=== PATIENT | male | born 1950 | race Caucasian/White ===

== ENCOUNTER → 2017-08-15 | Outpatient (CLI) | payer MEDICARE ==
--- NOTE | 2017-08-15 09:00 | US ---
EXAMINATION TYPE: US abdomen limited DATE OF EXAM: 08/15/2017 COMPARISON: NONE CLINICAL HISTORY: 67-year-old male K21.9 gastro-esophageal reflux disease. Intermittent epigastric pa in and couple months, reflux Technique: Multiple sonographic images of the right upper quadrant are obtained. FINDINGS: Outboard Motor Mechanic notes: Difficult and limited study due to patient body habitus Liver Length: 13.8 cm Gallbladder Wall: 0.2 cm CBD: 0.5 cm Right Kidney: 12.0 x 5.7 x 5.7 cm Pancreas: obscured by overlying midline bowel gas Liver: Very limited intercostal views. Gallbladder: visualized portions wnl, limited by rib shadowing and overlying bowel gas. No abnormal distention, wall thickening, pericholecystic fluid, or shadowing calculi seen. Evidence for sonographic Cain's sign: no CBD: visualized portions wnl, limited by overlying bowel gas Right Kidney: visualized portions wnl, limited by overlying bowel gas. No hydronephrosis. IMPRESSION: Limited study due to body habitus and prominent rib shadowing. Suboptimal assessment of the liver. No cholelithiasis, acute cholecystitis, or biliary ductal dilatation.
== END | disposition home or self-care (01) ==
LOC: RADUSWWP 08:18
PROVIDERS: ATTEND Family Medicine
DX: K21.9 Gastro-esophageal reflux disease without esophagitis (principal); R10.816 Epigastric abdominal tenderness
CPT/HCPCS: 76705

== ENCOUNTER → 2018-05-17 | Outpatient (CLI) | payer MEDICARE ==
--- NOTE | 2018-05-18 07:16 | NM ---
EXAMINATION TYPE: NM DatScan Brain SPECT DATE OF EXAM: 05/17/2018 COMPARISON: NONE HISTORY: Essential tremor TECHNIQUE: 10 drops of Lugol's solution was administered 1 hour prior to injection as a thyroid bloc jamey agent. After the administration of 4.06 mCi I-123 Ioflupane DaTscan. Images obtained 3 hours p ost injection. SPECT images of the brain were acquired with axial and coronal reconstructions. FINDINGS: Quantification demonstrates significant bilateral reduction in the uptake in both the putamen and cau date overall symmetrically. This indicates global reduction of presynaptic dopaminergic nerve terminals (described as balanced lo ss or ?weak commas?), rather than the typical preferential reduction in the putamen. Visually, this is supported by a higher background appearance in this patient. 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
== END | disposition home or self-care (01) ==
LOC: RADNMMAIN 10:44
DX: G25.0 Essential tremor (principal)
CPT/HCPCS: 78607; A9584

== ENCOUNTER 2018-07-23 10:13 | Inpatient (IN) | payer MEDICARE ==
[2018-07-23] MEDS ORDERED: MORPHINE SULFATE 4 MG/ML SYRINGE IV STA (10:58)
[2018-07-23] MEDS ORDERED: ONDANSETRON 4 MG/2 ML VIAL IVP STA (10:58)
[2018-07-23] MEDS ORDERED: PANTOPRAZOLE 40 MG/10 ML VIAL IVP STA (10:58)
[2018-07-23] MEDS ORDERED: SODIUM CHLORIDE 0.9% 1,000 ML IV STA ×2 (10:58)
[2018-07-23] MEDS ORDERED: MAG HYDROX/AL HYDROX/SIMETH 30 ML, HYOSCYAMINE ELIXIR 10 ML, CIMETIDINE HCL 300 MG, LID... PO STA ×4 (10:59)
--- NOTE | 2018-07-23 11:04 | ED ---
Abdominal Pain HPI - General Chief Complaint: Abdominal Pain Stated Complaint: poss hernia Time Seen by Provider: 07/23/18 10:38 Source: patient, RN notes reviewed, old records reviewed Mode of arrival: ambulatory - History of Present Illness Initial Comments: Patient is a 68-year-old male presents today with severe epigastric abdominal pain. Patient reports that his symptoms have been off and on for the past 2 days. He reports it seems to be related to after drinking binge a few days ago. Patient states he took [place] yesterday and was comfortable. Today after drinking coffee if symptoms return. She reports that he is a daily drinker. - Related Data Home Medications Medication Instructions Recorded Confirmed Primidone [Mysoline] 50 mg PO HS 07/23/18 07/23/18 buPROPion HCL [Wellbutrin SR] 50 mg PO QAM 07/23/18 07/23/18 Allergies Allergy/AdvReac Type Severity Reaction Status Date / Time No Known Allergies Allergy Verified 07/23/18 11:27 Review of Systems ROS Statement: Those systems with pertinent positive or pertinent negative responses have been documented in the HPI. ROS Other: All systems not noted in ROS Statement are negative. Past Medical History Past Medical History: GERD/Reflux, Hypertension History of Any Multi-Drug Resistant Organisms: None Reported Past Surgical History: No Surgical Hx Reported Past Psychological History: No Psychological Hx Reported Smoking Status: Former smoker Past Alcohol Use History: Daily Past Drug Use History: None Reported General Exam - General Exam Comments Initial Comments: 68-year-old male. Alert and oriented. Patient appears in moderate discomfort. General appearance: alert, in no apparent distress Head exam: Present: atraumatic, normocephalic, normal inspection Eye exam: Present: normal appearance, PERRL, EOMI. Absent: scleral icterus, conjunctival injection, periorbital swelling ENT exam: Present: normal exam, mucous membranes moist Neck exam: Present: normal inspection. Absent: tenderness, meningismus, lymphadenopathy Respiratory exam: Present: normal lung sounds bilaterally. Absent: respiratory distress, wheezes, rales, rhonchi, stridor Cardiovascular Exam: Present: regular rate, normal rhythm, normal heart sounds. Absent: systolic murmur, diastolic murmur, rubs, gallop, clicks GI/Abdominal exam: Present: soft, tenderness (Epigastric tenderness.), normal bowel sounds. Absent: distended, guarding, rebound, rigid Extremities exam: Present: normal inspection, full ROM, normal capillary refill. Absent: tenderness, pedal edema, joint swelling, calf tenderness Back exam: Present: normal inspection Neurological exam: Present: alert, oriented X3, CN II-XII intact Psychiatric exam: Present: normal affect, normal mood Course Vital Signs 07/23/18 07/23/18 07/23/18 10:14 11:30 12:30 Temperature 97.9 F Pulse Rate 98 100 102 H Respiratory 22 22 22 Rate Blood Pressure 183/112 200/120 182/110 O2 Sat by Pulse 96 95 95 Oximetry 07/23/18 12:53 Temperature Pulse Rate 95 Respiratory 18 Rate Blood Pressure 167/103 O2 Sat by Pulse 98 Oximetry - Reevaluation(s) Reevaluation #1: 07/23/18 13:06 Multiple re-evaluations and pain medication Patient continues to complain of severe epigastric pain. CT abdomen and pelvis will be completed. Medical Decision Making - Medical Decision Making Patient is a 68-year-old male presents today with acute epigastric abdominal pain. Nurses concern for pain related to his hiatal hernia. Patient is given multiple IV medications with little relief of pain and did not have any improvement after GI cocktail. Patient labwork was reviewed. White blood cell count is 12,000. Liver enzymes are normal. Bilirubin was 2.0. Patient eventually went underwent CT abdomen and pelvis. There is evidence of cholecystitis with air surrounding the gallbladder wall. Patient was initiated on Zosyn and blood cultures and lactic acid was obtained at that time. While in emergency department he has been and significant pain but is still laughing and joking. Patient was given another dose of Dilaudid. Patient's case discussed with Dr. Green who discussed the case with Dr. Wilburn. [place] the Patient remaining nothing by mouth. Likely surgery in the morning. - Lab Data Result diagrams: 07/23/18 11:07 07/23/18 11:07 Lab Results 07/23/18 07/23/18 07/23/18 Range/Units 11:07 11:07 11:07 WBC 12.7 H (3.8-10.6) k/uL RBC 5.61 (4.30-5.90) m/uL Hgb 17.8 H (13.0-17.5) gm/dL Hct 51.2 (39.0-53.0) % MCV 91.2 (80.0-100.0) fL MCH 31.7 (25.0-35.0) pg MCHC 34.8 (31.0-37.0) g/dL RDW 12.9 (11.5-15.5) % Plt Count 134 L (150-450) k/uL Neutrophils % 85 % Lymphocytes % 7 % Monocytes % 6 % Eosinophils % 0 % Basophils % 0 % Neutrophils # 10.8 H (1.3-7.7) k/uL Lymphocytes # 0.9 L (1.0-4.8) k/uL Monocytes # 0.8 (0-1.0) k/uL Eosinophils # 0.1 (0-0.7) k/uL Basophils # 0.1 (0-0.2) k/uL PT 10.1 (9.0-12.0) sec INR 0.9 (<1.2) APTT 24.2 (22.0-30.0) sec Sodium 136 L (137-145) mmol/L Potassium 4.2 (3.5-5.1) mmol/L Chloride 102 (98-107) mmol/L Carbon Dioxide 22 (22-30) mmol/L Anion Gap 12 mmol/L BUN 11 (9-20) mg/dL Creatinine 0.80 (0.66-1.25) mg/dL Est GFR (CKD-EPI)AfAm >90 (>60 ml/min/1.73 sqM) Est GFR (CKD-EPI)NonAf >90 (>60 ml/min/1.73 sqM) Glucose 148 H (74-99) mg/dL Calcium 9.3 (8.4-10.2) mg/dL Total Bilirubin 2.0 H (0.2-1.3) mg/dL AST 35 (17-59) U/L ALT 67 (21-72) U/L Alkaline Phosphatase 74 (38-126) U/L Troponin I (0.000-0.034) ng/mL Total Protein 7.5 (6.3-8.2) g/dL Albumin 4.4 (3.5-5.0) g/dL Amylase 61 (30-110) U/L Lipase 100 (23-300) U/L 07/23/18 Range/Units 11:07 WBC (3.8-10.6) k/uL RBC (4.30-5.90) m/uL Hgb (13.0-17.5) gm/dL Hct (39.0-53.0) % MCV (80.0-100.0) fL MCH (25.0-35.0) pg MCHC (31.0-37.0) g/dL RDW (11.5-15.5) % Plt Count (150-450) k/uL Neutrophils % % Lymphocytes % % Monocytes % % Eosinophils % % Basophils % % Neutrophils # (1.3-7.7) k/uL Lymphocytes # (1.0-4.8) k/uL Monocytes # (0-1.0) k/uL Eosinophils # (0-0.7) k/uL Basophils # (0-0.2) k/uL PT (9.0-12.0) sec INR (<1.2) APTT (22.0-30.0) sec Sodium (137-145) mmol/L Potassium (3.5-5.1) mmol/L Chloride (98-107) mmol/L Carbon Dioxide (22-30) mmol/L Anion Gap mmol/L BUN (9-20) mg/dL Creatinine (0.66-1.25) mg/dL Est GFR (CKD-EPI)AfAm (>60 ml/min/1.73 sqM) Est GFR (CKD-EPI)NonAf (>60 ml/min/1.73 sqM) Glucose (74-99) mg/dL Calcium (8.4-10.2) mg/dL Total Bilirubin (0.2-1.3) mg/dL AST (17-59) U/L ALT (21-72) U/L Alkaline Phosphatase (38-126) U/L Troponin I <0.012 (0.000-0.034) ng/mL Total Protein (6.3-8.2) g/dL Albumin (3.5-5.0) g/dL Amylase (30-110) U/L Lipase (23-300) U/L 07/23/18 14:46 EKG performed at 1247 shows normal sinus rhythm RSR with QR pattern in V1 just right ventricular conduction delay. Voltage criteria for LVH. Nonspecific ST abnormality. Abnormal EKG noted. Ventricular rate of 90 bpm. ME interval is 180 ms. She buddhism 90 ms. QT QTc is 366/447 ms. - Radiology Data Radiology results: report reviewed KUB shows some air fluid levels in the right side of the colon and transverse colon suggesting liquid stool which could reflect enteritis or ileus. No evidence of perforation or free air. Findings compatible with emphysema cholecystitis with air seen in the gallbladder wall intraluminal within the gallbladder. No intrahepatic pneumobilia. Findings were communicated to me at 1355. Age indeterminate compression deformity of the T11 vertebral body. Correlate with point tenderness. Evidence of pulmonary fibrosis. Disposition Clinical Impression: Cholecystitis Disposition: ADMITTED IP TO THIS HOSP Condition: Stable Is patient prescribed a controlled substance at d/c from ED?: No Referrals: [facility],Clinic [Primary Care Provider] - 1-2 days Time of Disposition: 14:50
[2018-07-23] MEDS ORDERED: HYDROmorphone 1 MG/ML 1 ML SYRINGE IVP STA ×2 (11:52→14:37)
[2018-07-23 11:53] LABS: ALT 67 U/L (21-72); AST 35 U/L (17-59); Albumin 4.4 g/dL (3.5-5.0); Alkaline Phosphatase 74 U/L (38-126); Amylase 61 U/L (30-110); Anion Gap 12 mmol/L; Blood Urea Nitrogen 11 mg/dL (9-20); Calcium 9.3 mg/dL (8.4-10.2); Carbon Dioxide 22 mmol/L (22-30); Chloride 102 mmol/L (98-107); Glucose 148 mg/dL (74-99); Lipase 100 U/L (23-300); Potassium 4.2 mmol/L (3.5-5.1); Sodium 136 mmol/L (137-145); Total Protein 7.5 g/dL (6.3-8.2)
--- NOTE | 2018-07-23 11:54 | XR ---
EXAMINATION TYPE: XR KUB DATE OF EXAM: 07/23/2018 CLINICAL DATA: 68-year-old male with upper abdominal pain, PHH COMPARISON: None FINDINGS: Lung bases are clear. No evidence for free intraperitoneal air. No dilated small bowel. Some air fluid levels are noted in the right side of the colon and transverse colon. No significant stool burden seen. No suspicious calcifications identified. IMPRESSION: 1. Some air-fluid levels in the right side of the colon and transverse colon suggest liquid stool marko t could reflect enteritis or ileus. 2.No evidence of bowel obstruction or free intraperitoneal air.
[2018-07-23 12:01] LABS: INR 0.9 (<1.2); Partial Thromboplastin Time 24.2 sec (22.0-30.0); Prothrombin Time 10.1 sec (9.0-12.0)
[2018-07-23 12:06] LABS: Basophils # (A) 0.1 k/uL (0-0.2); Basophils % (A) 0 %; Eosinophils # (A) 0.1 k/uL (0-0.7); Eosinophils % (A) 0 %; HCT 51.2 % (39.0-53.0); HGB 17.8 gm/dL (13.0-17.5); Lymphocytes # (A) 0.9 k/uL (1.0-4.8); Lymphocytes % (A) 7 %; MCH 31.7 pg (25.0-35.0); MCHC 34.8 g/dL (31.0-37.0); MCV 91.2 fL (80.0-100.0); Mean Platelet Volume 8.3; Monocytes # (A) 0.8 k/uL (0-1.0); Monocytes % (A) 6 %; Neutrophils # (A) 10.8 k/uL (1.3-7.7); Neutrophils % (A) 85 %; Platelet Count 134 k/uL (150-450); RBC 5.61 m/uL (4.30-5.90); RDW 12.9 % (11.5-15.5); WBC 12.7 k/uL (3.8-10.6)
[2018-07-23] MEDS ORDERED: NITROGLYCERIN SL TABS 0.4 MG TAB SUBLINGUAL STA (12:33)
[2018-07-23] MEDS ORDERED: PIPERACILLIN-TAZOBACTAM 3.375 GM in SODIUM CHLORIDE 0.9% 100 ML IVPB STA (13:58)
--- NOTE | 2018-07-23 14:02 | CT ---
EXAMINATION TYPE: CT abdomen pelvis w con DATE OF EXAM: 07/23/2018 COMPARISON: None HISTORY: Epigastric pain CT DLP: 1418.5 mGycm Automated exposure control for dose reduction was used. TECHNIQUE: Helical acquisition of images was performed from the lung bases through the pelvis. CONTRAST: Performed without Oral Contrast and with IV Contrast, patient injected with 100 mL of Isovue 300. FINDINGS: LUNG BASES: Peripheral predominant reticular opacity seen throughout the lung bases with early develo pment of honeycombing medially at the right lung base is seen representing pulmonary fibrosis. Very m ild cylindrical bronchiectasis is seen of the medial right lung base. Small hiatal hernia is present. LIVER/GB: Air is seen within the gallbladder. Additionally there are numerous foci of nondependent ai r within the gallbladder wall marked on the coronal images. Mild right upper quadrant fat stranding i s seen. Findings are most compatible with emphysematous cholecystitis. PANCREAS: No significant abnormality is seen. SPLEEN: No significant abnormality is seen. ADRENALS: No significant abnormality is seen. KIDNEYS: Kidneys excrete symmetrically without hydronephrosis. FREE AIR: No free air is visualized. REPRODUCTIVE ORGANS: Prostate gland is enlarged and heterogenous measuring 5.5 cm in transverse dimen tata. URINARY BLADDER: No significant abnormality is seen. ADENOPATHY: No greater than 1 cm short axis lymph nodes are seen in the abdomen or pelvis. OSSEOUS STRUCTURES: Mild multilevel degenerative changes of the spine are seen and mild to moderate bilateral femoral acetabular arthropathy. There is a compression deformity of the T11 vertebral body that is age indeterminant with height loss of approximately 50%. Bridging the spinous processes at th is level is seen. BOWEL: There are scattered colonic diverticula without pericolonic fat stranding. No dilated large o r small bowel. OTHER: Moderate atherosclerosis is seen of the abdominal aorta and its branches. IMPRESSION: 1. FINDINGS COMPATIBLE WITH EMPHYSEMATOUS CHOLECYSTITIS WITH AIR SEEN IN THE GALLBLADDER WALL AND INT RALUMINAL WITHIN THE GALLBLADDER. NO INTRAHEPATIC PNEUMOBILIA. FINDINGS WERE COMMUNICATED WITH THE OR DERING PROVIDER AND APPROXIMATELY 1355 ON 07/23/[address] BLISS. 2. AGE INDETERMINANT COMPRESSION DEFORMITY OF THE T11 VERTEBRAL BODY. CORRELATE WITH POINT TENDERNESS . 3. PULMONARY FIBROSIS.
[2018-07-23] MEDS ORDERED: SODIUM CHLORIDE 0.9% 2,000 ML IV ONE (14:26)
[2018-07-23] MEDS ORDERED: IBUPROFEN 400 MG TAB PO PRN (14:51)
[2018-07-23] MEDS ORDERED: ACETAMINOPHEN TAB 325 MG TAB PO PRN (14:51)
[2018-07-23] MEDS ORDERED: ONDANSETRON 4 MG/2 ML VIAL IVP PRN (14:51)
[2018-07-23] MEDS ORDERED: HYDROmorphone 1 MG/ML 1 ML SYRINGE IVP PRN (14:51)
[2018-07-23] MEDS ORDERED: NALOXONE 0.4 MG/ML 1 ML VIAL IV PRN (14:51)
--- NOTE | 2018-07-23 15:14 | P.GSHP ---
<Nyasia Metz A - Last Filed: 07/23/18 15:13> History of Present Illness H&P Date: 07/23/18 Chief Complaint: abdominal pain CHIEF COMPLAINT: Abdominal pain HISTORY OF PRESENT ILLNESS: 68 year old male who presented to the ER with a chief complaint of abdominal pain. Patient reports pain has been present for 2 days. He reports daily alcohol use and initially attributed his symptoms to his alcohol use. He reports after drinking coffee this morning he symptoms came back and he came to the ER for further evaluation. He denies nausea or vomiting. Denies constipation or diarrhea. Denies fever or chills. PAST MEDICAL HISTORY: See list. PAST SURGICAL HISTORY: See list. SOCIAL HISTORY: No illicit drug use. Daily alcohol use. REVIEW OF SYSTEMS: CONSTITUTIONAL: Denies fever or chills. HEENT: Denies blurred vision, vision changes, or eye pain. Denies hemoptysis CARDIOVASCULAR: Denies chest pain or pressure. RESPIRATORY: No shortness of breath. GASTROINTESTINAL: Refer to HPI for pertinent findings HEMATOLOGIC: Denies bleeding disorders. GENITOURINARY: Denies any blood in urine. SKIN: Denies pruitis. Denies rash. PHYSICAL EXAM: VITAL SIGNS: Reviewed. GENERAL: Well-developed in no acute distress. HEENT: No sclera icterus. Extraocular movements grossly intact. Moist buccal mucosa. Head is atraumatic, normocephalic. ABDOMEN: Soft. Nondistended. tenderness upon palpation of right upper quadrant and epigastric region. NEUROLOGIC: Alert and oriented. Cranial nerves II through XII grossly intact. IMAGING: CT abdomen and pelvis: Air seen within the gallbladder. Additionally there are numerous foci of nondependent air within the gallbladder wall marked cornal images. mild right upper quadrant fat stranding is seen. Findings are most compatible with emphysematous cholecystitis ASSESSMENT: 1. Abdominal pain 2. Emphysematous cholecystitis PLAN: 1. NPO 2. IV fluids 3. Patient will undergo laparoscopic cholecystectomy tomorrow with Dr. Sykes Nurse practitioner note has been reviewed by physician. Signing provider agrees with the documented findings, assessment, and plan of care. Past Medical History Past Medical History: GERD/Reflux, Hypertension History of Any Multi-Drug Resistant Organisms: None Reported Past Surgical History: No Surgical Hx Reported Past Psychological History: No Psychological Hx Reported Smoking Status: Former smoker Past Alcohol Use History: Daily Past Drug Use History: None Reported Medications and Allergies Home Medications Medication Instructions Recorded Confirmed Type Primidone [Mysoline] 50 mg PO HS 07/23/18 07/23/18 History buPROPion HCL [Wellbutrin SR] 50 mg PO QAM 07/23/18 07/23/18 History Allergies Allergy/AdvReac Type Severity Reaction Status Date / Time No Known Allergies Allergy Verified 07/24/18 10:01 Surgical - Exam Vital Signs Temp Pulse Resp BP Pulse Ox 97.9 F 98 22 183/112 96 07/23/18 10:14 07/23/18 10:14 07/23/18 10:14 07/23/18 10:14 07/23/18 10:14 Results - Labs 07/23/18 11:07 07/23/18 11:07 Abnormal Lab Results - Last 24 Hours (Table) 07/23/18 07/23/18 Range/Units 11:07 11:07 WBC 12.7 H (3.8-10.6) k/uL Hgb 17.8 H (13.0-17.5) gm/dL Plt Count 134 L (150-450) k/uL Neutrophils # 10.8 H (1.3-7.7) k/uL Lymphocytes # 0.9 L (1.0-4.8) k/uL Sodium 136 L (137-145) mmol/L Glucose 148 H (74-99) mg/dL Total Bilirubin 2.0 H (0.2-1.3) mg/dL Diabetes panel 07/23/18 Range/Units 11:07 Sodium 136 L (137-145) mmol/L Potassium 4.2 (3.5-5.1) mmol/L Chloride 102 (98-107) mmol/L Carbon Dioxide 22 (22-30) mmol/L BUN 11 (9-20) mg/dL Creatinine 0.80 (0.66-1.25) mg/dL Glucose 148 H (74-99) mg/dL Calcium 9.3 (8.4-10.2) mg/dL AST 35 (17-59) U/L ALT 67 (21-72) U/L Alkaline Phosphatase 74 (38-126) U/L Total Protein 7.5 (6.3-8.2) g/dL Albumin 4.4 (3.5-5.0) g/dL Calcium panel 07/23/18 Range/Units 11:07 Calcium 9.3 (8.4-10.2) mg/dL Albumin 4.4 (3.5-5.0) g/dL Pituitary panel 07/23/18 Range/Units 11:07 Sodium 136 L (137-145) mmol/L Potassium 4.2 (3.5-5.1) mmol/L Chloride 102 (98-107) mmol/L Carbon Dioxide 22 (22-30) mmol/L BUN 11 (9-20) mg/dL Creatinine 0.80 (0.66-1.25) mg/dL Glucose 148 H (74-99) mg/dL Calcium 9.3 (8.4-10.2) mg/dL Adrenal panel 07/23/18 Range/Units 11:07 Sodium 136 L (137-145) mmol/L Potassium 4.2 (3.5-5.1) mmol/L Chloride 102 (98-107) mmol/L Carbon Dioxide 22 (22-30) mmol/L BUN 11 (9-20) mg/dL Creatinine 0.80 (0.66-1.25) mg/dL Glucose 148 H (74-99) mg/dL Calcium 9.3 (8.4-10.2) mg/dL Total Bilirubin 2.0 H (0.2-1.3) mg/dL AST 35 (17-59) U/L ALT 67 (21-72) U/L Alkaline Phosphatase 74 (38-126) U/L Total Protein 7.5 (6.3-8.2) g/dL Albumin 4.4 (3.5-5.0) g/dL <Dominic Sykes - Last Filed: 07/24/18 10:14> Surgical - Exam Vital Signs Temp Pulse Resp BP Pulse Ox 97.9 F 98 22 183/112 96 07/23/18 10:14 07/23/18 10:14 07/23/18 10:14 07/23/18 10:14 07/23/18 10:14 Results - Labs 07/24/18 08:00 07/24/18 08:00 Abnormal Lab Results - Last 24 Hours (Table) 07/23/18 07/23/18 07/24/18 Range/Units 11:07 11:07 08:00 WBC 12.7 H 15.6 H (3.8-10.6) k/uL Hgb 17.8 H (13.0-17.5) gm/dL Plt Count 134 L 113 L (150-450) k/uL Neutrophils # 10.8 H 14.4 H (1.3-7.7) k/uL Lymphocytes # 0.9 L 0.6 L (1.0-4.8) k/uL Sodium 136 L (137-145) mmol/L Glucose 148 H (74-99) mg/dL Calcium (8.4-10.2) mg/dL Total Bilirubin 2.0 H (0.2-1.3) mg/dL AST (17-59) U/L Total Protein (6.3-8.2) g/dL Albumin (3.5-5.0) g/dL 07/24/18 Range/Units 08:00 WBC (3.8-10.6) k/uL Hgb (13.0-17.5) gm/dL Plt Count (150-450) k/uL Neutrophils # (1.3-7.7) k/uL Lymphocytes # (1.0-4.8) k/uL Sodium (137-145) mmol/L Glucose 129 H (74-99) mg/dL Calcium 8.0 L (8.4-10.2) mg/dL Total Bilirubin 3.3 H (0.2-1.3) mg/dL AST 61 H (17-59) U/L Total Protein 5.9 L (6.3-8.2) g/dL Albumin 3.3 L (3.5-5.0) g/dL Diabetes panel 07/23/18 07/24/18 Range/Units 11:07 08:00 Sodium 136 L 139 (137-145) mmol/L Potassium 4.2 3.9 (3.5-5.1) mmol/L Chloride 102 107 (98-107) mmol/L Carbon Dioxide 22 24 (22-30) mmol/L BUN 11 13 (9-20) mg/dL Creatinine 0.80 1.10 (0.66-1.25) mg/dL Glucose 148 H 129 H (74-99) mg/dL Calcium 9.3 8.0 L (8.4-10.2) mg/dL AST 35 61 H (17-59) U/L ALT 67 63 (21-72) U/L Alkaline Phosphatase 74 59 (38-126) U/L Total Protein 7.5 5.9 L (6.3-8.2) g/dL Albumin 4.4 3.3 L (3.5-5.0) g/dL Calcium panel 07/23/18 07/24/18 Range/Units 11:07 08:00 Calcium 9.3 8.0 L (8.4-10.2) mg/dL Albumin 4.4 3.3 L (3.5-5.0) g/dL Pituitary panel 07/23/18 07/24/18 Range/Units 11:07 08:00 Sodium 136 L 139 (137-145) mmol/L Potassium 4.2 3.9 (3.5-5.1) mmol/L Chloride 102 107 (98-107) mmol/L Carbon Dioxide 22 24 (22-30) mmol/L BUN 11 13 (9-20) mg/dL Creatinine 0.80 1.10 (0.66-1.25) mg/dL Glucose 148 H 129 H (74-99) mg/dL Calcium 9.3 8.0 L (8.4-10.2) mg/dL Adrenal panel 07/23/18 07/24/18 Range/Units 11:07 08:00 Sodium 136 L 139 (137-145) mmol/L Potassium 4.2 3.9 (3.5-5.1) mmol/L Chloride 102 107 (98-107) mmol/L Carbon Dioxide 22 24 (22-30) mmol/L BUN 11 13 (9-20) mg/dL Creatinine 0.80 1.10 (0.66-1.25) mg/dL Glucose 148 H 129 H (74-99) mg/dL Calcium 9.3 8.0 L (8.4-10.2) mg/dL Total Bilirubin 2.0 H 3.3 H (0.2-1.3) mg/dL AST 35 61 H (17-59) U/L ALT 67 63 (21-72) U/L Alkaline Phosphatase 74 59 (38-126) U/L Total Protein 7.5 5.9 L (6.3-8.2) g/dL Albumin 4.4 3.3 L (3.5-5.0) g/dL Assessment and Plan Assessment: Acute cholecystitis. Patient will undergo laparoscopic cholecystectomy in the a.m.
[2018-07-23] MEDS ORDERED: LABETALOL 200 MG TAB PO STA (16:10)
[2018-07-23] MEDS: SODIUM CHLORIDE 0.9% 1,000 ML IV SCH (16:38)
[2018-07-23] MEDS: HEPARIN SODIUM,PORCINE 5,000 UNIT/ML 1 ML VIAL SQ SCH (16:38)
[2018-07-23] MEDS: HYDROmorphone 1 MG/ML 1 ML SYRINGE IVP PRN ×3 (17:36→22:27)
[2018-07-23] MEDS: PIPERACILLIN-TAZOBACTAM 3.375 GM in SODIUM CHLORIDE 0.9% 100 ML IVPB SCH ×2 (20:28→22:05)
[2018-07-23] MEDS ORDERED: HYDROmorphone 0.5 MG/0.5 ML SYRINGE IVP PRN (20:37)
[2018-07-23] MEDS ORDERED: MORPHINE SULFATE 4 MG/ML SYRINGE IV PRN (20:37)
[2018-07-23] MEDS ORDERED: LACTATED RINGERS 1,000 ML IV SCH (20:45)
[2018-07-24] MEDS: HYDROmorphone 1 MG/ML 1 ML SYRINGE IVP PRN ×9 (00:31→22:15)
[2018-07-24] MEDS: HEPARIN SODIUM,PORCINE 5,000 UNIT/ML 1 ML VIAL SQ SCH ×4 (00:31→23:29)
[2018-07-24] MEDS: SODIUM CHLORIDE 0.9% 1,000 ML IV SCH ×2 (02:04→13:15)
[2018-07-24] MEDS: PIPERACILLIN-TAZOBACTAM 3.375 GM in SODIUM CHLORIDE 0.9% 100 ML IVPB SCH ×3 (04:19→19:39)
[2018-07-24] MEDS: PANTOPRAZOLE 40 MG/10 ML VIAL IVP SCH (08:16)
[2018-07-24 08:49] LABS: Basophils % (A) 0 %; Eosinophils % (A) 0 %; HCT 45.1 % (39.0-53.0); Lymphocytes # (A) 0.6 k/uL (1.0-4.8); Lymphocytes % (A) 4 %; MCH 31.6 pg (25.0-35.0); MCHC 33.4 g/dL (31.0-37.0); MCV 94.7 fL (80.0-100.0); Mean Platelet Volume 7.3; Monocytes # (A) 0.5 k/uL (0-1.0); Monocytes % (A) 3 %; Neutrophils # (A) 14.4 k/uL (1.3-7.7); Neutrophils % (A) 93 %; Platelet Count 113 k/uL (150-450); RBC 4.76 m/uL (4.30-5.90); RDW 13.2 % (11.5-15.5); WBC 15.6 k/uL (3.8-10.6)
[2018-07-24 09:14] LABS: Albumin 3.3 g/dL (3.5-5.0); Potassium 3.9 mmol/L (3.5-5.1); Total Bilirubin 3.3 mg/dL (0.2-1.3); Total Protein 5.9 g/dL (6.3-8.2)
[2018-07-24] MEDS ORDERED: IV FLUID CONTINUATION 200 ML IV ONE (09:49)
--- NOTE | 2018-07-24 10:13 | P.PN ---
Progress Note - Text Progress Note Date: 07/24/18 The patient states she's had a six-month history of right upper quadrant pain. He states his pain is a 10 out of 10 today. I had a lengthy discussion with the patient and his that I'm concerned that he may need an open cholecystectomy due to severe chronic on acute cholecystitis.
[2018-07-24] MEDS ORDERED: LIDOCAINE 1% 20 ML VIAL (10MG/ML) FOR IV START INTRADERMA ONE (10:15)
[2018-07-24] MEDS ORDERED: HEPARIN SODIUM,PORCINE 5,000 UNIT/ML 1 ML VIAL SQ ONE (10:15)
[2018-07-24] MEDS ORDERED: DEXAMETHASONE SOD PHOSPHATE 10 MG/ML 1 ML VIAL IV ONE (10:15)
[2018-07-24] MEDS ORDERED: LACTATED RINGERS 1,000 ML IV ONE (10:15)
[2018-07-24] MEDS ORDERED: ONDANSETRON 4 MG/2 ML VIAL IVP ONE (10:15)
[2018-07-24] MEDS ORDERED: GLYCOPYRROLATE 0.2 MG/ML 2 ML VIAL ONE (10:27)
[2018-07-24] MEDS ORDERED: ROCURONIUM BROMIDE 10 MG/ML 10 ML VIAL IV ONE (10:27)
[2018-07-24] MEDS ORDERED: MIDAZOLAM 2 MG/2 ML VIAL ONE (10:27)
[2018-07-24] MEDS ORDERED: fentaNYL (PF) 50 MCG/ML 2 ML AMP ONE (10:27)
[2018-07-24] MEDS ORDERED: ACETAMINOPHEN IV (For NPO) 1,000 MG/100 ML VIAL ONE (10:27)
[2018-07-24] MEDS ORDERED: LIDOCAINE 1% INJ 10MG/ML (20 ML MDV) ONE (10:27)
[2018-07-24] MEDS ORDERED: SUCCINYLCHOLINE CHLORIDE 100 MG/5 ML SYR IV ONE (10:27)
[2018-07-24] MEDS ORDERED: PROPOFOL 10 MG/ML 20 ML VIAL IV ONE (10:27)
[2018-07-24] MEDS ORDERED: NEOSTIGMINE 1 MG/ML 10 ML VIAL ONE (10:27)
[2018-07-24] MEDS ORDERED: ePHEDrine SULFATE/0.9% NACL/PF 50 MG/5 ML SYRINGE IV ONE (10:27)
[2018-07-24] MEDS ORDERED: BUPIVACAINE-EPI 0.5%-1:200,000 10 ML VIAL SQ ONE (11:09)
--- NOTE | 2018-07-24 11:36 | P.OP ---
Date of Procedure: 07/24/18 Preoperative Diagnosis: Cholecystitis Postoperative Diagnosis: Acute gangrenous cholecystitis Procedure(s) Performed: Laparoscopic cholecystectomy Anesthesia: MARY Surgeon: Dominic Sykes Estimated Blood Loss (ml): 50 Pathology: other (Gallbladder) Condition: stable Disposition: PACU Description of Procedure: The patient was placed on the operating table. The patient received a general endotracheal tube anesthesia. The patients abdomen was prepped and draped in the usual sterile fashion. Through an infraumbilical stab incision, the fascia of the anterior abdominal wall was grasped with a pair of Kochers and then the Veress needle was placed in the peritoneal cavity. Position of the Veress needle was confirmed with positive drop test. The abdomen was then insufflated. After adequate insufflation, the 10 mm trocar was placed in the peritoneal cavity. Following this the laparoscope was placed in the peritoneal cavity. The patient was placed in the head-up, right side up position and then a 5 mm trocar was placed in the right lateral and right subcostal position under direct visualization. A 8 mm trocar was placed in the epigastric position. The gallbladder appeared to be necrotic. The gallbladder is quite distended. Using the Harmonic scissors and opening was made in the gallbladder and the gallbladder was aspirated. The gallbladder was grasped in the fundus and infundibulum. Traction on the gallbladder was placed in the lateral and the cephalad positions. The triangle of Calot was visualized.. The cystic duct was bluntly dissected until the union of the cystic duct and common bile duct was seen. The cystic duct was t hen ligated with 2-0 Ethibond suture and a timeout device. The cystic duct was then divided and sealed with the Harmonic scissors. A PDS Endoloop was then placed throughout the cystic duct stump. The cystic artery divided and sealed with the Harmonic scissors. The gallbladder was then removed from the liver bed using Harmonic scissors. The liver bed was very friable The gallbladder was then extracted through the epigastric port site. Operative field was checked for any bleeding spots and Harmonic scissors was used to coagulate the liver bed. A ROMERO drain was placed in the gallbladder fossa and brought out through the lateral 5 mm trocar site. The abdomen was irrigated. The trocars were removed. The skin was closed using interrupted 3-0 Vicryl suture. Dermabond dressing were applied. The patient tolerated the procedure well.
[2018-07-24] MEDS ORDERED: SODIUM CHLORIDE 0.9% 500 ML 500 ML IV ONE (15:13)
--- NOTE | 2018-07-24 15:25 | P.CONS ---
History of Present Illness - Reason for Consult Consult date: 07/23/18 Hypertension - Chief Complaint RUQ pain - History of Present Illness Patient is 68-year-old male with known history of Parkinson's disease, essential tremor, osteoarthritis and history of colonoscopy with polypectomy came to ER with complaints of abdominal pain for the past 2 days. Abdominal pain is mainly in the epigastric region and to the right side of the abdomen sometimes radiate to the back.Patient states he took Susana-[place] yesterday and was comfortable. Today after drinking coffee if symptoms return. She reports that he does drink on a daily basis. Patient's blood pressure was elevated on admission with SBP greater than 180 mmHg. Patient does not have any history of hypertension. Patient does have some chills. No fever. No chest pain. No shortness of breath. Does have nausea. No vomiting. No headache or dizziness or lightheadedness. No recent illnesses. No history of renal stones. KUB x-ray showed no dilated small bowel. Some air-fluid levels are noted in the right side of the colon and transverse colon.No significant stool board and is seen. CT abdomen pelvis with contrast showed findings compatible with emphysema mattress good cystitis with is seen in the gallbladder wall and intraluminal within the gallbladder. Age indeterminant compression deformity of the T11 vertebral body Pulmonary fibrosis Review of Systems Constitutional: Patient denies any fever or chills . No generalized weakness or weight loss. Abdomen: Abdominal pain. Nausea. No diarrhea.. Cardiovascular: Patient denies any chest pain or short of breath no palpitations. Respiratory: patient denied any cough is from production. No shortness of breath Neurologic: Patient denied any numbness or tingling headache. Musculoskeletal: Patient denies any complaints of joint swelling or deformity. Skin: Negative Psychiatric: Negative Endocrine: No heat or cold intolerance. No recent weight gain. Genitourinary: No dysuria or hematuria. All other 14 point ROS negative except the above Past Medical History Past Medical History: Musculoskeletal Disorder, Neurologic Disorder Additional Past Medical History / Comment(s): Parkinson's disease, essential tremors, headaches, arthritis bilateral hands, vertigo with heights, bronchitis. History of Any Multi-Drug Resistant Organisms: None Reported Past Surgical History: No Surgical Hx Reported Additional Past Surgical History / Comment(s): Colonoscopy with polypectomy Past Anesthesia/Blood Transfusion Reactions: No Reported Reaction Smoking Status: Never smoker - Past Family History Father Family Medical History: Cancer Additional Family Medical History / Comment(s): Father had a form of leukemia. Mother Family Medical History: Cancer Additional Family Medical History / Comment(s): Mother from sarcoma. Medications and Allergies Home Medications Medication Instructions Recorded Confirmed Type Primidone [Mysoline] 50 mg PO HS 07/23/18 07/23/18 History buPROPion HCL [Wellbutrin SR] 50 mg PO QAM 07/23/18 07/23/18 History Allergies Allergy/AdvReac Type Severity Reaction Status Date / Time No Known Allergies Allergy Verified 07/24/18 10:01 Physical Exam Vitals: Vital Signs Temp Pulse Pulse Resp BP BP Pulse Ox 07/23/18 21:25 99.6 F 93 17 109/61 96 07/23/18 20:05 77 24 97/59 94 L 07/23/18 17:29 114/74 07/23/18 15:41 98.4 F 129 H 22 186/123 94 L 07/23/18 15:03 98.8 F 113 H 18 182/109 93 L 07/23/18 12:53 95 18 167/103 98 07/23/18 12:30 102 H 22 182/110 95 07/23/18 11:30 100 22 200/120 95 07/23/18 10:14 97.9 F 98 22 183/112 96 Intake and Output 07/23/18 07/23/18 07/23/18 06:59 14:59 22:59 Output Total 300 Balance -300 Output: Urine 300 Other: Weight 112.037 kg PHYSICAL EXAMINATION: Patient is lying in the bed comfortably, no acute distress, awake alert and oriented.. HEENT: Normocephalic. Neck is supple. Pupils reactive. Nostrils clear. Oral cavity is moist. Ears reveal no drainage. Neck reveals no JVD, carotid bruits, or thyromegaly. CHEST EXAMINATION: Trachea is central. Symmetrical expansion. Lung john clear to auscultation and percussion. CARDIAC: Normal S1, S2 with no gallops. No murmurs ABDOMEN: Soft. Right upper quadrant tenderness. Mild epigastric tenderness. Bowel sounds normal. No organomegaly. No abdominal bruits. Extremities: reveal no edema. No clubbing or cyanosis Neurologically awake, alert, oriented x3 with well-coordinated movements. No focal deficits noted Skin: No rash or skin lesions. Psychiatric: Coperative. Nonsuicidal Musculoskeletal: No joint swelling or deformity. Normal range of motion. Results CBC & Chem 7: 07/24/18 08:00 07/24/18 08:00 Labs: Abnormal Lab Results - Last 24 Hours (Table) 07/23/18 07/23/18 Range/Units 11:07 11:07 WBC 12.7 H (3.8-10.6) k/uL Hgb 17.8 H (13.0-17.5) gm/dL Plt Count 134 L (150-450) k/uL Neutrophils # 10.8 H (1.3-7.7) k/uL Lymphocytes # 0.9 L (1.0-4.8) k/uL Sodium 136 L (137-145) mmol/L Glucose 148 H (74-99) mg/dL Total Bilirubin 2.0 H (0.2-1.3) mg/dL Assessment and Plan Assessment: Right upper quadrant abdominal pain with acute cholecystitis. Uncontrolled blood pressure likely due to pain. Alcohol use on a daily basis Parkinson's disease next line essential tremors Arthritis bilateral hands History of vertigo DVT prophylaxis plan: Patient will be given labetalol 200 mg 1. Continue to monitor blood pressure and if continues to high, we will add Norvasc 5 mg daily and titrate as needed. Continue with IV fluids and pain management. Gen. surgery is following and is scheduled for cholecystectomy. Further recommendations based on the clinical course.. Time with Patient: Greater than 30
[2018-07-24] MEDS: DOCUSATE 100 MG CAP PO SCH ×2 (20:56→20:59)
--- NOTE | 2018-07-24 23:18 | P.PN ---
Subjective Progress Note Date: 07/24/18 Principal diagnosis: Acute cholecystitis status post laparoscopic cholecystectomy Patient is 68-year-old male with known history of Parkinson's disease, essential tremor, osteoarthritis and history of colonoscopy with polypectomy came to ER with complaints of abdominal pain for the past 2 days. Abdominal pain is mainly in the epigastric region and to the right side of the abdomen sometimes radiate to the back.Patient states he took Susana-[place] yesterday and was comfortable. Today after drinking coffee if symptoms return. She reports that he does drink on a daily basis. Patient's blood pressure was elevated on admission with SBP greater than 180 mmHg. Patient does not have any history of hypertension. Patient does have some chills. No fever. No chest pain. No shortness of breath. Does have nausea. No vomiting. No headache or dizziness or lightheadedness. No recent illnesses. No history of renal stones. KUB x-ray showed no dilated small bowel. Some air-fluid levels are noted in the right side of the colon and transverse colon.No significant stool board and is seen. CT abdomen pelvis with contrast showed findings compatible with emphysema mattress good cystitis with is seen in the gallbladder wall and intraluminal within the gallbladder. Age indeterminant compression deformity of the T11 vertebral body Pulmonary fibrosis 07/24/2018 Patient status post laparoscopic cholecystectomy on 07/24/2018. Patient does have s some soreness at the surgical site. No complaints of chest pain or shortness of breath. Urine is darker red and was given fluid bolus and continued on IV fluids. Otherwise blood pressure is not elevated. Patient is not on any blood pressure medications currently. No fever no chills. Patient was also provided with stool softeners. No nausea no vomiting. Current medications reviewed. Objective - Vital Signs Vital signs: Vital Signs Temp 97.6 F 07/24/18 11:51 Pulse 92 07/24/18 12:32 Resp 16 07/24/18 12:32 BP 126/67 07/24/18 12:32 Pulse Ox 98 07/24/18 12:32 Intake & Output 07/23/18 07/24/18 07/24/18 18:59 06:59 18:59 Intake Total 350 1150 Output Total 300 1075 620 Balance -300 -725 530 Weight 112.037 kg Intake: IV 750 Intake, IV Titration 350 Amount Sodium Chloride 0.9% 1, 350 000 ml @ 100 mls/hr IV . Q10H [facility] Rx#:[id number] Oral 0 400 Output: Drainage 150 Right Abdomen 150 Urine 300 1075 420 Uretheral ([place]) 1025 Estimated Blood Loss 50 Other: Voiding Method Indwelling Catheter Indwelling Catheter - Exam PHYSICAL EXAMINATION: Patient is lying in the bed comfortably, no acute distress, awake alert and oriented.. HEENT: Normocephalic. Neck is supple. Pupils reactive. Nostrils clear. Oral cavity is moist. Ears reveal no drainage. Neck reveals no JVD, carotid bruits, or thyromegaly. CHEST EXAMINATION: Trachea is central. Symmetrical expansion. Lung john clear to auscultation and percussion. CARDIAC: Normal S1, S2 with no gallops. No murmurs ABDOMEN: Soft. Mild tenderness at the surgical site and drain tube in place. Bowel sounds diminished. No organomegaly. No abdominal bruits. Extremities: reveal no edema. No clubbing or cyanosis Neurologically awake, alert, oriented x3 with well-coordinated movements. No focal deficits noted Skin: No rash or skin lesions. Psychiatric: Coperative. Nonsuicidal Musculoskeletal: No joint swelling or deformity. Normal range of motion. - Labs CBC & Chem 7: 07/24/18 08:00 07/24/18 08:00 Labs: Abnormal Lab Results - Last 24 Hours (Table) 07/24/18 07/24/18 Range/Units 08:00 08:00 WBC 15.6 H (3.8-10.6) k/uL Plt Count 113 L (150-450) k/uL Neutrophils # 14.4 H (1.3-7.7) k/uL Lymphocytes # 0.6 L (1.0-4.8) k/uL Glucose 129 H (74-99) mg/dL Calcium 8.0 L (8.4-10.2) mg/dL Total Bilirubin 3.3 H (0.2-1.3) mg/dL AST 61 H (17-59) U/L Total Protein 5.9 L (6.3-8.2) g/dL Albumin 3.3 L (3.5-5.0) g/dL Assessment and Plan Assessment: Right upper quadrant abdominal pain with acute cholecystitis. Laparoscopic cholecystectomy on 07/24/2018. Controlled now. Uncontrolled blood pressure likely due to pain. Alcohol use on a daily basis Parkinson's disease next line essential tremors Arthritis bilateral hands History of vertigo DVT prophylaxis plan: Patient was given labetalol 200 mg 1. Blood pressure is not elevated this time . Continue to monitor blood pressure and if continues to high, we will add Norvasc 5 mg daily and titrate as needed. Continue with IV fluids and pain management and bowel regimen. Patient status post laparoscopic cholecystectomy. Encourage incentive spirometry. Further recommendations based on the clinical course.. Time with Patient: Greater than 30
[2018-07-25] MEDS: HYDROmorphone 1 MG/ML 1 ML SYRINGE IVP PRN ×3 (02:26→07:48)
[2018-07-25] MEDS: SODIUM CHLORIDE 0.9% 1,000 ML IV SCH ×2 (02:26→07:49)
[2018-07-25] MEDS: PIPERACILLIN-TAZOBACTAM 3.375 GM in SODIUM CHLORIDE 0.9% 100 ML IVPB SCH ×3 (04:09→20:20)
[2018-07-25] MEDS: HEPARIN SODIUM,PORCINE 5,000 UNIT/ML 1 ML VIAL SQ SCH ×3 (07:47→23:34)
[2018-07-25] MEDS: PANTOPRAZOLE 40 MG/10 ML VIAL IVP SCH (07:48)
[2018-07-25] MEDS: DOCUSATE 100 MG CAP PO SCH ×2 (07:48→20:20)
[2018-07-25 09:29] LABS: Basophils % (A) 0 %; Eosinophils # (A) 0.1 k/uL (0-0.7); Eosinophils % (A) 1 %; HCT 39.2 % (39.0-53.0); HGB 12.8 gm/dL (13.0-17.5); Lymphocytes # (A) 0.7 k/uL (1.0-4.8); Lymphocytes % (A) 5 %; MCH 31.6 pg (25.0-35.0); MCHC 32.6 g/dL (31.0-37.0); MCV 96.9 fL (80.0-100.0); Mean Platelet Volume 8.3; Monocytes # (A) 0.7 k/uL (0-1.0); Monocytes % (A) 5 %; Neutrophils # (A) 11.9 k/uL (1.3-7.7); Neutrophils % (A) 88 %; Platelet Count 143 k/uL (150-450); RBC 4.05 m/uL (4.30-5.90); RDW 13.4 % (11.5-15.5); WBC 13.4 k/uL (3.8-10.6)
--- NOTE | 2018-07-25 09:35 | XR ---
EXAMINATION TYPE: XR chest 2V DATE OF EXAM: 07/25/2018 COMPARISON: NONE HISTORY: Shortness of breath TECHNIQUE: Frontal and lateral views of the chest are obtained. FINDINGS: Scattered senescent parenchymal changes noted. Hyperinflation compatible with COPD. Increased density right medial lung base may reflect underlying infiltrate. Correlate clinically and progress studies until resolution are recommended. Mild elevation right hemidiaphragm. Heart size is stable. Mediastinal structures are stable and grossly unremarkable. No evidence for hilar prominence. Degenerative changes dorsal spine. IMPRESSION: 1. Increased density right medial lung base may reflect underlying infiltrate. Correlate clinically a nd progress studies until resolution are recommended. Mild elevation right hemidiaphragm.
[2018-07-25 10:05] LABS: Calcium 8.3 mg/dL (8.4-10.2); Potassium 4.3 mmol/L (3.5-5.1); Total Bilirubin 1.8 mg/dL (0.2-1.3); Total Protein 5.7 g/dL (6.3-8.2)
[2018-07-25] MEDS: KETOROLAC 30 MG/ML 1 ML VIAL IVP PRN ×2 (10:29→20:18)
[2018-07-25] MEDS ORDERED: HYDROcodone/APAP 7.5-325MG 1 EACH TAB PO PRN (11:23)
--- NOTE | 2018-07-25 12:22 | P.PN ---
Subjective Progress Note Date: 07/25/18 CHIEF COMPLAINT: Abdominal pain HISTORY OF PRESENT ILLNESS: Patient is status post laparoscopic cholecystectomy. Patient examined at the bedside. Patient states his pain is tolerable. He denies nausea or vomiting. Tolerating clear liquid diet. Ambulating in the hallway. PHYSICAL EXAM: VITAL SIGNS: Reviewed. GENERAL: Well-developed in no acute distress. HEENT: No sclera icterus. Extraocular movements grossly intact. Moist buccal mucosa. Head is atraumatic, normocephalic. ABDOMEN: Soft. Nondistended. ROMERO drain with serosanguineous drainage NEUROLOGIC: Alert and oriented. Cranial nerves II through XII grossly intact. ASSESSMENT: 1. Abdominal pain 2. Emphysematous cholecystitis, status post laparoscopic cholecystectomy PLAN: 1. Advance diet to regular 2. Pain control 3. Activity as tolerated 4. Anticipate discharge home tomorrow Nurse practitioner note has been reviewed by physician. Signing provider agrees with the documented findings, assessment, and plan of care. Objective - Vital Signs Vital signs: Vital Signs Temp 97.5 F L 07/25/18 11:43 Pulse 82 07/25/18 11:43 Resp 20 07/25/18 11:43 BP 129/77 07/25/18 11:43 Pulse Ox 93 L 07/25/18 11:43 Intake & Output 07/24/18 07/25/18 07/25/18 18:59 06:59 18:59 Intake Total 2750 790 Output Total 975 640 860 Balance 1775 150 -860 Intake: IV 750 Intake, IV Titration 1000 250 Amount Sodium Chloride 0.9% 1, 250 000 ml @ 100 mls/hr IV . Q10H [facility] Rx#:[id number] Sodium Chloride 0.9% 1, 500 000 ml @ 100 mls/hr IV . Q10H [facility] Rx#:[id number] Sodium Chloride 0.9% 500 500 ml 500 ml @ 999 mls/hr IV .Q31M [facility] Rx#:[id number] Oral 1000 540 Output: Drainage 280 140 60 Right Abdomen 280 140 60 Urine 645 500 800 Uretheral ([place]) 500 400 Estimated Blood Loss 50 Other: Voiding Method Indwelling Catheter Indwelling Catheter Indwelling Catheter - Labs CBC & Chem 7: 07/25/18 08:21 07/25/18 08:21 Labs: Abnormal Lab Results - Last 24 Hours (Table) 07/25/18 07/25/18 Range/Units 08:21 08:21 WBC 13.4 H (3.8-10.6) k/uL RBC 4.05 L (4.30-5.90) m/uL Hgb 12.8 L (13.0-17.5) gm/dL Plt Count 143 L (150-450) k/uL Neutrophils # 11.9 H (1.3-7.7) k/uL Lymphocytes # 0.7 L (1.0-4.8) k/uL Sodium 131 L (137-145) mmol/L Glucose 172 H (74-99) mg/dL Calcium 8.3 L (8.4-10.2) mg/dL Total Bilirubin 1.8 H (0.2-1.3) mg/dL AST 76 H (17-59) U/L ALT 75 H (21-72) U/L Total Protein 5.7 L (6.3-8.2) g/dL Albumin 3.0 L (3.5-5.0) g/dL Microbiology - Last 24 Hours (Table) 07/23/18 14:57 Blood Culture - Preliminary Blood No Growth after 24 hours
--- NOTE | 2018-07-25 14:08 | CDI ---
Documentation Clarification Form Date: 07/25/2018 1:43:35 PM From: Angela Dow RN, CCDS Admit Date: 07/23/2018 2:40:00 PM Patient Name: Flaco Vinson Visit Number: [id number] Discharge Date: ATTENTION: The Clinical Documentation Specialists (CDI) and [facility] Coding Staff appreciate your assistance in clarifying documentation. Please respond to the clarification below the line at the bottom and electronically sign. The CDI & [facility] Coding staff will review the response and follow-up if needed. Please note: Queries are made part of the Legal Health Record. If you have any questions, please contact the author of this message via ITS. Dr. Sandra Hodgson The patient presented with the complaints of severe epigastric abdominal pain. In the medical consult you have noted uncontrolled blood pressure likely due to pain and further clarification is needed. History/Risk Factors: Parkinson's disease, Essential tremors, Hypertension Clinical Indicators: Present with severe epigastric abdominal pain, he appears in moderate discomfort. Vital signs: 183/112 98 22 , 200/120 100 22, 182/110 102 22, 167/103 95 18, Lab findings: 12.7 Radiology findings: CT emphysema cholecystitis with air seen in the gallbladder wall intraluminal within the gallbladder. Other Clinical Indicators: Patient is given multiple IV medications with little relief of pain and did not have any improvement after GI cocktail. Treatment: Labetalol Hcl PO x1 Gi cocktail Dilaudid IV (multiple doses) Toradol IV IV Fluid In your professional opinion, can you please further clarify Uncontrolled blood pressure likely due to pain as? Hypertension due to pain Hypertensive urgency due to pain Other, please specify Unable to determine (Last Revision: August 2017) MTDD
[2018-07-25 21:11] VITALS: RESP 18
[2018-07-26] MEDS: SODIUM CHLORIDE 0.9% 1,000 ML IV SCH ×2 (00:30→09:26)
[2018-07-26] MEDS: PIPERACILLIN-TAZOBACTAM 3.375 GM in SODIUM CHLORIDE 0.9% 100 ML IVPB SCH (04:12)
[2018-07-26 05:01] VITALS: BP 123/67; PULSE 59; TEMP 98
[2018-07-26 07:36] LABS: Appearance,Urine Clear (Clear); Bacteria,Urine Rare /hpf; Bilirubin,Urine Negative (Negative); Blood,Urine Small (Negative); Color,Urine Light Yellow; Glucose,Urine (UA) Negative (Negative); Ketones,Urine Negative (Negative); Leukocyte Esterase,Urine Small (Negative); Nitrite,Urine Negative (Negative); PH, Urine 5.5 (5.0-8.0); Protein,Urine Negative (Negative); RBC,Urine 1 /hpf (0-5); Specific Gravity,Urine 1.005 (1.001-1.035); Urobilinogen,Urine <2.0 mg/dL (<2.0); WBC,Urine 11 /hpf (0-5)
[2018-07-26] MEDS: DOCUSATE 100 MG CAP PO SCH (08:51)
[2018-07-26] MEDS: HEPARIN SODIUM,PORCINE 5,000 UNIT/ML 1 ML VIAL SQ SCH (08:52)
[2018-07-26] MEDS ORDERED: PANTOPRAZOLE 40 MG TABLET PO SCH (09:00)
[2018-07-26 09:12] LABS: Basophils % (A) 0 %; Eosinophils # (A) 0.2 k/uL (0-0.7); Eosinophils % (A) 2 %; HCT 35.9 % (39.0-53.0); HGB 12.1 gm/dL (13.0-17.5); Lymphocytes # (A) 1.3 k/uL (1.0-4.8); Lymphocytes % (A) 13 %; MCH 32.5 pg (25.0-35.0); MCHC 33.8 g/dL (31.0-37.0); MCV 96.2 fL (80.0-100.0); Mean Platelet Volume 7.5; Monocytes # (A) 0.6 k/uL (0-1.0); Monocytes % (A) 6 %; Neutrophils # (A) 7.6 k/uL (1.3-7.7); Neutrophils % (A) 77 %; Platelet Count 156 k/uL (150-450); RBC 3.73 m/uL (4.30-5.90); RDW 13.1 % (11.5-15.5); WBC 9.8 k/uL (3.8-10.6)
[2018-07-26 09:32] LABS: ALT 57 U/L (21-72); AST 57 U/L (17-59); Alkaline Phosphatase 57 U/L (38-126); Anion Gap 6 mmol/L; Blood Urea Nitrogen 18 mg/dL (9-20); Calcium 8.1 mg/dL (8.4-10.2); Carbon Dioxide 28 mmol/L (22-30); Chloride 102 mmol/L (98-107); Glucose 139 mg/dL (74-99); Potassium 4.2 mmol/L (3.5-5.1); Sodium 136 mmol/L (137-145); Total Bilirubin 1.1 mg/dL (0.2-1.3); Total Protein 5.5 g/dL (6.3-8.2)
--- NOTE | 2018-07-26 11:17 | P.PN ---
Subjective Progress Note Date: 07/25/18 Principal diagnosis: Acute cholecystitis status post laparoscopic cholecystectomy Patient is 68-year-old male with known history of Parkinson's disease, essential tremor, osteoarthritis and history of colonoscopy with polypectomy came to ER with complaints of abdominal pain for the past 2 days. Abdominal pain is mainly in the epigastric region and to the right side of the abdomen sometimes radiate to the back.Patient states he took Susana-[place] yesterday and was comfortable. Today after drinking coffee if symptoms return. She reports that he does drink on a daily basis. Patient's blood pressure was elevated on admission with SBP greater than 180 mmHg. Patient does not have any history of hypertension. Patient does have some chills. No fever. No chest pain. No shortness of breath. Does have nausea. No vomiting. No headache or dizziness or lightheadedness. No recent illnesses. No history of renal stones. KUB x-ray showed no dilated small bowel. Some air-fluid levels are noted in the right side of the colon and transverse colon.No significant stool board and is seen. CT abdomen pelvis with contrast showed findings compatible with emphysema mattress good cystitis with is seen in the gallbladder wall and intraluminal within the gallbladder. Age indeterminant compression deformity of the T11 vertebral body Pulmonary fibrosis 07/24/2018 Patient status post laparoscopic cholecystectomy on 07/24/2018. Patient does have s some soreness at the surgical site. No complaints of chest pain or shortness of breath. Urine is darker red and was given fluid bolus and continued on IV fluids. Otherwise blood pressure is not elevated. Patient is not on any blood pressure medications currently. No fever no chills. Patient was also provided with stool softeners. No nausea no vomiting. 07/25/2018 Patient is status post laparoscopic cystectomy. Leukocytosis is trending down. Otherwise patient is being started on liquid diet. Bowel sounds are sluggish. No fever no chills. Patient does have draining tube in place. Serosanguineous drainage. No chest pain or shortness of breath. Blood pressure is well controlled. Anticipate discharge in next 24 hours. Current medications reviewed. Objective - Vital Signs Vital signs: Vital Signs Temp 98.4 F 07/25/18 20:39 Pulse 84 07/25/18 20:39 Resp 18 07/25/18 20:39 BP 133/77 07/25/18 20:39 Pulse Ox 92 L 07/25/18 20:39 Intake & Output 07/25/18 07/25/18 07/26/18 06:59 18:59 06:59 Intake Total 790 Output Total 640 1464 720 Balance 150 -1464 -720 Intake: Intake, IV Titration 250 Amount Sodium Chloride 0.9% 1, 250 000 ml @ 100 mls/hr IV . Q10H [facility] Rx#:[id number] Oral 540 Output: Drainage 140 95 Right Abdomen 140 95 Urine 500 875 720 Straight 480 Uretheral ([place]) 500 400 Post Void Residual 494 Other: Voiding Method Indwelling Catheter Indwelling Catheter - Exam PHYSICAL EXAMINATION: Patient is lying in the bed comfortably, no acute distress, awake alert and oriented.. HEENT: Normocephalic. Neck is supple. Pupils reactive. Nostrils clear. Oral cavity is moist. Ears reveal no drainage. Neck reveals no JVD, carotid bruits, or thyromegaly. CHEST EXAMINATION: Trachea is central. Symmetrical expansion. Lung john clear to auscultation and percussion. CARDIAC: Normal S1, S2 with no gallops. No murmurs ABDOMEN: Soft. Mild tenderness at the surgical site and drain tube in place. Bowel sounds diminished. No organomegaly. No abdominal bruits. Extremities: reveal no edema. No clubbing or cyanosis Neurologically awake, alert, oriented x3 with well-coordinated movements. No focal deficits noted Skin: No rash or skin lesions. Psychiatric: Coperative. Nonsuicidal Musculoskeletal: No joint swelling or deformity. Normal range of motion. - Labs CBC & Chem 7: 07/26/18 08:29 07/26/18 08:29 Labs: Abnormal Lab Results - Last 24 Hours (Table) 07/25/18 07/25/18 Range/Units 08:21 08:21 WBC 13.4 H (3.8-10.6) k/uL RBC 4.05 L (4.30-5.90) m/uL Hgb 12.8 L (13.0-17.5) gm/dL Plt Count 143 L (150-450) k/uL Neutrophils # 11.9 H (1.3-7.7) k/uL Lymphocytes # 0.7 L (1.0-4.8) k/uL Sodium 131 L (137-145) mmol/L Glucose 172 H (74-99) mg/dL Calcium 8.3 L (8.4-10.2) mg/dL Total Bilirubin 1.8 H (0.2-1.3) mg/dL AST 76 H (17-59) U/L ALT 75 H (21-72) U/L Total Protein 5.7 L (6.3-8.2) g/dL Albumin 3.0 L (3.5-5.0) g/dL Microbiology - Last 24 Hours (Table) 07/23/18 14:57 Blood Culture - Preliminary Blood No Growth after 48 hours Assessment and Plan Assessment: Right upper quadrant abdominal pain with acute cholecystitis. Laparoscopic cholecystectomy on 07/24/2018. Controlled now. Leukocytosis is likely due to postoperative inflammatory reaction. Trending down. Uncontrolled blood pressure likely due to pain/hypertension due to pain. Resolving now. Alcohol use on a daily basis Parkinson's disease next line essential tremors Arthritis bilateral hands History of vertigo DVT prophylaxis plan: Patient was given labetalol 200 mg 1. Blood pressure is not elevated this time. Continue to monitor blood pressure and if continues to high, we will add Norvasc 5 mg daily and titrate as needed. Continue with IV fluids and pain management and bowel regimen. Patient status post laparoscopic cholecystectomy. Encourage incentive spirometry. Further recommendations based on the clinical course..
--- NOTE | 2018-07-26 14:31 | P.DS ---
Providers Date of admission: 07/23/18 14:40 Expected date of discharge: 07/26/18 Attending physician: Dominic Sykes Consults: 07/23/18 14:51 Consult Physician Stat Consulting Provider: Kwasi Jc Consult Reason/Comments: Cholecystitis, Medmgmt Do you want consulting provider notified?: Yes Primary care physician: [facility] Hospital Course: 68-year-old male who presented to the emergency room with a chief complaint of abdominal pain. Patient underwent CT abdomen and pelvis: Air seen within the gallbladder. Additionally there are numerous foci of nondependent air within the gallbladder wall marked cornal images. mild right upper quadrant fat stranding is seen. Findings are most compatible with emphysematous cholecystitis. He was evaluated by Dr. Sykes. He underwent laparoscopic cholecystectomy. The patient is doing well postoperatively without any immediate complications. He remains hemodynamically stable. Afebrile. His WBC is within normal limits. Tolerating diet without nausea or vomiting. Pain controlled with oral medications. He was deemed stable for discharge home today. Please see EMR for further hospital course details. Discharge Diagnosis: 1. Abdominal pain 2. Emphysematous cholecystitis, status post laparoscopic cholecystectomy Nurse practitioner note has been reviewed by physician. Signing provider agrees with the documented findings, assessment, and plan of care. Patient Condition at Discharge: Stable Plan - Discharge Summary Discharge Rx Participant: No New Discharge Prescriptions: Continue buPROPion HCL [Wellbutrin SR] 50 mg PO QAM Primidone [Mysoline] 50 mg PO HS Discharge Medication List Primidone [Mysoline] 50 mg PO HS 07/23/18 [History] buPROPion HCL [Wellbutrin SR] 50 mg PO QAM 07/23/18 [History] Follow up Appointment(s)/Referral(s): [facility] [Primary Care Provider] - 08/01/18 1:30 pm Dominic Sykes MD [STAFF PHYSICIAN] - 08/02/18 3:00 pm (patient needs to bring drivers license,insurance card,and medication list for first visit) Patient Instructions/Handouts: *Surgery [facility] - Laparoscopic Cholecystectomy Discharge Instructions Activity/Diet/Wound Care/Special Instructions: Keep a record of your ROMERO drainage. bring with you to follow up appointment No lifting over 10 pounds You may shower. No soaking or tub baths Very light activity until you are reevaluated at your follow up appointment with your surgeon Regular diet as tolerated Discharge Disposition: HOME SELF-CARE
--- NOTE | 2018-07-26 23:54 | P.PN ---
Subjective Progress Note Date: 07/26/18 Principal diagnosis: Acute cholecystitis status post laparoscopic cholecystectomy Patient is 68-year-old male with known history of Parkinson's disease, essential tremor, osteoarthritis and history of colonoscopy with polypectomy came to ER with complaints of abdominal pain for the past 2 days. Abdominal pain is mainly in the epigastric region and to the right side of the abdomen sometimes radiate to the back.Patient states he took [place] yesterday and was comfortable. Today after drinking coffee if symptoms return. She reports that he does drink on a daily basis. Patient's blood pressure was elevated on admission with SBP greater than 180 mmHg. Patient does not have any history of hypertension. Patient does have some chills. No fever. No chest pain. No shortness of breath. Does have nausea. No vomiting. No headache or dizziness or lightheadedness. No recent illnesses. No history of renal stones. KUB x-ray showed no dilated small bowel. Some air-fluid levels are noted in the right side of the colon and transverse colon.No significant stool board and is seen. CT abdomen pelvis with contrast showed findings compatible with emphysema mattress good cystitis with is seen in the gallbladder wall and intraluminal within the gallbladder. Age indeterminant compression deformity of the T11 vertebral body Pulmonary fibrosis 07/24/2018 Patient status post laparoscopic cholecystectomy on 07/24/2018. Patient does have s some soreness at the surgical site. No complaints of chest pain or shortness of breath. Urine is darker red and was given fluid bolus and continued on IV fluids. Otherwise blood pressure is not elevated. Patient is not on any blood pressure medications currently. No fever no chills. Patient was also provided with stool softeners. No nausea no vomiting. 07/25/2018 Patient is status post laparoscopic cystectomy. Leukocytosis is trending down. Otherwise patient is being started on liquid diet. Bowel sounds are sluggish. No fever no chills. Patient does have draining tube in place. Serosanguineous drainage. No chest pain or shortness of breath. Blood pressure is well controlled. Anticipate discharge in next 24 hours. 07/26/2018 Patient denied any complaints of abdominal pain today. Draining tube is in place. Otherwise blood pressure is controlled. Patient is tolerating oral diet and able to pass flatus. Patient is ambulating well. Currently being discharged home and follow-up as an outpatient. No fever no chills. No nausea vomiting or abdominal pain. No other acute overnight issues. Blood pressure is stable. Current medications reviewed. Objective - Vital Signs Vital signs: Vital Signs Temp 98.0 F 07/26/18 04:28 Pulse 59 L 07/26/18 04:28 Resp 18 07/26/18 04:28 BP 123/67 07/26/18 04:28 Pulse Ox 95 07/26/18 04:28 Intake & Output 07/26/18 07/26/18 07/27/18 06:59 18:59 06:59 Intake Total 200 Output Total 1745 220 Balance -1545 -220 Intake: Intake, IV Titration 200 Amount Sodium Chloride 0.9% 1, 200 000 ml @ 100 mls/hr IV . Q10H [facility] Rx#:[id number] Output: Drainage 30 70 Right Abdomen 30 70 Urine 1715 150 Straight 480 Other: Voiding Method Indwelling Catheter - Exam PHYSICAL EXAMINATION: Patient is lying in the bed comfortably, no acute distress, awake alert and oriented.. HEENT: Normocephalic. Neck is supple. Pupils reactive. Nostrils clear. Oral cavity is moist. Ears reveal no drainage. Neck reveals no JVD, carotid bruits, or thyromegaly. CHEST EXAMINATION: Trachea is central. Symmetrical expansion. Lung john clear to auscultation and percussion. CARDIAC: Normal S1, S2 with no gallops. No murmurs ABDOMEN: Soft. Mild tenderness at the surgical site and drain tube in place. Bowel sounds diminished. No organomegaly. No abdominal bruits. Extremities: reveal no edema. No clubbing or cyanosis Neurologically awake, alert, oriented x3 with well-coordinated movements. No focal deficits noted Skin: No rash or skin lesions. Psychiatric: Coperative. Nonsuicidal Musculoskeletal: No joint swelling or deformity. Normal range of motion. - Labs CBC & Chem 7: 07/26/18 08:29 07/26/18 08:29 Labs: Abnormal Lab Results - Last 24 Hours (Table) 07/26/18 07/26/18 07/26/18 Range/Units 07:15 08:29 08:29 RBC 3.73 L (4.30-5.90) m/uL Hgb 12.1 L (13.0-17.5) gm/dL Hct 35.9 L (39.0-53.0) % Sodium 136 L (137-145) mmol/L Glucose 139 H (74-99) mg/dL Calcium 8.1 L (8.4-10.2) mg/dL Total Protein 5.5 L (6.3-8.2) g/dL Albumin 3.0 L (3.5-5.0) g/dL Urine Blood Small H (Negative) Ur Leukocyte Esterase Small H (Negative) Urine WBC 11 H (0-5) /hpf Urine Bacteria Rare H (None) /hpf Microbiology - Last 24 Hours (Table) 07/23/18 14:57 Blood Culture - Preliminary Blood No Growth after 72 hours Assessment and Plan Assessment: Right upper quadrant abdominal pain with acute cholecystitis. Laparoscopic cholecystectomy on 07/24/2018. Pain Controlled now. Leukocytosis is likely due to postoperative inflammatory reaction. Trending down. Uncontrolled blood pressure likely due to pain/hypertension due to pain. Resolving now. Alcohol use on a daily basis Parkinson's disease next line essential tremors Arthritis bilateral hands History of vertigo DVT prophylaxis plan: Patient was given labetalol 200 mg 1. Blood pressure is not elevated this time. Continue to monitor blood pressure and if continues to high, we will add Norvasc 5 mg daily and titrate as needed. Continue with IV fluids and pain management and bowel regimen. Patient status post laparoscopic cholecystectomy. Encourage incentive spirometry. Further recommendations based on the clinical course.. Time with Patient: Greater than 30
== END 2018-07-26 12:25 | disposition home or self-care (01) | DRG 419 ==
LOC: EC 10:13 → 3NMEDONC 14:40
PROVIDERS: ADMIT Surgery; ATTEND Surgery
PROC: 0FT44ZZ Resection of Gallbladder, Percutaneous Endoscopic Approach (ICD-10-PCS; principal; 2018-07-23)
DX: K80.00 Calculus of gallbladder with acute cholecystitis without obstruction (principal); G20 Parkinson's disease; G25.0 Essential tremor; I10 Essential (primary) hypertension; J84.10 Pulmonary fibrosis, unspecified; K21.9 Gastro-esophageal reflux disease without esophagitis; K44.9 Diaphragmatic hernia without obstruction or gangrene; M19.041 Primary osteoarthritis, right hand; M19.042 Primary osteoarthritis, left hand; Z80.6 Family history of leukemia; Z87.891 Personal history of nicotine dependence; D72.829 Elevated white blood cell count, unspecified
CPT/HCPCS: 36415; 71046; 74018; 74177; 80053; 81001; 82150; 83605; 83690; 84484; 85025; 85610; 85730; 87040; 88304; 93005; 96361; 96365; 96375; 96376; 99285

== ENCOUNTER 2019-03-19 05:41 | Inpatient (IN) | payer MEDICARE ==
[2019-03-19] MEDS ORDERED: SODIUM CHLORIDE 0.9% 1,000 ML IV STA (06:07)
[2019-03-19] MEDS ORDERED: HYDROmorphone 0.5 MG/0.5 ML SYRINGE IVP STA (06:09)
[2019-03-19] MEDS ORDERED: ONDANSETRON 4 MG/2 ML VIAL IVP STA (06:09)
--- NOTE | 2019-03-19 06:19 | ED ---
General Adult HPI - General Chief complaint: Abdominal Pain Stated complaint: Post op gull bladder issues Time Seen by Provider: 03/19/19 05:56 Source: patient, RN notes reviewed Mode of arrival: ambulatory Limitations: no limitations - History of Present Illness Initial comments: This is a 69-year-old male presents emergency Department with multiple co mplaints. Patient states that she has been increasing midabdominal pain. He states does radiate to his back occasionally. He states that has been going on for quite a bit time states he is at the point where he cannot tolerate the pain. Patient believes that this is related to his gallbladder removed in July by Dr. Sykes. He states that it was across at that time. Patient states she's also had increasing exertional dyspnea and now dyspnea at rest. He states he has some associated pain. No prior lung disease no prior cardiac disease. Patient denies any diarrhea, constipation, change in stool color. He does admit to some mild urinary frequency minimal dysuria. Patient states he takes medication for Parkinson's otherwise no other medications. Patient had no other abdominal surgeries other than his cholecystectomy. Patient reports no fevers or chills. Patient states that he has not noticed the change in color. Skin or eyes at this time. Patient doesn't that he feels very fatigued, he's had weight loss. - Related Data Home Medications Medication Instructions Recorded Confirmed Primidone [Mysoline] 50 mg PO HS 07/23/18 03/19/19 buPROPion HCL [Wellbutrin SR] 50 mg PO QAM 07/23/18 03/19/19 Allergies Allergy/AdvReac Type Severity Reaction Status Date / Time No Known Allergies Allergy Verified 03/19/19 07:33 Review of Systems ROS Statement: Those systems with pertinent positive or pertinent negative responses have been documented in the HPI. ROS Other: All systems not noted in ROS Statement are negative. Past Medical History Past Medical History: Musculoskeletal Disorder, Neurologic Disorder Additional Past Medical History / Comment(s): Parkinson's disease, essential tremors, headaches, arthritis bilateral hands, vertigo with heights, bronchitis. History of Any Multi-Drug Resistant Organisms: None Reported Past Surgical History: No Surgical Hx Reported, Cholecystectomy Additional Past Surgical History / Comment(s): Colonoscopy with polypectomy Past Anesthesia/Blood Transfusion Reactions: No Reported Reaction Past Psychological History: PTSD Smoking Status: Never smoker Past Alcohol Use History: None Reported Past Drug Use History: None Reported - Past Family History Father Family Medical History: Cancer Additional Family Medical History / Comment(s): Father had a form of leukemia. Mother Family Medical History: Cancer Additional Family Medical History / Comment(s): Mother from sarcoma. General Exam Limitations: no limitations General appearance: alert, in distress (Mild) Head exam: Present: atraumatic, normocephalic, normal inspection Eye exam: Present: normal appearance, PERRL, EOMI, scleral icterus. Absent: conjunctival injection, periorbital swelling ENT exam: Present: normal exam, normal oropharynx, mucous membranes moist, TM's normal bilaterally Neck exam: Present: normal inspection, full ROM. Absent: tenderness, me ningismus, lymphadenopathy Respiratory exam: Present: normal lung sounds bilaterally, respiratory distress (Appears to be in mild to moderate). Absent: wheezes, rales, rhonchi, stridor Cardiovascular Exam: Present: normal rhythm, tachycardia, normal heart sounds. Absent: systolic murmur, diastolic murmur, rubs, gallop, clicks GI/Abdominal exam: Present: soft, tenderness (mild to moderate epigastric tenderness abdominal), normal bowel sounds. Absent: distended, guarding, rebound, rigid Back exam: Absent: CVA tenderness (R), CVA tenderness (L) Neurological exam: Present: alert, oriented X3, CN II-XII intact Skin exam: Present: warm, dry, intact. Absent: normal color, rash Course Vital Signs 03/19/19 03/19/19 03/19/19 05:53 05:59 06:37 Temperature 98.5 F Pulse Rate 125 H 118 H 110 H Respiratory 28 H 22 26 H Rate Blood Pressure 136/86 136/86 O2 Sat by Pulse 92 L 97 96 Oximetry 03/19/19 03/19/19 03/19/19 06:47 07:14 07:30 Temperature Pulse Rate 110 H 110 H 104 H Respiratory 28 H 28 H 18 Rate Blood Pressure 133/84 107/64 104/63 O2 Sat by Pulse 95 97 96 Oximetry EKG Findings - EKG Comments: EKG Findings:: EKG performed: 49 sinus tachycardia with left ventricular hyp ertrophy and nonspecific T-wave changes, rate of 125 VT 154 QRS 86 QT/QTC 316/456 Medical Decision Making - Medical Decision Making Patient be admitted for acute pancreatitis, transaminitis with jaundice for obstructive biliary causes. - Lab Data Result diagrams: 03/19/19 05:56 03/19/19 05:56 Lab Results 03/19/19 03/19/19 03/19/19 Range/Units 05:56 05:56 05:56 WBC 8.7 (3.8-10.6) k/uL RBC 4.90 (4.30-5.90) m/uL Hgb 16.2 (13.0-17.5) gm/dL Hct 46.4 (39.0-53.0) % MCV 94.7 (80.0-100.0) fL MCH 33.0 (25.0-35.0) pg MCHC 34.8 (31.0-37.0) g/dL RDW 13.1 (11.5-15.5) % Plt Count 150 (150-450) k/uL Neutrophils % 95 % Lymphocytes % 3 % Monocytes % 1 % Eosinophils % 1 % Basophils % 0 % Neutrophils # 8.3 H (1.3-7.7) k/uL Lymphocytes # 0.3 L (1.0-4.8) k/uL Monocytes # 0.1 (0-1.0) k/uL Eosinophils # 0.0 (0-0.7) k/uL Basophils # 0.0 (0-0.2) k/uL PT (9.0-12.0) sec INR (<1.2) APTT (22.0-30.0) sec Sodium 139 (137-145) mmol/L Potassium 3.6 (3.5-5.1) mmol/L Chloride 104 (98-107) mmol/L Carbon Dioxide 22 (22-30) mmol/L Anion Gap 13 mmol/L BUN 15 (9-20) mg/dL Creatinine 0.85 (0.66-1.25) mg/dL Est GFR (CKD-EPI)AfAm >90 (>60 ml/min/1.73 sqM) Est GFR (CKD-EPI)NonAf 88 (>60 ml/min/1.73 sqM) Glucose 117 H (74-99) mg/dL Plasma Lactic Acid Danyel 2.2 H* (0.7-2.0) mmol/L Calcium 9.5 (8.4-10.2) mg/dL Total Bilirubin 10.1 H (0.2-1.3) mg/dL AST 104 H (17-59) U/L ALT 258 H (21-72) U/L Alkaline Phosphatase 326 H (38-126) U/L Ammonia 21 (<30) umol/L Creatine Kinase 27 L (55-170) U/L Troponin I (0.000-0.034) ng/mL Total Protein 7.1 (6.3-8.2) g/dL Albumin 3.9 (3.5-5.0) g/dL Amylase 1145 H* (30-110) U/L Lipase 24000 H (23-300) U/L Urine Color Urine Appearance (Clear) Urine pH (5.0-8.0) Ur Specific [place] (1.001-1.035) Urine Protein (Negative) Urine Glucose (UA) (Negative) Urine Ketones (Negative) Urine Blood (Negative) Urine Nitrite (Negative) Urine Bilirubin (Negative) Urine Urobilinogen (<2.0) mg/dL Ur Leukocyte Esterase (Negative) Urine RBC (0-5) /hpf Urine WBC (0-5) /hpf Urine Mucus (None) /hpf Hepatitis A IgM Ab 03/19/19 03/19/19 03/19/19 Range/Units 05:56 05:56 06:17 WBC (3.8-10.6) k/uL RBC (4.30-5.90) m/uL Hgb (13.0-17.5) gm/dL Hct (39.0-53.0) % MCV (80.0-100.0) fL MCH (25.0-35.0) pg MCHC (31.0-37.0) g/dL RDW (11.5-15.5) % Plt Count (150-450) k/uL Neutrophils % % Lymphocytes % % Monocytes % % Eosinophils % % Basophils % % Neutrophils # (1.3-7.7) k/uL Lymphocytes # (1.0-4.8) k/uL Monocytes # (0-1.0) k/uL Eosinophils # (0-0.7) k/uL Basophils # (0-0.2) k/uL PT 9.9 (9.0-12.0) sec INR 0.9 (<1.2) APTT 23.2 (22.0-30.0) sec Sodium (137-145) mmol/L Potassium (3.5-5.1) mmol/L Chloride (98-107) mmol/L Carbon Dioxide (22-30) mmol/L Anion Gap mmol/L BUN (9-20) mg/dL Creatinine (0.66-1.25) mg/dL Est GFR (CKD-EPI)AfAm (>60 ml/min/1.73 sqM) Est GFR (CKD-EPI)NonAf (>60 ml/min/1.73 sqM) Glucose (74-99) mg/dL Plasma Lactic Acid Danyel (0.7-2.0) mmol/L Calcium (8.4-10.2) mg/dL Total Bilirubin (0.2-1.3) mg/dL AST (17-59) U/L ALT (21-72) U/L Alkaline Phosphatase (38-126) U/L Ammonia (<30) umol/L Creatine Kinase (55-170) U/L Troponin I <0.012 (0.000-0.034) ng/mL Total Protein (6.3-8.2) g/dL Albumin (3.5-5.0) g/dL Amylase (30-110) U/L Lipase (23-300) U/L Urine Color Urine Appearance (Clear) Urine pH (5.0-8.0) Ur Specific [place] (1.001-1.035) Urine Protein (Negative) Urine Glucose (UA) (Negative) Urine Ketones (Negative) Urine Blood (Negative) Urine Nitrite (Negative) Urine Bilirubin (Negative) Urine Urobilinogen (<2.0) mg/dL Ur Leukocyte Esterase (Negative) Urine RBC (0-5) /hpf Urine WBC (0-5) /hpf Urine Mucus (None) /hpf Hepatitis A IgM Ab NEGATIVE 03/19/19 Range/Units 06:20 WBC (3.8-10.6) k/uL RBC (4.30-5.90) m/uL Hgb (13.0-17.5) gm/dL Hct (39.0-53.0) % MCV (80.0-100.0) fL MCH (25.0-35.0) pg MCHC (31.0-37.0) g/dL RDW (11.5-15.5) % Plt Count (150-450) k/uL Neutrophils % % Lymphocytes % % Monocytes % % Eosinophils % % Basophils % % Neutrophils # (1.3-7.7) k/uL Lymphocytes # (1.0-4.8) k/uL Monocytes # (0-1.0) k/uL Eosinophils # (0-0.7) k/uL Basophils # (0-0.2) k/uL PT (9.0-12.0) sec INR (<1.2) APTT (22.0-30.0) sec Sodium (137-145) mmol/L Potassium (3.5-5.1) mmol/L Chloride (98-107) mmol/L Carbon Dioxide (22-30) mmol/L Anion Gap mmol/L BUN (9-20) mg/dL Creatinine (0.66-1.25) mg/dL Est GFR (CKD-EPI)AfAm (>60 ml/min/1.73 sqM) Est GFR (CKD-EPI)NonAf (>60 ml/min/1.73 sqM) Glucose (74-99) mg/dL Plasma Lactic Acid Danyel (0.7-2.0) mmol/L Calcium (8.4-10.2) mg/dL Total Bilirubin (0.2-1.3) mg/dL AST (17-59) U/L ALT (21-72) U/L Alkaline Phosphatase (38-126) U/L Ammonia (<30) umol/L Creatine Kinase (55-170) U/L Troponin I (0.000-0.034) ng/mL Total Protein (6.3-8.2) g/dL Albumin (3.5-5.0) g/dL Amylase (30-110) U/L Lipase (23-300) U/L Urine Color Dark Brown Urine Appearance Clear (Clear) Urine pH 6.0 (5.0-8.0) Ur Specific [place] 1.017 (1.001-1.035) Urine Protein 1+ H (Negative) Urine Glucose (UA) Negative (Negative) Urine Ketones Negative (Negative) Urine Blood Negative (Negative) Urine Nitrite Negative (Negative) Urine Bilirubin 3+ H (Negative) Urine Urobilinogen 12.0 (<2.0) mg/dL Ur Leukocyte Esterase Small H (Negative) Urine RBC 1 (0-5) /hpf Urine WBC 7 H (0-5) /hpf Urine Mucus Occasional H (None) /hpf Hepatitis A IgM Ab Critical Care Time Critical Care Time: Yes Total Critical Care Time: 35 Critical Care Time: Total of 35 minutes of critical care time were used to initially evaluated patient, reviewed past medical history, review medications vitals evaluate the patient. This did included ordering labs CBC, CMP, troponin, EKG, urinalysis ammonia lactic acid. CT of the chest and abdomen were ordered and did review CT with radiologists at the hospital which they feel there is an obstructing mass, bile duct and pancreatic duct. Patient has acute pancreatitis, transaminitis and jaundice. Patient will be admitted with sec consult to GI for probable ERCP. Patient will be kept nothing by mouth with IV pain meds and IV hydration Disposition Clinical Impression: Acute pancreatitis, Transaminitis, Jaundice, Biliary obstruction, Dyspnea Disposition: ADMITTED IP TO THIS HOSP Condition: Serious Referrals: [facility],Clinic [Primary Care Provider] - 1-2 days
[2019-03-19 06:24] LABS: Basophils % (A) 0 %; Eosinophils % (A) 1 %; HCT 46.4 % (39.0-53.0); HGB 16.2 gm/dL (13.0-17.5); Lymphocytes # (A) 0.3 k/uL (1.0-4.8); Lymphocytes % (A) 3 %; MCHC 34.8 g/dL (31.0-37.0); MCV 94.7 fL (80.0-100.0); Mean Platelet Volume 6.5; Monocytes # (A) 0.1 k/uL (0-1.0); Monocytes % (A) 1 %; Neutrophils # (A) 8.3 k/uL (1.3-7.7); Neutrophils % (A) 95 %; Platelet Count 150 k/uL (150-450); RDW 13.1 % (11.5-15.5); WBC 8.7 k/uL (3.8-10.6)
[2019-03-19 06:32] LABS: Appearance,Urine Clear (Clear); Bilirubin,Urine 3+ (Negative); Blood,Urine Negative (Negative); Color,Urine Dark Brown; Glucose,Urine (UA) Negative (Negative); Ketones,Urine Negative (Negative); Leukocyte Esterase,Urine Small (Negative); Mucus,Urine Occasional /hpf; Nitrite,Urine Negative (Negative); Protein,Urine 1+ (Negative); RBC,Urine 1 /hpf (0-5); Specific Gravity,Urine 1.017 (1.001-1.035)
[2019-03-19 06:35] LABS: ALT 258 U/L (21-72); AST 104 U/L (17-59); African American GFR (CKD) >90 (>60 ml/min/1.73 sqM); Albumin 3.9 g/dL (3.5-5.0); Alkaline Phosphatase 326 U/L (38-126); Anion Gap 13 mmol/L; Blood Urea Nitrogen 15 mg/dL (9-20); Calcium 9.5 mg/dL (8.4-10.2); Carbon Dioxide 22 mmol/L (22-30); Chloride 104 mmol/L (98-107); Creatine Kinase 27 U/L (55-170); Glucose 117 mg/dL (74-99); INR 0.9 (<1.2); Non-African American GFR(CKD) 88 (>60 ml/min/1.73 sqM); Partial Thromboplastin Time 23.2 sec (22.0-30.0); Potassium 3.6 mmol/L (3.5-5.1); Prothrombin Time 9.9 sec (9.0-12.0); Sodium 139 mmol/L (137-145); Total Bilirubin 10.1 mg/dL (0.2-1.3); Total Protein 7.1 g/dL (6.3-8.2)
[2019-03-19 06:36] LABS: Lactic Acid, Venous 2.2 mmol/L (0.7-2.0)
[2019-03-19 06:44] LABS: Amylase 1145 U/L (30-110)
[2019-03-19 07:10] LABS: Hepatitis A Antibody IgM NEGATIVE
--- NOTE | 2019-03-19 08:04 | CT ---
EXAM: CT Angiography Chest With Intravenous Contrast CLINICAL HISTORY: pain, exertional dyspnea TECHNIQUE: Axial computed tomographic angiography images of the chest with intravenous contrast. CTDI is 16 mGy and DLP is 488 mGy-cm. This CT exam was performed using one or more of the following dose reduction techniques: automated exposure control, adjustment of the mA and/or kV according to patient size, and/or use of iterative reconstruction technique. MIP reconstructed images were created and reviewed. COMPARISON: No relevant prior studies available. FINDINGS: Pulmonary arteries: Unremarkable. No pulmonary embolism. Aorta: No acute findings. No thoracic aortic aneurysm. Lungs: Chronic appearing peripheral and basilar predominant interstitial lung disease, with subpleural fibrosis. No definite airspace consolidation. Pleural space: Unremarkable. No significant effusion. No pneumothorax. Heart: Mild coronary artery calcifications. No cardiomegaly. No significant pericardial effusion. No evidence of RV dysfunction. Bones/joints: No acute fracture. No dislocation. Soft tissues: Unremarkable. Lymph nodes: Unremarkable. No enlarged lymph nodes. IMPRESSION: No pulmonary embolism. Chronic appearing interstitial lung disease with subpleural fibrosis. No evidence of airspace consolidation or pleural effusion.
--- NOTE | 2019-03-19 08:16 | CT ---
EXAM: CT Abdomen and Pelvis With Intravenous Contrast CLINICAL HISTORY: Abdominal pain and jaundice. TECHNIQUE: Axial computed tomography images of the abdomen and pelvis with intravenous contrast. CTDI is 15.9 mGy and DLP is 938 mGy-cm. This CT exam was performed using one or more of the following dose reduction techniques: automated exposure control, adjustment of the mA and/or kV according to patient size, and/or use of iterative reconstruction technique. COMPARISON: 07/23/18 FINDINGS: ABDOMEN: Liver: Hepatic steatosis. No focal hepatic lesion. Gallbladder and bile ducts: The gallbladder is surgically absent. Trace infiltrative changes are seen within the gallbladder fossa. There is mild concentric wall thickening of the common bile duct. No intrahepatic or extrahepatic biliary ductal dilatation. Pancreas: Unremarkable. No mass. No ductal dilation. Spleen: Unremarkable. No splenomegaly. Adrenals: Unremarkable. No mass. Kidneys and ureters: Unremarkable. No solid mass. No hydronephrosis. Stomach and bowel: No bowel obstruction. No definite bowel wall thickening. Colonic diverticulosis without evidence of an acute diverticulitis. PELVIS: Appendix: No findings to suggest acute appendicitis. Bladder: Unremarkable. No mass. Reproductive: Moderate prostatomegaly, with the prostate gland measuring up to 5.7 cm in transverse diameter. ABDOMEN and PELVIS: Intraperitoneal space: Unremarkable. No free air. No significant fluid collection. Bones/joints: No acute fracture. No dislocation. Soft tissues: Unremarkable. Vasculature: Severe atherosclerotic calcification of the abdominal aorta. No abdominal aortic aneurysm. Lymph nodes: Unremarkable. No enlarged lymph nodes. IMPRESSION: Trace infiltrative changes are seen within the gallbladder fossa. This may be residual postsurgical changes associated with prior cholecystectomy, versus mild or early ascending cholangitis. Moderate prostatomegaly. Colonic diverticulosis. Hepatic steatosis.
[2019-03-19] MEDS ORDERED: ONDANSETRON 4 MG/2 ML VIAL IVP PRN (08:47)
[2019-03-19] MEDS ORDERED: HYDROmorphone 0.5 MG/0.5 ML SYRINGE IVP PRN (08:47)
[2019-03-19] MEDS ORDERED: NALOXONE 0.4 MG/ML 1 ML VIAL IV PRN (08:47)
[2019-03-19] MEDS ORDERED: HYDROmorphone 1 MG/ML 1 ML SYRINGE IVP PRN (08:47)
[2019-03-19] MEDS: SODIUM CHLORIDE 0.9% 1,000 ML IV SCH ×2 (10:00→15:48)
[2019-03-19] MEDS ORDERED: INDOMETHACIN 50MG SUPPOSITORY RECTAL ONE (12:30)
[2019-03-19] MEDS ORDERED: LEVOFLOXACIN 500MG-D5W PMX 500 MG in DEXTROSE/WATER 1 100ML.BAG IVPB ONE (12:30)
[2019-03-19 13:00] LABS: Hepatitis B Core IgM Non-Reactive (Non-Reactive); Hepatitis B Surface Antigen Non-Reactive (Non-Reactive); Hepatitis C IgG Antibody Non-Reactive (Non-Reactive)
[2019-03-19] MEDS ORDERED: IV FLUID CONTINUATION 1,000 ML IV ONE (13:06)
[2019-03-19] MEDS ORDERED: IOPAMIDOL-300 50ML BTL INJ ONE ×2 (14:06→14:40)
[2019-03-19] MEDS ORDERED: fentaNYL (PF) 50 MCG/ML 2 ML AMP ONE (14:16)
[2019-03-19] MEDS ORDERED: SUCCINYLCHOLINE CHLORIDE 100 MG/5 ML SYR IV ONE (14:16)
[2019-03-19] MEDS ORDERED: MIDAZOLAM 2 MG/2 ML VIAL ONE (14:16)
[2019-03-19] MEDS ORDERED: PROPOFOL 10 MG/ML 20 ML VIAL IV ONE (14:16)
--- NOTE | 2019-03-19 15:26 | FL ---
EXAMINATION TYPE: FL ERCP HISTORY: Fluoroscopy time Impression: 1. Fluoroscopy support provided to the referring physician. 51 seconds of fluoroscopy time provided.
--- NOTE | 2019-03-19 15:40 | P.CONS ---
History of Present Illness - Reason for Consult Consult date: 03/19/19 Elevated liver enzymes Requesting physician: Kym De Guzman - Chief Complaint Abdominal pain - History of Present Illness 69-year-old male with a medical history significant for Parkinson's disease and osteoarthritis who presented to the hospital due to abdominal pain. The patient previously had his gallbladder removed in 07/2018 when he presented with abdominal pain. He reports that the abdominal pain is similar in nature described as occurring in the epigastric agent of his abdomen. The pain has continued to intensify prompting him to present to the hospital for further evaluation. He does report some radiation of the pain into his back. He does report approximately 5 pounds of weight loss in the past few days secondary to the pain. He also reports yellowing of the skin and darkening of his eyes. He denies any exposures and is only on his Parkinson's medications at this time. He also reports fatigue. Laboratory evaluation on presentation significant for total bilirubin 10.1, alkaline phosphatase 326, AST 104 and ALT 258 with amylase 1145 and lipase 10,585. Review of Systems REVIEW OF SYSTEMS: CONSTITUTIONAL: Denies any fevers, chills, but does report 5 pounds of weight loss and fatigue. CARDIOVASCULAR: Denies any chest pain, palpitations high or low blood pressures RESPIRATORY: Denies any shortness of breath, hemoptysis or cough. GENITOURINARY: No dysuria or hematuria. MUSCULOSKELETAL: No weakness reported. SKIN: Denies any new rashes or lesions, or pallor but does report jaundice. PSYCHIATRIC: Denies any depression or anxiety. NEUROLOGY: Denies headache, denies any new focal deficits. EARS/NOSE/THROAT: No recent hearing change, congestion, nasal discharge or sore throat. EYES: No pain in eyes, discharge or change in vision. GASTROINTESTINAL: As per HPI. Past Medical History Past Medical History: Musculoskeletal Disorder, Neurologic Disorder Additional Past Medical History / Comment(s): Parkinson's disease, essential tremors, headaches, arthritis bilateral hands, vertigo with heights, bronchitis. History of Any Multi-Drug Resistant Organisms: None Reported Past Surgical History: Cholecystectomy Additional Past Surgical History / Comment(s): Colonoscopy with polypectomy Past Anesthesia/Blood Transfusion Reactions: No Reported Reaction Past Psychological History: PTSD Additional Psychological History / Comment(s): Pt resides with his spouse. He is independent. He is a [place] . Smoking Status: Former smoker Past Alcohol Use History: None Reported Additional Past Alcohol Use History / Comment(s): Pt states he drinks 6 beers a day and last drank 2 days ago Past Drug Use History: None Reported - Past Family History Father Family Medical History: Cancer Additional Family Medical History / Comment(s): Father had a form of leukemia. Mother Family Medical History: Cancer Additional Family Medical History / Comment(s): Mother from sarcoma. Medications and Allergies Home Medications Medication Instructions Recorded Confirmed Type Primidone [Mysoline] 50 mg PO HS 07/23/18 03/19/19 History buPROPion HCL [Wellbutrin SR] 50 mg PO QAM 07/23/18 03/19/19 History Allergies Allergy/AdvReac Type Severity Reaction Status Date / Time No Known Allergies Allergy Verified 03/19/19 07:33 Physical Exam Vitals: Vital Signs Temp Pulse Pulse Resp BP BP Pulse Ox 03/19/19 10:44 98.3 F 92 12 102/65 96 03/19/19 09:27 99.0 F 101 H 18 109/68 96 03/19/19 08:35 104 H 18 104/63 96 03/19/19 07:30 104 H 18 104/63 96 03/19/19 07:14 110 H 28 H 107/64 97 03/19/19 06:47 110 H 28 H 133/84 95 03/19/19 06:37 110 H 26 H 96 03/19/19 05:59 118 H 22 136/86 97 03/19/19 05:53 98.5 F 125 H 28 H 136/86 92 L Intake and Output 03/18/19 03/19/19 03/19/19 22:59 06:59 14:59 Other: Voiding Method Toilet Weight 99.79 kg On physical examination, patient appears comfortable in no apparent distress. HEAD: Normocephalic, atraumatic. EYES: Scleral icterus. No conjunctival injection. MOUTH: No lesions, tongue midline. NECK: Trachea midline, no gross abnormalities. CHEST: Clear to auscultation with no wheezing or rhonchi appreciated. HEART: Regular rate and rhythm. ABDOMEN: Soft, obese, mildly tender to palpation. Bowel sounds are positive. No organomegaly. No guarding or rigidity. EXTREMITIES: No pedal edema. SKIN: No rashes, jaundice. NEUROLOGIC: Alert and oriented x3. No focal deficits. Results CBC & Chem 7: 03/19/19 05:56 03/19/19 05:56 Labs: Abnormal Lab Results - Last 24 Hours (Table) 03/19/19 03/19/19 03/19/19 Range/Units 05:56 05:56 05:56 Neutrophils # 8.3 H (1.3-7.7) k/uL Lymphocytes # 0.3 L (1.0-4.8) k/uL Glucose 117 H (74-99) mg/dL Plasma Lactic Acid Danyel 2.2 H* (0.7-2.0) mmol/L Total Bilirubin 10.1 H (0.2-1.3) mg/dL AST 104 H (17-59) U/L ALT 258 H (21-72) U/L Alkaline Phosphatase 326 H (38-126) U/L Creatine Kinase 27 L (55-170) U/L Amylase 1145 H* (30-110) U/L Lipase 91981 H (23-300) U/L Urine Protein (Negative) Urine Bilirubin (Negative) Ur Leukocyte Esterase (Negative) Urine WBC (0-5) /hpf Urine Mucus (None) /hpf 03/19/19 Range/Units 06:20 Neutrophils # (1.3-7.7) k/uL Lymphocytes # (1.0-4.8) k/uL Glucose (74-99) mg/dL Plasma Lactic Acid Danyel (0.7-2.0) mmol/L Total Bilirubin (0.2-1.3) mg/dL AST (17-59) U/L ALT (21-72) U/L Alkaline Phosphatase (38-126) U/L Creatine Kinase (55-170) U/L Amylase (30-110) U/L Lipase (23-300) U/L Urine Protein 1+ H (Negative) Urine Bilirubin 3+ H (Negative) Ur Leukocyte Esterase Small H (Negative) Urine WBC 7 H (0-5) /hpf Urine Mucus Occasional H (None) /hpf CT scan - abdomen: report reviewed (Trace infiltrative findings in the gallbladder fossa which could relate to postsurgical changes or cholangitis on computed tomography scan abdomen.) Assessment and Plan (1) Biliary obstruction Narrative/Plan: 69-year-old male with multiple medical comorbidities status post recent cholecystectomy in 07/2018 who presented with abdominal pain and was found to have elevation in his liver enzymes and predominantly cholestatic pattern with total bilirubin 10.1, alkaline phosphatase 326, AST 104 and ALT 258 with associated pancreatitis with amylase 1145 and lipase 10,585. Computed tomography scan of the abdomen showed infiltrative changes of the gallbladder fossa concerning for postsurgical changes versus cholangitis. Patient had stated that the abdominal pain was similar to prior episodes of symptomatic gallstones/cholecystitis. Current Visit: Yes Status: Acute Code(s): K83.1 - OBSTRUCTION OF BILE DUCT SNOMED Code(s): 907114828 (2) Acute pancreatitis Current Visit: Yes Status: Acute Code(s): K85.90 - ACUTE PANCREATITIS WITHOUT NECROSIS OR INFECTION, UNSP SNOMED Code(s): 908565951 (3) Jaundice Current Visit: Yes Status: Acute Code(s): R17 - UNSPECIFIED JAUNDICE SNOMED Code(s): 62731093 (4) Transaminitis Current Visit: Yes Status: Acute Code(s): R74.0 - NONSPEC ELEV OF LEVELS OF TRANSAMNS & LACTIC ACID DEHYDRGNSE SNOMED Code(s): 976990902 Plan: Supportive care Nothing by mouth Levaquin 1 dose Indocin post procedure Plan for urgent ERCP for further evaluation Continue fluid hydration and pain control for treatment of suspected pancreatitis Further recommendations pending findings of ERCP Thank you for allowing us to participate in the care of the patient
--- NOTE | 2019-03-19 15:45 | P.PCN ---
Date of Procedure: 03/19/19 Description of Procedure: Brief history: 69-year-old male with a medical history significant for Parkinson's disease and osteoarthritis who presented to the hospital due to abdominal pain. The patient previously had his gallbladder removed in 07/2018 when he presented with abdominal pain. He reports that the abdominal pain is similar in nature described as occurring in the epigastric agent of his abdomen. He denies any exposures and is only on his Parkinson's medications at this time. He also reports fatigue. Laboratory evaluation on presentation significant for total bilirubin 10.1, alkaline phosphatase 326, AST 104 and ALT 258 with amylase 1145 and lipase 10,585. Computed tomography scan of the abdomen was significant for infiltrative process of the gallbladder fossa which could relate to postsurgical changes versus cholangitis. Procedure performed: ERCP with sphincterotomy, cholangiogram and balloon sweep Preoperative diagnoses: Elevated bilirubin, gallstone pancreatitis, abnormal computed tomography scan abdomen IV sedation per anesthesia Estimated blood loss: Minimal. Procedure: After informed consent was obtained from the patient and after the risks benefits and complications including bleeding perforation and pancreatitis explained in detail the patient was brought into the endoscopy unit. The patient was placed in prone position and IV conscious sedation was administered by anesthesia under continuous monitoring. The Olympus side-viewing duodenoscop e was then inserted into the mouth and esophagus intubated without any difficulty. The scope was gradually advanced into the stomach and duodenum. The major papilla was identified and was noted to have a diverticular relationship found in the center of the diverticulum it appeared inflamed and erythematous. The papilla was successfully cannulated with a sphincterotome and a wire passed into the common bile duct. Cholangiogram was performed with findings of a dilated common bile duct without any distinct filling defects. The sphincterotome was then used to make an 8 mm sphincterotomy. The sphincterotome was then exchanged over the wire for a balloon stone extractor which was passed sequentially into the common bile duct and common hepatic duct and inflated to 11.5 mm with the ducts swept. This was significant for bile and pus without any distinct stone noted. The patient tolerated the procedure well. The pancreatic duct was not injected or cannulated. Impression: Inflamed, erythematous papilla successfully cannulated with sphincterotomy performed in pus noted from the CBD consistent with cholangitis. ERCP with cholangiogram, sphincterotomy and balloon sweep of the common bile duct. Recommendations: The findings of this examination were discussed with the patient as well as a family. Unasyn antibiotic therapy initiated. Okay for full liquids tonight. Continue to monitor CBC, CMP and clinically.
[2019-03-19] MEDS: AMPICILLIN-SULBACTAM 3 GM in SODIUM CHLORIDE 0.9% 100 ML IVPB SCH ×2 (16:14→23:03)
[2019-03-19] MEDS ORDERED: MELATONIN 3 MG TABLET PO PRN (20:19)
--- NOTE | 2019-03-19 22:35 | P.HPIM ---
History of Present Illness H&P Date: 03/19/19 Chief Complaint: Abdominal pain Patient is a 69-year-old male with a known history of Parkinson's disease with essential tremors, osteoarthritis and PTSD with recent history of cholecystectomy in July 2018 came to ER with the complaints of abdominal pain. Patient has been having intermittent pain for the past 1 week. Since last night patient's pain has worsened and sometimes radiates to the back. Patient also has been having yellow discoloration of skin and eyes. Patient was having subjective fevers and chills since yesterday. Due to worsening abdominal pain patient presented to ER for further evaluation. Denied any complaints of vomiting. Does have nausea. No diarrhea or constipation. No cough or sputum production. No exertional short of breath or chest pain. No headache or dizziness or lightheadedness. AST 104, ALT 258 and amylase level 1145, lipase 10,585 Bilirubin 10.1 Lactic acid 2 Acute hepatitis panel negative. urinalysis negative for infection CT of abdomen pelvis showed trace infiltrate with changes are seen in within the gallbladder fossa. This may be residual postsurgical change with prior cholecystectomy. Versus ascending cholangitis. Hepatic steatosis. Review of Systems Constitutional: Patient denies any fever or chills . No generalized weakness or weight loss. Abdomen: Patient denied nausea vomiting and diarrhea and patient does have epigastric abdominal pain. Cardiovascular: Patient denies any chest pain or short of breath no palpitations. Respiratory: patient denied any cough is from production. No shortness of breath Neurologic: Patient denied any numbness or tingling headache. Musculoskeletal: Patient denies any complaints of joint swelling or deformity. Skin: Negative Psychiatric: Negative Endocrine: No heat or cold intolerance. No recent weight gain. Genitourinary: No dysuria or hematuria. All other 14 point ROS negative except the above Past Medical History Past Medical History: Musculoskeletal Disorder, Neurologic Disorder Additional Past Medical History / Comment(s): Parkinson's disease, essential tremors, headaches, arthritis bilateral hands, vertigo with heights, bronchitis. History of Any Multi-Drug Resistant Organisms: None Reported Past Surgical History: Cholecystectomy Additional Past Surgical History / Comment(s): Colonoscopy with polypectomy Past Anesthesia/Blood Transfusion Reactions: No Reported Reaction Past Psychological History: PTSD Additional Psychological History / Comment(s): Pt resides with his spouse. He is independent. He is a [place] . Smoking Status: Former smoker Past Alcohol Use History: None Reported Additional Past Alcohol Use History / Comment(s): Pt states he drinks 6 beers a day and last drank 2 days ago Past Drug Use History: None Reported - Past Family History Father Family Medical History: Cancer Additional Family Medical History / Comment(s): Father had a form of leukemia. Mother Family Medical History: Cancer Additional Family Medical History / Comment(s): Mother from sarcoma. Medications and Allergies Home Medications Medication Instructions Recorded Confirmed Type Primidone [Mysoline] 50 mg PO HS 07/23/18 03/19/19 History buPROPion HCL [Wellbutrin SR] 50 mg PO QAM 07/23/18 03/19/19 History Allergies Allergy/AdvReac Type Severity Reaction Status Date / Time No Known Allergies Allergy Verified 03/19/19 07:33 Physical Exam Vitals: Vital Signs Temp Pulse Pulse Resp BP BP Pulse Ox 03/19/19 13:09 98.7 F 82 16 112/68 94 L 03/19/19 10:44 98.3 F 92 12 102/65 96 03/19/19 10:31 98.3 F 92 16 102/65 96 03/19/19 09:27 99.0 F 101 H 18 109/68 96 03/19/19 08:35 104 H 18 104/63 96 03/19/19 07:30 104 H 18 104/63 96 03/19/19 07:14 110 H 28 H 107/64 97 03/19/19 06:47 110 H 28 H 133/84 95 03/19/19 06:37 110 H 26 H 96 03/19/19 05:59 118 H 22 136/86 97 03/19/19 05:53 98.5 F 125 H 28 H 136/86 92 L Intake and Output 03/18/19 03/19/19 03/19/19 22:59 06:59 14:59 Other: Voiding Method Toilet Weight 99.79 kg PHYSICAL EXAMINATION: Patient is lying in the bed comfortably, no acute distress, awake alert and oriented.. HEENT: Normocephalic. Neck is supple. Pupils reactive. Nostrils clear. Oral cavity is moist. Ears reveal no drainage. Icterus and a yellow discoloration of skin Neck reveals no JVD, carotid bruits, or thyromegaly. CHEST EXAMINATION: Trachea is central. Symmetrical expansion. Lung john clear to auscultation and percussion. CARDIAC: Normal S1, S2 with no gallops. No murmurs ABDOMEN: Soft. Epigastric tenderness. Bowel sounds normal. No organomegaly. No abdominal bruits. Extremities: reveal no edema. No clubbing or cyanosis Neurologically awake, alert, oriented x3 with well-coordinated movements. No focal deficits noted Skin: No rash or skin lesions. Psychiatric: Coperative. Nonsuicidal Musculoskeletal: No joint swelling or deformity. Normal range of motion. Results CBC & Chem 7: 03/19/19 05:56 03/19/19 05:56 Labs: Abnormal Lab Results - Last 24 Hours (Table) 03/19/19 03/19/19 03/19/19 Range/Units 05:56 05:56 05:56 Neutrophils # 8.3 H (1.3-7.7) k/uL Lymphocytes # 0.3 L (1.0-4.8) k/uL Glucose 117 H (74-99) mg/dL Plasma Lactic Acid Danyel 2.2 H* (0.7-2.0) mmol/L Total Bilirubin 10.1 H (0.2-1.3) mg/dL AST 104 H (17-59) U/L ALT 258 H (21-72) U/L Alkaline Phosphatase 326 H (38-126) U/L Creatine Kinase 27 L (55-170) U/L Amylase 1145 H* (30-110) U/L Lipase 71486 H (23-300) U/L Urine Protein (Negative) Urine Bilirubin (Negative) Ur Leukocyte Esterase (Negative) Urine WBC (0-5) /hpf Urine Mucus (None) /hpf 03/19/19 Range/Units 06:20 Neutrophils # (1.3-7.7) k/uL Lymphocytes # (1.0-4.8) k/uL Glucose (74-99) mg/dL Plasma Lactic Acid Danyel (0.7-2.0) mmol/L Total Bilirubin (0.2-1.3) mg/dL AST (17-59) U/L ALT (21-72) U/L Alkaline Phosphatase (38-126) U/L Creatine Kinase (55-170) U/L Amylase (30-110) U/L Lipase (23-300) U/L Urine Protein 1+ H (Negative) Urine Bilirubin 3+ H (Negative) Ur Leukocyte Esterase Small H (Negative) Urine WBC 7 H (0-5) /hpf Urine Mucus Occasional H (None) /hpf Thrombosis Risk Factor Assmnt - DVT/VTE Prophylaxis DVT/VTE Prophylaxis: Pharmacologic Prophylaxis ordered - Choose All That Apply Any of the Below Risk Factors Present?: No Other Risk Factors: Yes Each Risk Factor Represents 2 Points: Age 61-74 years Other congenital or acquired thrombophilia - If yes, enter type in comment: No Thrombosis Risk Factor Assessment Total Risk Factor Score: 2 Thrombosis Risk Factor Assessment Level: Low Risk Assessment and Plan Assessment: Abdominal pain secondary to acute biliary obstruction. Ascending cholangitis with possible sepsis Acute pancreatitis Elevated liver enzymes/transaminitis Lactic acidosis 2.2 on admission Recent history of cholecystectomy in July 2018 Parkinson's disease with essential tremors Osteoarthritis History of vertigo PTSD Previous history of smoking DVT prophylaxis with heparin subcu Plan: Patient will be continued on IV hydration. Patient was seen by gastroenterology and was taken to ERCP on emergent basis. Continue the pain management with morphine. Patient was given a dose of Levaquin. Continue with antibiotics and follow closely. Further recommendations based on the clinical course. Follow-up culture reports. Time with Patient: Greater than 30
[2019-03-20] MEDS: SODIUM CHLORIDE 0.9% 1,000 ML IV SCH ×3 (06:14→23:13)
[2019-03-20 07:38] LABS: ALT 150 U/L (21-72); AST 51 U/L (17-59); African American GFR (CKD) >90 (>60 ml/min/1.73 sqM); Albumin 2.9 g/dL (3.5-5.0); Alkaline Phosphatase 195 U/L (38-126); Anion Gap 8 mmol/L; Basophils % (A) 0 %; Blood Urea Nitrogen 14 mg/dL (9-20); Calcium 8.3 mg/dL (8.4-10.2); Carbon Dioxide 26 mmol/L (22-30); Chloride 106 mmol/L (98-107); Eosinophils # (A) 0.2 k/uL (0-0.7); Eosinophils % (A) 3 %; Glucose 114 mg/dL (74-99); HCT 38.7 % (39.0-53.0); Lymphocytes % (A) 11 %; MCHC 34.2 g/dL (31.0-37.0); MCV 96.3 fL (80.0-100.0); Mean Platelet Volume 6.7; Monocytes # (A) 0.5 k/uL (0-1.0); Monocytes % (A) 6 %; Neutrophils % (A) 78 %; Non-African American GFR(CKD) >90 (>60 ml/min/1.73 sqM); Platelet Count 126 k/uL (150-450); Potassium 3.7 mmol/L (3.5-5.1); RBC 4.02 m/uL (4.30-5.90); RDW 13.2 % (11.5-15.5); Sodium 140 mmol/L (137-145); Total Bilirubin 6.6 mg/dL (0.2-1.3); Total Protein 5.5 g/dL (6.3-8.2)
[2019-03-20 07:42] LABS: HGB 13.2 gm/dL (13.0-17.5)
[2019-03-20] MEDS: AMPICILLIN-SULBACTAM 3 GM in SODIUM CHLORIDE 0.9% 100 ML IVPB SCH ×3 (10:22→23:12)
[2019-03-20 11:33] VITALS: BMI 29.6
--- NOTE | 2019-03-20 18:33 | PN ---
PROGRESS NOTE DATE OF DICTATION: 03/20/2019 Patient is a 69-year-old pleasant white male admitted to the hospital with acute biliary pancreatitis with elevated amylase and lipase as well as jaundice and elevated LFTs. The patient has a prior history of gallbladder surgery in July of 2018. He was seen by Dr. Perry yesterday and he underwent an ERCP with biliary sphincterotomy and balloon sweep and there was purulent material noted exiting the ampulla suggestive of ascending cholangitis. He is at present on broad-spectrum antibiotics and he is doing much better. This morning he states that the abdominal pain has resolved. He is on a full liquid diet, tolerating well. No fever, chills or night sweats. PHYSICAL EXAMINATION: He appears comfortable. No apparent distress. VITAL SIGNS: Stable. Blood pressure is 132/72, pulse rate of 70, temperature 97.8. She appears comfortable. No apparent distress. HEENT examination unremarkable. Conjunctivae pink. Sclerae anicteric. Oral cavity no lesions. NECK: No JVD or lymph node enlargement. CHEST: Clear to auscultation. HEART: Regular rate and rhythm. ABDOMEN: Soft. Bowel sounds are positive. Mild tenderness in the epigastric area. EXTREMITIES: No pedal edema. SKIN: No rashes. NEUROLOGIC: Alert and oriented x3. No focal deficits. LABS: WBC 9, hemoglobin 13.2. Platelets are normal. Bilirubin is down to 6.6, AST 51, ALT 150, alkaline phosphatase 195. Amylase and lipase were 1145 and 10,585 yesterday. Today they were not done. IMPRESSION: 1. Acute biliary pancreatitis with obstructive jaundice, status post endoscopic retrograde cholangiopancreatography with biliary sphincterotomy and balloon sweep yesterday. No obvious stone was noted, but there was evidence of purulent material from the CBD suggestive of ascending cholangitis. At present he is on broad- spectrum antibiotics and doing well. Symptoms are significantly improved. 2. Elevated liver function tests and jaundice, which are gradually improving. 3. Acute pancreatitis, resolving. 4. Status post gallbladder surgery in July of 2018. RECOMMENDATIONS: 1. Continue with broad-spectrum antibiotics. 2. Continue with full liquid diet. 3. Repeat labs in the morning and if they are improving, he can be discharged home in 1 to 2 days with an outpatient followup with Dr. Perry. Thank you for this consultation. MMODL / IJN: [id number] /
--- NOTE | 2019-03-20 23:34 | P.PN ---
Subjective Progress Note Date: 03/20/19 Principal diagnosis: Acute biliary obstruction Acute pancreatitis Patient is a 69-year-old male with a known history of Parkinson's disease with essential tremors, osteoarthritis and PTSD with recent history of cholecystectomy in July 2018 came to ER with the complaints of abdominal pain. Patient has been having intermittent pain for the past 1 week. Since last night patient's pain has worsened and sometimes radiates to the back. Patient also has been having yellow discoloration of skin and eyes. Patient was having subjective fevers and chills since yesterday. Due to worsening abdominal pain patient presented to ER for further evaluation. Denied any complaints of vomiting. Does have nausea. No diarrhea or constipation. No cough or sputum production. No exertional short of breath or chest pain. No headache or dizziness or lightheadedness. AST 104, ALT 258 and amylase level 1145, lipase 10,585 Bilirubin 10.1 Lactic acid 2 Acute hepatitis panel negative. urinalysis negative for infection CT of abdomen pelvis showed trace infiltrate with changes are seen in within the gallbladder fossa. This may be residual postsurgical change with prior cholecystectomy. Versus ascending cholangitis. Hepatic steatosis. 03/20/2019 Patient denied any complaints of abdominal pain today. Patient has been afebrile. Liver enzymes and bilirubin level trending down. Tolerating full liquid diet. Continue with broad-spectrum antibiotics in the form of Unasyn. Follow-up labs tomorrow and anticipate discharge in next 24 hours. Gastroenterology is following. ERCP report. Inflamed, erythematous papilla successfully cannulated with sphincterotomy performed in pus noted from the CBD consistent with cholangitis. ERCP with cholangiogram, sphincterotomy and balloon sweep of the common bile duct. Active Medications Hydromorphone HCl (Dilaudid) 0.5 mg IVP Q3HR PRN PRN Reason: Moderate Pain Hydromorphone HCl (Dilaudid) 1 mg IVP Q3HR PRN PRN Reason: Severe Pain Sodium Chloride (Saline 0.9%) 1,000 mls @ 50 mls/hr IV .Q20H [facility] Last Admin: 03/20/19 23:13 Dose: 50 mls/hr Documented by: Ampicillin Sodium/Sulbactam (Sodium 3 gm/ Sodium Chloride) 100 mls @ 200 mls/hr IVPB Q8HR [facility] Last Admin: 03/20/19 23:12 Dose: 200 mls/hr Documented by: Melatonin (Melatonin) 3 mg PO HS PRN PRN Reason: Insomnia Naloxone HCl (Narcan) 0.2 mg IV Q2M PRN PRN Reason: Opioid Reversal Ondansetron HCl (Zofran) 4 mg IVP Q8HR PRN PRN Reason: Nausea And Vomiting Objective - Vital Signs Vital signs: Vital Signs Temp 98.3 F 03/20/19 19:20 Pulse 71 03/20/19 19:20 Resp 15 03/20/19 19:20 BP 125/72 03/20/19 19:20 Pulse Ox 93 L 03/20/19 19:20 Intake & Output 03/20/19 03/20/19 03/21/19 06:59 18:59 06:59 Intake Total 30 240 660 Balance 30 240 660 Weight 99 kg Intake: Oral 30 240 660 Other: Voiding Method Toilet # Voids 3 - Exam PHYSICAL EXAMINATION: Patient is lying in the bed comfortably, no acute distress, awake alert and oriented.. HEENT: Normocephalic. Neck is supple. Pupils reactive. Nostrils clear. Oral cavity is moist. Ears reveal no drainage. Neck reveals no JVD, carotid bruits, or thyromegaly. CHEST EXAMINATION: Trachea is central. Symmetrical expansion. Lung john clear to auscultation and percussion. CARDIAC: Normal S1, S2 with no gallops. No murmurs ABDOMEN: Soft. Bowel sounds normal. No organomegaly. No abdominal bruits. Extremities: reveal no edema. No clubbing or cyanosis Neurologically awake, alert, oriented x3 with well-coordinated movements. No focal deficits noted Skin: No rash or skin lesions. Psychiatric: Coperative. Nonsuicidal Musculoskeletal: No joint swelling or deformity. Normal range of motion. - Labs CBC & Chem 7: 03/20/19 06:33 03/20/19 06:33 Labs: Abnormal Lab Results - Last 24 Hours (Table) 03/20/19 03/20/19 Range/Units 06:33 06:33 RBC 4.02 L (4.30-5.90) m/uL Hct 38.7 L (39.0-53.0) % Plt Count 126 L (150-450) k/uL Glucose 114 H (74-99) mg/dL Calcium 8.3 L (8.4-10.2) mg/dL Total Bilirubin 6.6 H (0.2-1.3) mg/dL ALT 150 H (21-72) U/L Alkaline Phosphatase 195 H (38-126) U/L Total Protein 5.5 L (6.3-8.2) g/dL Albumin 2.9 L (3.5-5.0) g/dL Assessment and Plan Assessment: Abdominal pain secondary to acute biliary obstruction. Status post ERCP- sphincterotomy and balloon sweep of the common bile duct. Ascending cholangitis with possible sepsis Acute pancreatitis Elevated liver enzymes/transaminitis Lactic acidosis 2.2 on admission Recent history of cholecystectomy in July 2018 Parkinson's disease with essential tremors Osteoarthritis History of vertigo PTSD Previous history of smoking DVT prophylaxis with heparin subcu Plan: Patient will be continued on IV hydration. Patient was seen by gastroenterology and was taken to ERCP on emergent basis. Status post sphincterotomy and balloon sweep of the common bile duct Continue the pain management with morphine. Patient was given a dose of Levaquin. Continue with antibiotics in the form of Unasyn and follow closely. Follow up CBC, CMP, amylase and lipase levels. Currently patient is on full liquid diet. Advance as tolerated. Further recommendations based on the clinical course. Follow-up culture reports. Time with Patient: Greater than 30
[2019-03-21 07:35] LABS: Basophils % (A) 0 %; Eosinophils # (A) 0.2 k/uL (0-0.7); Eosinophils % (A) 3 %; HCT 42.5 % (39.0-53.0); HGB 14.4 gm/dL (13.0-17.5); Lymphocytes # (A) 0.9 k/uL (1.0-4.8); Lymphocytes % (A) 14 %; MCH 32.9 pg (25.0-35.0); MCHC 33.9 g/dL (31.0-37.0); MCV 97.2 fL (80.0-100.0); Mean Platelet Volume 6.8; Monocytes # (A) 0.4 k/uL (0-1.0); Monocytes % (A) 6 %; Neutrophils # (A) 5.1 k/uL (1.3-7.7); Neutrophils % (A) 75 %; Platelet Count 143 k/uL (150-450); RBC 4.37 m/uL (4.30-5.90); WBC 6.8 k/uL (3.8-10.6)
[2019-03-21 07:42] LABS: ALT 126 U/L (21-72); AST 48 U/L (17-59); African American GFR (CKD) >90 (>60 ml/min/1.73 sqM); Albumin 3.2 g/dL (3.5-5.0); Alkaline Phosphatase 198 U/L (38-126); Amylase 181 U/L (30-110); Anion Gap 8 mmol/L; Blood Urea Nitrogen 10 mg/dL (9-20); Calcium 8.8 mg/dL (8.4-10.2); Carbon Dioxide 23 mmol/L (22-30); Chloride 108 mmol/L (98-107); Glucose 120 mg/dL (74-99); Non-African American GFR(CKD) >90 (>60 ml/min/1.73 sqM); Sodium 139 mmol/L (137-145); Total Bilirubin 3.7 mg/dL (0.2-1.3)
[2019-03-21] MEDS: AMPICILLIN-SULBACTAM 3 GM in SODIUM CHLORIDE 0.9% 100 ML IVPB SCH ×3 (08:04→23:59)
[2019-03-21] MEDS: SODIUM CHLORIDE 0.9% 1,000 ML IV SCH (20:03)
--- NOTE | 2019-03-21 20:22 | PN ---
PROGRESS NOTE DATE OF DICTATION: 03/21/2019 Patient is a 69-year-old pleasant white male admitted to the hospital with acute biliary pancreatitis. He underwent ERCP by Dr. Perry 2 days ago and biliary sphincterotomy was performed. The patient is doing much better since then. He is on broad-spectrum antibiotics. Abdominal pain has resolved on a low-fat diet, tolerating well. No fever, chills, night sweats. PHYSICAL EXAMINATION: Blood pressure is 130/75, pulse rate 71, temperature 98.7. HEENT examination unremarkable. Conjunctivae pink. Sclerae anicteric. Oral cavity no lesions. NECK: No JVD or lymph node enlargement. CHEST: Clear to auscultation. HEART: Regular rate and rhythm. ABDOMEN: Soft. Bowel sounds are positive. No organomegaly. No tenderness in the epigastric area. EXTREMITIES: No pedal edema. SKIN: No rashes. NEUROLOGIC: Alert and oriented x3. No focal deficits. LABS: Labs done today show T-bilirubin is down to 3.7. AST and ALT are 126, 198, respectively. Lipase is down to 2367. WBC 6.8, hemoglobin 14.4, platelets 143. IMPRESSION: 1. Acute biliary pancreatitis, status post endoscopic retrograde cholangiopancreatography with biliary sphincterotomy and purulent material noted to exit the ampulla suspicious for ascending cholangitis. Presently on broad-spectrum antibiotics, doing well. 2. Acute pancreatitis, improving. 3. Elevated liver function tests, gradually improving. RECOMMENDATIONS: 1. Continue with broad-spectrum antibiotics. 2. Advance diet as tolerated to a low-fat diet. 3. Repeat labs in the morning, and if they are improving he can be discharged home tomorrow with outpatient followup with Dr. Perry in 2 weeks. Thank you for this consultation. MMODL / IJN: [id number] /
[2019-03-22 07:23] VITALS: BP 139/79; PULSE 75; RESP 17; TEMP 97.9
[2019-03-22 07:56] LABS: ALT 119 U/L (21-72); AST 50 U/L (17-59); African American GFR (CKD) >90 (>60 ml/min/1.73 sqM); Albumin 3.6 g/dL (3.5-5.0); Alkaline Phosphatase 213 U/L (38-126); Anion Gap 12 mmol/L; Blood Urea Nitrogen 11 mg/dL (9-20); Calcium 9.2 mg/dL (8.4-10.2); Carbon Dioxide 21 mmol/L (22-30); Chloride 106 mmol/L (98-107); Glucose 141 mg/dL (74-99); Non-African American GFR(CKD) >90 (>60 ml/min/1.73 sqM); Potassium 3.9 mmol/L (3.5-5.1); Sodium 139 mmol/L (137-145); Total Protein 6.7 g/dL (6.3-8.2)
[2019-03-22] MEDS: AMPICILLIN-SULBACTAM 3 GM in SODIUM CHLORIDE 0.9% 100 ML IVPB SCH (08:19)
--- NOTE | 2019-03-22 13:15 | P.PN ---
Subjective Progress Note Date: 03/22/19 Principal diagnosis: 1. Acute biliary obstruction 2. Acute Pancreatitis Patient Seen and evaluated. Patient is a 69-year-old pleasant white male was admitted to the hospital with acute biliary pancreatitis. ERCP with cholangiogram, sphincterectomy and balloon sweep of the common bile duct was performed [address] Perry, showing inflamed erythematous papilla with pus noted in the common bile duct consistent with cholangitis. Patient sitting up comfortably in a chair with no distress. Patient reports no abdominal pain. Patient has had bowel movement, tolerating low-fat diet. Patient has remained afebrile, denies fever or chills. Patient is adamant he like to be discharged today Objective - Vital Signs Vital signs: Vital Signs Temp 97.9 F 03/22/19 07:00 Pulse 75 03/22/19 07:00 Resp 17 03/22/19 07:00 BP 139/79 03/22/19 07:00 Pulse Ox 93 L 03/22/19 07:00 Intake & Output 03/21/19 03/22/19 03/22/19 18:59 06:59 18:59 Intake Total 480 118 Balance 480 118 Intake: Oral 480 118 Other: Voiding Method Toilet # Voids 2 1 - Exam General appearance: The patient is alert, oriented, in no acute distress. HET: Head is normocephalic and atraumatic. Pupils are equal and reactive. Oropharynx is clear without lesions. Neck: Supple without lymphadenopathy. Trachea midline. Heart: S1 S2. Regular rate and rhythm. Lungs: No crackles or wheezes are heard. Abdomen: Soft, nontender, nondistended with bowel sounds. No peritoneal signs. No palpable organomegaly or masses. Extremities: Normal skin color and turgor. No cyanosis, rash, ulceration, clubbing, or edema. Radial and pedal pulses are 2/4 bilaterally. Neurological: No focal deficits. Strength and sensation are grossly intact. - Labs CBC & Chem 7: 03/21/19 06:28 03/22/19 06:37 Labs: Abnormal Lab Results - Last 24 Hours (Table) 03/22/19 Range/Units 06:37 Carbon Dioxide 21 L (22-30) mmol/L Glucose 141 H (74-99) mg/dL Total Bilirubin 3.0 H (0.2-1.3) mg/dL ALT 119 H (21-72) U/L Alkaline Phosphatase 213 H (38-126) U/L Lipase 2369 H (23-300) U/L Assessment and Plan Assessment: Acute biliary pancreatitis, status post endoscopic retrograde Plan: Patient to be discharged today to go home on Flagyl and Cipro. Patient to follow a low-fat diet. Patient to follow-up with Dr. Perry in 2 weeks. The above dictated assessment and findings were discussed with Dr. Carlos Verduzco. The impression and plan of care have been directed as dictated.
--- NOTE | 2019-03-26 12:22 | CDI ---
Documentation Clarification Form Date: 03/26/19 From: Cely Lopez Phone: If you have a question about this query, please contact Laurie Garcia, Social Science Manager at [phone] between 8am and 5pm. Admit Date: 03/19/19 Discharge Date: 03/22/19 Patient Name: Flaco Vinson Visit Number: [id number] ATTENTION: The Clinical Documentation Specialists (CDI) and [facility] Coding Staff appreciate your assistance in clarifying documentation. Please respond to the clarification below the line at the bottom and electronically sign. The CDI & [facility] Coding staff will review the response and follow-up if needed. Please note: Queries are made part of the Legal Health Record. If you have any questions, please contact the author of this message via ITS. Dear Dr. Flaco Vinson The patient presented with abdominal pain. Documentation in the H&P and your 03/20 progress note states that the patient has ascending cholangitis with possible sepsis. Sepsis is not documented after 03/20. History/Risk Factors: Cholangitis Clinical Indicators:Elevated lactic acid, elevated pulse, elevated respiratory rate WBC: 8.7 Lactic acid: 2.2 Blood cultures: No growth Vitals signs on admission: T. 98.5, P. 125, R. 28, BP 136/86 Treatment: Antibiotics: IV Unasyn, IV Levaquin IV Bolus: 1 liter In your professional opinion, please clarify if these findings signify one of the following conditions, whether the condition is POA, and cause, if known: Condition Sepsis ruled out SIRS, without underlying infectious process Sepsis Severe Sepsis Septic Shock Other, please specify Unable to determine Present on Admission Yes No Identify the (suspected) organism Sepsis POA MTDD
--- NOTE | 2019-03-28 21:56 | P.PN ---
Subjective Progress Note Date: 03/21/19 Principal diagnosis: Acute biliary obstruction Acute pancreatitis Patient is a 69-year-old male with a known history of Parkinson's disease with essential tremors, osteoarthritis and PTSD with recent history of cholecystectomy in July 2018 came to ER with the complaints of abdominal pain. Patient has been having intermittent pain for the past 1 week. Since last night patient's pain has worsened and sometimes radiates to the back. Patient also has been having yellow discoloration of skin and eyes. Patient was having subjective fevers and chills since yesterday. Due to worsening abdominal pain patient presented to ER for further evaluation. Denied any complaints of vomiting. Does have nausea. No diarrhea or constipation. No cough or sputum production. No exertional short of breath or chest pain. No headache or dizziness or lightheadedness. AST 104, ALT 258 and amylase level 1145, lipase 10,585 Bilirubin 10.1 Lactic acid 2 Acute hepatitis panel negative. urinalysis negative for infection CT of abdomen pelvis showed trace infiltrate with changes are seen in within the gallbladder fossa. This may be residual postsurgical change with prior cholecystectomy. Versus ascending cholangitis. Hepatic steatosis. 03/20/2019 Patient denied any complaints of abdominal pain today. Patient has been afebrile. Liver enzymes and bilirubin level trending down. Tolerating full liquid diet. Continue with broad-spectrum antibiotics in the form of Unasyn. Follow-up labs tomorrow and anticipate discharge in next 24 hours. Gastroenterology is following. ERCP report. Inflamed, erythematous papilla successfully cannulated with sphincterotomy performed in pus noted from the CBD consistent with cholangitis. ERCP with cholangiogram, sphincterotomy and balloon sweep of the common bile duct. 03/21/2019 Patient denied any complaints of abdominal pain. Liver enzymes are trending down. Patient is tolerating oral diet. Follow up liver enzymes and lipase level tomorrow and discharge once cleared by Gastroenterology. Patient has been afebrile. No leukocytosis. No other acute overnight issues. Active Medications Hydromorphone HCl (Dilaudid) 0.5 mg IVP Q3HR PRN PRN Reason: Moderate Pain Hydromorphone HCl (Dilaudid) 1 mg IVP Q3HR PRN PRN Reason: Severe Pain Sodium Chloride (Saline 0.9%) 1,000 mls @ 50 mls/hr IV .Q20H [facility] Last Admin: 03/20/19 23:13 Dose: 50 mls/hr Documented by: Ampicillin Sodium/Sulbactam (Sodium 3 gm/ Sodium Chloride) 100 mls @ 200 mls/hr IVPB Q8HR [facility] Last Admin: 03/20/19 23:12 Dose: 200 mls/hr Documented by: Melatonin (Melatonin) 3 mg PO HS PRN PRN Reason: Insomnia Naloxone HCl (Narcan) 0.2 mg IV Q2M PRN PRN Reason: Opioid Reversal Ondansetron HCl (Zofran) 4 mg IVP Q8HR PRN PRN Reason: Nausea And Vomiting Objective - Vital Signs Vital signs: Vital Signs Temp 97.9 F 03/22/19 07:00 Pulse 75 03/22/19 07:00 Resp 17 03/22/19 07:00 BP 139/79 03/22/19 07:00 Pulse Ox 93 L 03/22/19 07:00 - Exam PHYSICAL EXAMINATION: Patient is lying in the bed comfortably, no acute distress, awake alert and oriented.. HEENT: Normocephalic. Neck is supple. Pupils reactive. Nostrils clear. Oral cavity is moist. Ears reveal no drainage. Neck reveals no JVD, carotid bruits, or thyromegaly. CHEST EXAMINATION: Trachea is central. Symmetrical expansion. Lung john clear to auscultation and percussion. CARDIAC: Normal S1, S2 with no gallops. No murmurs ABDOMEN: Soft. Bowel sounds normal. No organomegaly. No abdominal bruits. Extremities: reveal no edema. No clubbing or cyanosis Neurologically awake, alert, oriented x3 with well-coordinated movements. No focal deficits noted Skin: No rash or skin lesions. Psychiatric: Coperative. Nonsuicidal Musculoskeletal: No joint swelling or deformity. Normal range of motion. - Labs CBC & Chem 7: 03/21/19 06:28 03/22/19 06:37 Assessment and Plan Assessment: Abdominal pain secondary to acute biliary obstruction. Status post ERCP- sphincterotomy and balloon sweep of the common bile duct. Ascending cholangitis with sepsis present on admission. Acute biliary pancreatitis Elevated liver enzymes/transaminitis Lactic acidosis 2.2 on admission Recent history of cholecystectomy in July 2018 Parkinson's disease with essential tremors Osteoarthritis History of vertigo PTSD Previous history of smoking DVT prophylaxis with heparin subcu Plan: Patient will be continued on IV hydration. Patient was seen by gastroenterology and was taken to ERCP on emergent basis. Status post sphincterotomy and balloon sweep of the common bile duct Continue the pain management with morphine. Patient was given a dose of Levaquin. Continue with antibiotics in the form of Unasyn and follow closely. Follow up CBC, CMP, amylase and lipase levels. Currently patient is on full liquid diet. Advance as tolerated. Further recommendations based on the clinical course. Follow-up culture reports. Time with Patient: Greater than 30
--- NOTE | 2019-03-28 21:58 | P.DS ---
Providers Date of admission: 03/19/19 08:47 Expected date of discharge: 03/22/19 Attending physician: Kym De Guzman Consults: 03/19/19 08:47 Consult Physician Stat Consulting Provider: Jean Perry Reason/Comments: Biliary obstruction, jaundice Do you want consulting provider notified?: Yes Primary care physician: [facility] Course: Discharge diagnosis Abdominal pain secondary to acute biliary obstruction. Status post ERCP- sphincterotomy and balloon sweep of the common bile duct. Ascending cholangitis with sepsis present on admission. Acute biliary pancreatitis Elevated liver enzymes/transaminitis Lactic acidosis 2.2 on admission Recent history of cholecystectomy in July 2018 Parkinson's disease with essential tremors Osteoarthritis History of vertigo PTSD Previous history of smoking DVT prophylaxis with heparin subcu Hospital course Patient is a 69-year-old male with a known history of Parkinson's disease with essential tremors, osteoarthritis and PTSD with recent history of cholecystectomy in July 2018 came to ER with the complaints of abdominal pain. Patient has been having intermittent pain for the past 1 week. Since last night patient's pain has worsened and sometimes radiates to the back. Patient also has been having yellow discoloration of skin and eyes. Patient was having subjective fevers and chills since yesterday. Due to worsening abdominal pain patient presented to ER for further evaluation. Denied any complaints of vomiting. Does have nausea. No diarrhea or constipation. No cough or sputum production. No exertional short of breath or chest pain. No headache or dizziness or lightheadedness. AST 104, ALT 258 and amylase level 1145, lipase 10,585 Bilirubin 10.1 Lactic acid 2 Acute hepatitis panel negative. urinalysis negative for infection CT of abdomen pelvis showed trace infiltrate with changes are seen in within the gallbladder fossa. This may be residual postsurgical change with prior cholecystectomy. Versus ascending cholangitis. Hepatic steatosis. 03/20/2019 Patient denied any complaints of abdominal pain today. Patient has been afebrile. Liver enzymes and bilirubin level trending down. Tolerating full liquid diet. Continue with broad-spectrum antibiotics in the form of Unasyn. Follow-up labs tomorrow and anticipate discharge in next 24 hours. Gastroenterology is following. ERCP report. Inflamed, erythematous papilla successfully cannulated with sphincterotomy performed in pus noted from the CBD consistent with cholangitis. ERCP with cholangiogram, sphincterotomy and balloon sweep of the common bile duct. 03/21/2019 Patient denied any complaints of abdominal pain. Liver enzymes are trending down. Patient is tolerating oral diet. Follow up liver enzymes and lipase level tomorrow and discharge once cleared by Gastroenterology. Patient has been afebrile. No leukocytosis. No other acute overnight issues. Level XV 2018 Patient is clinically back to baseline. No complaints of abdominal pain. No nausea vomiting or diarrhea. Lipase level is trending down. Patient will be continued on antibiotic course. Stable for discharge from GI standpoint. Follow-up with Dr. perry in the clinic. PHYSICAL EXAMINATION: Patient is lying in the bed comfortably, no acute distress, awake alert and oriented.. HEENT: Normocephalic. Neck is supple. Pupils reactive. Nostrils clear. Oral cavity is moist. Ears reveal no drainage. Neck reveals no JVD, carotid bruits, or thyromegaly. CHEST EXAMINATION: Trachea is central. Symmetrical expansion. Lung john clear to auscultation and percussion. CARDIAC: Normal S1, S2 with no gallops. No murmurs ABDOMEN: Soft. Bowel sounds normal. No organomegaly. No abdominal bruits. Extremities: reveal no edema. No clubbing or cyanosis Neurologically awake, alert, oriented x3 with well-coordinated movements. No focal deficits noted Skin: No rash or skin lesions. Psychiatric: Coperative. Nonsuicidal Musculoskeletal: No joint swelling or deformity. Normal range of motion. Vital Signs Temp 97.9 F 03/22/19 07:00 Pulse 75 03/22/19 07:00 Resp 17 03/22/19 07:00 BP 139/79 03/22/19 07:00 Pulse Ox 93 L 03/22/19 07:00 Intake & Output 03/21/19 03/22/19 03/22/19 18:59 06:59 18:59 Intake Total 480 118 Balance 480 118 Intake: Oral 480 118 Other: Voiding Method Toilet # Voids 2 1 Patient Condition at Discharge: Serious Plan - Discharge Summary Discharge Rx Participant: Yes New Discharge Prescriptions: New Ciprofloxacin HCl [Cipro] 500 mg PO Q12H 4 Days #8 tab metroNIDAZOLE [Flagyl] 500 mg PO Q8HR 4 Days #12 tab Continue buPROPion HCL [Wellbutrin SR] 50 mg PO QAM Primidone [Mysoline] 50 mg PO HS Discharge Medication List Primidone [Mysoline] 50 mg PO HS 07/23/18 [History] buPROPion HCL [Wellbutrin SR] 50 mg PO QAM 07/23/18 [History] Ciprofloxacin HCl [Cipro] 500 mg PO Q12H 4 Days #8 tab 03/21/19 [Rx] metroNIDAZOLE [Flagyl] 500 mg PO Q8HR 4 Days #12 tab 03/21/19 [Rx] Follow up Appointment(s)/Referral(s): Jean Perry MD [STAFF PHYSICIAN] - 03/29/19 9:40 am (With Lucretia Hernandes Be there no later than 0930) [facility],Clinic [Primary Care Provider] - 03/29/19 3:30 pm (With Melo) Patient Instructions/Handouts: Pancreatitis (DC), Jaundice (DC) Discharge Disposition: HOME SELF-CARE
== END 2019-03-22 09:27 | disposition home or self-care (01) | DRG 871 ==
LOC: EC 05:41 → 4SSUR 08:47
PROVIDERS: ADMIT Internal Medicine; ATTEND Internal Medicine
PROC: 0F798ZZ Dilation of Common Bile Duct, Via Natural or Artificial Opening Endoscopic (ICD-10-PCS; principal; 2019-03-19 07:55)
PROC: 0F778ZZ Dilation of Common Hepatic Duct, Via Natural or Artificial Opening Endoscopic (ICD-10-PCS; 2019-03-19 07:55)
DX: A41.9 Sepsis, unspecified organism (principal); K85.10 Biliary acute pancreatitis without necrosis or infection; K83.1 Obstruction of bile duct; K83.09 Other cholangitis; G20 Parkinson's disease; K76.0 Fatty (change of) liver, not elsewhere classified; F43.10 Post-traumatic stress disorder, unspecified; G25.0 Essential tremor; M19.041 Primary osteoarthritis, right hand; M19.042 Primary osteoarthritis, left hand; R35.0 Frequency of micturition; Z87.891 Personal history of nicotine dependence; Z90.49 Acquired absence of other specified parts of digestive tract; Z79.899 Other long term (current) drug therapy; Z86.010 Personal history of colon polyps; Z80.6 Family history of leukemia; Z80.8 Family history of malignant neoplasm of other organs or systems
CPT/HCPCS: 36415; 43260; 43262; 43277; 71275; 74177; 74330; 80053; 80074; 81001; 82140; 82150; 82550; 83605; 83690; 84484; 85025; 85610; 85730; 93005; 96361; 96374; 96375; 99291

== ENCOUNTER 2019-09-16 00:28 | Emergency (ER) | payer MEDICARE ==
[2019-09-16 00:38] VITALS: BP 158/102; PULSE 122; RESP 20; TEMP 98.3
--- NOTE | 2019-09-16 00:53 | ED ---
Male Urogenital HPI - General Chief complaint: Urogenital Stated complaint: Bladder Pain Time Seen by Provider: 09/16/19 00:39 Source: patient, family Mode of arrival: ambulatory Limitations: no limitations - History of Present Illness Initial comments: This patient is a 69-year-old man who presents with a sensation that he needs to urinate but has not been able to pass much urine. The patient states that symptoms started early in the afternoon with a feeling that his bladder was full but he was not able to actually passing urine. Things worsened tonight and now he is having moderate amount of suprapubic discomfort. He describes as a pressure sensation. MD Complaint: other Onset/Timin -: hour(s) Location: abdomen Radiation: none Severity: moderate Quality: other (Pressure) Consistency: constant Improves with: none Worsens with: none Reports: urinary retention - Related Data Home Medications Medication Instructions Recorded Confirmed Primidone [Mysoline] 50 mg PO HS 07/23/18 03/19/19 buPROPion HCL [Wellbutrin SR] 50 mg PO QAM 07/23/18 03/19/19 Previous Rx's Medication Instructions Recorded Ciprofloxacin HCl [Cipro] 500 mg PO Q12H 4 Days #8 tab 03/21/19 metroNIDAZOLE [Flagyl] 500 mg PO Q8HR 4 Days #12 tab 03/21/19 Allergies Allergy/AdvReac Type Severity Reaction Status Date / Time No Known Allergies Allergy Verified 09/16/19 00:38 Review of Systems ROS Statement: Those systems with pertinent positive or pertinent negative responses have been documented in the HPI. ROS Other: All systems not noted in ROS Statement are negative. Constitutional: Denies: fever, chills Respiratory: Denies: cough, dyspnea Cardiovascular: Denies: chest pain, palpitations, edema Gastrointestinal: Reports: as per HPI, abdominal pain. Denies: nausea, vomiting, diarrhea, constipation Genitourinary: Reports: as per HPI. Denies: dysuria, frequency, hematuria, discharge, testicular pain, testicular mass Musculoskeletal: Denies: back pain Skin: Denies: rash Neurological: Denies: headache Past Medical History Past Medical History: Musculoskeletal Disorder, Neurologic Disorder Additional Past Medical History / Comment(s): Parkinson's disease, essential tremors, headaches, arthritis bilateral hands, vertigo with heights, bronchitis. History of Any Multi-Drug Resistant Organisms: None Reported Past Surgical History: Cholecystectomy Additional Past Surgical History / Comment(s): Colonoscopy with polypectomy Past Anesthesia/Blood Transfusion Reactions: No Reported Reaction Past Psychological History: PTSD Smoking Status: Former smoker Past Alcohol Use History: None Reported Past Drug Use History: None Reported - Past Family History Father Family Medical History: Cancer Additional Family Medical History / Comment(s): Father had a form of leukemia. Mother Family Medical History: Cancer Additional Family Medical History / Comment(s): Mother from sarcoma. General Exam Limitations: no limitations General appearance: alert, in no apparent distress Head exam: Present: atraumatic, normocephalic Eye exam: Present: normal appearance. Absent: scleral icterus, conjunctival injection Respiratory exam: Present: normal lung sounds bilaterally. Absent: respiratory distress, wheezes, rales, rhonchi, stridor Cardiovascular Exam: Present: regular rate, normal rhythm, normal heart sounds. Absent: systolic murmur, diastolic murmur, rubs, gallop GI/Abdominal exam: Present: soft, tenderness (Patient has suprapubic guarding and fullness consistent with bladder.). Absent: distended, rebound, rigid, mass, pulsatile mass, hernia Extremities exam: Present: normal inspection, normal capillary refill. Absent: pedal edema, calf tenderness Back exam: Present: normal inspection. Absent: CVA tenderness (R), CVA tenderness (L) Neurological exam: Present: alert Skin exam: Present: warm, dry, intact, normal color. Absent: rash Course Vital Signs 09/16/19 00:34 Temperature 98.3 F Pulse Rate 122 H Respiratory 20 Rate Blood Pressure 158/102 O2 Sat by Pulse 98 Oximetry Medical Decision Making - Lab Data Lab Results 09/16/19 Range/Units 01:04 Urine Color Yellow Urine Appearance Clear (Clear) Urine pH 5.0 (5.0-8.0) Ur Specific Gardner 1.007 (1.001-1.035) Urine Protein Negative (Negative) Urine Glucose (UA) Negative (Negative) Urine Ketones Negative (Negative) Urine Blood Small H (Negative) Urine Nitrite Negative (Negative) Urine Bilirubin Negative (Negative) Urine Urobilinogen <2.0 (<2.0) mg/dL Ur Leukocyte Esterase Trace H (Negative) Urine RBC <1 (0-5) /hpf Urine WBC 2 (0-5) /hpf Urine Mucus Rare H (None) /hpf Disposition Clinical Impression: Urinary retention Disposition: HOME SELF-CARE Condition: Good Instructions (If sedation given, give patient instructions): Urinary Retention in Men (ED) Is patient prescribed a controlled substance at d/c from ED?: No Referrals: [facility] [Primary Care Provider] - 1-2 days Ceasar Dawn MD [STAFF PHYSICIAN] - 1-2 days
[2019-09-16 01:22] LABS: Appearance,Urine Clear (Clear); Bilirubin,Urine Negative (Negative); Blood,Urine Small (Negative); Color,Urine Yellow; Glucose,Urine (UA) Negative (Negative); Ketones,Urine Negative (Negative); Leukocyte Esterase,Urine Trace (Negative); Mucus,Urine Rare /hpf; Nitrite,Urine Negative (Negative); Protein,Urine Negative (Negative); RBC,Urine <1 /hpf (0-5); Specific Gravity,Urine 1.007 (1.001-1.035); Urobilinogen,Urine <2.0 mg/dL (<2.0); WBC,Urine 2 /hpf (0-5)
== END 2019-09-16 02:08 | disposition home or self-care (01) ==
LOC: EC 00:28
DX: R33.9 Retention of urine, unspecified (principal); Z79.899 Other long term (current) drug therapy; Z87.891 Personal history of nicotine dependence
CPT/HCPCS: 81001; 99284

== ENCOUNTER → 2020-02-07 | Outpatient (CLI) | payer MEDICARE ==
[2020-02-07 11:49] LABS: Basophils # (A) 0.1 k/uL (0-0.2); Basophils % (A) 1 %; Eosinophils # (A) 0.1 k/uL (0-0.7); Eosinophils % (A) 1 %; HCT 54.8 % (39.0-53.0); HGB 18.3 gm/dL (13.0-17.5); Lymphocytes # (A) 1.6 k/uL (1.0-4.8); Lymphocytes % (A) 18 %; MCH 31.6 pg (25.0-35.0); MCHC 33.4 g/dL (31.0-37.0); MCV 94.6 fL (80.0-100.0); Mean Platelet Volume 7.8; Monocytes # (A) 0.6 k/uL (0-1.0); Monocytes % (A) 6 %; Neutrophils # (A) 6.3 k/uL (1.3-7.7); Neutrophils % (A) 72 %; Platelet Count 150 k/uL (150-450); RBC 5.79 m/uL (4.30-5.90); RDW 13.4 % (11.5-15.5); WBC 8.8 k/uL (3.8-10.6)
[2020-02-07 20:32] LABS: Erythrocyte Sedimentation Rate 3 mm/Hr (0-20)
[2020-02-07 20:41] LABS: Cyclic Citrull Pep IgG Unit 1.5 U/mL; Cyclic Citrullinated Pep IgG NEGATIVE (NEGATIVE)
[2020-02-07 22:23] LABS: African American GFR (CKD) 77.9 (60.0-200.0); Albumin 4.7 g/dL (3.80-4.90); Albumin/Globulin Ratio 1.96 (1.60-3.17); Anion Gap 12.4 mmol/L (4.00-12.00); BUN/Creat Ratio 12.73 Ratio (12.00-20.00); Calcium 9.7 mg/dL (8.7-10.3); Carbon Dioxide 23.6 mmol/L (21.6-31.8); Globulin 2.4 g/dL (1.6-3.3); Non-African American GFR(CKD) 67.2 (60.0-200.0); Potassium 4.9 mmol/L (3.5-5.5); Total Bilirubin 0.9 mg/dL (0.3-1.2); Total Protein 7.1 g/dL (6.2-8.2)
[2020-02-07 22:30] LABS: T4, Free (Free Thyroxine) 1.1 ng/dL (0.80-1.80)
== END | disposition home or self-care (01) ==
LOC: LABWHC1 10:23
PROVIDERS: ATTEND Internal Medicine
DX: J84.10 Pulmonary fibrosis, unspecified (principal); F41.9 Anxiety disorder, unspecified
CPT/HCPCS: 36415; 80053; 84439; 84443; 85025; 85652; 86038; 86200; 86431

== ENCOUNTER → 2020-02-27 | Outpatient (CLI) | payer MEDICARE ==
--- NOTE | 2020-02-27 12:17 | CT ---
EXAMINATION TYPE: CT chest w con DATE OF EXAM: 02/27/2020 COMPARISON: 03/19/2019 HISTORY: Pulmonary infiltrate CT DLP: 496 mGycm Automated exposure control for dose reduction was used. CONTRAST: CT scan of the chest is performed with IV Contrast, patient injected with 100 mL of Isovue 300. FINDINGS: LUNGS: Stable 2 mm subpleural nodule left lower lobe. Diffuse interlobular septal thickening. No pleu ral effusion or pneumothorax. No new consolidation. Central and basilar bronchiectasis noted. Additional 2 mm nodule right middle lobe axial image 32. MEDIASTINUM: There are no greater than 1 cm hilar or mediastinal lymph nodes. No pericardial effusi on is seen. Heart is enlarged and there is coronary artery calcification. Aorta of normal caliber. OTHER: Small hiatal hernia noted with multilevel degenerative changes of the spine. Superior endplat e chronic deformity at the thoracolumbar junction.. IMPRESSION: 1. Diffuse changes of chronic interstitial pulmonary fibrosis. 2. Subcentimeter pulmonary nodules as discussed above to small to characterize.
== END | disposition home or self-care (01) ==
LOC: RADCTMAIN 10:13
PROVIDERS: ATTEND Thoracic Surgery (Cardiothoracic Vascular Surgery)
DX: J84.10 Pulmonary fibrosis, unspecified (principal); J84.9 Interstitial pulmonary disease, unspecified; R91.8 Other nonspecific abnormal finding of lung field
CPT/HCPCS: 82565; 84520; 71260; 36415; Q9967

== ENCOUNTER → 2020-03-09 | Outpatient (CLI) | payer MEDICARE ==
[2020-03-09 10:43] LABS: Basophils # (A) 0.1 k/uL (0-0.2); Basophils % (A) 1 %; Eosinophils # (A) 0.2 k/uL (0-0.7); Eosinophils % (A) 2 %; HCT 51.1 % (39.0-53.0); HGB 17.9 gm/dL (13.0-17.5); Lymphocytes # (A) 1.7 k/uL (1.0-4.8); Lymphocytes % (A) 19 %; MCH 33.2 pg (25.0-35.0); MCHC 35.1 g/dL (31.0-37.0); MCV 94.7 fL (80.0-100.0); Mean Platelet Volume 7.7; Monocytes # (A) 0.6 k/uL (0-1.0); Monocytes % (A) 7 %; Neutrophils % (A) 70 %; Platelet Count 160 k/uL (150-450); RBC 5.39 m/uL (4.30-5.90); RDW 12.5 % (11.5-15.5); WBC 8.7 k/uL (3.8-10.6)
[2020-03-09 10:55] LABS: African American GFR (CKD) >90 (>60 ml/min/1.73 sqM); Anion Gap 7 mmol/L; Blood Urea Nitrogen 13 mg/dL (9-20); Calcium 9.5 mg/dL (8.4-10.2); Carbon Dioxide 29 mmol/L (22-30); Chloride 102 mmol/L (98-107); Glucose 119 mg/dL (74-99); Non-African American GFR(CKD) 87 (>60 ml/min/1.73 sqM); Potassium 4.7 mmol/L (3.5-5.1); Sodium 138 mmol/L (137-145)
[2020-03-09 10:57] LABS: INR 0.9 (<1.2); Partial Thromboplastin Time 22.2 sec (22.0-30.0); Prothrombin Time 9.7 sec (9.0-12.0)
== END | disposition home or self-care (01) ==
LOC: LABPAT 09:09
PROVIDERS: ATTEND Thoracic Surgery (Cardiothoracic Vascular Surgery)
DX: U07.1 COVID-19 (principal); J84.9 Interstitial pulmonary disease, unspecified; Z01.812 Encounter for preprocedural laboratory examination
CPT/HCPCS: 80048; 85025; 85610; 85730; U0003

== ENCOUNTER 2020-03-12 07:25 | Inpatient (IN) | payer MEDICARE ==
[2020-03-11 09:04] VITALS: BMI 31.1
[~2020-03-12 07:25] MED LIST: DEXAMETHASONE SOD PHOSPHATE 4 MG/ML 1 ML VIAL IV ONE; LACTATED RINGERS 1,000 ML IV SCH; LIDOCAINE 1% (10MG/ML) FOR IV START INTRADERMA PRN; ONDANSETRON 4 MG/2 ML VIAL IVP ONE
[2020-03-12] MEDS ORDERED: ROCURONIUM 10 MG/ML (10 ML VIAL) IV ONE (10:10)
[2020-03-12] MEDS ORDERED: LIDOCAINE 1% INJ 10MG/ML (20 ML MDV) ONE (10:10)
[2020-03-12] MEDS ORDERED: NEOSTIGMINE 1 MG/ML 10 ML VIAL ONE (10:10)
[2020-03-12] MEDS ORDERED: SUCCINYLCHOLINE CHLORIDE 100 MG/5 ML SYR IV ONE (10:10)
[2020-03-12] MEDS ORDERED: MIDAZOLAM 2 MG/2 ML VIAL ONE (10:10)
[2020-03-12] MEDS ORDERED: GLYCOPYRROLATE 0.2 MG/ML 2 ML VIAL ONE (10:10)
[2020-03-12] MEDS ORDERED: fentaNYL (PF) 50 MCG/ML 2 ML AMP ONE (10:10)
[2020-03-12] MEDS ORDERED: HYDROmorphone (PF) 1 MG/ML ONE (10:10)
[2020-03-12] MEDS ORDERED: PROPOFOL 10 MG/ML 20 ML VIAL IV ONE (10:10)
[2020-03-12] MEDS ORDERED: BUPIVACAINE (PF) 0.5% 30 ML VIAL SQ ONE ×2 (10:52)
--- NOTE | 2020-03-12 11:43 | P.OP ---
Date of Procedure: 03/12/20 Preoperative Diagnosis: Bilateral pulmonary infiltrates Postoperative Diagnosis: Same Procedure(s) Performed: Right thoracoscopic lung biopsy Anesthesia: GETA Surgeon: Dipak Hill Estimated Blood Loss (ml): 25 IV fluids (ml): 500 Urine output (ml): 0 Pathology: other (Biopsies of the right upper middle and lower lobe were sent for pathology as well as culture) Condition: stable Disposition: PACU Indications for Procedure: 70-year-old male with progressive dyspnea. CT demonstrates bilateral interstitial pulmonary infiltrates area lung biopsy was requested by pulmonary medicine for diagnosis. Operative Findings: There were no adhesions present in the chest cavity. Pulmonary parenchyma had abnormal compliance and was somewhat stiff and gritty in places. No endobronchial lesions were noted on bronchoscopy. Description of Procedure: The patient was brought to the operating room, placed supine on the operating table anesthetized and intubated. Double lumen endotracheal tube was placed and positioned with fiberoptic bronchoscopic guidance. Fiberoptic bronchoscopy was performed on both sides and no endobronchial lesions were noted. Tube was secured and the patient turned in the left lateral decubitus position. The right chest was sterilely prepped and draped. 3 one-inch incisions were made in the right chest. Single lung ventilation was initiated. Incisions were carried down into the pleural space. Video thoracoscope was placed and wedge biopsies of each of the 3 lobes of the right lung were obtained. These were brought out onto the field and split and a portion sent for culture and the majority sent for pathology. Staple lines were intact. 28-Khmer chest tube was placed through separate stab incision anteriorly and positioned posterior apically. The lung was reinflated under thoracoscopic visualization. Rib blocks were performed at the level of the procedures with half percent Marcaine. Incisions were closed with layers of Vicryl suture. Skin glue and dry sterile dressings were applied. Patient was extubated and transferred to recovery in stable condition.
[2020-03-12] MEDS: HYDROmorphone 0.5 MG/0.5 ML SYRINGE IVP PRN ×4 (11:54→12:37)
--- NOTE | 2020-03-12 12:25 | XR ---
EXAMINATION TYPE: XR chest 1V portable DATE OF EXAM: 03/12/2020 COMPARISON: Chest CT 02/27/2020, chest x-ray 01/30/2020 HISTORY: Status post lung biopsy TECHNIQUE: Single frontal view of the chest is obtained. FINDINGS: There is interval placement of a right-sided chest tube. Subcutaneous emphysema is present . Small pneumothorax noted at the costophrenic angle on the right. Lung volumes are low. Interstitial changes are present within the lungs. No sizable effusion. Heart is enlarged and stable. IMPRESSION: Postoperative findings. Interstitial lung disease. Heart size is accentuated by epicardi al fat pad prominence.
[2020-03-12] MEDS ORDERED: ONDANSETRON 4 MG/2 ML VIAL IVP PRN (15:12)
[2020-03-12] MEDS ORDERED: IPRATROPIUM-ALBUTEROL 3 ML NEB IH PRN (15:12)
[2020-03-12] MEDS ORDERED: DEXTROSE 5%-0.45% NACL 1,000 ML IV SCH (15:12)
[2020-03-12] MEDS: HEPARIN SODIUM,PORCINE 5,000 UNIT/ML 1 ML VIAL SQ SCH ×3 (15:29→22:35)
[2020-03-12] MEDS: KETOROLAC 15 MG/ML 1 ML VIAL IVP SCH ×2 (15:29→23:57)
[2020-03-12] MEDS: IPRATROPIUM-ALBUTEROL 3 ML NEB IH SCH ×3 (16:19→19:37)
[2020-03-12] MEDS: traMADol 50 MG TAB PO PRN ×2 (16:33→22:34)
[2020-03-12] MEDS: CARBIDOPA-LEVODOPA 10-100 MG 1 EACH TAB PO SCH (22:36)
[2020-03-13] MEDS: traMADol 50 MG TAB PO PRN (06:15)
--- NOTE | 2020-03-13 08:00 | XR ---
EXAMINATION TYPE: XR chest 1V DATE OF EXAM: 03/13/2020 COMPARISON: 03/12/2020 INDICATION: Status post lung biopsy TECHNIQUE: Single frontal view of the chest is obtained. FINDINGS: The heart size is enlarged. The pulmonary vasculature is normal. Mild infiltrate may be at the left base. A right basilar chest tube is present. No pneumothorax is ev ident. The subcutaneous air on the right is diminished. IMPRESSION: 1. Right-sided chest tube. No pneumothorax evident. 2. Mild left lower lobe infiltrate.
[2020-03-13] MEDS: KETOROLAC 15 MG/ML 1 ML VIAL IVP SCH ×3 (08:25→18:37)
[2020-03-13] MEDS: ASPIRIN 81 MG PO SCH (08:27)
[2020-03-13] MEDS: TOPIRAMATE 25 MG TAB PO SCH (08:27)
[2020-03-13] MEDS: TAMSULOSIN 0.4 MG CAP.ER.24H PO SCH (08:27)
[2020-03-13] MEDS: PANTOPRAZOLE 40 MG TABLET PO SCH (08:27)
[2020-03-13] MEDS: IPRATROPIUM-ALBUTEROL 3 ML NEB IH SCH ×4 (08:30→20:24)
[2020-03-13 08:55] LABS: Basophils # (A) 0.1 k/uL (0-0.2); Basophils % (A) 1 %; Eosinophils # (A) 0.1 k/uL (0-0.7); Eosinophils % (A) 1 %; HCT 49.4 % (39.0-53.0); HGB 16.5 gm/dL (13.0-17.5); Lymphocytes # (A) 1.3 k/uL (1.0-4.8); Lymphocytes % (A) 10 %; MCH 32.2 pg (25.0-35.0); MCHC 33.4 g/dL (31.0-37.0); MCV 96.4 fL (80.0-100.0); Mean Platelet Volume 7.4; Monocytes % (A) 8 %; Neutrophils # (A) 10.3 k/uL (1.3-7.7); Neutrophils % (A) 80 %; Platelet Count 165 k/uL (150-450); RBC 5.13 m/uL (4.30-5.90); RDW 12.8 % (11.5-15.5); WBC 12.9 k/uL (3.8-10.6)
[2020-03-13 09:10] LABS: African American GFR (CKD) >90 (>60 ml/min/1.73 sqM); Anion Gap 7 mmol/L; Blood Urea Nitrogen 16 mg/dL (9-20); Calcium 9.2 mg/dL (8.4-10.2); Carbon Dioxide 28 mmol/L (22-30); Chloride 99 mmol/L (98-107); Glucose 136 mg/dL (74-99); Non-African American GFR(CKD) 80 (>60 ml/min/1.73 sqM); Potassium 4.2 mmol/L (3.5-5.1); Sodium 134 mmol/L (137-145)
--- NOTE | 2020-03-13 10:04 | P.PN ---
<Ashley Garcia - Last Filed: 03/13/20 09:52> Subjective Progress Note Date: 03/13/20 Principal diagnosis: Bilateral pulmonary infiltrates. Previous medical history of home oxygen use at 2 L/m with activity, previous tobacco dependence, social EtOH use, Parkinson's, agent orange exposure, PTSD, and family history of cancer. POD #1 right thoracoscopic lung biopsy The patient is currently sitting up in bed in no acute distress. Does complain of post surgical pain at chest tube site but states it is controlled on current medication regimen. Denies shortness of breath. Right pleural chest tube was present this morning to [facility], no air leak present. Patient has been ambulatory in his room without difficulty. No new concerns. Objective - Vital Signs Vital signs: Vital Signs Temp 98.1 F 03/13/20 08:00 Pulse 98 03/13/20 08:41 Resp 22 03/13/20 08:00 BP 138/71 03/13/20 08:00 Pulse Ox 91 L 03/13/20 08:00 Intake & Output 03/12/20 03/13/20 03/13/20 18:59 06:59 18:59 Intake Total 1070 240 Output Total 138 270 Balance 932 -270 240 Weight 109 kg 109.5 kg Intake: IV 950 Oral 120 240 Output: Chest Tube Drainage 110 Chest Tube Right Anterior 110 Chest Drainage 53 160 Right Chest 53 160 Estimated Blood Loss 85 Other: Voiding Method Urinal Toilet Toilet # Voids 1 - Constitutional General appearance: Present: cooperative, no acute distress, obese - Respiratory Details: Lungs sounds diminished bilaterally. Respirations even, nonlabored. Currently on 2 L nasal cannula with oxygen saturation 90-92%, room air oxygen saturation 86%. Barely able to achieve 1000 mL on his incentive spirometry due to surgical pain. Right pleural chest tube was present to [facility], one 10 mL serosanguineous drainage overnight, 300 mL since surgery, no air leak present, positive tidaling with respirations. - Cardiovascular Details: S1, S2 present. Regular rate and rhythm, sinus rhythm on telemetry. Palpable peripheral pulses bilaterally. No edema present. No calf pain or tenderness noted. - Gastrointestinal Gastrointestinal Comment(s): Abdomen soft, nontender, nondistended. Active bowel sounds present 4 quadrants. Tolerating diet. - Genitourinary Genitourinary Comment(s): Voiding clear, yellow urine - Integumentary Integumentary Comment(s): Skin is warm and dry with evidence of good perfusion. Surgical incision sites well approximated with Dermabond - Neurologic Neurologic: Present: CNII-XII intact - Musculoskeletal Musculoskeletal: Present: gait normal, strength equal bilaterally - Psychiatric Psychiatric: Present: A&O x's 3, appropriate affect, intact judgment & insight - Allied health notes Allied health notes reviewed: nursing - Labs CBC & Chem 7: 03/13/20 07:29 03/13/20 07:29 Labs: Abnormal Lab Results - Last 24 Hours (Table) 03/13/20 03/13/20 Range/Units 07:29 07:29 WBC 12.9 H (3.8-10.6) k/uL Neutrophils # 10.3 H (1.3-7.7) k/uL Sodium 134 L (137-145) mmol/L Glucose 136 H (74-99) mg/dL Microbiology - Last 24 Hours (Table) 03/12/20 11:28 Gram Stain - Preliminary Lung - Right Lower Lobe Tissue Culture - Preliminary 03/12/20 11:29 Gram Stain - Preliminary Lung - Right Tissue Culture - Preliminary 03/12/20 11:30 Gram Stain - Preliminary Lung - Right Upper Lobe Tissue Culture - Preliminary 03/12/20 11:30 Acid Fast Bacilli Smear - Final Lung - Right Upper Lobe Acid Fast Bacilli Culture - Preliminary 03/12/20 11:29 Acid Fast Bacilli Smear - Final Lung - Right Acid Fast Bacilli Culture - Preliminary 03/12/20 11:28 Acid Fast Bacilli Smear - Final Lung - Right Lower Lobe Acid Fast Bacilli Culture - Preliminary 03/12/20 11:29 Fungal Culture - Preliminary Lung - Right 03/12/20 11:28 Anaerobic Culture - Preliminary Lung - Right Lower Lobe 03/12/20 11:28 Fungal Culture - Preliminary Lung - Right Lower Lobe 03/12/20 11:29 Anaerobic Culture - Preliminary Lung - Right 03/12/20 11:30 Anaerobic Culture - Preliminary Lung - Right Upper Lobe 03/12/20 11:30 Fungal Culture - Preliminary Lung - Right Upper Lobe - Imaging and Cardiology Chest x-ray: report reviewed, image reviewed Assessment and Plan Assessment: 1. Bilateral pulmonary infiltrates, status post right thoracoscopic lung biopsy 2. Home oxygen use at 2 L/m with activity 3. Previous tobacco dependence 4. Social EtOH use 5. Parkinson's 6. Agent orange exposure 7. PTSD 8. Family history of cancer. Plan: 1. Right pleural chest tube discontinued without incident. Will repeat chest x-ray in 2 hours. If chest x-ray stable will discharge to home this afternoon. 2. Wean O2 as tolerated. Patient to go home on oxygen per his home use 3. Encourage incentive spirometry use 4. Follow-up appointments made for Dr. Hill and Dr. Campbell. Pathology pending, will follow 5. Pain control with alternating Tylenol and Motrin 6. Dressing to remain in place for 48 hours, if it becomes saturated should be reinforced 7. On Monday patient may remove dressing and shower and should shower daily afterwards 8. Discharge the surgeons placed on discharge plan, contact numbers for cardiothoracic lease picker left with patient 9. More recommendations to follow. Anticipate discharge home today Time with Patient: Greater than 30 <Jabari Hayes - Last Filed: 03/13/20 16:38> Objective - Vital Signs Vital signs: Vital Signs Temp 97.7 F 03/13/20 15:52 Pulse 95 03/13/20 15:53 Resp 19 03/13/20 15:53 BP 125/71 03/13/20 15:52 Pulse Ox 92 L 03/13/20 15:52 Intake & Output 03/12/20 03/13/20 03/13/20 18:59 06:59 18:59 Intake Total 1070 780 Output Total 138 270 500 Balance 932 -270 280 Weight 109 kg 109.5 kg Intake: IV 950 Oral 120 780 Output: Chest Tube Drainage 110 Chest Tube Right Anterior 110 Chest Drainage 53 160 Right Chest 53 160 Urine 500 Estimated Blood Loss 85 Other: Voiding Method Urinal Toilet Toilet # Voids 1 1 - Labs CBC & Chem 7: 03/13/20 07:29 03/13/20 07:29 Labs: Abnormal Lab Results - Last 24 Hours (Table) 03/13/20 03/13/20 Range/Units 07:29 07:29 WBC 12.9 H (3.8-10.6) k/uL Neutrophils # 10.3 H (1.3-7.7) k/uL Sodium 134 L (137-145) mmol/L Glucose 136 H (74-99) mg/dL Microbiology - Last 24 Hours (Table) 03/12/20 11:28 Gram Stain - Preliminary Lung - Right Lower Lobe Tissue Culture - Preliminary 03/12/20 11:29 Gram Stain - Preliminary Lung - Right Tissue Culture - Preliminary 03/12/20 11:30 Gram Stain - Preliminary Lung - Right Upper Lobe Tissue Culture - Preliminary 03/12/20 11:30 Acid Fast Bacilli Smear - Final Lung - Right Upper Lobe Acid Fast Bacilli Culture - Preliminary 03/12/20 11:29 Acid Fast Bacilli Smear - Final Lung - Right Acid Fast Bacilli Culture - Preliminary 03/12/20 11:28 Acid Fast Bacilli Smear - Final Lung - Right Lower Lobe Acid Fast Bacilli Culture - Preliminary 03/12/20 11:29 Fungal Culture - Preliminary Lung - Right 03/12/20 11:28 Anaerobic Culture - Preliminary Lung - Right Lower Lobe 03/12/20 11:28 Fungal Culture - Preliminary Lung - Right Lower Lobe 03/12/20 11:29 Anaerobic Culture - Preliminary Lung - Right 03/12/20 11:30 Anaerobic Culture - Preliminary Lung - Right Upper Lobe 03/12/20 11:30 Fungal Culture - Preliminary Lung - Right Upper Lobe Assessment and Plan Plan: The patient was seen and examined and I agree with the nurse practitioner's ass essment and plan.
--- NOTE | 2020-03-13 11:59 | XR ---
EXAMINATION TYPE: XR chest 2V DATE OF EXAM: 03/13/2020 COMPARISON: 03/13/2020 earlier exam INDICATION: Post chest tube, Biopsy TECHNIQUE: Frontal and lateral views of the chest are obtained. FINDINGS: The heart size is normal. The pulmonary vasculature is normal. The lungs are clear. Left-sided chest tube is been removed. Small residual pneumothorax chest tube r emoval is present. Minimal fluid is present. IMPRESSION: 1. Small lateral right basilar pneumothorax post chest tube removal. 2. Bibasilar infiltrates. A Red level critical message alert has been initiated for Ashley Garcia via the [employer] System on 03/13/2020 11:57 AM. This message alert has been sent to Ashley Garcia via the pref erences provided by the clinician for the receipt of Radiology Critical Findings. Message ID [id number].
[2020-03-13] MEDS: HEPARIN SODIUM,PORCINE 5,000 UNIT/ML 1 ML VIAL SQ SCH ×2 (15:21→23:43)
[2020-03-13] MEDS: ACETAMINOPHEN TAB 325 MG TAB PO PRN ×2 (15:21→19:17)
--- NOTE | 2020-03-13 16:47 | P.CNPUL ---
History of Present Illness Consult date: 03/13/20 Requesting physician: Dipak Hill Reason for consult: pulmonary fibrosis Chief complaint: Shortness of breath and cough History of present illness: This is a 70-year-old white male with history of multiple medical problems including Parkinson's disease, degenerative joint disease, posttraumatic stress disorder, patient was recently seen in my office for interstitial lung disease, chronic shortness of breath, and intermittent episodes of cough. CT of the chest and chest x-ray showed diffuse chronic interstitial pulmonary fibrosis. And some nonspecific sub-CM pulmonary nodules. Workup for connective tissue disease was negative. Hence I have recommended referral to Dr. Hill for th oracoscopic lung biopsy/VATS to confirm possible UIP. Yesterday, the patient underwent thoracoscopic lung biopsy, and I was asked to see him on consultation. His surgery was done yesterday. Patient is now on regular medical floor, his chest tube was removed earlier, and he has a slight tiny right sided pneumothorax. Hence the patient will be kept in the hospital for another day, and he will likely be discharged home tomorrow. Review of Systems Constitutional: Negative HEENT: Negative Cardiac: Negative patient had recent cardiac evaluation and he was cleared for surgery by cardiology. Pulmonary: As noted in HPI. GI: Negative Genitourinary: Negative known history of a large prostate. And prostatism. Musculoskeletal: History of Parkinson's disease/tremors. Endocrine: Negative Hematologic: Negative Psychiatric: Negative Skin: Negative Past Medical History Past Medical History: Musculoskeletal Disorder, Neurologic Disorder Additional Past Medical History / Comment(s): Parkinson's disease, essential tremors, headaches, arthritis bilateral hands, vertigo with heights, bronchitis, possible idiopathic pulmonary fibrosis, SOB w/exertion, uses oxygen prn @2l History of Any Multi-Drug Resistant Organisms: None Reported Past Surgical History: Cholecystectomy Additional Past Surgical History / Comment(s): Colonoscopy with polypectomy, surgery for bile duct blockage after gallbladder surg. Past Anesthesia/Blood Transfusion Reactions: No Reported Reaction Smoking Status: Former smoker - Past Family History Father Family Medical History: Cancer Additional Family Medical History / Comment(s): Father had a form of leukemia. Mother Family Medical History: Cancer Additional Family Medical History / Comment(s): Mother from sarcoma. Medications and Allergies Home Medications Medication Instructions Recorded Confirmed Type Aspirin 81 mg PO DAILY 01/30/20 03/12/20 History Carbidopa/Levodopa 1 tab PO HS 01/30/20 03/12/20 History [Carbidopa-Levodopa 10-100 Tab] Tamsulosin [Flomax] 0.4 mg PO DAILY 01/30/20 03/12/20 History Topiramate [Topamax] 50 mg PO DAILY 01/30/20 03/12/20 History Acetaminophen Tab [Tylenol] 650 mg PO Q4HR PRN tab 03/13/20 Rx Allergies Allergy/AdvReac Type Severity Reaction Status Date / Time No Known Allergies Allergy Verified 03/12/20 07:48 Physical Exam Vitals: Vital Signs Temp Pulse Pulse Resp BP Pulse Ox 03/13/20 15:53 95 19 03/13/20 15:52 97.7 F 95 19 125/71 92 L 03/13/20 13:20 103 H 03/13/20 13:10 100 03/13/20 12:00 95 22 03/13/20 08:41 98 03/13/20 08:30 95 03/13/20 08:00 98.1 F 95 22 138/71 91 L 03/13/20 04:00 98.0 F 84 20 117/64 95 03/13/20 00:00 98.4 F 91 20 117/63 93 L 03/12/20 20:00 103 H 22 03/12/20 19:52 101 H 03/12/20 19:37 103 H Intake and Output 03/13/20 03/13/20 03/13/20 06:59 14:59 22:59 Intake Total 780 Output Total 270 500 Balance -270 280 Intake: Oral 780 Output: Chest Tube Drainage 110 Chest Tube Right Anterior 110 Chest Drainage 160 Right Chest 160 Urine 500 Other: Voiding Method Toilet Toilet Toilet # Voids 1 1 Weight 109.5 kg Physical Exam: Revealed a 70-year-old white male in no distress. Very pleasant. Head: Atraumatic, normocephalic. HEENT:[Neck is supple.] [No neck masses.] [No thyromegaly.] [No JVD.] Chest: [Clear throughout, and among final Velcro rales and crackles at the bases. Cardiac Exam: [Normal S1 and S2, no S3 gallop, no murmur.] Abdomen: [Soft, nontender, no megaly, no rebound, no guarding, normal bowel sounds.] Extremities: [Mild clubbing, no edema, no cyanosis.] Palpable Pulses bilaterally. Neurological Exam: [No focal neurologic deficit.] Alert oriented 3. Psychiatric: Normal mood affect and normal mental status examination. Can: No rashes. Results - Laboratory Findings CBC and BMP: 03/13/20 07:29 03/13/20 07:29 Abnormal lab findings: Abnormal Labs 03/13/20 03/13/20 07:29 07:29 WBC 12.9 H Neutrophils # 10.3 H Sodium 134 L Glucose 136 H - Diagnostic Findings Chest x-ray: image reviewed (As noted in HPI.) Assessment and Plan Assessment: Impression: Postoperative day #1, right thoracoscopic lung biopsy Small postoperative pneumothorax, expected, Chronic interstitial lung disease, strongly suspect UIP. History of Parkinson's disease. History of posttraumatic stress disorder. Chronic hypoxic respiratory failure secondary to interstitial lung disease. Recommendation: Agree with the present treatment plan including Incentive spirometry. Ambulation. Resume home meds. Pain control. Repeat chest x-ray in a.m. and possible discharge in a.m. We will continue to follow. Patient was advised to see me on outpatient basis to discuss his thoracoscopic lung biopsy report, will likely be available next week Time with Patient: Greater than 30
[2020-03-13] MEDS: CARBIDOPA-LEVODOPA 10-100 MG 1 EACH TAB PO SCH (22:17)
[2020-03-14] MEDS: KETOROLAC 15 MG/ML 1 ML VIAL IVP SCH ×2 (02:30→05:56)
[2020-03-14] MEDS: ACETAMINOPHEN TAB 325 MG TAB PO PRN (05:55)
[2020-03-14] MEDS: PANTOPRAZOLE 40 MG TABLET PO SCH (06:26)
[2020-03-14] MEDS: IPRATROPIUM-ALBUTEROL 3 ML NEB IH SCH ×2 (08:43→12:00)
--- NOTE | 2020-03-14 08:52 | P.PN ---
Subjective Progress Note Date: 03/14/20 Principal diagnosis: Bilateral pulmonary infiltrates. Previous medical history of home oxygen use at 2 L/m with activity, previous tobacco dependence, social EtOH use, Parkinson's, agent orange exposure, PTSD, and family history of cancer. POD #2 right thoracoscopic lung biopsy The patient is currently sitting up in bed in no acute distress. Does complain of post surgical pain at chest tube site but states it is controlled on current medication regimen, has only used Tylenol for pain in the last 24 hours. Denies excessive shortness of breath. Right pleural chest tube was discontinued yesterday, repeat chest x-ray demonstrated minimal lateral wall pneumothorax so patient was kept overnight. Patient has been ambulatory in his room without difficulty. No new concerns. Objective - Vital Signs Vital signs: Vital Signs Temp 98.2 F 03/13/20 23:58 Pulse 99 03/14/20 04:00 Resp 17 03/14/20 06:00 BP 111/72 03/14/20 04:00 Pulse Ox 94 L 03/14/20 04:00 Intake & Output 03/13/20 03/14/20 03/14/20 18:59 06:59 18:59 Intake Total 960 250 Output Total 500 Balance 460 250 Weight 108.2 kg Intake: Oral 960 250 Output: Urine 500 Other: Voiding Method Toilet Toilet # Voids 1 2 - Constitutional General appearance: Present: cooperative, no acute distress, obese - Respiratory Details: Lungs sounds diminished bilaterally. Respirations even, nonlabored. Currently on 2 L nasal cannula with oxygen saturation 94%. Able to achieve 4489-8462 mL on his incentive spirometry - Cardiovascular Details: S1, S2 present. Regular rate and rhythm, sinus rhythm on telemetry. Palpable peripheral pulses bilaterally. No edema present. No calf pain or tenderness noted. - Gastrointestinal Gastrointestinal Comment(s): Abdomen soft, nontender, nondistended. Active bowel sounds present 4 quadrants. Tolerating diet. - Genitourinary Genitourinary Comment(s): Voiding clear, yellow urine - Integumentary Integumentary Comment(s): Skin is warm and dry with evidence of good perfusion. Surgical incision sites well approximated with Dermabond - Neurologic Neurologic: Present: CNII-XII intact - Musculoskeletal Musculoskeletal: Present: gait normal, strength equal bilaterally - Psychiatric Psychiatric: Present: A&O x's 3, appropriate affect, intact judgment & insight - Allied health notes Allied health notes reviewed: nursing - Labs CBC & Chem 7: 03/13/20 07:29 03/13/20 07:29 Labs: Abnormal Lab Results - Last 24 Hours (Table) 03/13/20 03/13/20 Range/Units 07:29 07:29 WBC 12.9 H (3.8-10.6) k/uL Neutrophils # 10.3 H (1.3-7.7) k/uL Sodium 134 L (137-145) mmol/L Glucose 136 H (74-99) mg/dL Microbiology - Last 24 Hours (Table) 03/12/20 11:28 Gram Stain - Preliminary Lung - Right Lower Lobe Tissue Culture - Preliminary 03/12/20 11:29 Gram Stain - Preliminary Lung - Right Tissue Culture - Preliminary 03/12/20 11:30 Gram Stain - Preliminary Lung - Right Upper Lobe Tissue Culture - Preliminary 03/12/20 11:30 Acid Fast Bacilli Smear - Final Lung - Right Upper Lobe Acid Fast Bacilli Culture - Preliminary 03/12/20 11:29 Acid Fast Bacilli Smear - Final Lung - Right Acid Fast Bacilli Culture - Preliminary 03/12/20 11:28 Acid Fast Bacilli Smear - Final Lung - Right Lower Lobe Acid Fast Bacilli Culture - Preliminary - Imaging and Cardiology Chest x-ray: image reviewed Assessment and Plan Assessment: 1. Bilateral pulmonary infiltrates, status post right thoracoscopic lung bio psy, small pneumothorax 2. Home oxygen use at 2 L/m with activity 3. Previous tobacco dependence 4. Social EtOH use 5. Parkinson's 6. Agent orange exposure 7. PTSD 8. Family history of cancer. Plan: 1. Chest x-ray this morning stable. 2. Wean O2 as tolerated. Patient to go home on oxygen per his home use 3. Encourage incentive spirometry use 4. Follow-up appointments made for Dr. Hill and Dr. Campbell. Pathology pending, will follow 5. Pain control with alternating Tylenol and Motrin 6. Dressing to remain in place for 48 hours, if it becomes saturated should be reinforced 7. On Monday patient may remove dressing and shower and should shower daily a fterwards 8. Discharge the surgeons placed on discharge plan, contact numbers for cardiothoracic tutoring assistant left with patient 9. Anticipate discharge home today
[2020-03-14] MEDS: TAMSULOSIN 0.4 MG CAP.ER.24H PO SCH (09:13)
[2020-03-14] MEDS: ASPIRIN 81 MG PO SCH (09:14)
[2020-03-14] MEDS: HEPARIN SODIUM,PORCINE 5,000 UNIT/ML 1 ML VIAL SQ SCH (09:14)
[2020-03-14] MEDS: TOPIRAMATE 25 MG TAB PO SCH (09:14)
--- NOTE | 2020-03-14 10:03 | XR ---
EXAMINATION TYPE: XR chest 2V DATE OF EXAM: 03/14/2020 CLINICAL HISTORY: pneumothorax. TECHNIQUE: Frontal and lateral view of the chest. COMPARISON: 03/13/2020 chest radiograph FINDINGS: The cardiomediastinal silhouette is within normal limits for size. Pulmonary vasculature i s normal. Redemonstrated small right pleural effusion. The previously demonstrated right lateral smal l pneumothorax pleural line is not seen on current exam, however there is pleural effusion tracking u p this region which may obscure the pleural lining. Chronic interstitial coarsening. IMPRESSION: Previously demonstrated small right lateral pneumothorax may be resolved or may be obscu red by small right pleural effusion tracking of the right lateral chest wall.
[2020-03-14 11:57] VITALS: BP 133/76; RESP 18; TEMP 98.2
[2020-03-14 12:13] VITALS: PULSE 96
--- NOTE | 2020-03-14 12:38 | P.DS ---
Providers Date of admission: 03/12/20 07:25 Expected date of discharge: 03/14/20 Attending physician: Dipak Hill Consults: 03/12/20 15:12 Consult Physician Routine Consulting Provider: Prabhakar Campbell Reason/Comments: post lung biospsy Do you want consulting provider notified?: Yes Primary care physician: [facility] Hospital Course: FINAL DIAGNOSIS: 1. Bilateral pulmonary infiltrates 2. Home oxygen use, 2 LPM with activity 3. Previous tobacco dependence 4. Social EtOH use 5. Parkinson's 6. Agent [place] exposure 7. PTSD 8. Family history of cancer PRINCIPAL PROCEDURE: 1. Right thoracoscopic lung biopsy HISTORY OF PRESENT ILLNESS: This is a 70-year-old gentleman who follows at the [facility] in [place]. He has had progressive dyspnea for the last year. He had a CT scan of the chest performed a year ago in the emergency department along with a CT of the abdomen and pelvis for unrelated problems. The chest CT did demonstrate bilateral interstitial disease with subpleural fibrosis. He was seen by Dr. Campbell recently and a chest x-ray was performed which showed bilateral interstitial change along with significant volume loss in the right lung. This appeared significantly worse than the CT scan from a year ago, which did show more involvement in the right lung then the left lung. The patient was referred to Dr. Hill from cardiothoracic surgery. He was recommended to undergo thoracoscopic lung biopsy. The usual perioperative course was discussed in detail with the patient and his family, all risks and benefits were explained, all questions were answered, and consent was obtained to proceed with surgery. The patient was scheduled for surgery at the earliest possible date. HOSPITAL COURSE: The patient was brought to the hospital on 03/12/2020, taken to the preoperative area, prepared in the usual fashion, and subsequently taken to the operating room where Dr. Hill performed a right thoracoscopic lung biopsy. Upon completion of surgery the patient was extubated and taken to the recovery room for monitoring. He was eventually admitted to 3 S. cardiac stepdown unit for further monitoring. There was no air leak the morning after surgery and chest x-ray was stable, right pleural chest tube was discontinued without incident. Follow-up chest x-ray did demonstrate a small lateral wall pneumothorax, the patient remained completely stable but was kept overnight for close monitoring. On postop day 2 repeat chest x-ray demonstrated no pneumothorax and the patient was felt stable for discharge. His oxygen was titrated down to his home dose, he was tolerating oral diet, his pain was controlled without narcotics, and he was ready to be discharged to home on postoperative day #2. He received written and verbal instruction regarding his medications, activity restrictions, signs and symptoms requiring physician notification, and follow-up appointments. COMPLICATIONS: The patient experienced no postoperative complications. Patient Condition at Discharge: Stable Plan - Discharge Summary Discharge Rx Participant: Yes New Discharge Prescriptions: New Acetaminophen Tab [Tylenol] 650 mg PO Q4HR PRN tab PRN Reason: Fever And/ Or Pain Continue Tamsulosin [Flomax] 0.4 mg PO DAILY Topiramate [Topamax] 50 mg PO DAILY Carbidopa/Levodopa [Carbidopa-Levodopa 10-100 Tab] 1 tab PO HS Aspirin 81 mg PO DAILY Discharge Medication List Aspirin 81 mg PO DAILY 01/30/20 [History] Carbidopa/Levodopa [Carbidopa-Levodopa 10-100 Tab] 1 tab PO HS 01/30/20 [History] Tamsulosin [Flomax] 0.4 mg PO DAILY 01/30/20 [History] Topiramate [Topamax] 50 mg PO DAILY 01/30/20 [History] Acetaminophen Tab [Tylenol] 650 mg PO Q4HR PRN tab 03/13/20 [Rx] Follow up Appointment(s)/Referral(s): rPabhakar Campbell MD [STAFF PHYSICIAN] - 03/23/20 2:45 pm Dipak Hill MD [STAFF PHYSICIAN] - 03/26/20 9:30 am [facility] [Primary Care Provider] - As Needed Activity/Diet/Wound Care/Special Instructions: DISCHARGE INSTRUCTIONS: 1. No driving for 2 weeks, or until physician gives their ok. 2. No lifting, pushing, or pulling more than 10 pounds for 2 weeks. The physician will advise of any restriction changes. 3. Continue pain control per as needed orders. Alternate acetaminophen (Tylenol) and ibuprofen (Motrin/Advil) for pain. 4. Continue with incentive spirometry and splinting until otherwise directed by the physician. 5. Leave chest tube dressing for 48 hours. After that, remove all dressings and shower daily. 6. Routine incision care. No powders, lotions, ointments on incisions. 7. Please call surgeon/TIRE AND LUBE TECHNICIAN for temp greater than 101 F or purulent drainage from incisions. 8. Smoking cessation counseling and program information provided. For any questions or concerns please call DONATO Ramirez at [phone] or Laci at [phone] Discharge Disposition: HOME SELF-CARE
--- NOTE | 2020-03-14 14:18 | P.PN ---
Subjective Progress Note Date: 03/14/20 Principal diagnosis: Chronic interstitial lung disease, status post vats This is a 70-year-old white male with history of multiple medical problems including Parkinson's disease, degenerative joint disease, posttraumatic stress disorder, patient was recently seen in my office for interstitial lung disease, chronic shortness of breath, and intermittent episodes of cough. CT of the chest and chest x-ray showed diffuse chronic interstitial pulmonary fibrosis. And some nonspecific sub-CM pulmonary nodules. Workup for connective tissue disease was negative. Hence I have recommended referral to Dr. Hill for thoracoscopic lung biopsy/VATS to confirm possible UIP. Yesterday, the patient underwent thoracoscopic lung biopsy, and I was asked to see him on consultation. His surgery was done yesterday. Patient is now on regular medical floor, his chest tube was removed earlier, and he has a slight tiny right sided pneumothorax. Hence the patient will be kept in the hospital for another day, and he will likely be discharged home tomorrow. Patient was reevaluated today on 03/14/20, his postoperative day #2, right thoracoscopic lung biopsy. Patient is doing great, relatively asymptomatic, chest x-ray is reassuring, his right-sided pneumothorax has resolved, clinically the patient is back to his baseline. And discharge planning is in progress. Objective - Vital Signs Vital signs: Vital Signs Temp 98.2 F 03/14/20 11:57 Pulse 96 03/14/20 12:12 Resp 18 03/14/20 11:57 BP 133/76 03/14/20 11:57 Pulse Ox 97 03/14/20 11:57 Intake & Output 03/13/20 03/14/20 03/14/20 18:59 06:59 18:59 Intake Total 960 250 236 Output Total 500 Balance 460 250 236 Weight 108.2 kg Intake: Oral 960 250 236 Output: Urine 500 Other: Voiding Method Toilet Toilet Toilet # Voids 1 2 1 - Exam Physical Exam: Revealed a 70-year-old white male in no distress. Very pleasant. Head: Atraumatic, normocephalic. HEENT:[Neck is supple.] [No neck masses.] [No thyromegaly.] [No JVD.] Chest: [Clear throughout, and among final Velcro rales and crackles at the bases. Cardiac Exam: [Normal S1 and S2, no S3 gallop, no murmur.] Abdomen: [Soft, nontender, no megaly, no rebound, no guarding, normal bowel sounds.] Extremities: [Mild clubbing, no edema, no cyanosis.] Palpable Pulses bilaterally. Neurological Exam: [No focal neurologic deficit.] Alert oriented 3. Psychiatric: Normal mood affect and normal mental status examination. Skin: No rashes. - Labs CBC & Chem 7: 03/13/20 07:29 03/13/20 07:29 Labs: Microbiology - Last 24 Hours (Table) 03/12/20 11:28 Gram Stain - Preliminary Lung - Right Lower Lobe Tissue Culture - Preliminary 03/12/20 11:29 Gram Stain - Preliminary Lung - Right Tissue Culture - Preliminary 03/12/20 11:30 Gram Stain - Preliminary Lung - Right Upper Lobe Tissue Culture - Preliminary Assessment and Plan Assessment: Impression: Postoperative day #2, right thoracoscopic lung biopsy Small postoperative pneumothorax, expected, resolved based on chest x-ray this morning. Chronic interstitial lung disease, strongly suspect UIP. History of Parkinson's disease. History of posttraumatic stress disorder. Chronic hypoxic respiratory failure secondary to interstitial lung disease. Recommendation: Agree with discharge planning today. Incentive spirometry. Resume home meds. Patient is to see me in the office in one week to 2 weeks postdischarge Time with Patient: Less than 30
== END 2020-03-14 12:34 | disposition home or self-care (01) | DRG 167 ==
LOC: 2ORMAIN 07:25 → 3SCARD 14:45
PROVIDERS: ADMIT Thoracic Surgery (Cardiothoracic Vascular Surgery); ATTEND Thoracic Surgery (Cardiothoracic Vascular Surgery)
PROC: 0BBD4ZX Excision of Right Middle Lung Lobe, Percutaneous Endoscopic Approach, Diagnostic (ICD-10-PCS; principal; 2020-03-12 09:15)
PROC: 0BBC4ZX Excision of Right Upper Lung Lobe, Percutaneous Endoscopic Approach, Diagnostic (ICD-10-PCS; principal; 2020-03-12 09:15)
PROC: 0BBF4ZX Excision of Right Lower Lung Lobe, Percutaneous Endoscopic Approach, Diagnostic (ICD-10-PCS; principal; 2020-03-12 09:15)
DX: J84.112 Idiopathic pulmonary fibrosis (principal); J96.11 Chronic respiratory failure with hypoxia; J93.9 Pneumothorax, unspecified; G20 Parkinson's disease; M19.042 Primary osteoarthritis, left hand; M19.041 Primary osteoarthritis, right hand; F43.10 Post-traumatic stress disorder, unspecified; G25.0 Essential tremor; J84.10 Pulmonary fibrosis, unspecified; Z90.49 Acquired absence of other specified parts of digestive tract; Z98.890 Other specified postprocedural states; Z87.891 Personal history of nicotine dependence; Z80.6 Family history of leukemia; Z79.899 Other long term (current) drug therapy; Z79.82 Long term (current) use of aspirin
CPT/HCPCS: 71045; 71046; 80048; 85025; 85610; 85730; 87070; 87075; 87102; 87116; 87205; 87206; 88307; 94640

== ENCOUNTER → 2021-02-15 | Outpatient (CLI) | payer MEDICARE ==
--- NOTE | 2021-02-16 06:28 | CT ---
EXAMINATION TYPE: CT chest wo con DATE OF EXAM: 02/15/2021 COMPARISON: Chest CT February 27, 2020 HISTORY: Idiopathic pulmonary fibrosis CT DLP: 648 mGycm. Automated Exposure Control for Dose Reduction was Utilized. TECHNIQUE: CT scan of the thorax is performed without IV contrast. FINDINGS: LUNGS: Low lung volumes with reticular parenchymal fibrotic changes bilaterally greatest in the right lung versus left lung and lower lungs where there is some honeycombing is redemonstrated. No signifi cant interval progression from prior study. Stable mild right lower lobe cylindrical bronchiectasis. No pleural effusion or pneumothorax. MEDIASTINUM: Lack of IV contrast is noted to limit evaluation for mediastinal and especially hilar ad enopathy. There are no definitive greater than 1 cm hilar or mediastinal lymph nodes. Mild cardiomega ly. No pericardial effusion. Moderate three-vessel coronary artery calcification. Enlarged pulmonary arteries consistent with underlying pulmonary artery hypertension are redemonstrated. OTHER: Subareolar flame-shaped gynecomastia. Cholecystectomy clips. Some colonic diverticula. Mild to moderate height loss involving the T12 vertebra prominent inferior Schmorl node is redemonstrated. IMPRESSION: Low lung volumes with moderate to severe bilateral parenchymal fibrotic changes greatest in the right lung base redemonstrated. No significant change or progression from CT study one year ea oly.
== END | disposition home or self-care (01) ==
LOC: RADCTMAIN 17:21
PROVIDERS: ATTEND Internal Medicine
DX: J84.112 Idiopathic pulmonary fibrosis (principal)
CPT/HCPCS: 71250

== ENCOUNTER 2021-07-13 10:19 | Inpatient (IN) | payer OTHER, MEDICARE ==
[2021-07-13] MEDS ORDERED: IPRATROPIUM-ALBUTEROL 3 ML NEB INHALATION STA (10:49)
--- NOTE | 2021-07-13 10:54 | ED ---
General Adult HPI - General Chief complaint: Shortness of Breath Stated complaint: SOB Time Seen by Provider: 07/13/21 10:45 Source: patient, RN notes reviewed, old records reviewed Mode of arrival: ambulatory Limitations: no limitations - History of Present Illness Initial comments: 71-year-old male presents to the emergency room with complaints of shortness of breath and congestion for one week. He denies any chest pain, nausea vomiting or diarrhea. He states that he's had low-grade fevers and has been taking ibuprofen. He is a patient of Dr. Campbell'chito with history of pulmonary fibrosis. He was prescribed albuterol inhaler last week but the patient thought that these symptoms may have been brought on by his use of the inhaler so he stopped using it. He is on 4 L of nasal cannula at home. -: week(s) (1) Associated Symptoms: cough, fever/chills, shortness of breath - Related Data Home Medications Medication Instructions Recorded Confirmed Aspirin 81 mg PO DAILY 01/30/20 07/13/21 Carbidopa/Levodopa 1 tab PO DAILY 01/30/20 07/13/21 [Carbidopa-Levodopa 10-100 Tab] Tamsulosin [Flomax] 0.4 mg PO DAILY 01/30/20 07/13/21 ALPRAZolam [Xanax] 0.5 mg PO DAILY PRN 07/13/21 07/13/21 Albuterol Nebulized [Ventolin 2.5 mg INHALATION RT-QID PRN 07/13/21 07/13/21 Nebulized] Echinacea 400 mg PO DAILY 07/13/21 07/13/21 predniSONE 10 mg PO DAILY 07/13/21 07/13/21 Allergies Allergy/AdvReac Type Severity Reaction Status Date / Time No Known Allergies Allergy Verified 07/13/21 11:13 Review of Systems ROS Statement: Those systems with pertinent positive or pertinent negative responses have been documented in the HPI. ROS Other: All systems not noted in ROS Statement are negative. Past Medical History Past Medical History: Musculoskeletal Disorder, Neurologic Disorder Additional Past Medical History / Comment(s): Parkinson's disease, essential tremors, headaches, arthritis bilateral hands, vertigo with heights, bronchitis. IPF History of Any Multi-Drug Resistant Organisms: None Reported Past Surgical History: Cholecystectomy Additional Past Surgical History / Comment(s): Colonoscopy with polypectomy Past Anesthesia/Blood Transfusion Reactions: No Reported Reaction Past Psychological History: PTSD Smoking Status: Former smoker Past Alcohol Use History: None Reported - Past Family History Father Family Medical History: Cancer Additional Family Medical History / Comment(s): Father had a form of leukemia. Mother Family Medical History: Cancer Additional Family Medical History / Comment(s): Mother from sarcoma. General Exam Limitations: no limitations General appearance: alert, in no apparent distress Head exam: Present: atraumatic, normocephalic, normal inspection ENT exam: Present: mucous membranes moist Neck exam: Present: normal inspection, full ROM. Absent: tenderness, meningismus, lymphadenopathy, thyromegaly Respiratory exam: Present: wheezes, other (Tachypnea). Absent: respiratory distress, rhonchi, stridor, chest wall tenderness, accessory muscle use, decrea sed breath sounds Cardiovascular Exam: Present: regular rate. Absent: JVD GI/Abdominal exam: Present: soft, distended. Absent: tenderness Extremities exam: Present: normal capillary refill. Absent: pedal edema Back exam: Present: full ROM. Absent: tenderness, CVA tenderness (R), CVA tenderness (L), rash noted Neurological exam: Present: alert, oriented X3 Psychiatric exam: Present: normal affect, normal mood Skin exam: Present: warm, dry, intact, normal color. Absent: rash, cyanosis, diaphoretic Course Vital Signs 07/13/21 07/13/21 07/13/21 10:24 11:22 11:27 Temperature 99 F Pulse Rate 99 96 94 Respiratory 20 20 20 Rate Blood Pressure 142/89 O2 Sat by Pulse 91 L Oximetry 07/13/21 07/13/21 07/13/21 12:45 13:47 13:56 Temperature 97.8 F Pulse Rate 94 92 96 Respiratory 28 H 20 20 Rate Blood Pressure 125/89 O2 Sat by Pulse 94 L Oximetry 07/13/21 14:55 Temperature Pulse Rate 95 Respiratory 20 Rate Blood Pressure O2 Sat by Pulse Oximetry - Reevaluation(s) Reevaluation #1: 07/13/21 12:49 Patient continues to have instructed her expiratory wheezing bilaterally with tachypnea oxygen saturation 91% on 2 L. Patient is on home oxygen. Chest x-ray shows pulmonary fibrosis with superimposed pneumonitis. Time: 12:45 EKG Findings - EKG Results: EKG: sinus rhythm (Ventricular rate of 91, NV interval 0.169, QRS 0.100, QTC 0.396) Medical Decision Making - Medical Decision Making 71-year-old presents to emergency room with shortness of breath for one week with cough and congestion. Patient does have history of pulmonary fibrosis and Parkinson's. He is on 4 L of nasal cannula at home. He was given multiple treatments and IV steroids and continues to be orthopneic, short of breath with tachypnea. Pulse ox after treatments remain at 92% on 4 L. There is no evidence of leukocytosis, electrolytes are unremarkable, troponin is negative at 0.012. Influenza, coronavirus RSV swab is negative. CXR shows mild cardiomegly. Densitiies are patchy in the lower lungs with possible progression of pulmonary fibrosis or superimposed pneumonitis. He will be admitted to the hospital pulmonology consult. Case discussed with Dr. Rosas. - Lab Data Result diagrams: 07/13/21 10:53 07/13/21 10:53 Lab Results 07/13/21 07/13/21 07/13/21 Range/Units 10:53 10:53 10:53 WBC 7.2 (3.8-10.6) k/uL RBC 5.53 (4.30-5.90) m/uL Hgb 18.4 H (13.0-17.5) gm/dL Hct 52.4 (39.0-53.0) % MCV 94.7 (80.0-100.0) fL MCH 33.2 (25.0-35.0) pg MCHC 35.0 (31.0-37.0) g/dL RDW 12.7 (11.5-15.5) % Plt Count 114 L (150-450) k/uL MPV 7.8 Neutrophils % 71 % Lymphocytes % 16 % Monocytes % 8 % Eosinophils % 3 % Basophils % 1 % Neutrophils # 5.1 (1.3-7.7) k/uL Lymphocytes # 1.2 (1.0-4.8) k/uL Monocytes # 0.6 (0-1.0) k/uL Eosinophils # 0.2 (0-0.7) k/uL Basophils # 0.0 (0-0.2) k/uL PT 10.4 (9.0-12.0) sec INR 0.9 (<1.2) APTT 23.2 (22.0-30.0) sec D-Dimer 0.29 (<0.60) mg/L FEU Sodium 138 (137-145) mmol/L Potassium 3.9 (3.5-5.1) mmol/L Chloride 105 (98-107) mmol/L Carbon Dioxide 25 (22-30) mmol/L Anion Gap 8 mmol/L BUN 10 (9-20) mg/dL Creatinine 0.74 (0.66-1.25) mg/dL Est GFR (CKD-EPI)AfAm >90 (>60 ml/min/1.73 sqM) Est GFR (CKD-EPI)NonAf >90 (>60 ml/min/1.73 sqM) Glucose 140 H (74-99) mg/dL Plasma Lactic Acid Danyel (0.7-2.0) mmol/L Calcium 8.9 (8.4-10.2) mg/dL Magnesium 2.0 (1.6-2.3) mg/dL Total Bilirubin 1.0 (0.2-1.3) mg/dL AST 30 (17-59) U/L ALT 8 (4-49) U/L Alkaline Phosphatase 67 (38-126) U/L Troponin I (0.000-0.034) ng/mL Total Protein 7.4 (6.3-8.2) g/dL Albumin 4.2 (3.5-5.0) g/dL Urine Color Urine Appearance (Clear) Urine pH (5.0-8.0) Ur Specific [place] (1.001-1.035) Urine Protein (Negative) Urine Glucose (UA) (Negative) Urine Ketones (Negative) Urine Blood (Negative) Urine Nitrite (Negative) Urine Bilirubin (Negative) Urine Urobilinogen (<2.0) mg/dL Ur Leukocyte Esterase (Negative) Influenza Type A (PCR) (Not Detectd) Influenza Type B (PCR) (Not Detectd) RSV (PCR) (Not Detectd) SARS-CoV-2 (PCR) (Not Detectd) 07/13/21 07/13/21 07/13/21 Range/Units 10:53 10:53 10:53 WBC (3.8-10.6) k/uL RBC (4.30-5.90) m/uL Hgb (13.0-17.5) gm/dL Hct (39.0-53.0) % MCV (80.0-100.0) fL MCH (25.0-35.0) pg MCHC (31.0-37.0) g/dL RDW (11.5-15.5) % Plt Count (150-450) k/uL MPV Neutrophils % % Lymphocytes % % Monocytes % % Eosinophils % % Basophils % % Neutrophils # (1.3-7.7) k/uL Lymphocytes # (1.0-4.8) k/uL Monocytes # (0-1.0) k/uL Eosinophils # (0-0.7) k/uL Basophils # (0-0.2) k/uL PT (9.0-12.0) sec INR (<1.2) APTT (22.0-30.0) sec D-Dimer (<0.60) mg/L FEU Sodium (137-145) mmol/L Potassium (3.5-5.1) mmol/L Chloride (98-107) mmol/L Carbon Dioxide (22-30) mmol/L Anion Gap mmol/L BUN (9-20) mg/dL Creatinine (0.66-1.25) mg/dL Est GFR (CKD-EPI)AfAm (>60 ml/min/1.73 sqM) Est GFR (CKD-EPI)NonAf (>60 ml/min/1.73 sqM) Glucose (74-99) mg/dL Plasma Lactic Acid Danyel 1.4 (0.7-2.0) mmol/L Calcium (8.4-10.2) mg/dL Magnesium (1.6-2.3) mg/dL Total Bilirubin (0.2-1.3) mg/dL AST (17-59) U/L ALT (4-49) U/L Alkaline Phosphatase (38-126) U/L Troponin I <0.012 (0.000-0.034) ng/mL Total Protein (6.3-8.2) g/dL Albumin (3.5-5.0) g/dL Urine Color Urine Appearance (Clear) Urine pH (5.0-8.0) Ur Specific [place] (1.001-1.035) Urine Protein (Negative) Urine Glucose (UA) (Negative) Urine Ketones (Negative) Urine Blood (Negative) Urine Nitrite (Negative) Urine Bilirubin (Negative) Urine Urobilinogen (<2.0) mg/dL Ur Leukocyte Esterase (Negative) Influenza Type A (PCR) Not Detected (Not Detectd) Influenza Type B (PCR) Not Detected (Not Detectd) RSV (PCR) Not Detected (Not Detectd) SARS-CoV-2 (PCR) Not Detected (Not Detectd) 07/13/21 Range/Units 11:06 WBC (3.8-10.6) k/uL RBC (4.30-5.90) m/uL Hgb (13.0-17.5) gm/dL Hct (39.0-53.0) % MCV (80.0-100.0) fL MCH (25.0-35.0) pg MCHC (31.0-37.0) g/dL RDW (11.5-15.5) % Plt Count (150-450) k/uL MPV Neutrophils % % Lymphocytes % % Monocytes % % Eosinophils % % Basophils % % Neutrophils # (1.3-7.7) k/uL Lymphocytes # (1.0-4.8) k/uL Monocytes # (0-1.0) k/uL Eosinophils # (0-0.7) k/uL Basophils # (0-0.2) k/uL PT (9.0-12.0) sec INR (<1.2) APTT (22.0-30.0) sec D-Dimer (<0.60) mg/L FEU Sodium (137-145) mmol/L Potassium (3.5-5.1) mmol/L Chloride (98-107) mmol/L Carbon Dioxide (22-30) mmol/L Anion Gap mmol/L BUN (9-20) mg/dL Creatinine (0.66-1.25) mg/dL Est GFR (CKD-EPI)AfAm (>60 ml/min/1.73 sqM) Est GFR (CKD-EPI)NonAf (>60 ml/min/1.73 sqM) Glucose (74-99) mg/dL Plasma Lactic Acid Danyel (0.7-2.0) mmol/L Calcium (8.4-10.2) mg/dL Magnesium (1.6-2.3) mg/dL Total Bilirubin (0.2-1.3) mg/dL AST (17-59) U/L ALT (4-49) U/L Alkaline Phosphatase (38-126) U/L Troponin I (0.000-0.034) ng/mL Total Protein (6.3-8.2) g/dL Albumin (3.5-5.0) g/dL Urine Color Yellow Urine Appearance Clear (Clear) Urine pH 6.0 (5.0-8.0) Ur Specific [place] 1.008 (1.001-1.035) Urine Protein Negative (Negative) Urine Glucose (UA) Negative (Negative) Urine Ketones Negative (Negative) Urine Blood Negative (Negative) Urine Nitrite Negative (Negative) Urine Bilirubin Negative (Negative) Urine Urobilinogen <2.0 (<2.0) mg/dL Ur Leukocyte Esterase Negative (Negative) Influenza Type A (PCR) (Not Detectd) Influenza Type B (PCR) (Not Detectd) RSV (PCR) (Not Detectd) SARS-CoV-2 (PCR) (Not Detectd) Disposition Clinical Impression: Idiopathic pulmonary fibrosis, Dyspnea Clinical Impression: (Ruled Out): COPD (chronic obstructive pulmonary disease) Disposition: ADMITTED IP TO THIS [facility] Decision Date: 07/13/21 Decision Time: 12:51
[2021-07-13 11:13] LABS: Basophils % (A) 1 %; Eosinophils # (A) 0.2 k/uL (0-0.7); Eosinophils % (A) 3 %; HCT 52.4 % (39.0-53.0); HGB 18.4 gm/dL (13.0-17.5); Lymphocytes # (A) 1.2 k/uL (1.0-4.8); Lymphocytes % (A) 16 %; MCH 33.2 pg (25.0-35.0); MCV 94.7 fL (80.0-100.0); Mean Platelet Volume 7.8; Monocytes # (A) 0.6 k/uL (0-1.0); Monocytes % (A) 8 %; Neutrophils # (A) 5.1 k/uL (1.3-7.7); Neutrophils % (A) 71 %; Platelet Count 114 k/uL (150-450); RBC 5.53 m/uL (4.30-5.90); RDW 12.7 % (11.5-15.5); WBC 7.2 k/uL (3.8-10.6)
[2021-07-13 11:30] LABS: Appearance,Urine Clear (Clear); Bilirubin,Urine Negative (Negative); Blood,Urine Negative (Negative); Color,Urine Yellow; Glucose,Urine (UA) Negative (Negative); Ketones,Urine Negative (Negative); Leukocyte Esterase,Urine Negative (Negative); Nitrite,Urine Negative (Negative); Protein,Urine Negative (Negative); Specific Gravity,Urine 1.008 (1.001-1.035); Urobilinogen,Urine <2.0 mg/dL (<2.0)
[2021-07-13 11:31] LABS: INR 0.9 (<1.2); Partial Thromboplastin Time 23.2 sec (22.0-30.0); Prothrombin Time 10.4 sec (9.0-12.0)
[2021-07-13 11:39] LABS: ALT 8 U/L (4-49); AST 30 U/L (17-59); African American GFR (CKD) >90 (>60 ml/min/1.73 sqM); Albumin 4.2 g/dL (3.5-5.0); Alkaline Phosphatase 67 U/L (38-126); Anion Gap 8 mmol/L; Blood Urea Nitrogen 10 mg/dL (9-20); Calcium 8.9 mg/dL (8.4-10.2); Carbon Dioxide 25 mmol/L (22-30); Chloride 105 mmol/L (98-107); Glucose 140 mg/dL (74-99); Non-African American GFR(CKD) >90 (>60 ml/min/1.73 sqM); Potassium 3.9 mmol/L (3.5-5.1); Sodium 138 mmol/L (137-145); Total Protein 7.4 g/dL (6.3-8.2)
[2021-07-13 11:51] LABS: Influenza A Not Detected (Not Detectd); Influenza B Not Detected (Not Detectd)
[2021-07-13] MEDS ORDERED: DEXAMETHASONE SOD PHOSPHATE 10 MG/ML 1 ML VIAL IVP STA (12:10)
--- NOTE | 2021-07-13 12:19 | XR ---
EXAMINATION TYPE: XR chest 2V DATE OF EXAM: 07/13/2021 COMPARISON: 03/14/2020, 07/20/2020 HISTORY: 71-year-old male pulmonary fibrosis, shortness of breath, difficulty breathing TECHNIQUE: PA and lateral views FINDINGS: Heart borderline to mildly enlarged. Mediastinal reticular interstitial opacities similar to slightly increased from prior exam. These densities have become slightly more patchy in the lower lungs. No p leural effusion. IMPRESSION: 1. Similar borderline to mild cardia mentally. 2. Interstitial changes are similar to slightly progressed from 07/20/2020. Densities are more patchy in the lower lungs. Consider progression in pulmonary fibrosis or superimposed pneumonitis.
[2021-07-13] MEDS ORDERED: ALBUTEROL NEBULIZED 2.5 MG/3 ML INHALATION STA (12:48)
[2021-07-13] MEDS ORDERED: ACETAMINOPHEN TAB 325 MG TAB PO PRN (12:54)
[2021-07-13] MEDS ORDERED: NALOXONE 0.4 MG/ML 1 ML VIAL IV PRN (12:54)
--- NOTE | 2021-07-13 14:05 | P.CNPUL ---
History of Present Illness Consult date: 07/13/21 Requesting physician: [facility] Reason for consult: dyspnea, cough, hypoxemia, pulmonary fibrosis, abnormal CXR/CT Chief complaint: Shortness of breath, chest congestion. History of present illness: Pulmonary consult dated 07/13/2021. This is a 72-year-old male, with a history of idiopathic pulmonary fibrosis. The patient sees my partner. The patient's primary care physician is a tea lal's events assistant at the [facility] in [place]. The patient apparently was diagnosed as having idiopathic pulmonary fibrosis back in January 2020. He had a lung biopsy performed by Dr. Hill. Currently, he has chronic hypoxemic respiratory failure uses home O2 4 L. He also takes prednisone. The patient comes in for increasing shortness of breath and chest congestion. He hasn't been feeling well for a couple of days. He apparently is also had some low-grade temperature elevations. He denied any chest pain or chest discomfort. There is no nausea, vomiting, or diarrhea. The patient is coughing up a small amount of clear phlegm. The patient did smoke many years ago. Currently, he's not receiving any IV fluids. The patient takes baby aspirin, Sinemet for Parkinson's disease, Flomax for BPH, Xanax, and prednisone. White count 7.2, hemoglobin 18.4, hematocrit 52.4, platelet count 114,000. Coagulation studies are normal. Sodium, potassium, chloride, CO2, anion gap, BUN, and creatinine are all normal. In fact, the rest of the comprehensive metabolic profile is normal. Urine is normal. Serologic studies including coronavirus testing, was negative. Chest x-ray shows diffuse interstitial changes throughout. Review of Systems REVIEW OF SYSTEMS: CONSTITUTIONAL: Slight temperature elevation. NEUROLOGIC: [ Negative.] HEENT: [ Negative.] CARDIAC: [Negative.] PULMONARY: Worsening shortness of breath, chest congestion, and cough. GI: [Negative.] : [Negative.] RHEUMATOLOGIC: [ Negative.] IMMUNOLOGIC: [ Negative.] ENDOCRINE: [Negative. ] DERMATOLOGIC: [Negative.] Past Medical History Past Medical History: Musculoskeletal Disorder, Neurologic Disorder Additional Past Medical History / Comment(s): Parkinson's disease, essential tremors, headaches, arthritis bilateral hands, vertigo with heights, bronchitis. IPF History of Any Multi-Drug Resistant Organisms: None Reported Past Surgical History: Cholecystectomy Additional Past Surgical History / Comment(s): Colonoscopy with polypectomy Past Anesthesia/Blood Transfusion Reactions: No Reported Reaction Past Psychological History: PTSD Smoking Status: Former smoker Past Alcohol Use History: None Reported - Past Family History Father Family Medical History: Cancer Additional Family Medical History / Comment(s): Father had a form of leukemia. Mother Family Medical History: Cancer Additional Family Medical History / Comment(s): Mother from sarcoma. Medications and Allergies Home Medications Medication Instructions Recorded Confirmed Type Aspirin 81 mg PO DAILY 01/30/20 07/13/21 History Carbidopa/Levodopa 1 tab PO DAILY 01/30/20 07/13/21 History [Carbidopa-Levodopa 10-100 Tab] Tamsulosin [Flomax] 0.4 mg PO DAILY 01/30/20 07/13/21 History ALPRAZolam [Xanax] 0.5 mg PO DAILY PRN 07/13/21 07/13/21 History Echinacea 400 mg PO DAILY 07/13/21 07/13/21 History predniSONE 10 mg PO DAILY 07/13/21 07/13/21 History Allergies Allergy/AdvReac Type Severity Reaction Status Date / Time No Known Allergies Allergy Verified 07/13/21 11:13 Physical Exam Osteopathic Statement: *. No significant issues noted on an osteopathic structural exam other than those noted in the History and Physical/Consult. Vitals: Vital Signs Temp Pulse Resp BP Pulse Ox 07/13/21 13:47 92 20 07/13/21 12:45 97.8 F 94 28 H 125/89 94 L 07/13/21 11:27 94 20 07/13/21 11:22 96 20 07/13/21 10:24 99 F 99 20 142/89 91 L Intake and Output 07/12/21 07/13/21 07/13/21 22:59 06:59 14:59 Other: Weight 109.769 kg No acute distress, oriented 3. Mild conversational dyspnea. 4 L saturation is 94%. HEENT examination is grossly unremarkable. Neck supple. Full range of motion. No adenopathy thyromegaly or neck vein distention. Cardiovascular examination reveals regular rhythm rate. S1-S2 normal. No S3 or S4. No discernible murmur noted. Heart sounds are distant. Heart rate 96 bpm. Lungs reveal diffuse bibasilar crackles. Scattered rhonchi are noted. No wheezes. Breath sounds equal bilaterally. Abdomen soft bowel sounds are heard. No masses or tenderness. Extremities are intact. No cyanosis clubbing or edema. Skin is without rash or lesion. Neurologic examination reveals a fine tremor from his Parkinson's disease. Results - Laboratory Findings CBC and BMP: 07/13/21 10:53 07/13/21 10:53 PT/INR, D-dimer PT 10.4 sec (9.0-12.0) 07/13/21 10:53 INR 0.9 (<1.2) 07/13/21 10:53 D-Dimer 0.29 mg/L FEU (<0.60) 07/13/21 10:53 Abnormal lab findings: Abnormal Labs 07/13/21 07/13/21 10:53 10:53 Hgb 18.4 H Plt Count 114 L Glucose 140 H - Diagnostic Findings Chest x-ray: image reviewed Assessment and Plan Assessment: Acute exacerbation of the patient's biopsy-proven idiopathic pulmonary fibrosis. History of Parkinson's disease. History of BPH. History of PTSD. History of remote tobacco use. History of arthritis. History of vertigo. Plan: Plan dated 07/13/2021. Currently, the patient is on an albuterol inhaler. I will add some Solu-Medrol. In addition, we'll place the patient on both albuterol and ipratropium bromide. Finally, because there is a chance of active infection, he will be placed on some oral antibiotic. Additional recommendations and suggestions are forthcoming. Prognosis is guarded. We'll continue to follow the patient make recommendations were appropriate. Time with Patient: Greater than 30
[2021-07-13] MEDS ORDERED: IPRATROPIUM-ALBUTEROL 3 ML NEB INHALATION PRN (14:06)
[2021-07-13] MEDS: SODIUM CHLORIDE 0.9% 1,000 ML IV SCH (14:39)
[2021-07-13] MEDS: AMOXIC-POT CLAV 875-125MG 1 EACH TAB PO SCH ×2 (14:51→20:01)
[2021-07-13] MEDS: IPRATROPIUM-ALBUTEROL 3 ML NEB INHALATION SCH ×2 (14:54→19:13)
[2021-07-13] MEDS ORDERED: ALBUTEROL NEBULIZED 2.5 MG/3 ML INHALATION SCH (16:00)
[2021-07-13] MEDS: methylPREDNISolone SOD SUCCI 125 MG/2 ML VIAL IV SCH (17:57)
[2021-07-13] MEDS ORDERED: ALPRAZolam 0.5 MG TAB PO PRN (22:01)
--- NOTE | 2021-07-13 22:03 | P.HPIM ---
History of Present Illness This is a pleasant 71 years old male with past medical history of Parkinson's disease, essential tremors, headaches, arthritis bilateral hands, vertigo with heights, bronchitis. IPF, he is on home oxygen 4 L/m and steroid dependent at home on prednisone 10 mg daily. 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 Patient presents because of dyspnea of one week duration, worsened than his baseline associated with cough and some clear phlegm for about one week. No specific chest pain On admission patient is been afebrile, his tachypnea Tachycardic with heart rate around 110, breathing rate of 20-24, he is saturating 93% on 4 L oxygen via nasal cannula. Labs showing unremarkable CBC, INR, BMP, liver enzymes. D-dimer is -0.29, troponin negative. Urinalysis is not suspicious for infection. Viral panel is negative including Covid, influenza and RSV Chest x-ray: Interstitial changes are similar to slightly progressed from 07/20/2020. Density are more patchy in the lower lungs. Consider progression and pulmonary fibrosis or superimposed pneumonitis Patient was started on Solu-Medrol 60 mg, Augmentin 1 tablet twice daily and normal saline 75 mL/h Review of Systems CONSTITUTIONAL: No fever, no malaise, no fatigue. HEENT: No recent visual problems or hearing problems. Denied any sore throat. CARDIOVASCULAR: No orthopnea, PND, no palpitations, no syncope. PULMONARY: No chest wall tenderness, no hemoptysis. GASTROINTESTINAL: No diarrhea, no nausea, no vomiting, no abdominal pain. Normoactive bowel sounds. NEUROLOGICAL: No headaches, no weakness, no numbness. HEMATOLOGICAL: Denies any bleeding or petechiae. GENITOURINARY: Denies any burning micturition, frequency, or urgency. MUSCULOSKELETAL/RHEUMATOLOGICAL: Denies any joint pain, swelling, or any muscle pain. ENDOCRINE: Denies any polyuria or polydipsia. Past Medical History Past Medical History: Musculoskeletal Disorder, Neurologic Disorder Additional Past Medical History / Comment(s): Parkinson's disease, essential tremors, headaches, arthritis bilateral hands, vertigo with heights, bronchitis. IPF History of Any Multi-Drug Resistant Organisms: None Reported Past Surgical History: Cholecystectomy Additional Past Surgical History / Comment(s): Colonoscopy with polypectomy Past Anesthesia/Blood Transfusion Reactions: No Reported Reaction Past Psychological History: PTSD Smoking Status: Former smoker Past Alcohol Use History: None Reported - Past Family History Father Family Medical History: Cancer Additional Family Medical History / Comment(s): Father had a form of leukemia. Mother Family Medical History: Cancer Additional Family Medical History / Comment(s): Mother from sarcoma. Medications and Allergies Home Medications Medication Instructions Recorded Confirmed Type Aspirin 81 mg PO DAILY 01/30/20 07/13/21 History Carbidopa/Levodopa 1 tab PO DAILY 01/30/20 07/13/21 History [Carbidopa-Levodopa 10-100 Tab] Tamsulosin [Flomax] 0.4 mg PO DAILY 01/30/20 07/13/21 History ALPRAZolam [Xanax] 0.5 mg PO DAILY PRN 07/13/21 07/13/21 History Albuterol Nebulized [Ventolin 2.5 mg INHALATION RT-QID PRN 07/13/21 07/13/21 History Nebulized] Echinacea 400 mg PO DAILY 07/13/21 07/13/21 History predniSONE 10 mg PO DAILY 07/13/21 07/13/21 History Allergies Allergy/AdvReac Type Severity Reaction Status Date / Time No Known Allergies Allergy Verified 07/13/21 11:13 Physical Exam Vitals: Vital Signs Temp Pulse Pulse Resp BP BP Pulse Ox 07/13/21 19:30 98.3 F 105 H 20 138/74 93 L 07/13/21 19:25 108 H 07/13/21 19:13 111 H 07/13/21 18:38 97.9 F 104 H 16 139/78 93 L 07/13/21 15:30 101 H 30 H 128/87 94 L 07/13/21 15:05 97 20 07/13/21 14:55 95 20 07/13/21 14:30 100 30 H 108/87 93 L 07/13/21 13:56 96 20 07/13/21 13:47 92 20 07/13/21 13:30 91 30 H 139/88 94 L 07/13/21 12:45 97.8 F 94 28 H 125/89 94 L 07/13/21 11:27 94 20 07/13/21 11:22 96 20 07/13/21 10:24 99 F 99 20 142/89 91 L Intake and Output 03/08/22 03/08/22 03/08/22 06:59 14:59 22:59 Other: # Voids 1 Weight 109.769 kg 109.769 kg GENERAL: The patient is alert and oriented x3, not in any acute distress. Well developed, well nourished. HEENT: Pupils are round and equally reacting to light. EOMI. No scleral icterus. No conjunctival pallor. Normocephalic, atraumatic. No pharyngeal erythema. No thyromegaly. CARDIOVASCULAR: S1 and S2 present. No murmurs, rubs, or gallops. -PULMONARY: Chest is clear to auscultation, bilateral expiratory scattered wheezing with some crackles. ABDOMEN: Soft, nontender, nondistended, normoactive bowel sounds. No palpable organomegaly. MUSCULOSKELETAL: No joint swelling or deformity. EXTREMITIES: No cyanosis, clubbing, or pedal edema. NEUROLOGICAL: Gross neurological examination did not reveal any focal deficits. SKIN: No rashes. No petechiae Results CBC & Chem 7: 07/13/21 10:53 07/13/21 10:53 Labs: Abnormal Lab Results - Last 24 Hours (Table) 07/13/21 07/13/21 Range/Units 10:53 10:53 Hgb 18.4 H (13.0-17.5) gm/dL Plt Count 114 L (150-450) k/uL Glucose 140 H (74-99) mg/dL Thrombosis Risk Factor Assmnt - Choose All That Apply Any of the Below Risk Factors Present?: Yes Each Factor Represents 1 point: Obesity (BMI >25), Serious lung disease incl. pneumonia (< 1month) Other Risk Factors: Yes Each Risk Factor Represents 2 Points: Age 61-74 years Other congenital or acquired thrombophilia - If yes, enter type in comment: No Thrombosis Risk Factor Assessment Total Risk Factor Score: 4 Thrombosis Risk Factor Assessment Level: Moderate Risk Assessment and Plan Assessment: Acute COPD exacerbation Exacerbation of his pulmonary fibrosis in view of his history of idiopathic pulmonary fibrosis Possible acute tracheobronchitis Chronic hypoxic respiratory failure on 4 L of oxygen per minute at home History of Parkinson's disease History of essential tremor History of bilateral hand arthritis History of vertigo Plan: This is a pleasant 71 years old male who presents for COPD exacerbation Continue with IV Solu-Medrol Bronchodilator Pulmonary consult Continue with antibiotic empirically. Follow-up sputum culture Labs and medication were reviewed.. Continue same treatment. Continue with symptomatic treatment. Resume home medication. Monitor lytes and vitals. DVT and GI prophylaxis. Further recommendations depends on the clinical course of the patient DVT prophylaxis: Subcutaneous heparin GI Prophylaxis: Pepcid
[2021-07-14] MEDS: methylPREDNISolone SOD SUCCI 125 MG/2 ML VIAL IV SCH ×5 (01:38→23:25)
[2021-07-14] MEDS: SODIUM CHLORIDE 0.9% 1,000 ML IV SCH ×2 (01:38→13:03)
[2021-07-14] MEDS: IPRATROPIUM-ALBUTEROL 3 ML NEB INHALATION SCH ×4 (07:48→19:35)
[2021-07-14] MEDS: AMOXIC-POT CLAV 875-125MG 1 EACH TAB PO SCH ×2 (08:24→20:35)
[2021-07-14] MEDS: TAMSULOSIN 0.4 MG CAP.ER.24H PO SCH (08:24)
[2021-07-14] MEDS: ASPIRIN 81 MG PO SCH (08:24)
[2021-07-14] MEDS: CARBIDOPA-LEVODOPA 10-100 MG 1 EACH TAB PO SCH (08:24)
[2021-07-14] MEDS ORDERED: FAMOTIDINE 20 MG/2 ML VIAL IV SCH (10:15)
[2021-07-14] MEDS: HEPARIN SODIUM,PORCINE/PF 5,000 UNIT/0.5 ML SYRINGE SQ SCH ×2 (11:03→20:35)
--- NOTE | 2021-07-14 11:40 | P.PN ---
Subjective Progress Note Date: 07/14/21 Principal diagnosis: Exacerbation of IPF This is a 72-year-old male, with a history of idiopathic pulmonary fibrosis. The patient sees my partner. The patient's primary care physician is a physician's malt specifications control assistant at the [facility] in [place]. The patient apparently was diagnosed as having idiopathic pulmonary fibrosis back in January 2020. He had a lung biopsy performed by Dr. Hill. Currently, he has chronic hypoxemic respiratory failure uses home O2 4 L. He also takes prednisone. The patient comes in for increasing shortness of breath and chest congestion. He hasn't been feeling well for a couple of days. He apparently is also had some low-grade temperature elevations. He denied any chest pain or chest discomfort. There is no nausea, vomiting, or diarrhea. The patient is coughing up a small amount of clear phlegm. The patient did smoke many years ago. Currently, he's not receiving any IV fluids. The patient takes baby aspirin, Sinemet for Parkinson's disease, Flomax for BPH, Xanax, and prednisone. White count 7.2, hemoglobin 18.4, hematocrit 52.4, platelet count 114,000. Coagulation studies are normal. Sodium, potassium, chloride, CO2, anion gap, BUN, and creatinine are all normal. In fact, the rest of the comprehensive metabolic profile is normal. Urine is normal. Serologic studies including coronavirus testing, was negative. Chest x-ray shows diffuse interstitial changes throughout. The patient is seen today 07/14/2021 in follow-up on the regular medical floor. He is currently sitting up in bed. Awake and alert in no acute distress. Maintaining O2 saturation in low 90s on 4 L/m per nasal cannula. He is maintained on Augmentin, DuoNeb inhalations, IV Solu-Medrol. Heparin for DVT prophylaxis. Normal saline at 75 ML's per hour. Objective - Vital Signs Vital signs: Vital Signs Temp 97.5 F L 07/14/21 04:30 Pulse 94 07/14/21 08:30 Resp 20 07/14/21 08:30 BP 138/69 07/14/21 08:23 Pulse Ox 94 L 07/14/21 04:30 Intake & Output 07/13/21 07/14/21 07/14/21 18:59 06:59 18:59 Intake Total 200 Balance 200 Weight 109.769 kg Intake: Oral 200 Other: # Voids 1 1 - Exam GENERAL EXAM: Alert, very pleasant 71-year-old gentleman, on 4 L nasal cannula, comfortable in no apparent distress. HEAD: Normocephalic. EYES: Normal reaction of pupils, equal size. NOSE: Clear with pink turbinates. THROAT: No erythema or exudates. NECK: No masses, no JVD. CHEST: No chest wall deformity. LUNGS: Equal air entry with coarse crackles in the bilateral bases. CVS: S1 and S2 normal with no audible murmur, regular rhythm. ABDOMEN: No hepatosplenomegaly, normal bowel sounds, no guarding or rigidity. SPINE: No scoliosis or deformity SKIN: No rashes CENTRAL NERVOUS SYSTEM: No focal deficits, tone is normal in all 4 extremities. EXTREMITIES: There is no peripheral edema. No clubbing, no cyanosis. Peripheral pulses are intact. - Labs CBC & Chem 7: 07/13/21 10:53 07/13/21 10:53 Labs: Abnormal Lab Results - Last 24 Hours (Table) 07/13/21 Range/Units 10:53 Glucose 140 H (74-99) mg/dL Assessment and Plan Assessment: 1 Acute exacerbation of the patient's biopsy-proven idiopathic pulmonary fibrosis. 2 History of Parkinson's disease. 3 History of BPH. 4 History of PTSD. 5 History of remote tobacco use. 6 History of arthritis. 7 History of vertigo. Plan: The patient was seen and evaluated Improved today compared to yesterday Continue DuoNeb inhalations, IV Solu-Medrol Remains on empiric antibiotics in the form of Augmentin We'll continue to follow I have personally seen and examined the patient, performed the documentation and the assessment and plan as written. Number of minutes spent on the visit: 10.
[2021-07-14 12:13] LABS: Glucose,Whole Blood 273 mg/dL (75-99)
[2021-07-14 17:34] LABS: Glucose,Whole Blood 253 mg/dL (75-99)
[2021-07-14] MEDS: INSULIN ASPART (NovoLOG) 100 UNIT/ML VIAL SQ SCH ×2 (17:38→20:35)
[2021-07-14 20:15] LABS: Glucose,Whole Blood 342 mg/dL (75-99)
[2021-07-14] MEDS: FAMOTIDINE 20 MG TAB PO SCH (20:35)
--- NOTE | 2021-07-14 21:58 | P.PN ---
Subjective This is a pleasant 71 years old male with past medical history of Parkinson's disease, essential tremors, headaches, arthritis bilateral hands, vertigo with heights, bronchitis. IPF, he is on home oxygen 4 L/m and steroid dependent at home on prednisone 10 mg daily. His payroll clerk is Dr. Flores. Patient presents because of dyspnea of one week duration, worsened than his baseline associated with cough and some clear phlegm for about one week. No specific chest pain On admission patient is been afebrile, his tachypnea Tachycardic with heart rate around 110, breathing rate of 20-24, he is saturating 93% on 4 L oxygen via nasal cannula. Labs showing unremarkable CBC, INR, BMP, liver enzymes. D-dimer is -0.29, troponin negative. Urinalysis is not suspicious for infection. Viral panel is negative including Covid, influenza and RSV Chest x-ray: Interstitial changes are similar to slightly progressed from 07/20/2020. Density are more patchy in the lower lungs. Consider progression and pulmonary fibrosis or superimposed pneumonitis Patient was started on Solu-Medrol 60 mg, Augmentin 1 tablet twice daily and normal saline 75 mL/h 07/14/2021 Patient breathing is significantly improving while at rest is significantly less tachypneic he remains on 4 L oxygen via nasal cannula which is his home dose No wheezing Continued on Solu-Medrol, Augmentin and normal saline at 75 mL/h Objective - Vital Signs Vital signs: Vital Signs Temp 97.5 F L 07/14/21 04:30 Pulse 88 07/14/21 11:36 Resp 20 07/14/21 08:30 BP 138/69 07/14/21 08:23 Pulse Ox 94 L 07/14/21 04:30 Intake & Output 07/13/21 07/14/21 07/14/21 18:59 06:59 18:59 Intake Total 200 Balance 200 Weight 109.769 kg Intake: Oral 200 Other: # Voids 1 1 - Exam GENERAL: The patient is alert and oriented x3, not in any acute distress. Well developed, well nourished. HEENT: Pupils are round and equally reacting to light. EOMI. No scleral icterus. No conjunctival pallor. Normocephalic, atraumatic. No pharyngeal erythema. No thyromegaly. CARDIOVASCULAR: S1 and S2 present. No murmurs, rubs, or gallops. -PULMONARY: Chest is clear to auscultation, bilateral expiratory scattered wheezing significantly improved ABDOMEN: Soft, nontender, nondistended, normoactive bowel sounds. No palpable organomegaly. MUSCULOSKELETAL: No joint swelling or deformity. EXTREMITIES: No cyanosis, clubbing, or pedal edema. NEUROLOGICAL: Gross neurological examination did not reveal any focal deficits. SKIN: No rashes. No petechiae - Labs CBC & Chem 7: 07/13/21 10:53 07/13/21 10:53 Labs: Abnormal Lab Results - Last 24 Hours (Table) 07/13/21 Range/Units 10:53 Glucose 140 H (74-99) mg/dL Assessment and Plan Assessment: Acute COPD exacerbation Exacerbation of his pulmonary fibrosis in view of his history of idiopathic pulmonary fibrosis Possible acute tracheobronchitis Chronic hypoxic respiratory failure on 4 L of oxygen per minute at home History of Parkinson's disease History of essential tremor History of bilateral hand arthritis History of vertigo Plan: This is a pleasant 71 years old male who presents for COPD exacerbation Continue with IV Solu-Medrol Bronchodilator Pulmonary consult Continue with antibiotic empirically. Follow-up sputum culture Labs and medication were reviewed.. Continue same treatment. Continue with symptomatic treatment. Resume home medication. Monitor lytes and vitals. DVT and GI prophylaxis. Further recommendations depends on the clinical course of the patient DVT prophylaxis: Subcutaneous heparin GI Prophylaxis: Pepcid
[2021-07-15] MEDS: SODIUM CHLORIDE 0.9% 1,000 ML IV SCH (06:13)
[2021-07-15] MEDS: methylPREDNISolone SOD SUCCI 125 MG/2 ML VIAL IV SCH (06:13)
[2021-07-15 06:44] LABS: Glucose,Whole Blood 181 mg/dL (75-99)
[2021-07-15] MEDS: IPRATROPIUM-ALBUTEROL 3 ML NEB INHALATION SCH ×4 (09:25→20:04)
[2021-07-15] MEDS: ASPIRIN 81 MG PO SCH (10:02)
[2021-07-15] MEDS: FAMOTIDINE 20 MG TAB PO SCH ×2 (10:02→20:33)
[2021-07-15] MEDS: CARBIDOPA-LEVODOPA 10-100 MG 1 EACH TAB PO SCH (10:03)
[2021-07-15] MEDS: INSULIN ASPART (NovoLOG) 100 UNIT/ML VIAL SQ SCH ×4 (10:03→20:32)
[2021-07-15] MEDS: AMOXIC-POT CLAV 875-125MG 1 EACH TAB PO SCH ×2 (10:03→20:33)
[2021-07-15] MEDS: TAMSULOSIN 0.4 MG CAP.ER.24H PO SCH (10:04)
[2021-07-15] MEDS: HEPARIN SODIUM,PORCINE/PF 5,000 UNIT/0.5 ML SYRINGE SQ SCH ×2 (10:17→20:32)
--- NOTE | 2021-07-15 10:53 | P.PN ---
Subjective Progress Note Date: 07/15/21 This is a 72-year-old male, with a history of idiopathic pulmonary fibrosis. The patient sees my partner. The patient's primary care physician is a physician's inventory control assistant at the [facility] in [place]. The patient apparently was diagnosed as having idiopathic pulmonary fibrosis back in January 2020. He had a lung biopsy performed by Dr. Hill. Currently, he has chronic hypoxemic respiratory failure uses home O2 4 L. He also takes prednisone. The patient comes in for increasing shortness of breath and chest congestion. He hasn't been feeling well for a couple of days. He apparently is also had some low-grade temperature elevations. He denied any chest pain or chest discomfort. There is no nausea, vomiting, or diarrhea. The patient is coughing up a small amount of clear phlegm. The patient did smoke many years ago. Currently, he's not receiving any IV fluids. The patient takes baby aspirin, Sinemet for Parkinson's disease, Flomax for BPH, Xanax, and prednisone. White count 7.2, hemoglobin 18.4, hematocrit 52.4, platelet count 114,000. Coagulation studies are normal. Sodium, potassium, chloride, CO2, anion gap, BUN, and creatinine are all normal. In fact, the rest of the comprehensive metabolic profile is normal. Urine is normal. Serologic studies including coronavirus testing, was negative. Chest x-ray shows diffuse interstitial changes throughout. The patient is seen today 07/14/2021 in follow-up on the regular medical floor. He is currently sitting up in bed. Awake and alert in no acute distress. Maintaining O2 saturation in low 90s on 4 L/m per nasal cannula. He is maintained on Augmentin, DuoNeb inhalations, IV Solu-Medrol. Heparin for DVT prophylaxis. Normal saline at 75 ML's per hour. On 07/15/2021 patient seen in follow-up on selective care unit, he states his breathing is improving, he is able to take deeper breaths, has an occasional cough, no significant phlegm production, no fever or chills, no complaints of chest discomfort. He is currently on 4 L of oxygen and that's what he wears at home on a regular basis, his pulse ox is 95%, he is on empiric antibiotics in the form of Augmentin, he is on IV Solu-Medrol 60 mg every 6 hours, he is on D uoNeb breathing treatments, remains on IV fluids at rate is 75 ML per hour, has been tolerating ambulation, he states he is not back to baseline yet but is definitely feeling improvement Objective - Vital Signs Vital signs: Vital Signs Temp 98.1 F 07/15/21 07:01 Pulse 90 07/15/21 09:25 Resp 18 07/15/21 07:01 BP 135/78 07/15/21 07:01 Pulse Ox 92 L 07/15/21 07:01 Intake & Output 07/14/21 07/15/21 07/15/21 18:59 06:59 18:59 Intake Total 480 Balance 480 Intake: Oral 480 Other: # Voids 4 2 - Exam GENERAL EXAM: Alert, very pleasant, 71-year-old white male, on 4 L of oxygen a pulse ox of 95% comfortable in no apparent distress. HEAD: Normocephalic/atraumatic. EYES: Normal reaction of pupils, equal size. Conjunctiva pink, sclera white. NOSE: Clear with pink turbinates. THROAT: No erythema or exudates. NECK: No masses, no JVD, no thyroid enlargement, no adenopathy. CHEST: No chest wall deformity. Symmetrical expansion. LUNGS: Equal air entry with mild bibasilar crackles CVS: Regular rate and rhythm, normal S1 and S2, no gallops, no murmurs, no rubs ABDOMEN: Soft, nontender. No hepatosplenomegaly, normal bowel sounds, no guard ing or rigidity. EXTREMITIES: No clubbing, no edema, no cyanosis, 2+ pulses and upper and lower extremities. MUSCULOSKELETAL: Muscle strength and tone normal. SPINE: No scoliosis or deformity SKIN: No rashes CENTRAL NERVOUS SYSTEM: Alert and oriented -3. No focal deficits, tone is normal in all 4 extremities. PSYCHIATRIC: Alert and oriented -3. Appropriate affect. Intact judgment and insight. - Labs CBC & Chem 7: 07/13/21 10:53 07/13/21 10:53 Labs: Abnormal Lab Results - Last 24 Hours (Table) 07/14/21 07/14/21 07/14/21 Range/Units 12:11 17:31 20:13 POC Glucose (mg/dL) 273 H 253 H 342 H (75-99) mg/dL 07/15/21 Range/Units 06:38 POC Glucose (mg/dL) 181 H (75-99) mg/dL Microbiology - Last 24 Hours (Table) 07/14/21 11:30 Gram Stain - Preliminary Sputum Sputum Culture - Preliminary Assessment and Plan Plan: Assessment: #1. Shortness of breath, acute on chronic, related to acute exacerbation of IPF #2. Chronic hypoxic respiratory failure related to biopsy-proven IPF, patient only wears 4 L of oxygen at home #3. History of BPH #4. History of PTSD #5. History of remote tobacco use #6. History of Parkinson's disease #7. Degenerative joint disease Plan: Patient is clinically improving Not quite back to baseline yet Has developed steroid-induced hyperglycemia, We will cut back IV steroids to 40 mg every 8 hours Continue Augmentin and breathing treatments increase activity as tolerated Consider discharge home in the next 24 hours if continues to improve Outpatient follow-up with Dr. Flores in the office in one week I have personally seen and examined the patient, performed the documentation and the assessment and plan as written. Number of minutes spent on the visit: [10] Time with Patient: Less than 30
[2021-07-15 11:22] LABS: Glucose,Whole Blood 216 mg/dL (75-99)
--- NOTE | 2021-07-15 13:13 | P.PN ---
Subjective This is a pleasant 71 years old male with past medical history of Parkinson's disease, essential tremors, headaches, arthritis bilateral hands, vertigo with heights, bronchitis. IPF, he is on home oxygen 4 L/m and steroid dependent at home on prednisone 10 mg daily. His security delivery specialist is Dr. Flores. Patient presents because of dyspnea of one week duration, worsened than his baseline associated with cough and some clear phlegm for about one week. No specific chest pain On admission patient is been afebrile, his tachypnea Tachycardic with heart rate around 110, breathing rate of 20-24, he is saturating 93% on 4 L oxygen via nasal cannula. Labs showing unremarkable CBC, INR, BMP, liver enzymes. D-dimer is -0.29, troponin negative. Urinalysis is not suspicious for infection. Viral panel is negative including Covid, influenza and RSV Chest x-ray: Interstitial changes are similar to slightly progressed from 07/20/2020. Density are more patchy in the lower lungs. Consider progression and pulmonary fibrosis or superimposed pneumonitis Patient was started on Solu-Medrol 60 mg, Augmentin 1 tablet twice daily and normal saline 75 mL/h 07/14/2021 Patient breathing is significantly improving while at rest is significantly less tachypneic he remains on 4 L oxygen via nasal cannula which is his home dose No wheezing Continued on Solu-Medrol, Augmentin and normal saline at 75 mL/h 07/15/2021 Patient improving slowly and gradually, is close to his baseline. His oxygen requirement went down to 3 L/m today. His Solu-Medrol lowered dose to 40 mg 3 times a day daily. Possible discharge in 24-48 hours Objective - Vital Signs Vital signs: Vital Signs Temp 98.1 F 07/15/21 07:01 Pulse 86 07/15/21 12:44 Resp 18 07/15/21 07:01 BP 135/78 07/15/21 07:01 Pulse Ox 92 L 07/15/21 07:01 Intake & Output 07/14/21 07/15/21 07/15/21 18:59 06:59 18:59 Intake Total 480 Balance 480 Intake: Oral 480 Other: # Voids 4 2 1 - Exam GENERAL: The patient is alert and oriented x3, not in any acute distress. Well developed, well nourished. HEENT: Pupils are round and equally reacting to light. EOMI. No scleral icterus. No conjunctival pallor. Normocephalic, atraumatic. No pharyngeal erythema. No thyromegaly. CARDIOVASCULAR: S1 and S2 present. No murmurs, rubs, or gallops. -PULMONARY: Chest is clear to auscultation, bilateral expiratory scattered wheezing significantly improved ABDOMEN: Soft, nontender, nondistended, normoactive bowel sounds. No palpable organomegaly. MUSCULOSKELETAL: No joint swelling or deformity. EXTREMITIES: No cyanosis, clubbing, or pedal edema. NEUROLOGICAL: Gross neurological examination did not reveal any focal deficits. SKIN: No rashes. No petechiae - Labs CBC & Chem 7: 07/13/21 10:53 07/13/21 10:53 Labs: Abnormal Lab Results - Last 24 Hours (Table) 07/14/21 07/14/21 07/15/21 Range/Units 17:31 20:13 06:38 POC Glucose (mg/dL) 253 H 342 H 181 H (75-99) mg/dL 07/15/21 Range/Units 11:20 POC Glucose (mg/dL) 216 H (75-99) mg/dL Microbiology - Last 24 Hours (Table) 07/14/21 11:30 Gram Stain - Preliminary Sputum Sputum Culture - Preliminary Assessment and Plan Assessment: Acute COPD exacerbation Exacerbation of his pulmonary fibrosis in view of his history of idiopathic pulmonary fibrosis Possible acute tracheobronchitis Chronic hypoxic respiratory failure on 4 L of oxygen per minute at home History of Parkinson's disease History of essential tremor History of bilateral hand arthritis History of vertigo Plan: This is a pleasant 71 years old male who presents for COPD exacerbation Continue with IV Solu-Medrol Bronchodilator Pulmonary consult Continue with antibiotic empirically. Follow-up sputum culture Labs and medication were reviewed.. Continue same treatment. Continue with symptomatic treatment. Resume home medication. Monitor lytes and vitals. DVT and GI prophylaxis. Further recommendations depends on the clinical course of the patient DVT prophylaxis: Subcutaneous heparin GI Prophylaxis: Pepcid
[2021-07-15] MEDS: methylPREDNISolone SOD SUCCI 40 MG/ML 1 ML VIAL IV SCH (16:15)
[2021-07-15 16:32] LABS: Glucose,Whole Blood 194 mg/dL (75-99)
[2021-07-15 20:28] LABS: Glucose,Whole Blood 219 mg/dL (75-99)
[2021-07-16] MEDS: methylPREDNISolone SOD SUCCI 40 MG/ML 1 ML VIAL IV SCH ×2 (00:05→07:16)
[2021-07-16 06:58] LABS: Glucose,Whole Blood 185 mg/dL (75-99)
[2021-07-16] MEDS: INSULIN ASPART (NovoLOG) 100 UNIT/ML VIAL SQ SCH ×2 (07:15→12:18)
[2021-07-16] MEDS: HEPARIN SODIUM,PORCINE/PF 5,000 UNIT/0.5 ML SYRINGE SQ SCH (07:15)
[2021-07-16] MEDS: TAMSULOSIN 0.4 MG CAP.ER.24H PO SCH (07:16)
[2021-07-16] MEDS: ASPIRIN 81 MG PO SCH (07:16)
[2021-07-16] MEDS: AMOXIC-POT CLAV 875-125MG 1 EACH TAB PO SCH (07:16)
[2021-07-16] MEDS: CARBIDOPA-LEVODOPA 10-100 MG 1 EACH TAB PO SCH (07:17)
[2021-07-16] MEDS: FAMOTIDINE 20 MG TAB PO SCH (07:17)
[2021-07-16 07:53] VITALS: BP 129/50; RESP 20; TEMP 97.6
[2021-07-16] MEDS: IPRATROPIUM-ALBUTEROL 3 ML NEB INHALATION SCH ×2 (09:22→12:40)
[2021-07-16 09:25] VITALS: PULSE 92
[2021-07-16] MEDS ORDERED: INFLUENZA VACC HIGH-DOSE (65+) 240 MCG/0.7 ML SYRINGE IM ONE (11:08)
[2021-07-16 11:19] LABS: Glucose,Whole Blood 190 mg/dL (75-99)
--- NOTE | 2021-07-16 12:32 | P.PN ---
Subjective Progress Note Date: 07/16/21 This is a 72-year-old male, with a history of idiopathic pulmonary fibrosis. The patient sees my partner. The patient's primary care physician is a physician's digital sales assistant at the [facility] in [place]. The patient apparently was diagnosed as having idiopathic pulmonary fibrosis back in January 2020. He had a lung biopsy performed by Dr. Hill. Currently, he has chronic hypoxemic respiratory failure uses home O2 4 L. He also takes prednisone. The patient comes in for increasing shortness of breath and chest congestion. He hasn't been feeling well for a couple of days. He apparently is also had some low-grade temperature elevations. He denied any chest pain or chest discomfort. There is no nausea, vomiting, or diarrhea. The patient is coughing up a small amount of clear phlegm. The patient did smoke many years ago. Currently, he's not receiving any IV fluids. The patient takes baby aspirin, Sinemet for Parkinson's disease, Flomax for BPH, Xanax, and prednisone. White count 7.2, hemoglobin 18.4, hematocrit 52.4, platelet count 114,000. Coagulation studies are normal. Sodium, potassium, chloride, CO2, anion gap, BUN, and creatinine are all normal. In fact, the rest of the comprehensive metabolic profile is normal. Urine is normal. Serologic studies including coronavirus testing, was negative. Chest x-ray shows diffuse interstitial changes throughout. The patient is seen today 07/14/2021 in follow-up on the regular medical floor. He is currently sitting up in bed. Awake and alert in no acute distress. Maintaining O2 saturation in low 90s on 4 L/m per nasal cannula. He is maintained on Augmentin, DuoNeb inhalations, IV Solu-Medrol. Heparin for DVT prophylaxis. Normal saline at 75 ML's per hour. On 07/15/2021 patient seen in follow-up on selective care unit, he states his breathing is improving, he is able to take deeper breaths, has an occasional cough, no significant phlegm production, no fever or chills, no complaints of chest discomfort. He is currently on 4 L of oxygen and that's what he wears at home on a regular basis, his pulse ox is 95%, he is on empiric antibiotics in the form of Augmentin, he is on IV Solu-Medrol 60 mg every 6 hours, he is on D uoNeb breathing treatments, remains on IV fluids at rate is 75 ML per hour, has been tolerating ambulation, he states he is not back to baseline yet but is definitely feeling improvement On 07/16/2021 patient seen in follow-up. Patient states his breathing continues to improve, he is close to baseline, he is able to take deeper breaths, tolerating ambulation, no wheezing on today's exam. Lung sounds reveal some mild crackles at bilateral bases, no rhonchi. Vital signs have been stable, he remains on Augmentin, IV steroids, and remains on nebulized bronchodilators. Sputum culture has shown no growth. No acute events overnight Objective - Vital Signs Vital signs: Vital Signs Temp 97.6 F 07/16/21 07:51 Pulse 92 07/16/21 09:33 Resp 20 07/16/21 07:51 BP 129/50 07/16/21 07:51 Pulse Ox 92 L 07/16/21 07:51 Intake & Output 07/15/21 07/16/21 07/16/21 18:59 06:59 18:59 Other: # Voids 1 1 1 - Exam GENERAL EXAM: Alert, very pleasant, 71-year-old white male, on 4 L of oxygen a pulse ox of 95% comfortable in no apparent distress. HEAD: Normocephalic/atraumatic. EYES: Normal reaction of pupils, equal size. Conjunctiva pink, sclera white. NOSE: Clear with pink turbinates. THROAT: No erythema or exudates. NECK: No masses, no JVD, no thyroid enlargement, no adenopathy. CHEST: No chest wall deformity. Symmetrical expansion. LUNGS: Equal air entry with mild bibasilar crackles CVS: Regular rate and rhythm, normal S1 and S2, no gallops, no murmurs, no rubs ABDOMEN: Soft, nontender. No hepatosplenomegaly, normal bowel sounds, no guarding or rigidity. EXTREMITIES: No clubbing, no edema, no cyanosis, 2+ pulses and upper and lower extremities. MUSCULOSKELETAL: Muscle strength and tone normal. SPINE: No scoliosis or deformity SKIN: No rashes CENTRAL NERVOUS SYSTEM: Alert and oriented -3. No focal deficits, tone is normal in all 4 extremities. PSYCHIATRIC: Alert and oriented -3. Appropriate affect. Intact judgment and insight. - Labs CBC & Chem 7: 07/13/21 10:53 07/13/21 10:53 Labs: Abnormal Lab Results - Last 24 Hours (Table) 07/15/21 07/15/21 07/16/21 Range/Units 16:29 20:26 06:55 POC Glucose (mg/dL) 194 H 219 H 185 H (75-99) mg/dL 07/16/21 Range/Units 11:18 POC Glucose (mg/dL) 190 H (75-99) mg/dL Microbiology - Last 24 Hours (Table) 07/14/21 11:30 Gram Stain - Final Sputum Sputum Culture - Final Assessment and Plan Plan: Assessment: #1. Shortness of breath, acute on chronic, related to acute exacerbation of IPF #2. Chronic hypoxic respiratory failure related to biopsy-proven IPF, patient only wears 4 L of oxygen at home #3. History of BPH #4. History of PTSD #5. History of remote tobacco use #6. History of Parkinson's disease #7. Degenerative joint disease Plan: Patient continues to improve, he is close to his baseline Vital signs are stable, Tolerating ambulation Stable for discharge from pulmonary perspective He can finish outpatient course of oral prednisone and Augmentin and he can resume his maintenance inhalers No acute events overnight Outpatient follow-up with Dr. Flores in the office I have personally seen and examined the patient, performed the documentation and the assessment and plan as written. Number of minutes spent on the visit: [10] Time with Patient: Less than 30
--- NOTE | 2021-07-16 23:14 | P.DS ---
Providers Date of admission: 07/13/21 13:03 Attending physician: Nnamdi Mane MD Consults: 07/13/21 12:54 Consult Physician Routine Consulting Provider: Anderson Steiner Consult Reason/Comments: Pulmonary fibrosis COPD exacerbation Do you want consulting provider notified?: Yes Primary care physician: [facility] Hospital Course: Diagnoses: Acute COPD exacerbation Exacerbation of his pulmonary fibrosis in view of his history of idiopathic pulmonary fibrosis Possible acute tracheobronchitis Chronic hypoxic respiratory failure on 4 L of oxygen per minute at home History of Parkinson's disease History of essential tremor History of bilateral hand arthritis History of vertigo Hospital course: This is a pleasant 71 years old male with past medical history of Parkinson's disease, essential tremors, headaches, arthritis bilateral hands, vertigo with heights, bronchitis. IPF, he is on home oxygen 4 L/m and steroid dependent at home on prednisone 10 mg daily. His surgical oncologist is Dr. Flores. Patient presents because of dyspnea of one week duration, worsened than his baseline associated with cough and some clear phlegm for about one week. No specific chest pain Patient is followed by surgical oncologist and treated with Solu-Medrol 60 and then 40 mg, Augmentin and normal saline. Patient's symptoms improved and his breathing is back to baseline. He remains on 4 L/m which is his home dose of oxygen. Patient was cleared for discharge by surgical oncologist. On the day of discharge patient denies any unusual dyspnea, chest pain or change in urine or bowel habits. No fever. Patient is discharged on Augmentin and tapered steroids Problems and management plan were discussed with the patient and he verbalized understanding and acceptance Patient was found stable and can be discharged home however he needs follow-up as an outpatient. Patient was instructed to follow up with PCP and the [place] clinic within one week and patient agrees Patient was instructed to follow up with his surgical oncologist Dr. Flores in 1-2 weeks and he agrees Physical exam Gen: patient is a AAOx3, no distress CVS: S1-S2, RRR, no murmur Lungs: B/L CTA, no wheezing Abdomen: soft, no distention, no tenderness, positive bowel sounds Extremity: no leg edema or induration Time spent more than 35 minutes Plan - Discharge Summary Discharge Rx Participant: No New Discharge Prescriptions: New Famotidine [Pepcid] 20 mg PO BID #60 tab predniSONE 10 mg PO DIRECTED #40 tab Amoxic-Pot Clav 875-125Mg [Augmentin 875-125] 1 each PO Q12HR 5 Days #10 tab Continue Tamsulosin [Flomax] 0.4 mg PO DAILY Carbidopa/Levodopa [Carbidopa-Levodopa 10-100 Tab] 1 tab PO DAILY Aspirin 81 mg PO DAILY ALPRAZolam [Xanax] 0.5 mg PO DAILY PRN PRN Reason: Anxiety Albuterol Nebulized [Ventolin Nebulized] 2.5 mg INHALATION RT-QID PRN PRN Reason: Shortness Of Breath predniSONE 10 mg PO DAILY Echinacea 400 mg PO DAILY Discharge Medication List Aspirin 81 mg PO DAILY 01/30/20 [History] Carbidopa/Levodopa [Carbidopa-Levodopa 10-100 Tab] 1 tab PO DAILY 01/30/20 [History] Tamsulosin [Flomax] 0.4 mg PO DAILY 01/30/20 [History] ALPRAZolam [Xanax] 0.5 mg PO DAILY PRN 07/13/21 [History] Albuterol Nebulized [Ventolin Nebulized] 2.5 mg INHALATION RT-QID PRN 07/13/21 [History] Echinacea 400 mg PO DAILY 07/13/21 [History] predniSONE 10 mg PO DAILY 07/13/21 [History] Amoxic-Pot Clav 875-125Mg [Augmentin 875-125] 1 each PO Q12HR 5 Days #10 tab 07/16/21 [Rx] Famotidine [Pepcid] 20 mg PO BID #60 tab 07/16/21 [Rx] predniSONE 10 mg PO DIRECTED #40 tab 07/16/21 [Rx] Follow up Appointment(s)/Referral(s): Prabhakar Campbell MD [STAFF PHYSICIAN] - 08/05/21 1:45 pm [facility] [Primary Care Provider] - 07/22/21 2:30 pm Patient Instructions/Handouts: COPD (Chronic Obstructive Pulmonary Disease) (DC) Activity/Diet/Wound Care/Special Instructions: PATIENT WOULD LIKE INFLUENZA VACCINE PRIOR TO DISCHARGE heart healthy low carbohydrate diet , 1800 k deysi per day activity is restricted till you see your doctor Discharge Disposition: HOME SELF-CARE
== END 2021-07-16 13:11 | disposition home or self-care (01) | DRG 191 ==
LOC: EC 10:19 → 5NMEDONC 13:03 → 4SSUR 07-15 00:12
PROVIDERS: ADMIT Internal Medicine; ATTEND Internal Medicine
DX: J44.1 Chronic obstructive pulmonary disease with (acute) exacerbation (principal); J96.11 Chronic respiratory failure with hypoxia; J44.0 Chronic obstructive pulmonary disease with (acute) lower respiratory infection; J20.9 Acute bronchitis, unspecified; F43.10 Post-traumatic stress disorder, unspecified; G20 Parkinson's disease; R42 Dizziness and giddiness; J84.112 Idiopathic pulmonary fibrosis; M19.041 Primary osteoarthritis, right hand; M19.042 Primary osteoarthritis, left hand; N40.0 Benign prostatic hyperplasia without lower urinary tract symptoms; Z79.52 Long term (current) use of systemic steroids; Z79.82 Long term (current) use of aspirin; Z79.899 Other long term (current) drug therapy; Z80.6 Family history of leukemia; Z87.891 Personal history of nicotine dependence; Z90.49 Acquired absence of other specified parts of digestive tract; Z98.890 Other specified postprocedural states; Z20.822 Contact with and (suspected) exposure to COVID-19; Z23 Encounter for immunization
CPT/HCPCS: 36415; 71046; 80053; 81003; 83605; 83735; 84484; 85025; 85379; 85610; 85730; 87070; 87205; 87636; 90662; 93005; 94640; 96374; 96375; 99285

== ENCOUNTER 2022-08-02 10:16 | Inpatient (IN) | payer MEDICARE ==
--- NOTE | 2022-08-02 10:55 | ED ---
General Adult HPI - General Chief complaint: Shortness of Breath Stated complaint: Swelling in legs and feet Time Seen by Provider: 08/02/22 10:24 Source: patient Mode of arrival: ambulatory Limitations: no limitations - History of Present Illness Initial comments: Dictation was produced using [employer] dictation software. please excuse any grammatical, word or spelling errors. Chief Complaint: 72-year-old male with past medical history of end-stage idiopathic pulmonary fibrosis presents to the ER for right calf pain, scrotal swelling and left lower quadrant abdominal pain History of Present Illness: Patient's 72-year-old male he has a comorbid condition. He has end-stage idiopathic pulmonary fibrosis. Patient and at the bedside states that patient wears 5 L nasal cannula oxygen his oxygenation levels at baseline at 70%. He is tachypneic all the time. He was told that he has 1-2 years left to live before his lungs or heart feels secondary pulmonary fibrosis. Patient states she's had calf pain for the last 1-2 days. He also has left lower quadrant abdominal pain. Denies any diarrhea. No nausea vomiting. His respiratory status he reports is at baseline. He went to urgent care where he was told to come to the ER. Denies any fever or constitutional symptoms. reports that patient's appearance is at baseline for him. Patient also has had some bouts over the last 48 hours of intermittent scrotal swelling. States that scrotum has been intermittently swollen for the last couple days. Denies any scrotum is swollen at the bedside. The ROS documented in this emergency department record has been reviewed and confirmed by me. Those systems with pertinent positive or negative responses have been documented in the HPI. All other systems are other negative and/or noncontributory. PHYSICAL EXAM: General Impression: Alert and oriented x3, tachypneic, skin is dusky HEENT: Normocephalic atraumatic, extra-ocular movements intact, pupils equal and reactive to light bilaterally, mucous membranes moist. Cardiovascular: Heart regular rate and rhythm Chest: Tachypneic Abdomen: abdomen soft, mild tenderness with deep palpation to the left lower quadrant, non-distended, no organomegaly Musculoskeletal: Pulses present and equal in all extremities, no peripheral edema, mild palpatory tenderness to the right calf Motor: no focal deficits noted Neurological: CN II-XII grossly intact, no focal motor or sensory deficits noted Skin: Intact with no visualized rashes Psych: Normal affect and mood : No appreciable scrotal swelling ED course: 72-year-old male with history of end-stage idiopathic pulmonary fibrosis presents to the ER for chief complaint of right-sided calf pain, intermittent scrotal swelling and left lower quadrant abdominal pain. Signs upon arrival shows respiratory rate of 36, 79% on 5 L nasal cannula. and patient reports that this is baseline. Nursing notes and chart review was performed EKG interpreted by me: Ventricular rate 102, sinus tachycardia,. Interval 91, QRS 116, QTc 520. No CO prolongation, no QTC prolongation, no ST or T-wave changes noted. EKG compared to 07/13/2021 showing no changes. Overall, this EKG is unremarkable Was pt. sent in by a medical professional or institution (ARTURO Pittman, CONVEYOR BELT REPAIRER, urgent care, hospital, or [facility]...) When possible be specific @ -No Did you speak to anyone other than the patient for history (EMS, parent, family, police, friend...)? What history was obtained from this source @ - at the bedside Did you review nursing and triage notes (agree or disagree)? Why? @ -I reviewed and agree with nursing and triage notes Were old charts reviewed (outside hosp., previous admission, EMS record, old EKG, old radiological studies, urgent care reports/EKG's, [facility] records)? Report findings @ -Prior pulmonary and cardiology notes reviewed Differential Diagnosis (chest pain, altered mental status, abdominal pain women, abdominal pain men, vaginal bleeding, musculoskeletal, weakness, fever, dyspnea, syncope, headache, dizziness, GI bleed, back pain, seizure, CVA, palpatations, mental health)? @ -Differential Dyspnea: Coronary syndrome, arrhythmia, tamponade, asthma, COPD, pulmonary embolism, pneumonia, pneumothorax, pulmonary effusion, anaphylaxis, diabetic ketoacidosis, flailed chest, pulmonary contusion, diaphragmatic rupture, anemia, neuromuscular, this is not meant to be an all-inclusive list. EKG interpreted by me (3pts min.). @ -see above X-rays interpreted by me (1pt min.). @ -See below CT interpreted by me (1pt min.). @ -None done U/S interpreted by me (1pt. min.). @ -None done What testing was considered but not performed or refused? (CT, X-rays, U/S, labs)? Why? @ -None What meds were considered but not given or refused? Why? @ -breathing treatment were considered however patient reports that his breathing appears to be baseline at the moment. Did you discuss the management of the patient with other professionals (elena emery i.e. , PA, CONVEYOR BELT REPAIRER, lab, RT, psych nurse, social media specialist, master lay out specialist, teacher, contracts officer, upper caser)? Give summary @ -No Was smoking cessation discussed for >3mins.? @ -No Was critical care preformed (if so, how long)? @ -33 minutes Were there social determinants of health that impacted care today? How? (Homelessness, low income, unemployed, alcoholism, drug addiction, leach sportation, low edu. Level, literacy, decrease access to med. care, [facility], rehab)? @ -No Was there de-escalation of care discussed even if they declined (Discuss DNR or withdrawal of care, Hospice)? DNR status @ -No What co-morbidities impacted this encounter? (DM, HTN, Smoking, COPD, CAD, Cancer, CVA, ARF, Chemo, Hep., AIDS, mental health diagnosis, sleep apnea, morbid obesity)? @ -End-stage pulmonary fibrosis Was patient admitted / discharged? Hospital course, mention meds given and route, prescriptions, significant lab abnormalities, going to OR and other pertinent info. @ -72-year-old male with past medical history of end-stage pulmonary fibrosis presents to the ER with multiple planes. Ultrasound of the right lower shoulder does not show any DVT. Scrotal ultrasound shows no acute processes. Laboratory evaluation obtained. CBC unremarkable. Coag panel is negative. Slight elevation lactic acid levels. No electrolyte derangement. Prematurity peptide is 1700. Increased compared to 2020. Given patient's lower extremity swelling. Clinical presentation does suggest some evidence of heart failure superimposed on his pulmonary fibrosis. Disposition options were discussed with patient. He is agreeable with admission with consultation to pulmonary and cardiology. Undiagnosed new problem with uncertain prognosis? @ -No Drug Therapy requiring intensive monitoring for toxicity (Heparin, Nitro, Insulin, Cardizem)? @ -No Were any procedures done? @ -No Diagnosis/symptom? Acute, or Chronic, or Acute on Chronic? Uncomplicated (without systemic symptoms) or Complicated (systemic symptoms)? @ -. 1. Acute on chronic dyspnea, 2. History of idiopathic pulmonary fibrosis, 3. Right lower extremity calf strain, 4. Intermittent Venous stasis of the scrotum Side effects of treatment? @ -No Exacerbation, Progression, or Severe Exacerbation? @ -No Poses a threat to life or bodily function? How? (Chest pain, [place], [place], pneumonia, PE, COPD, DKA, ARF, appy, cholecystitis, CVA, Diverticulitis, Homicidal, Suicidal, threat to staff... and all critical care pts) @ -yes - Related Data Home Medications Medication Instructions Recorded Confirmed Aspirin 81 mg PO DAILY 01/30/20 08/02/22 Carbidopa/Levodopa 1 tab PO DAILY 01/30/20 08/02/22 [Carbidopa-Levodopa 10-100 Tab] ALPRAZolam [Xanax] 0.5 mg PO BID PRN 07/13/21 08/02/22 predniSONE 5 mg PO DAILY 07/13/21 08/02/22 Azithromycin [Zithromax] 250 mg PO Q48H 08/02/22 08/02/22 Ibuprofen [Advil] 200 mg PO HS 08/02/22 08/02/22 Allergies Allergy/AdvReac Type Severity Reaction Status Date / Time No Known Allergies Allergy Verified 08/02/22 12:27 Review of Systems ROS Statement: Those systems with pertinent positive or pertinent negative responses have been documented in the HPI. ROS Other: All systems not noted in ROS Statement are negative. Past Medical History Past Medical History: Musculoskeletal Disorder, Neurologic Disorder Additional Past Medical History / Comment(s): Parkinson's disease, essential tremors, headaches, arthritis bilateral hands, vertigo with heights, bronchitis. IPF History of Any Multi-Drug Resistant Organisms: None Reported Past Surgical History: Cholecystectomy Additional Past Surgical History / Comment(s): Colonoscopy with polypectomy, Past Anesthesia/Blood Transfusion Reactions: No Reported Reaction Past Psychological History: PTSD Smoking Status: Former smoker Past Alcohol Use History: None Reported Past Drug Use History: None Reported - Past Family History Father Family Medical History: Cancer Additional Family Medical History / Comment(s): Father had a form of leukemia. Mother Family Medical History: Cancer Additional Family Medical History / Comment(s): Mother from sarcoma. General Exam Limitations: no limitations Course Vital Signs 08/02/22 08/02/2223 10:18 10:25 10:41 Temperature 97.7 F Pulse Rate 104 H Respiratory 26 H 36 H Rate Blood Pressure 133/86 O2 Sat by Pulse 79 L 88 L Oximetry 08/02/22 08/02/22 12:08 12:25 Temperature Pulse Rate 86 Respiratory 18 Rate Blood Pressure 127/90 O2 Sat by Pulse 94 L Oximetry Medical Decision Making - Lab Data Result diagrams: 08/02/22 10:58 08/02/22 10:58 Lab Results 08/02/22 08/02/22 08/02/22 Range/Units 10:58 10:58 10:58 WBC 9.1 (3.8-10.6) k/uL RBC 5.47 (4.30-5.90) m/uL Hgb 17.3 (13.0-17.5) gm/dL Hct 52.5 (39.0-53.0) % MCV 96.0 (80.0-100.0) fL MCH 31.6 (25.0-35.0) pg MCHC 32.9 (31.0-37.0) g/dL RDW 13.9 (11.5-15.5) % Plt Count 116 L (150-450) k/uL MPV 9.0 Neutrophils % 74 % Lymphocytes % 17 % Monocytes % 6 % Eosinophils % 2 % Basophils % 1 % Neutrophils # 6.7 (1.3-7.7) k/uL Lymphocytes # 1.5 (1.0-4.8) k/uL Monocytes # 0.6 (0-1.0) k/uL Eosinophils # 0.2 (0-0.7) k/uL Basophils # 0.1 (0-0.2) k/uL PT 12.7 H (9.0-12.0) sec INR 1.2 H (<1.2) APTT 24.9 (22.0-30.0) sec Sodium 140 (137-145) mmol/L Potassium 3.9 (3.5-5.1) mmol/L Chloride 105 (98-107) mmol/L Carbon Dioxide 25 (22-30) mmol/L Anion Gap 10 mmol/L BUN 10 (9-20) mg/dL Creatinine 0.80 (0.66-1.25) mg/dL Est GFR (CKD-EPI)AfAm >90 (>60 ml/min/1.73 sqM) Est GFR (CKD-EPI)NonAf 89 (>60 ml/min/1.73 sqM) Glucose 120 H (74-99) mg/dL Plasma Lactic Acid Danyel (0.7-2.0) mmol/L Calcium 9.0 (8.4-10.2) mg/dL Total Bilirubin 1.8 H (0.2-1.3) mg/dL AST 28 (17-59) U/L ALT 21 (4-49) U/L Alkaline Phosphatase 65 (38-126) U/L Troponin I (0.000-0.034) ng/mL NT-Pro-B Natriuret Pep pg/mL Total Protein 6.7 (6.3-8.2) g/dL Albumin 3.9 (3.5-5.0) g/dL 08/02/22 08/02/22 08/02/22 Range/Units 10:58 10:58 10:58 WBC (3.8-10.6) k/uL RBC (4.30-5.90) m/uL Hgb (13.0-17.5) gm/dL Hct (39.0-53.0) % MCV (80.0-100.0) fL MCH (25.0-35.0) pg MCHC (31.0-37.0) g/dL RDW (11.5-15.5) % Plt Count (150-450) k/uL MPV Neutrophils % % Lymphocytes % % Monocytes % % Eosinophils % % Basophils % % Neutrophils # (1.3-7.7) k/uL Lymphocytes # (1.0-4.8) k/uL Monocytes # (0-1.0) k/uL Eosinophils # (0-0.7) k/uL Basophils # (0-0.2) k/uL PT (9.0-12.0) sec INR (<1.2) APTT (22.0-30.0) sec Sodium (137-145) mmol/L Potassium (3.5-5.1) mmol/L Chloride (98-107) mmol/L Carbon Dioxide (22-30) mmol/L Anion Gap mmol/L BUN (9-20) mg/dL Creatinine (0.66-1.25) mg/dL Est GFR (CKD-EPI)AfAm (>60 ml/min/1.73 sqM) Est GFR (CKD-EPI)NonAf (>60 ml/min/1.73 sqM) Glucose (74-99) mg/dL Plasma Lactic Acid Danyel 2.5 H* (0.7-2.0) mmol/L Calcium (8.4-10.2) mg/dL Total Bilirubin (0.2-1.3) mg/dL AST (17-59) U/L ALT (4-49) U/L Alkaline Phosphatase (38-126) U/L Troponin I 0.013 (0.000-0.034) ng/mL NT-Pro-B Natriuret Pep 1700 pg/mL Total Protein (6.3-8.2) g/dL Albumin (3.5-5.0) g/dL Disposition Clinical Impression: Dyspnea Disposition: ADMITTED IP TO THIS HOSP Condition: Fair Referrals: [facility],Clinic [Primary Care Provider] - 1-2 days Decision Time: 13:28
[2022-08-02 11:25] LABS: Basophils # (A) 0.1 k/uL (0-0.2); Basophils % (A) 1 %; Eosinophils # (A) 0.2 k/uL (0-0.7); Eosinophils % (A) 2 %; HCT 52.5 % (39.0-53.0); HGB 17.3 gm/dL (13.0-17.5); Lymphocytes # (A) 1.5 k/uL (1.0-4.8); Lymphocytes % (A) 17 %; MCH 31.6 pg (25.0-35.0); MCHC 32.9 g/dL (31.0-37.0); Monocytes # (A) 0.6 k/uL (0-1.0); Monocytes % (A) 6 %; Neutrophils # (A) 6.7 k/uL (1.3-7.7); Neutrophils % (A) 74 %; Platelet Count 116 k/uL (150-450); RBC 5.47 m/uL (4.30-5.90); RDW 13.9 % (11.5-15.5); WBC 9.1 k/uL (3.8-10.6)
[2022-08-02 11:32] LABS: ALT 21 U/L (4-49); AST 28 U/L (17-59); African American GFR (CKD) >90 (>60 ml/min/1.73 sqM); Albumin 3.9 g/dL (3.5-5.0); Alkaline Phosphatase 65 U/L (38-126); Anion Gap 10 mmol/L; Blood Urea Nitrogen 10 mg/dL (9-20); Carbon Dioxide 25 mmol/L (22-30); Chloride 105 mmol/L (98-107); Glucose 120 mg/dL (74-99); Non-African American GFR(CKD) 89 (>60 ml/min/1.73 sqM); Potassium 3.9 mmol/L (3.5-5.1); Sodium 140 mmol/L (137-145); Total Bilirubin 1.8 mg/dL (0.2-1.3); Total Protein 6.7 g/dL (6.3-8.2)
[2022-08-02 11:44] LABS: INR 1.2 (<1.2); Partial Thromboplastin Time 24.9 sec (22.0-30.0); Prothrombin Time 12.7 sec (9.0-12.0)
--- NOTE | 2022-08-02 11:44 | US ---
EXAMINATION TYPE: US venous doppler duplex LE RT DATE OF EXAM: 08/02/2022 11:34 AM COMPARISON: NONE CLINICAL HISTORY: swelling, calf pain. SIDE PERFORMED: Right TECHNIQUE: The lower extremity deep venous system is examined utilizing real time linear array sonog radha with graded compression, doppler sonography and color-flow sonography. VESSELS IMAGED: Common Femoral Vein Deep Femoral Vein Greater Saphenous Vein * Femoral Vein Popliteal Vein Small Saphenous Vein * Proximal Calf Veins (* superficial vessels) Right Leg: Negative for DVT IMPRESSION: No evidence for DVT.
--- NOTE | 2022-08-02 12:33 | US ---
EXAMINATION TYPE: US scrotum with doppler. Grayscale and color Doppler Duplex imaging performed of aida centeno scrotum. DATE OF EXAM: 08/02/2022 COMPARISON: NONE CLINICAL HISTORY: swelling. History of pulmonary fibrosis with bilateral scrotal swelling EXAM MEASUREMENTS: TESTICLES: Right Testicle: 4.5 x 2.1 x 3.2 cm Left Testicle: 4.9 x 2.1 x 2.9 cm EPIDIDYMIS HEAD: Right Epididymis: 1.4 x 0.9 cm Left Epididymis: 1.1 x 1.1 cm Doppler performed to assess for testicular vascularity; good bilateral color flow and waveforms are s een. There is no evidence of testicular torsion. Presence of hydroceles: small to moderate amount of fluid around right testicle. Presence of varicoceles: none appreciated. Heterogeneous tissue noted medial left testicle, suspect tubular ectasia of the rete testes. Symmetri c blood flow seen during real-time scanning. IMPRESSION: Small to moderate size right-sided scrotal fluid collection or hydrocele.
[2022-08-02] MEDS ORDERED: FUROSEMIDE 10 MG/ML 4 ML VIAL IV STA (13:22)
[2022-08-02] MEDS ORDERED: ACETAMINOPHEN TAB 325 MG TAB PO PRN (13:28)
[2022-08-02] MEDS ORDERED: NALOXONE 0.4 MG/ML 1 ML VIAL IV PRN (13:28)
--- NOTE | 2022-08-02 13:43 | XR ---
EXAMINATION TYPE: XR chest 2V DATE OF EXAM: 08/02/2022 COMPARISON: 07/13/2021 HISTORY: Shortness of breath TECHNIQUE: Frontal and lateral views of the chest are obtained. FINDINGS: Scattered senescent parenchymal changes noted. Hyperinflation compatible with COPD. Scattered Interstitial and alveolar infiltrates. Correlate for underlying pneumonia. Overall no white e from prior study Heart size is stable. Mediastinal structures are stable and grossly unremarkable. No evidence for hilar prominence. Degenerative changes dorsal spine. IMPRESSION: 1. Scattered Interstitial and alveolar infiltrates. Correlate for underlying pneumonia. Overall no ch deandre from prior study
[2022-08-02] MEDS: SODIUM CHLORIDE 0.9% 1,000 ML IV SCH (13:59)
[2022-08-02] MEDS ORDERED: IPRATROPIUM-ALBUTEROL 3 ML NEB INHALATION PRN (15:09)
[2022-08-02] MEDS ORDERED: IPRATROPIUM 0.5 MG/2.5 ML NEBU INHALATION PRN (15:15)
[2022-08-02] MEDS ORDERED: ALBUTEROL NEBULIZED 2.5 MG/3 ML INHALATION PRN (15:15)
--- NOTE | 2022-08-02 15:18 | P.HPIM ---
History of Present Illness H&P Date: 08/02/22 History of present illness; patient is a 72-year-old gentleman past medical history significant for idiopathic pulmonary fibrosis, chronic respiratory failure presented to the ER for right calf pain and scrotal swelling. Patient has a history of end-stage pulmonary fibrosis and uses 5 L of oxygen at home. Patient baseline oxygenation is around 70s. Patient complaining of shortness of breath on exertion. Denies any chest pain. Was also complaining of abdominal pain but denies any nausea or vomiting. There was no complete of any fever or chills. Patient came to the ER because of these symptoms. Initial workup in the ER showed WBC 9.1, hemoglobin 17.3, platelet count 116, sodium 140, potassium 3.9, chloride 105, carbon dioxide 25, BUN 10 and creatinine 0.8. ProBNP was elevated at 1700 Duplex ultrasound right lower extremity negative for DVT Chest x-ray done showed scattered interstitial and alveolar infiltrates Patient was admitted for further evaluation and treatment REVIEW OF SYSTEMS: CONSTITUTIONAL: No fever, no malaise, no fatigue. HEENT: No recent visual problems or hearing problems. Denied any sore throat. CARDIOVASCULAR: No chest pain, orthopnea, PND, no palpitations, no syncope. PULMONARY: As mentioned in HPI GASTROINTESTINAL: As mentioned in HPI NEUROLOGICAL: No headaches, no weakness, no numbness. HEMATOLOGICAL: Denies any bleeding or petechiae. GENITOURINARY: Denies any burning micturition, frequency, or urgency. MUSCULOSKELETAL/RHEUMATOLOGICAL: Denies any joint pain, swelling, or any muscle pain. ENDOCRINE: Denies any polyuria or polydipsia. The rest of the 14-point review of systems is negative. PHYSICAL EXAMINATION: GENERAL: The patient is alert and oriented x3, not in any acute distress. Well developed, well nourished. HEENT: Pupils are round and equally reacting to light. EOMI. No scleral icterus. No conjunctival pallor. Normocephalic, atraumatic. No pharyngeal erythema. No thyromegaly. CARDIOVASCULAR: Tachycardic S1 and S2 present. No murmurs, rubs, or gallops. PULMONARY: Tachypneic, coarse breath some bilaterally, bilateral inspiratory and expiratory crackles audible ABDOMEN: Soft, nontender, nondistended, normoactive bowel sounds. No palpable organomegaly. MUSCULOSKELETAL: No joint swelling or deformity. EXTREMITIES: No cyanosis, clubbing, or pedal edema. NEUROLOGICAL: Gross neurological examination did not reveal any focal deficits. SKIN: No rashes. Assessment and plan Chronic hypoxic respiratory failure Idiopathic pulmonary fibrosis Acute CHF Scrotal swelling Plan; Monitor vital signs Monitor CBC Monitor CMP Continue telemetry monitoring Starting IV Solu-Medrol Continue breathing treatments Continue Lasix Ordered 2-D echo Consult cardiology Consult pulmonology Resume home meds CODE STATUS discussed, patient was to be DO NOT RESUSCITATE limited Past Medical History Past Medical History: Musculoskeletal Disorder, Neurologic Disorder Additional Past Medical History / Comment(s): Parkinson's disease, essential tremors, headaches, arthritis bilateral hands, vertigo with heights, bronchitis. IPF History of Any Multi-Drug Resistant Organisms: None Reported Past Surgical History: Cholecystectomy Additional Past Surgical History / Comment(s): Colonoscopy with polypectomy, Past Anesthesia/Blood Transfusion Reactions: No Reported Reaction Past Psychological History: PTSD Smoking Status: Former smoker Past Alcohol Use History: None Reported Past Drug Use History: None Reported - Past Family History Father Family Medical History: Cancer Additional Family Medical History / Comment(s): Father had a form of leukemia. Mother Family Medical History: Cancer Additional Family Medical History / Comment(s): Mother from sarcoma. Medications and Allergies Home Medications Medication Instructions Recorded Confirmed Type Aspirin 81 mg PO DAILY 01/30/20 08/02/22 History Carbidopa/Levodopa 1 tab PO DAILY 01/30/20 08/02/22 History [Carbidopa-Levodopa 10-100 Tab] ALPRAZolam [Xanax] 0.5 mg PO BID PRN 07/13/21 08/02/22 History predniSONE 5 mg PO DAILY 07/13/21 08/02/22 History Azithromycin [Zithromax] 250 mg PO Q48H 08/02/22 08/02/22 History Ibuprofen [Advil] 200 mg PO HS 08/02/22 08/02/22 History Allergies Allergy/AdvReac Type Severity Reaction Status Date / Time No Known Allergies Allergy Verified 08/02/22 12:27 Physical Exam Vitals: Vital Signs Temp Pulse Resp BP Pulse Ox 08/02/22 14:03 93 26 H 127/85 89 L 08/02/22 12:25 127/90 08/02/22 12:08 86 18 94 L 08/02/22 10:41 36 H 08/02/22 10:25 88 L 08/02/22 10:18 97.7 F 104 H 26 H 133/86 79 L Intake and Output 08/02/22 08/02/22 08/02/22 06:59 14:59 22:59 Other: Weight 102.058 kg Results CBC & Chem 7: 08/02/22 10:58 08/02/22 10:58 Labs: Abnormal Lab Results - Last 24 Hours (Table) 08/02/22 08/02/22 08/02/22 Range/Units 10:58 10:58 10:58 Plt Count 116 L (150-450) k/uL PT 12.7 H (9.0-12.0) sec INR 1.2 H (<1.2) Glucose 120 H (74-99) mg/dL Plasma Lactic Acid Danyel (0.7-2.0) mmol/L Total Bilirubin 1.8 H (0.2-1.3) mg/dL 08/02/22 Range/Units 10:58 Plt Count (150-450) k/uL PT (9.0-12.0) sec INR (<1.2) Glucose (74-99) mg/dL Plasma Lactic Acid Danyel 2.5 H* (0.7-2.0) mmol/L Total Bilirubin (0.2-1.3) mg/dL
[2022-08-02] MEDS ORDERED: methylPREDNISolone SOD SUCCIN 40 MG in SODIUM CHLORIDE 0.9% 100 ML IVPB SCH (16:00)
[2022-08-02] MEDS: methylPREDNISolone SOD SUCCI 40 MG/ML 1 ML VIAL IV SCH ×2 (17:21→23:15)
[2022-08-02] MEDS: FUROSEMIDE 100 MG in SODIUM CHLORIDE 0.9% 90 ML IV SCH (17:23)
[2022-08-02] MEDS ORDERED: DEXTROSE 50% SYRINGE 50 ML IVP PRN ×2 (19:19)
--- NOTE | 2022-08-02 19:24 | P.GSCN ---
History of Present Illness Consult date: 08/02/22 History of present illness: 72 yo male with idiopathic pulmonary fibrosis with advanced terminal pulmonary failure. He is on 5 liters o2 at home. He came in the er with salf pain and scrotal swelling. We were asked to see for the scrotal swelling. It is the first time for this problem. He has not had problems voiding until today. He may have a component of heart failure and is being diuresed. There is no history of infection or hematuria.The patient does have parkinsons. Review of Systems All systems: negative - Constitutional Denies fever, Denies weight loss - EENT Eyes: denies blurred vision Ears, nose, mouth and throat: Denies dysphagia - Cardiovascular Denies chest pain, Denies shortness of breath - Respiratory Denies cough, Denies 7 - Gastrointestinal Reports as per HPI - Genitourinary Denies dysuria, Denies hematuria - Integumentary Denies rash, Denies unusual bruising - Neurological Denies headaches, Denies syncope - Hematologic/Lymphatic Denies easy bleeding, Denies easy bruising Past Medical History Past Medical History: Musculoskeletal Disorder, Neurologic Disorder Additional Past Medical History / Comment(s): Parkinson's disease, essential tremors, headaches, arthritis bilateral hands, vertigo with heights, bronchitis. IPF History of Any Multi-Drug Resistant Organisms: None Reported Past Surgical History: Cholecystectomy Additional Past Surgical History / Comment(s): Colonoscopy with polypectomy, Past Anesthesia/Blood Transfusion Reactions: No Reported Reaction Past Psychological History: PTSD Additional Psychological History / Comment(s): Pt resides with his spouse. He is independent. He is a [place] . He has home oxygen and a nebulizer.. Smoking Status: Former smoker Past Alcohol Use History: None Reported Additional Past Alcohol Use History / Comment(s): Pt started smoking in 1962 and quit in 1984. Pt drinks 2 beers per day. Past Drug Use History: None Reported - Past Family History Father Family Medical History: Cancer Additional Family Medical History / Comment(s): Father had a form of leukemia. Mother Family Medical History: Cancer Additional Family Medical History / Comment(s): Mother from sarcoma. Medications and Allergies Home Medications Medication Instructions Recorded Confirmed Type Aspirin 81 mg PO DAILY 01/30/20 08/02/22 History Carbidopa/Levodopa 1 tab PO DAILY 01/30/20 08/02/22 History [Carbidopa-Levodopa 10-100 Tab] ALPRAZolam [Xanax] 0.5 mg PO BID PRN 07/13/21 08/02/22 History predniSONE 5 mg PO DAILY 07/13/21 08/02/22 History Azithromycin [Zithromax] 250 mg PO Q48H 08/02/22 08/02/22 History Ibuprofen [Advil] 200 mg PO HS 08/02/22 08/02/22 History Tamsulosin [Flomax] 0.4 mg PO DAILY 08/02/22 08/02/22 History Allergies Allergy/AdvReac Type Severity Reaction Status Date / Time No Known Allergies Allergy Verified 08/02/22 12:27 Surgical - Exam Vital Signs Temp Pulse Resp BP Pulse Ox 97.7 F 104 H 26 H 133/86 79 L 08/02/22 10:18 08/02/22 10:18 08/02/22 10:18 08/02/22 10:18 08/02/22 10:18 - General well developed, moderate pain, chronically ill - Eyes normal ocular movement, no icteric - ENT no hearing loss, no congestion - Neck no masses, trachea midline - Respiratory extreme labored breathing on o2 - Cardiovascular Rhythm: regular - Abdomen mild sp tenderness, Abdomen: soft, distended - Genitourinary uncircumcised phallus, penile skin edema, scrotal edema mild.. Normal testes and epididymes. - Integumentary lower extremity edema up to the thigh. Results - Labs 08/02/22 10:58 08/02/22 10:58 Abnormal Lab Results - Last 24 Hours (Table) 08/02/22 08/02/22 08/02/22 Range/Units 10:58 10:58 10:58 Plt Count 116 L (150-450) k/uL PT 12.7 H (9.0-12.0) sec INR 1.2 H (<1.2) Glucose 120 H (74-99) mg/dL Plasma Lactic Acid Danyel (0.7-2.0) mmol/L Total Bilirubin 1.8 H (0.2-1.3) mg/dL 08/02/22 Range/Units 10:58 Plt Count (150-450) k/uL PT (9.0-12.0) sec INR (<1.2) Glucose (74-99) mg/dL Plasma Lactic Acid Danyel 2.5 H* (0.7-2.0) mmol/L Total Bilirubin (0.2-1.3) mg/dL Diabetes panel 08/02/22 Range/Units 10:58 Sodium 140 (137-145) mmol/L Potassium 3.9 (3.5-5.1) mmol/L Chloride 105 (98-107) mmol/L Carbon Dioxide 25 (22-30) mmol/L BUN 10 (9-20) mg/dL Creatinine 0.80 (0.66-1.25) mg/dL Glucose 120 H (74-99) mg/dL Calcium 9.0 (8.4-10.2) mg/dL AST 28 (17-59) U/L ALT 21 (4-49) U/L Alkaline Phosphatase 65 (38-126) U/L Total Protein 6.7 (6.3-8.2) g/dL Albumin 3.9 (3.5-5.0) g/dL Calcium panel 08/02/22 Range/Units 10:58 Calcium 9.0 (8.4-10.2) mg/dL Albumin 3.9 (3.5-5.0) g/dL Pituitary panel 08/02/22 Range/Units 10:58 Sodium 140 (137-145) mmol/L Potassium 3.9 (3.5-5.1) mmol/L Chloride 105 (98-107) mmol/L Carbon Dioxide 25 (22-30) mmol/L BUN 10 (9-20) mg/dL Creatinine 0.80 (0.66-1.25) mg/dL Glucose 120 H (74-99) mg/dL Calcium 9.0 (8.4-10.2) mg/dL Adrenal panel 08/02/22 Range/Units 10:58 Sodium 140 (137-145) mmol/L Potassium 3.9 (3.5-5.1) mmol/L Chloride 105 (98-107) mmol/L Carbon Dioxide 25 (22-30) mmol/L BUN 10 (9-20) mg/dL Creatinine 0.80 (0.66-1.25) mg/dL Glucose 120 H (74-99) mg/dL Calcium 9.0 (8.4-10.2) mg/dL Total Bilirubin 1.8 H (0.2-1.3) mg/dL AST 28 (17-59) U/L ALT 21 (4-49) U/L Alkaline Phosphatase 65 (38-126) U/L Total Protein 6.7 (6.3-8.2) g/dL Albumin 3.9 (3.5-5.0) g/dL Assessment and Plan Assessment: Impression: IPF with advanced copd. lower extremity edema with secondary scrotal/penile edema. question of chf. urine retention, acute. Plan: the penile/scrotal edema is for the same reason he has le edema. there is nothing urologic from the edema that needs to be done. the patient will have a catheter placed. It can be removed when his cardiopulmonary status stabilizes. I will place a catheter. Time with Patient: Greater than 30
--- NOTE | 2022-08-02 19:31 | P.PCN ---
Date of Procedure: 08/02/22 Preoperative Diagnosis: urinary retention Postoperative Diagnosis: same probably secondary to diuresis and cardiopulmonary issues. Procedure(s) Performed: placement of a 16 fr coude catheter with return of greater than of 500 ml clear urine. Anesthesia: none Surgeon: Wayne Charles Indications for Procedure: The patient is in the hospital with pulmonary issues exacerbated he has been unable to void. His bladder scan is > 575 ml. He cannot void.A cath will be placed. Description of Procedure: the patient is prepped and draped steriley. A 16 fr coude cath is placed with some difficulty Greater than 500ml of clear urine is retained with relief, of his symptoms. The catheter can be removed prior to discharge when he is feeling better for a voiding trial.
[2022-08-02 20:07] LABS: Glucose,Whole Blood 180 mg/dL (70-110)
[2022-08-02] MEDS: INSULIN ASPART (NovoLOG) 100 UNIT/ML VIAL SQ SCH (21:03)
[2022-08-02] MEDS: ALPRAZolam 0.5 MG TAB PO PRN (21:05)
[2022-08-03] MEDS: FUROSEMIDE 100 MG in SODIUM CHLORIDE 0.9% 90 ML IV SCH (00:40)
--- NOTE | 2022-08-03 04:15 | P.CNPUL ---
History of Present Illness Consult date: 08/03/22 Requesting physician: Karlos Clements Reason for consult: pulmonary fibrosis Chief complaint: Acute on chronic dyspnea with associated swelling History of present illness: I'm seeing this patient in new consultation today 08/03/2022 on the selective care unit. This is a pleasant 72-year-old male with past medical history significant for advanced idiopathic pulmonary fibrosis, oxygen dependence requiring 5 L nasal cannula at home, Parkinson's disease. Patient normally follows with Dr. Campbell in the office for management of his IPF, which was originally diagnosed by biopsy back in March 2020. Patient is chronically on steroids, and pulmonary status has been deteriorating since his diagnosis. Patient came in to the emergency room yesterday for the chief complaints of chronic shortness of breath, lower extremity swelling, scrotal edema, and groin pain. The swelling has been a new finding, and has progressively worsened over the last 3 days. The swelling was severe enough where a urology consult was placed for Marin catheter insertion. Patient was then started on a Lasix infusion at 10 mg per hour. Fluid balance is already - 4.5 L. He still has bilateral lower extremity pitting edema. An echocardiogram is pending. Venous Doppler of right lower extremity was negative for DVT. Patient denies any change in his chronic cough, fever, chills, hemoptysis, chest pain, palpitations, or syncope. Chest x-ray on arrival showed scattered interstitial and alveolar infiltrates without much change from prior chest x-ray a year earlier. CBC on arrival showed a WBC count of 9.1, hemoglobin 17.3, hematocrit 52.5, platelets 116,000. BMP on arrival showed a sodium 140, potassium 3.9, chloride 105, serum CO2 25, BUN 10, creatinine 0.8, glucose 120. Troponin negative 1. NT proBNP was slightly elevated at 1700. Patient is currently resting comfortably, and states that his breathing is pretty much at baseline. Note that he does have chronic dyspnea. He is currently on 5 L nasal cannula, which is baseline for him. Vital signs are stable at this time. Review of Systems REVIEW OF SYSTEMS: CONSTITUTIONAL: Denies any recent significant weight loss or weight gain. EYES: Denies change in vision. EARS, NOSE, MOUTH, THROAT: Denies headaches, denies sore throat. CARDIOVASCULAR: Denies chest pain, palpitations or syncopal episodes. RESPIRATORY: See HPI. GASTROINTESTINAL: Denies change in appetite, abdominal pain, nausea and vomiting, or diarrhea GENITOURINARY: Denies frequency, urgency, dysuria, hematuria, denies infections. MUSKULOSKELETAL: Denies pain, admits lower extremity swelling INTEGUMENTARY: Denies rash, denies eczema. NEUROLOGICAL: Denies recent memory loss, no recent seizure activity. PSYCHIATRIC: Denies anxiety, denies depression. HEMATOLOGIC/LYMPHATIC: Denies anemia, denies enlarged lymph node Past Medical History Past Medical History: Musculoskeletal Disorder, Neurologic Disorder Additional Past Medical History / Comment(s): Parkinson's disease, essential tremors, headaches, arthritis bilateral hands, vertigo with heights, bronchitis. IPF History of Any Multi-Drug Resistant Organisms: None Reported Past Surgical History: Cholecystectomy Additional Past Surgical History / Comment(s): Colonoscopy with polypectomy, Past Anesthesia/Blood Transfusion Reactions: No Reported Reaction Past Psychological History: PTSD Additional Psychological History / Comment(s): Pt resides with his spouse. He is independent. He is a [place] . He has home oxygen and a nebulizer.. Smoking Status: Former smoker Past Alcohol Use History: None Reported Additional Past Alcohol Use History / Comment(s): Pt started smoking in 1962 and quit in 1984. Pt drinks 2 beers per day. Past Drug Use History: None Reported - Past Family History Father Family Medical History: Cancer Additional Family Medical History / Comment(s): Father had a form of leukemia. Mother Family Medical History: Cancer Additional Family Medical History / Comment(s): Mother from sarcoma. Medications and Allergies Home Medications Medication Instructions Recorded Confirmed Type Aspirin 81 mg PO DAILY 01/30/20 08/02/22 History Carbidopa/Levodopa 1 tab PO DAILY 01/30/20 08/02/22 History [Carbidopa-Levodopa 10-100 Tab] ALPRAZolam [Xanax] 0.5 mg PO BID PRN 07/13/21 08/02/22 History predniSONE 5 mg PO DAILY 07/13/21 08/02/22 History Azithromycin [Zithromax] 250 mg PO Q48H 08/02/22 08/02/22 History Ibuprofen [Advil] 200 mg PO HS 08/02/22 08/02/22 History Tamsulosin [Flomax] 0.4 mg PO DAILY 08/02/22 08/02/22 History Allergies Allergy/AdvReac Type Severity Reaction Status Date / Time No Known Allergies Allergy Verified 08/02/22 12:27 Physical Exam Vitals: Vital Signs Temp Pulse Pulse Resp BP BP Pulse Ox 08/02/22 23:22 97.7 F 104 H 30 H 121/86 90 L 08/02/22 19:54 97.4 F L 105 H 28 H 128/89 88 L 08/02/22 16:30 108 H 30 H 08/02/22 16:00 108 H 149/95 84 L 08/02/22 14:03 93 26 H 127/85 89 L 08/02/22 12:25 127/90 08/02/22 12:08 86 18 94 L 08/02/22 10:41 36 H 08/02/22 10:25 88 L 08/02/22 10:18 97.7 F 104 H 26 H 133/86 79 L Intake and Output 08/02/22 08/02/22 08/03/22 14:59 22:59 06:59 Intake Total 118 72.833 Output Total 2300 2400 Balance -2182 -2327.167 Intake: Intake, IV Titration 72.833 Amount Furosemide 100 mg In 72.833 Sodium Chloride 0.9% 90 ml @ 10 MG/HR 10 mls/hr IV .Q10H [facility] Rx#: [id number] Oral 118 Output: Urine 2300 2400 Uretheral (Marin) 1600 1400 Other: Voiding Method Indwelling Catheter Indwelling Catheter # Voids 1 Weight 102.058 kg 102.058 kg GENERAL EXAM: Alert, 72-year-old white male, comfortable in no apparent distres s. HEAD: Normocephalic and atraumatic EYES: Normal reaction of pupils, equal size. NOSE: Clear with pink turbinates. THROAT: No erythema or exudates. NECK: No masses, no JVD. CHEST: No chest wall deformity. LUNGS: Equal air entry with Velcro crackles heard throughout, but worse at the posterior bases. No wheezes, rhonchi or dullness. On 5 L nasal cannula. There is some mild conversational dyspnea, patient speaking in phrases. CVS: S1 and S2 normal with no audible murmur, regular rhythm. No extra heart sounds ABDOMEN: No hepatosplenomegaly, active bowel sounds, no guarding or rigidity. SPINE: No scoliosis or deformity SKIN: No rashes Genitourinary: Mild scrotal edema CENTRAL NERVOUS SYSTEM: No focal deficits, tone is normal in all 4 extremities. EXTREMITIES: There is 2+ edema of the bilateral lower extremities. No clubbing, or cyanosis. Peripheral pulses are intact. Results - Laboratory Findings CBC and BMP: 08/02/22 10:58 08/03/22 04:14 PT/INR, D-dimer PT 12.7 sec (9.0-12.0) H 08/02/22 10:58 INR 1.2 (<1.2) H 08/02/22 10:58 Abnormal lab findings: Abnormal Labs 08/02/22 08/02/22 08/02/22 10:58 10:58 10:58 Plt Count 116 L PT 12.7 H INR 1.2 H Glucose 120 H POC Glucose (mg/dL) Plasma Lactic Acid Danyel Total Bilirubin 1.8 H 08/02/22 08/02/22 10:58 20:06 Plt Count PT INR Glucose POC Glucose (mg/dL) 180 H Plasma Lactic Acid Danyel 2.5 H* Total Bilirubin - Diagnostic Findings Chest x-ray: image reviewed Assessment and Plan Assessment: Acute on chronic hypoxic respiratory failure, secondary to IPF and a component of CHF with fluid overload, responded nicely to diuretics. Patient is currently on 5 L of oxygen by nasal cannula which is his baseline. IPF, not receiving any anti-fibrotic treatment. Admitted on 5 mg of prednisone on an outpatient basis Chronic hypoxic respiratory failure maintained on O2 at 5 L Acute on chronic shortness of breath secondary to above, improved and the patient is currently off Lasix Severe pulmonary hypertension with right-sided heart failure with ongoing lower extremity edema secondary to right-sided heart failure Scrotal edema requiring Marin catheter insertion, improved Parkinson's disease PTSD Plan: The patient was taken off the IV Lasix and the patient is currently on 80 mg Lasix by mouth twice a day Salt on fluid restriction Wean down FiO2 gradually currently on 5 L of oxygen nasal cannula Continue IV Solu-Medrol for another 24 hours and wean him within the next 24-48 hours He is in a negative fluid balance Patient's medications, labs, chest x-ray reviewed Start patient on high-dose Solu-Medrol Continue bronchodilators Check procalcitonin level, low We will continue to follow I have personally seen and examined the patient, performed the documentation and the assessment and plan as written. Number of minutes spent on the visit:30 The joint evaluation that was done along with a nurse practitioner. I talked to the patient. I made the adjustments on his medication. We'll going to put him on oral Lasix for now. We will going to wean down FiO2. We'll start tapering steroids as of tomorrow. His condition is stable. Prognosis poor based on the presence of advanced pulmonary fibrosis. Echo cardiac rhythm was noted the patient has severe pulmonary hypertension secondary to his chronic lung disease and chronic hypoxemic respiratory failure. Time with Patient: Greater than 30
[2022-08-03 06:32] LABS: Glucose,Whole Blood 159 mg/dL (70-110)
[2022-08-03] MEDS: methylPREDNISolone SOD SUCCI 40 MG/ML 1 ML VIAL IV SCH ×3 (06:40→17:44)
[2022-08-03] MEDS: INSULIN ASPART (NovoLOG) 100 UNIT/ML VIAL SQ SCH ×4 (06:40→20:32)
[2022-08-03] MEDS ORDERED: predniSONE 5 MG TAB PO SCH (09:00)
--- NOTE | 2022-08-03 09:10 | CA ---
Transthoracic Echo Report Name: Flaco Vinson Age: 72 Gender: M : 1950 Exam Date: 08/02/2022 16:32 Exam Location: [facility] Ht (in): 72 Wt (lb): 225 Ordering Physician: Jairo Winters MD ([id number]) Attending/Referring Phys: Transverse Abdominal Muscle Surgeon Lynsey Galindo, MORENO Procedure CPT: Indications: sob, elevated BNP Cardiac Hx: Technical Quality: Fair Contrast 1: Total Dose (mL): Contrast 2: Total Dose (mL): MEASUREMENTS (Male / Female) Normal Values 2D ECHO LV Diastolic Diameter PLAX 4.0 cm 4.2 - 5.9 / 3.9 - 5.3 cm LV Systolic Diameter PLAX 1.7 cm IVS Diastolic Thickness 1.3 cm 0.6 - 1.0 / 0.6 - 0.9 cm LVPW Diastolic Thickness 1.3 cm 0.6 - 1.0 / 0.6 - 0.9 cm LV Relative Wall Thickness 0.6 RV Internal Dim ED PLAX 4.2 cm LA Systolic Diameter LX 4.4 cm 3.0 - 4.0 / 2.7 - 3.8 cm Aorta at Sinotubular Diameter 2.9 cm DOPPLER AV Peak Velocity 91.3 cm/s AV Peak Gradient 3.3 mmHg TR Peak Velocity 422.1 cm/s TR Peak Gradient 71.3 mmHg Right Ventricular Systolic Press 76.3 mmHg FINDINGS Left Ventricle Mildly increased septal wall thickness. Preserved Systolic function. Left ventricular ejection fraction is estimated at 50 %. Flattened septum in diastole consistent with right ventricle volume overload. Right Ventricle Severe right ventricular dilatation with RV to LV size approximately 2:1. Severe pulmonary hypertension. Right ventricular systolic pressure estimated at 76 mm hg. Right Atrium Right atrium not well visualized. Left Atrium Normal left atrial size. Mitral Valve Structurally normal mitral valve. Mild mitral regurgitation. Aortic Valve Trileaflet aortic valve. No aortic valve stenosis or regurgitation. Tricuspid Valve Structurally normal tricuspid valve. Severe tricuspid regurgitation. Pulmonic Valve Trace pulmonic regurgitation. Pericardium No pericardial effusion. Aorta Normal size aortic root and proximal ascending aorta. CONCLUSIONS Left ventricular ejection fraction 50% Severe right ventricular dilation with RVR LV size approximate 2-1 Severe pulmonary hypertension RVSP 76 Mild mitral regurgitation Severe tricuspid regurgitation No pericardial effusion Previewed by: Dr. Barry Rodrigez DO (Electronically Signed) Final Date: 03 August 2022 09:09
[2022-08-03] MEDS: FUROSEMIDE 80 MG TAB PO SCH ×2 (09:25→15:57)
[2022-08-03] MEDS: CARBIDOPA-LEVODOPA 10-100 MG 1 EACH TAB PO SCH (09:25)
--- NOTE | 2022-08-03 09:39 | P.CRDCN ---
History of Present Illness Consult date: 08/03/22 Reason for Consult (text): Exertional dyspnea History of present illness: History of present illness: This is a 72 year old male patient previously seen in [address] Tello for preoperative clearance for lung biopsy with past medical history of idiopathic pulmonary fibrosis, chronic hypoxic respiratory failure on home O2 at 5 L, Parkinson's disease caused by agent orange exposure during [place]. Patient does not have any previous cardiac history and no family cardiac disease. We have been asked to see the patient regarding exertional dyspnea. The patient has chronic dyspnea which is at its baseline but he noticed that he had increas ed swelling to the lower extremities which was new for him. Patient was seen briefly yesterday evening started on Lasix drip with greater than 4-1/2 L of output, improvement of lower extremity edema. Patient has also been started on pulmonary medications including IV steroids EKG sinus tachycardia Echocardiogram: EF 50%, severe right ventricular dilation with RVR LV size approximate 21, severe pulmonary hypertension, RVSP 76, mild mitral regurgitation, severe tricuspid regurgitation, no pericardial effusion Chest x-ray: Scattered interstitial and alveolar infiltrates. Correlate for underlying pneumonia. Overall no change from prior study. Scrotal ultrasound small to moderate size right-sided scrotal fluid collection or hydrocele. Ultrasound right lower extremity negative for DVT WBC 9.1, hemoglobin 17.3, platelet count 116. INR 1.2. Electrolytes are normal. Creatinine 0.8. Blood sugar 120. Lactic acid 1.9. Hemoglobin A1c 7.2. Pro-calcitonin 0.06. ProBNP 1700. Troponin negative 1. Liver function tests within normal limits. Home cardiac medications: Aspirin 81 mg daily Review Of Systems: At the time of my evaluation: Constitutional: No fever, no chills. No weakness, fatigue or lethargy. EENT: No headache. No dizziness. Lungs: Chronic shortness of breath, chronic cough, no sputum production. No wheezing. Cardiovascular: No chest pain, new onset bilateral lower extremity edema. No palpitations. No paroxysmal nocturnal dyspnea. No orthopnea. No lighthea dedness or dizziness. No syncopal episodes. Abdominal: No abdominal pain. No nausea, vomiting. No diarrhea. No constipation. No bloody or tarry stools. Genitourinary: No dysuria. Reported urinary retention. Musculoskeletal: No myalgias. No muscle weakness, no frequent falls. No back pain. No neck pain. Integumentary: No wounds. No rash. No unusual bruising. Neurologic: No aphasia. No facial droop. No change in mentation. No head injury. No headache. Physical examination: Gen: This is a 72-year-old male. He is resting in bed and appears to be comfortable. She is is at bedside. VS: reviewed HEENT: Head is atraumatic, normocephalic. Pupils equal, round. Sclerae is anicteric. NECK: Supple. No JVD. . LUNGS: Crackles bilaterally. No intercostal retractions. HEART: Regular rate and rhythm. No murmur. ABDOMEN: Soft No tenderness. Marin catheter. EXTREMITIES: Minimal pedal edema. No calf tenderness. NEUROLOGICAL: Patient is awake, alert and oriented x3. Assessment: Acute on chronic hypoxic respiratory failure secondary to idiopathic pulmonary fibrosis and fluid overload with acute diastolic heart failure Parkinson's disease Thrombocytopenia Plan: Discontinue Lasix drip and start patient on Lasix 80 mg twice daily. We will plan to continue this for 24 hours and decrease tomorrow. Monitor I&O and daily weights, I's and renal function Repeat BMP today Further recommendations to follow based upon clinical course Thank you kindly for this consultation. Nurse practitioner note has been reviewed, I agree with documented findings and plan of care. Patient was seen and examined. Past Medical History Past Medical History: Musculoskeletal Disorder, Neurologic Disorder Additional Past Medical History / Comment(s): Parkinson's disease, essential tremors, headaches, arthritis bilateral hands, vertigo with heights, bronchitis. IPF History of Any Multi-Drug Resistant Organisms: None Reported Past Surgical History: Cholecystectomy Additional Past Surgical History / Comment(s): Colonoscopy with polypectomy, Past Anesthesia/Blood Transfusion Reactions: No Reported Reaction Past Psychological History: PTSD Additional Psychological History / Comment(s): Pt resides with his spouse. He is independent. He is a [place] . He has home oxygen and a nebulizer.. Smoking Status: Former smoker Past Alcohol Use History: None Reported Additional Past Alcohol Use History / Comment(s): Pt started smoking in 1962 and quit in 1984. Pt drinks 2 beers per day. Past Drug Use History: None Reported - Past Family History Father Family Medical History: Cancer Additional Family Medical History / Comment(s): Father had a form of leukemia. Mother Family Medical History: Cancer Additional Family Medical History / Comment(s): Mother from sarcoma. Medications and Allergies Home Medications Medication Instructions Recorded Confirmed Type Aspirin 81 mg PO DAILY 01/30/20 08/02/22 History Carbidopa/Levodopa 1 tab PO DAILY 01/30/20 08/02/22 History [Carbidopa-Levodopa 10-100 Tab] ALPRAZolam [Xanax] 0.5 mg PO BID PRN 07/13/21 08/02/22 History predniSONE 5 mg PO DAILY 07/13/21 08/02/22 History Azithromycin [Zithromax] 250 mg PO Q48H 08/02/22 08/02/22 History Ibuprofen [Advil] 200 mg PO HS 08/02/22 08/02/22 History Tamsulosin [Flomax] 0.4 mg PO DAILY 08/02/22 08/02/22 History Allergies Allergy/AdvReac Type Severity Reaction Status Date / Time No Known Allergies Allergy Verified 08/02/22 12:27 Physical Exam Vitals: Vital Signs Temp Pulse Pulse Resp BP BP Pulse Ox 08/03/22 07:52 97.8 F 104 H 18 114/76 85 L 08/03/22 04:11 97.7 F 95 24 122/89 90 L 08/02/22 23:22 97.7 F 104 H 30 H 121/86 90 L 08/02/22 19:54 97.4 F L 105 H 28 H 128/89 88 L 08/02/22 16:30 108 H 30 H 08/02/22 16:00 108 H 149/95 84 L 08/02/22 14:03 93 26 H 127/85 89 L 08/02/22 12:25 127/90 08/02/22 12:08 86 18 94 L 08/02/22 10:41 36 H 08/02/22 10:25 88 L 08/02/22 10:18 97.7 F 104 H 26 H 133/86 79 L Intake and Output 08/02/22 08/03/22 08/03/22 22:59 06:59 14:59 Intake Total 118 72.833 118 Output Total 2300 4800 Balance -2182 -6633.167 118 Intake: Intake, IV Titration 72.833 Amount Furosemide 100 mg In 72.833 Sodium Chloride 0.9% 90 ml @ 10 MG/HR 10 mls/hr IV .Q10H [facility] Rx#: [id number] Oral 118 118 Output: Urine 2300 4800 Uretheral (Marin) 1600 3800 Other: Voiding Method Indwelling Catheter Indwelling Catheter # Voids 1 Weight 102.058 kg 94.7 kg Results 08/02/22 10:58 08/02/22 10:58 Cardiac Enzymes 08/02/22 08/02/22 Range/Units 10:58 10:58 AST 28 (17-59) U/L Troponin I 0.013 (0.000-0.034) ng/mL Coagulation 08/02/22 Range/Units 10:58 PT 12.7 H (9.0-12.0) sec APTT 24.9 (22.0-30.0) sec CBC 08/02/22 Range/Units 10:58 WBC 9.1 (3.8-10.6) k/uL RBC 5.47 (4.30-5.90) m/uL Hgb 17.3 (13.0-17.5) gm/dL Hct 52.5 (39.0-53.0) % Plt Count 116 L (150-450) k/uL Comprehensive Metabolic Panel 08/02/22 Range/Units 10:58 Sodium 140 (137-145) mmol/L Potassium 3.9 (3.5-5.1) mmol/L Chloride 105 (98-107) mmol/L Carbon Dioxide 25 (22-30) mmol/L BUN 10 (9-20) mg/dL Creatinine 0.80 (0.66-1.25) mg/dL Glucose 120 H (74-99) mg/dL Calcium 9.0 (8.4-10.2) mg/dL AST 28 (17-59) U/L ALT 21 (4-49) U/L Alkaline Phosphatase 65 (38-126) U/L Total Protein 6.7 (6.3-8.2) g/dL Albumin 3.9 (3.5-5.0) g/dL Current Medications Generic Name Dose Route Start Last Admin Trade Name Freq PRN Reason Stop Dose Admin Acetaminophen 650 mg 08/02/22 13:28 Acetaminophen Tab 325 Mg Tab PO Q6HR PRN Mild Pain or Fever > 100.5 Albuterol Sulfate 2.5 mg 08/02/22 15:15 Albuterol Nebulized 2.5 Mg/3 Ml INHALATION RT-Q4H PRN Shortness Of Breath Or Wheezing Alprazolam 0.5 mg 08/02/22 20:42 08/02/22 21:05 Alprazolam 0.5 Mg Tab PO 0.5 mg BID PRN Administration Anxiety Carbidopa/Levodopa 1 each 08/03/22 09:00 Carbidopa-Levodopa 10-100 Mg 1 Each Tab PO DAILY [facility] Dextrose/Water 25 ml 08/02/22 19:19 Dextrose 50% Syringe 50 Ml IVP PER PROTOCOL PRN Hypoglycemia Protocol Dextrose/Water 50 ml 08/02/22 19:19 Dextrose 50% Syringe 50 Ml IVP PER PROTOCOL PRN Hypoglycemia Protocol Furosemide 80 mg 08/03/22 09:00 Furosemide 80 Mg Tab PO BID@0900,1600 [facility] Sodium Chloride 1,000 mls @ 20 mls/hr 08/02/22 13:30 08/02/22 13:59 Saline 0.9% IV 20 mls/hr .Q24H [facility] Administration Insulin Aspart 0 unit 08/02/22 21:00 08/03/22 06:40 Insulin Aspart (Novolog) 100 Unit/Ml Vial SQ 3 unit ACHS [facility] Administration Protocol Ipratropium Woodson 0.5 mg 08/02/22 15:15 Ipratropium 0.5 Mg/2.5 Ml Nebu INHALATION RT-Q4H PRN Shortness Of Breath Or Wheezing Methylprednisolone Sodium Succinate 60 mg 08/03/22 06:00 08/03/22 06:40 Methylprednisolone Sod Succi 40 Mg/Ml 1 Ml Vial IV 60 mg Q6HR [facility] Administration Naloxone HCl 0.2 mg 08/02/22 13:28 Naloxone 0.4 Mg/Ml 1 Ml Vial IV Q2M PRN Opioid Reversal Intake and Output 08/02/22 08/03/22 08/03/22 22:59 06:59 14:59 Intake Total 118 72.833 118 Output Total 2300 4800 Balance -2188 -4753.167 118 Intake: Intake, IV Titration 72.833 Amount Furosemide 100 mg In 72.833 Sodium Chloride 0.9% 90 ml @ 10 MG/HR 10 mls/hr IV .Q10H [facility] Rx#: [id number] Oral 118 118 Output: Urine 2300 4800 Uretheral (Marin) 1600 3800 Other: Voiding Method Indwelling Catheter Indwelling Catheter # Voids 1 Weight 102.058 kg 94.7 kg 08/02/22 10:58 08/02/22 10:58
[2022-08-03 09:42] LABS: African American GFR (CKD) >90 (>60 ml/min/1.73 sqM); Anion Gap 11 mmol/L; Blood Urea Nitrogen 15 mg/dL (9-20); Carbon Dioxide 28 mmol/L (22-30); Chloride 98 mmol/L (98-107); Glucose 165 mg/dL (74-99); Non-African American GFR(CKD) 80 (>60 ml/min/1.73 sqM); Potassium 3.8 mmol/L (3.5-5.1); Sodium 137 mmol/L (137-145)
[2022-08-03 11:33] LABS: Glucose,Whole Blood 302 mg/dL (70-110)
[2022-08-03 12:29] VITALS: BMI 28.3
--- NOTE | 2022-08-03 13:04 | P.PN ---
Subjective Progress Note Date: 08/03/22 patient is a 72-year-old gentleman past medical history significant for idiopathic pulmonary fibrosis, chronic respiratory failure presented to the ER for right calf pain and scrotal swelling. Patient has a history of end-stage pulmonary fibrosis and uses 5 L of oxygen at home. Patient baseline oxygenation is around 70s. Patient complaining of shortness of breath on exertion. Denies any chest pain. Was also complaining of abdominal pain but denies any nausea or vomiting. There was no complete of any fever or chills. Patient came to the ER because of these symptoms. Initial workup in the ER showed WBC 9.1, hemoglobin 17.3, platelet count 116, sodium 140, potassium 3.9, chloride 105, carbon dioxide 25, BUN 10 and creatinine 0.8. ProBNP was elevated at 1700 Duplex ultrasound right lower extremity negative for DVT Chest x-ray done showed scattered interstitial and alveolar infiltrates Patient was admitted for further evaluation and treatment 08/03. Patient seen and examined. States shortness of breath is improving. Continues to be on 5 L. Swelling of legs and scrotal area has improved. Echo done Echocardiogram: EF 50%, severe right ventricular dilation with RVR LV size approximate 21, severe pulmonary hypertension, RVSP 76, mild mitral regurgit ation, severe tricuspid regurgitation, no pericardial effusion REVIEW OF SYSTEMS: CONSTITUTIONAL: No fever, no malaise,. CARDIOVASCULAR: No chest pain, no palpitations, no syncope. PULMONARY: As mentioned above GASTROINTESTINAL: No diarrhea, no nausea, no vomiting, no abdominal pain. NEUROLOGICAL: No headaches, no weakness, PHYSICAL EXAMINATION: GENERAL: The patient is alert and oriented x3, not in any acute distress. Well developed, well nourished. HEENT: Pupils are round and equally reacting to light. EOMI. No scleral icterus. No conjunctival pallor. Normocephalic, atraumatic. No pharyngeal erythema. No thyromegaly. CARDIOVASCULAR: S1 and S2 present. No murmurs, rubs, or gallops. PULMONARY: Coarse breath some bilaterally, bilateral inspiratory and expiratory crackles audible ABDOMEN: Soft, nontender, nondistended, normoactive bowel sounds. No palpable or ganomegaly. MUSCULOSKELETAL: Pitting edema resolved EXTREMITIES: No cyanosis, clubbing, or pedal edema. NEUROLOGICAL: Gross neurological examination did not reveal any focal deficits. SKIN: No rashes. Assessment and plan Acute on chronic hypoxemic failure Acute diastolic heart failure Idiopathic pulmonary fibrosis Severe pulmonary hypertension Severe tricuspid regurg Plan Monitor vital signs Monitor CBC Monitor CMP Continue telemetry monitoring Strict I's and O's, daily weights IV Lasix discontinued and switched to oral Lasix Continue IV Solu-Medrol Continue bronchodilators Follow-up on cardiology recommendations Follow-up on pulmonology recommendations Objective - Vital Signs Vital signs: Vital Signs Temp 97.4 F L 08/03/22 11:58 Pulse 106 H 08/03/22 11:58 Resp 18 08/03/22 11:58 BP 108/74 08/03/22 11:58 Pulse Ox 83 L 08/03/22 11:58 FiO2 Intake & Output 08/02/22 08/03/22 08/03/22 18:59 06:59 18:59 Intake Total 118 72.833 118 Output Total 700 6400 500 Balance -582 -6327.167 -382 Weight 102.058 kg 94.7 kg 94.7 kg Intake: Intake, IV Titration 72.833 Amount Furosemide 100 mg In 72.833 Sodium Chloride 0.9% 90 ml @ 10 MG/HR 10 mls/hr IV .Q10H [facility] Rx#: [id number] Oral 118 118 Output: Urine 700 6400 500 Uretheral (Marin) 5400 Other: Voiding Method Indwelling Catheter Indwelling Catheter Indwelling Catheter # Voids 1 - Labs CBC & Chem 7: 08/02/22 10:58 08/03/22 04:14 Labs: Abnormal Lab Results - Last 24 Hours (Table) 08/02/22 08/03/22 08/03/22 Range/Units 20:06 04:14 04:14 Glucose 165 H (74-99) mg/dL POC Glucose (mg/dL) 180 H (70-110) mg/dL Hemoglobin A1c 7.2 H (0.0-6.0) % 08/03/22 08/03/22 Range/Units 06:26 11:31 Glucose (74-99) mg/dL POC Glucose (mg/dL) 159 H 302 H (70-110) mg/dL Hemoglobin A1c (0.0-6.0) %
--- NOTE | 2022-08-03 14:39 | P.CONS ---
History of Present Illness - Reason for Consult Consult date: 08/03/22 Goals of care Requesting physician: Karlos Clements - History of Present Illness The patient is a 72-year-old male with a past medical history significant for end-stage idiopathic pulmonary fibrosis, pulmonary hypertension, Parkinson's, and CHF. He presented to the emergency room on 08/02/22 with concerns of right calf pain, left lower quadrant abdominal pain, and scrotal swelling. Scrotal ultrasound [id number] sized right-sided scrotal fluid collection or hydrocele. A Marin catheter was placed by the urologist. Venous Doppler of right lower extremity was negative for DVT. An echocardiogram shows an EF of 50%, severe right ventricular dilation, severe pulmonary hypertension with RVSP of 76, mild mitral regurgitation, severe tricuspid regurgitation.. Chest x-ray shows scattered interstitial and alveolar infiltrates. Review of Systems Constitutional: Denies chills, Denies fever Cardiovascular: Reports leg edema, Reports shortness of breath Gastrointestinal: Denies nausea, Denies vomiting Past Medical History Past Medical History: Musculoskeletal Disorder, Neurologic Disorder Additional Past Medical History / Comment(s): Parkinson's disease, essential tremors, headaches, arthritis bilateral hands, vertigo with heights, bronchitis. IPF History of Any Multi-Drug Resistant Organisms: None Reported Past Surgical History: Cholecystectomy Additional Past Surgical History / Comment(s): Colonoscopy with polypectomy, Past Anesthesia/Blood Transfusion Reactions: No Reported Reaction Past Psychological History: PTSD Additional Psychological History / Comment(s): Pt resides with his spouse. He is independent. He is a [place] . He has home oxygen and a nebulizer.. Smoking Status: Former smoker Past Alcohol Use History: None Reported Additional Past Alcohol Use History / Comment(s): Pt started smoking in 1962 and quit in 1984. Pt drinks 2 beers per day. Past Drug Use History: None Reported - Past Family History Father Family Medical History: Cancer Additional Family Medical History / Comment(s): Father had a form of leukemia. Mother Family Medical History: Cancer Additional Family Medical History / Comment(s): Mother from sarcoma. Medications and Allergies Home Medications Medication Instructions Recorded Confirmed Type Aspirin 81 mg PO DAILY 01/30/20 08/02/22 History Carbidopa/Levodopa 1 tab PO DAILY 01/30/20 08/02/22 History [Carbidopa-Levodopa 10-100 Tab] ALPRAZolam [Xanax] 0.5 mg PO BID PRN 07/13/21 08/02/22 History predniSONE 5 mg PO DAILY 07/13/21 08/02/22 History Azithromycin [Zithromax] 250 mg PO Q48H 08/02/22 08/02/22 History Ibuprofen [Advil] 200 mg PO HS 08/02/22 08/02/22 History Tamsulosin [Flomax] 0.4 mg PO DAILY 08/02/22 08/02/22 History Allergies Allergy/AdvReac Type Severity Reaction Status Date / Time No Known Allergies Allergy Verified 08/02/22 12:27 Physical Exam Vitals: Vital Signs Temp Pulse Pulse Resp BP BP Pulse Ox 08/03/22 11:58 97.4 F L 106 H 18 108/74 83 L 08/03/22 08:57 87 L 08/03/22 08:00 104 H 22 08/03/22 07:52 97.8 F 104 H 18 114/76 85 L 08/03/22 04:11 97.7 F 95 24 122/89 90 L 08/02/22 23:22 97.7 F 104 H 30 H 121/86 90 L 08/02/22 19:54 97.4 F L 105 H 28 H 128/89 88 L 08/02/22 16:30 108 H 30 H 08/02/22 16:00 108 H 149/95 84 L 08/02/22 14:03 93 26 H 127/85 89 L Intake and Output 08/02/22 08/03/22 08/03/22 22:59 06:59 14:59 Intake Total 118 72.833 358 Output Total 2300 4800 1000 Balance -2182 -4792.370 -642 Intake: Intake, IV Titration 72.833 Amount Furosemide 100 mg In 72.833 Sodium Chloride 0.9% 90 ml @ 10 MG/HR 10 mls/hr IV .Q10H [facility] Rx#: [id number] Oral 118 358 Output: Urine 2300 4800 1000 Uretheral (Marin) 1600 3800 Other: Voiding Method Indwelling Catheter Indwelling Catheter Indwelling Catheter # Voids 1 Weight 102.058 kg 94.7 kg 94.7 kg General: Well developed, well nourished. No acute distress. Chronically ill appearing HEENT: Head is atraumatic, normocephalic. Sclera are clear. Mucus membranes moist. CV: Heart regular in rate and rhythm positive S1 and S2. + 2 bilateral LE edema Lungs: Crackles to bilateral bases. Mild conversational dyspnea. On 5L NC. Abdomen/GI: Soft, nondistended, nontender. : Mild scrotal edema. Marin catheter draining clear yellow urine. Musculoskeletal/ Extremities: No joint deformity or swelling. No contractures or gross atrophy. + generalized weakness Skin: Warm and dry Neurologic: Awake, alert and oriented times 3. CN II-XII grossly intact. No focal deficits. Psychiatric: Appropriate mood and affect. 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 Pt is a [place] . * Marital status - , to , Denisse * Residence - House * Who do you reside with - * ETOH - Occasional * Tobacco - Former smoker * Illicit drugs - none reported Spiritual/Cultural * A spiritual person - somewhat * Buddhism - Advent * Beliefs a source of comfort and strength - yes * Gnosticism or cultural practices restrictions - no * EOL considerations/rituals - no Functional Assessment * Able to walk independently - no * Assistive devices - walker and scooter for longer distances * Able to use the bathroom independently - Yes * Continent - Yes * Require assistance bathing- Yes, has shower with bench * Able to feed self - Yes * Who prepares meals - * How many meals a day eaten - 3 * Able to clean house/do laundry - No * Transportation - * Able to shop -No * Who manages medications - Patient and * Who manages finances - patient and * Does pain impact ability to perform ADL's - No PPS score - 50% Safety * In home/residence - Yes * In relationships - Yes Psychological/Emotional * Dementia present - No * Insight and judgment - Intact * Depression - Occasional * Suicidal thoughts - No * Good support system - Yes * Patients goals - comfort * Frequent hospitalizations - Yes * Desire to keep coming back to the hospital for treatment - Yes Symptoms * Pain - 0/10, continue Tylenol prn * Fatigue - Chronic fatigue and generalized weakness * SOB - Chronic shortness of breath, currently at baseline of 5L NC. Continue Solumedrol, Albuterol, Atrovent, and Lasix * Insomnia - Yes, start Melatonin * N/V - No * Anxiety - Yes, continue Xanax * Depression - Occasional * Confusion - No * Agitation - No * Hallucinations - No * Appetite/weight loss - Good appetite, no recent weight loss. Continue heart healthy diet * Dysphagia - No * Constipation - No * Incontinence - Marin catheter * Itch - No * Cough - Occasional Plan: Summary/Goals - The paitient is eating lunch in bed. His is at the bedside. Information regarding palliative care and hospice services provided. The patient states he has been well educated on his disease process and what to expect. He has had long conversations with Dr. Campbell about how things will progress with his pulmonary fibrosis. the patient has been fairly independent. Lately, he is not able to walk as far. He used to use his scooter for long distances. However, now he has to use it to get to the bathroom in his house. He realizes that his IPF is getting worse as he is having more frequent exacerbations. When he is short of breath it takes him much longer to recover than it used to. He states that he saw a psychologist and realized that he was afraid of dying. He has now come to terms with things. He believes his exposure to agent orange while serving in the [place] war has contributed to his pulmonary fibrosis and his Parkinson's disease. He is not ready for hospice yet, but knows there will be a time when he needs them. He has agreed to palliative care now, and will transition to hospice when he is ready. Recommendations - Home with palliative care Advanced Directives - None on file Code Status - DNR Thank you for this consultation Debbie Mattson [facility] Palliative Care [facility] [id number] Email: [email or web address]
[2022-08-03 16:18] LABS: Glucose,Whole Blood 131 mg/dL (70-110)
[2022-08-03] MEDS: SODIUM CHLORIDE 0.9% 1,000 ML IV SCH (17:18)
[2022-08-03 20:07] LABS: Glucose,Whole Blood 252 mg/dL (70-110)
[2022-08-03] MEDS: ALPRAZolam 0.5 MG TAB PO PRN (20:32)
[2022-08-03] MEDS ORDERED: MELATONIN 5 MG TABLET PO SCH (21:00)
[2022-08-04] MEDS: methylPREDNISolone SOD SUCCI 40 MG/ML 1 ML VIAL IV SCH ×3 (00:42→11:56)
[2022-08-04 06:21] LABS: Glucose,Whole Blood 162 mg/dL (70-110)
[2022-08-04] MEDS: INSULIN ASPART (NovoLOG) 100 UNIT/ML VIAL SQ SCH ×2 (06:45→11:57)
[2022-08-04 07:58] VITALS: RESP 22
[2022-08-04] MEDS: FUROSEMIDE 80 MG TAB PO SCH (09:29)
[2022-08-04] MEDS: CARBIDOPA-LEVODOPA 10-100 MG 1 EACH TAB PO SCH (09:29)
[2022-08-04 09:32] LABS: Basophils % (A) 0 %; Eosinophils % (A) 0 %; HCT 52.3 % (39.0-53.0); HGB 17.9 gm/dL (13.0-17.5); Lymphocytes # (A) 0.6 k/uL (1.0-4.8); Lymphocytes % (A) 4 %; MCH 31.7 pg (25.0-35.0); MCHC 34.1 g/dL (31.0-37.0); MCV 92.9 fL (80.0-100.0); Mean Platelet Volume 10.1; Monocytes # (A) 0.3 k/uL (0-1.0); Monocytes % (A) 2 %; Neutrophils # (A) 13.7 k/uL (1.3-7.7); Neutrophils % (A) 93 %; Platelet Count 120 k/uL (150-450); RBC 5.63 m/uL (4.30-5.90); RDW 13.9 % (11.5-15.5); WBC 14.7 k/uL (3.8-10.6)
[2022-08-04 09:47] LABS: Potassium 3.7 mmol/L (3.5-5.1)
--- NOTE | 2022-08-04 10:47 | P.PN ---
Subjective Progress Note Date: 08/04/22 I'm seeing this patient in new consultation today 08/03/2022 on the selective care unit. This is a pleasant 72-year-old male with past medical history significant for advanced idiopathic pulmonary fibrosis, oxygen dependence requiring 5 L nasal cannula at home, Parkinson's disease. Patient no rmally follows with Dr. Campbell in the office for management of his IPF, which was originally diagnosed by biopsy back in March 2020. Patient is chronically on steroids, and pulmonary status has been deteriorating since his diagnosis. Patient came in to the emergency room yesterday for the chief complaints of chronic shortness of breath, lower extremity swelling, scrotal edema, and groin pain. The swelling has been a new finding, and has progressively worsened over the last 3 days. The swelling was severe enough where a urology consult was placed for Marin catheter insertion. Patient was then started on a Lasix infusion at 10 mg per hour. Fluid balance is already - 4.5 L. He still has bilateral lower extremity pitting edema. An echocardiogram is pending. Venous Doppler of right lower extremity was negative for DVT. Patient denies any change in his chronic cough, fever, chills, hemoptysis, chest pain, palpitations, or syncope. Chest x-ray on arrival showed scattered interstitial and alveolar infiltrates without much change from prior chest x-ray a year earlier. CBC on arrival showed a WBC count of 9.1, hemoglobin 17.3, hematocrit 52.5, platelets 116,000. BMP on arrival showed a sodium 140, potassium 3.9, chloride 105, serum CO2 25, BUN 10, creatinine 0.8, glucose 120. Troponin negative 1. NT proBNP was slightly elevated at 1700. Patient is currently resting comfortably, and states that his breathing is pretty much at baseline. Note that he does have chronic dyspnea. He is currently on 5 L nasal cannula, which is baseline for him. Vital signs are stable at this time. On today's evaluation of 08/04/2022, the patient is feeling much better and is back to his baseline. He remains on 5 L of oxygen by nasal cannula. Marin catheter in place. No specific complaints. The discomfort of 14.7 with hemoglobin 13.9. BUN is at 29 with a creatinine of 0.98 and a sodium level is at 137. He is able to speak longer sentences. No significant cough or sputum p roduction. Edema lower oximetry is improved considerably. Objective - Vital Signs Vital signs: Vital Signs Temp 97.5 F L 08/04/22 08:00 Pulse 86 08/04/22 08:00 Resp 22 08/04/22 08:00 BP 125/86 08/04/22 08:00 Pulse Ox 93 L 08/04/22 08:00 FiO2 Intake & Output 08/03/22 08/04/22 08/04/22 18:59 06:59 18:59 Intake Total 476 120 Output Total 1000 775 300 Balance -524 -775 -180 Weight 94.7 kg Intake: Oral 476 120 Output: Urine 1000 775 300 Other: Voiding Method Indwelling Catheter Indwelling Catheter Indwelling Catheter - Exam GENERAL EXAM: Alert, 72-year-old white male, comfortable in no apparent distress. The patient remains on 5 L of oxygen by nasal cannula HEAD: Normocephalic and atraumatic EYES: Normal reaction of pupils, equal size. NOSE: Clear with pink turbinates. THROAT: No erythema or exudates. NECK: No masses, no JVD. CHEST: No chest wall deformity. LUNGS: Equal air entry with Velcro crackles heard throughout, but worse at the posterior bases. No wheezes, rhonchi or dullness. On 5 L nasal cannula. T CVS: S1 and S2 normal with no audible murmur, regular rhythm. No extra heart sounds ABDOMEN: No hepatosplenomegaly, active bowel sounds, no guarding or rigidity. SPINE: No scoliosis or deformity SKIN: No rashes Genitourinary: Mild scrotal edema CENTRAL NERVOUS SYSTEM: No focal deficits, tone is normal in all 4 extremities. EXTREMITIES: There is 2+ edema of the bilateral lower extremities. No clubbing, or cyanosis. Peripheral pulses are intact. - Labs CBC & Chem 7: 08/04/22 07:49 08/04/22 07:49 Labs: Abnormal Lab Results - Last 24 Hours (Table) 08/03/22 08/03/22 08/03/22 Range/Units 11:31 16:16 20:06 WBC (3.8-10.6) k/uL Hgb (13.0-17.5) gm/dL Plt Count (150-450) k/uL Neutrophils # (1.3-7.7) k/uL Lymphocytes # (1.0-4.8) k/uL Chloride (98-107) mmol/L BUN (9-20) mg/dL Glucose (74-99) mg/dL POC Glucose (mg/dL) 302 H 131 H 252 H (70-110) mg/dL 08/04/22 08/04/22 08/04/22 Range/Units 06:20 07:49 07:49 WBC 14.7 H (3.8-10.6) k/uL Hgb 17.9 H (13.0-17.5) gm/dL Plt Count 120 L (150-450) k/uL Neutrophils # 13.7 H (1.3-7.7) k/uL Lymphocytes # 0.6 L (1.0-4.8) k/uL Chloride 94 L (98-107) mmol/L BUN 29 H (9-20) mg/dL Glucose 192 H (74-99) mg/dL POC Glucose (mg/dL) 162 H (70-110) mg/dL Assessment and Plan Assessment: Acute on chronic hypoxic respiratory failure, secondary to IPF and a component of CHF with fluid overload, responded nicely to diuretics. Patient is currently on 5 L of oxygen by nasal cannula which is his baseline. The patient is clinically improved. His overall respiratory status is back to its baseline. IPF, not receiving any anti-fibrotic treatment. Admitted on 5 mg of prednisone on an outpatient basis Chronic hypoxic respiratory failure maintained on O2 at 5 L Acute on chronic shortness of breath secondary to above, improved and the patient is currently off Lasix Severe pulmonary hypertension with right-sided heart failure with ongoing lower extremity edema secondary to right-sided heart failure Scrotal edema requiring Mrain catheter insertion, improved Parkinson's disease PTSD Plan: The patient will be switched to oral Lasix Discontinue the IV Solu-Medrol and a prednisone burst taper starting with 40 mg to be tapered by 10 mg 4 days and ultimately the patient is going to go on a ma intenance of 5 mg on a daily basis Oxygen at 5 L Discharge home today to be followed up on outpatient basis. Keep the Marin catheter in place and the patient is going to follow-up with urology. Is currently on Flomax.
[2022-08-04 11:37] LABS: Glucose,Whole Blood 232 mg/dL (70-110)
--- NOTE | 2022-08-04 12:15 | P.PN ---
Subjective Progress Note Date: 08/04/22 Exertional dyspnea History of present illness: This is a 72 year old male patient previously seen in [address] Tello for preoperative clearance for lung biopsy with past medical history of idiopathic pulmonary fibrosis, chronic hypoxic respiratory failure on home O2 at 5 L, Parkinson's disease caused by agent orange exposure during [place]. Patient does not have any previous cardiac history and no family cardiac disease. We have been asked to see the patient regarding exertional dyspnea. The patient has chronic dyspnea which is at its baseline but he noticed that he had increased swelling to the lower extremities which was new for him. Patient was seen briefly yesterday evening started on Lasix drip with greater than 4-1/2 L of output, improvement of lower extremity edema. Patient has also been started on pulmonary medications including IV steroids EKG sinus tachycardia Echocardiogram: EF 50%, severe right ventricular dilation with RVR LV size approximate 21, severe pulmonary hypertension, RVSP 76, mild mitral regurgitation, severe tricuspid regurgitation, no pericardial effusion Chest x-ray: Scattered interstitial and alveolar infiltrates. Correlate for underlying pneumonia. Overall no change from prior study. Scrotal ultrasound small to moderate size right-sided scrotal fluid collection or hydrocele. Ultrasound right lower extremity negative for DVT WBC 9.1, hemoglobin 17.3, platelet count 116. INR 1.2. Electrolytes are normal. Creatinine 0.8. Blood sugar 120. Lactic acid 1.9. Hemoglobin A1c 7.2. Pro-calcitonin 0.06. ProBNP 1700. Troponin negative 1. Liver function tests within normal limits. Home cardiac medications: Aspirin 81 mg daily 08/04 Patient states his breathing is a little bit better. His lung sounds are improved. He has very little lower extremity edema. Heart rate is in the 80s and blood pressure 125/86, pulse ox 93% on 5 L. Patient was transitioned over to oral Lasix 80 mg twice daily this morning. Repeat blood work reveals pota ssium of 3.7, BUN 29 creatinine 0.98. Physical examination: Gen: This is a 72-year-old male. He is resting in bed and appears to be comfortable. She is is at bedside. VS: reviewed HEENT: Head is atraumatic, normocephalic. Pupils equal, round. Sclerae is anicteric. NECK: Supple. No JVD. . LUNGS: Crackles bilaterally basis. No intercostal retractions. HEART: Regular rate and rhythm. No murmur. ABDOMEN: Soft No tenderness. Marin catheter. EXTREMITIES: Minimal pedal edema. No calf tenderness. NEUROLOGICAL: Patient is awake, alert and oriented x3. Assessment: Acute on chronic hypoxic respiratory failure secondary to idiopathic pulmonary fibrosis and fluid overload with acute diastolic heart failure Parkinson's disease Thrombocytopenia Plan: Continue patient on Lasix 80 mg twice daily for several days and decrease to 40 mg twice daily. Patient may benefit from use of Aldactone combination with Lasix which can be managed as an outpatient Patient is cleared for discharge from cardiology and may follow-up in the office with Dr. Tello within the week. Nurse practitioner note has been reviewed, I agree with documented findings and plan of care. Patient was seen and examined. Objective - Vital Signs Vital signs: Vital Signs Temp 98.1 F 08/04/22 00:43 Pulse 88 08/04/22 04:12 Resp 18 08/04/22 04:12 BP 110/68 08/04/22 04:12 Pulse Ox 90 L 08/04/22 04:12 FiO2 Intake & Output 08/03/22 08/04/22 08/04/22 18:59 06:59 18:59 Intake Total 476 Output Total 1000 775 Balance -524 -775 Weight 94.7 kg Intake: Oral 476 Output: Urine 1000 775 Other: Voiding Method Indwelling Catheter Indwelling Catheter - Labs CBC & Chem 7: 08/04/22 07:49 08/04/22 07:49 Labs: Abnormal Lab Results - Last 24 Hours (Table) 08/03/22 08/03/22 08/03/22 Range/Units 04:14 04:14 11:31 Glucose 165 H (74-99) mg/dL POC Glucose (mg/dL) 302 H (70-110) mg/dL Hemoglobin A1c 7.2 H (0.0-6.0) % 08/03/22 08/03/22 08/04/22 Range/Units 16:16 20:06 06:20 Glucose (74-99) mg/dL POC Glucose (mg/dL) 131 H 252 H 162 H (70-110) mg/dL Hemoglobin A1c (0.0-6.0) %
[2022-08-04 12:17] VITALS: BP 111/68; PULSE 93; TEMP 97.4
--- NOTE | 2022-08-04 13:12 | CDI ---
Documentation Clarification Form Date: 08/04/2022 12:33:08 PM From: Angela Dow RN, CCDS Admit Date: 08/02/2022 1:29:00 PM Patient Name: Flaco Vinson Visit Number: [id number] Discharge Date: ATTENTION: The Clinical Documentation Specialists (CDI) and [facility] Coding Staff appreciate your assistance in clarifying documentation. Please respond to the clarification below the line at the bottom and electronically sign. The CDI & [facility] Coding staff will review the response and follow-up if needed. Please note: Queries are made part of the Legal Health Record. If you have any questions, please contact the author of this message via ITS. Dr. Saman Choi There is documentation of severe pulmonary hypertension with right-side heart failure. Additional clarification is requested. History/Risk Factors: Idiopathic pulmonary fibrosis, Congestive heart failure, Parkinson's disease Clinical Indicators: 72-year-old male present with acute on chronic dyspnea with associated pitting edema, swelling lower extremities and scrotal edema. He has history of idiopathic pulmonary fibrosis with chronic hypoxic respiratory failure on home O2 at 5 L/NC. 08/02 Vital signs: 133/86 104 26 97.7 79 % 5/L NC 08/02 Labs: WBC 9.1 HGB 17.3 Lactic acid 2.5 BNP 1700 08/02 CXR: Scattered interstitial and alveolar infiltrates. Correlate for underlying pneumonia. Overall, no change from prior study . 08/02 ECHO: EF 50%, Severe right ventricular dilation with RVR LV size approximate 2:1, severe pulmonary hypertension, RVSP 76, mild mitral regurgitation, severe tricuspid regurgitation, no pericardial effusion. Treatment: Cardiac/Telemetry monitoring Monitor O2 Sat's (titrate) Lasix 80 MG IV Daily Monitor I &O and daily weights, renal function Atrovent Nebulized Inhalation Q4 HR PRN Solu-Medrol 40 MG IV Q 8 HRS 08/02, change to 60 MG Q 6 HRS 08/03-08/04 (titrate per orders) Can you please further clarify if the patient also has? [ x ] Chronic Cor Pulmonale due to pulmonary hypertension secondary to Idiopathic pulmonary fibrosis [ ] No additional diagnosis [ ] Other, please specify [ ] Unable to determine (Template Last Revised: July 2020) MTDD
--- NOTE | 2022-08-04 21:52 | P.DS ---
Providers Date of admission: 08/02/22 13:29 Attending physician: Kym De Guzman Consults: 08/02/22 13:18 Consult Physician Routine Consulting Provider: Saman Choi Consult Reason/Comments: dyspnea, hx of IPF Do you want consulting provider notified?: Yes Consult Physician Routine Consulting Provider: Jairo Winters Consult Reason/Comments: exertional dyspnea Do you want consulting provider notified?: Yes 08/02/22 13:40 Consult to Palliative Care Routine Consulting Provider: Debbie Mattson Consult Reason/Comments: Pulmonary Fibrosis, Goals of care Do you want consulting provider notified?: Yes 08/02/22 15:18 Consult Physician Routine Consulting Provider: Wayne Charles Consult Reason/Comments: Scrotal swelling Do you want consulting provider notified?: Yes Primary care physician: [facility] Hospital Course: Diagnoses: Idiopathic pulmonary fibrosis, progressive disease Acute diastolic heart failure Acute on chronic hypoxemic failure, improved and back to baseline Severe pulmonary hypertension Severe tricuspid regurg Hospital course: patient is a 72-year-old gentleman past medical history significant for idiopathic pulmonary fibrosis, chronic respiratory failure presented to the ER for right calf pain and scrotal swelling. Patient has a history of end-stage pulmonary fibrosis and uses 5 L of oxygen at home. He presents because of dyspnea and his been evaluated by cardiology and pulmonary service and found to have acute CHF and on the top of his advanced pulmonary fibrosis, he was treated with IV Solu-Medrol Benadryl and diuretics with Lasix at 80 mg, patient showed interval improvement and his oxygen saturation back to baseline. He was pleasant sitting in bed comfortable, he talks freely with no difficulty regarding his breathing. He denies any other new complaints, no chest pain, no GI or urinary complaints and his mentation is at baseline. No fever. Patient is eager to go home today Patient was cleared for discharge by both pulmonary and cardiology service and per their recommendation patient will be discharged on Lasix 80 mg twice daily and prednisone burst taper. Problems and management plan were discussed with the patient and he verbalized understanding and acceptance Patient was found stable and can be discharged home in guarded prognosis however he needs follow-up as an outpatient. Patient was instructed to follow up with PCP within one week and patient agrees Patient instructed to follow up with his consignee Dr. saucedo in 1-2 week, and with telephone answering service operator Dr. Montalvo in 1-2 weeks. Also patient instructed to follow up with urologist Dr. Henry in one week regarding his Marin catheter inserted in the hospital and he verbalized understanding and acceptance. at bedside and agree with this recommendation Also patient evaluated by palliative consult team and he will follow-up as an outpatient Physical exam Gen: patient is a AAOx3, no distress CVS: S1-S2, RRR, no murmur -Lungs: B/L CTA, no wheezing. Bilateral crepitation. Mildly tachypneic. On nasal cannula 5 L/m of oxygen Abdomen: soft, no distention, no tenderness, positive bowel sounds Extremity: no leg edema or induration Time spent more than 35 minutes Patient Condition at Discharge: Fair Plan - Discharge Summary Discharge Rx Participant: Yes New Discharge Prescriptions: New Furosemide [Lasix] 80 mg PO BID@0900,1600 #60 tab Melatonin 10 mg PO HS PRN #30 tab PRN Reason: Insomnia predniSONE 10 mg PO DIRECTED #40 tab Albuterol Inhaler [Ventolin Hfa Inhaler] 2 puff INHALATION Q6H PRN #1 each PRN Reason: Shortness Of Breath Or Wheezing Potassium Chloride ER [K-Dur 20] 20 meq PO DAILY #30 tab Continue Carbidopa/Levodopa [Carbidopa-Levodopa 10-100 Tab] 1 tab PO DAILY Aspirin 81 mg PO DAILY ALPRAZolam [Xanax] 0.5 mg PO BID PRN PRN Reason: Anxiety predniSONE 5 mg PO DAILY Tamsulosin [Flomax] 0.4 mg PO DAILY #30 cap Discontinued Azithromycin [Zithromax] 250 mg PO Q48H Ibuprofen [Advil] 200 mg PO HS Discharge Medication List Aspirin 81 mg PO DAILY 01/30/20 [History] Carbidopa/Levodopa [Carbidopa-Levodopa 10-100 Tab] 1 tab PO DAILY 01/30/20 [History] ALPRAZolam [Xanax] 0.5 mg PO BID PRN 07/13/21 [History] predniSONE 5 mg PO DAILY 07/13/21 [History] Albuterol Inhaler [Ventolin Hfa Inhaler] 2 puff INHALATION Q6H PRN #1 each 08/04/22 [Rx] Furosemide [Lasix] 80 mg PO BID@0900,1600 #60 tab 08/04/22 [Rx] Melatonin 10 mg PO HS PRN #30 tab 08/04/22 [Rx] Potassium Chloride ER [K-Dur 20] 20 meq PO DAILY #30 tab 08/04/22 [Rx] Tamsulosin [Flomax] 0.4 mg PO DAILY #30 cap 08/04/22 [Rx] predniSONE 10 mg PO DIRECTED #40 tab 08/04/22 [Rx] Follow up Appointment(s)/Referral(s): Prabhakar Campbell MD [STAFF PHYSICIAN] - 08/18/22 10:00 am Adi Tello MD [STAFF PHYSICIAN] - 08/10/22 3:00 pm Wayne Charles MD [STAFF PHYSICIAN] - 08/11/22 8:00 am [facility] [Primary Care Provider] - 1-2 days Activity/Diet/Wound Care/Special Instructions: Lasix 80 mg twice daily for 3 days, then decrease to 40mg twice daily. Dr. Tello will adjust further in the office as indicated. low carbohydrate diet, 1600 kcal per day Activity is restricted till you see your doctor We recommend to stay on low sugar diet, and check your hemoglobin A1c with your doctor in 1 week after you finished her prednisone taper Discharge Disposition: HOME WITH HOME HEALTH SERVICES
[2022-08-05] MEDS ORDERED: TAMSULOSIN 0.4 MG CAP.ER.24H PO SCH (08:30)
== END 2022-08-04 13:53 | disposition home health service (06) | DRG 291 ==
LOC: EC 10:16 → 3SCARD 13:29
PROVIDERS: ADMIT Internal Medicine; ATTEND Internal Medicine
PROC: 0T9B70Z Drainage of Bladder with Drainage Device, Via Natural or Artificial Opening (ICD-10-PCS; principal; 2022-08-02)
DX: I50.31 Acute diastolic (congestive) heart failure (principal); J96.21 Acute and chronic respiratory failure with hypoxia; J84.112 Idiopathic pulmonary fibrosis; I27.29 Other secondary pulmonary hypertension; D69.6 Thrombocytopenia, unspecified; F32.A Depression, unspecified; I07.1 Rheumatic tricuspid insufficiency; S86.111A Strain of other muscle(s) and tendon(s) of posterior muscle group at lower leg level, right leg, initial encounter; I27.23 Pulmonary hypertension due to lung diseases and hypoxia; N43.3 Hydrocele, unspecified; I87.8 Other specified disorders of veins; T50.2X5A Adverse effect of carbonic-anhydrase inhibitors, benzothiadiazides and other diuretics, initial encounter; G20 Parkinson's disease; M19.042 Primary osteoarthritis, left hand; M19.041 Primary osteoarthritis, right hand; R33.9 Retention of urine, unspecified; F43.10 Post-traumatic stress disorder, unspecified; J44.9 Chronic obstructive pulmonary disease, unspecified; Z66 Do not resuscitate; Z77.098 Contact with and (suspected) exposure to other hazardous, chiefly nonmedicinal, chemicals; G47.00 Insomnia, unspecified; Z99.81 Dependence on supplemental oxygen; Z87.891 Personal history of nicotine dependence; Z71.3 Dietary counseling and surveillance; Z79.899 Other long term (current) drug therapy; Z79.82 Long term (current) use of aspirin; Z79.52 Long term (current) use of systemic steroids; Z65.5 Exposure to disaster, war and other hostilities
CPT/HCPCS: 36415; 71046; 76870; 80048; 80053; 83036; 83605; 83880; 84145; 84484; 85025; 85610; 85730; 93005; 93306; 93975; 94760; 96374; 99285; 99291

== ENCOUNTER → 2022-08-25 | Outpatient (CLI) | payer MEDICARE, OTHER ==
[2022-08-25 16:15] LABS: African American GFR (CKD) 88.3 (60.0-200.0); Albumin/Globulin Ratio 1.56 (1.60-3.17); Anion Gap 12.9 mmol/L (10.00-18.00); BUN/Creat Ratio 15.31 Ratio (12.00-20.00); Calcium 9.4 mg/dL (8.7-10.3); Carbon Dioxide 29.8 mmol/L (20.0-27.5); Globulin 2.6 g/dL (1.6-3.3); Non-African American GFR(CKD) 76.2 (60.0-200.0); Potassium 3.9 mmol/L (3.5-5.5); Total Bilirubin 1.1 mg/dL (0.30-1.20); Total Protein 6.6 g/dL (6.2-8.2)
== END | disposition home or self-care (01) ==
LOC: LABWHC1 10:29
PROVIDERS: ATTEND Internal Medicine Clinical Cardiac Electrophysiology
DX: I50.810 Right heart failure, unspecified (principal)
CPT/HCPCS: 36415; 80053

== ENCOUNTER 2022-11-15 18:59 | Inpatient (IN) | payer OTHER, MEDICARE ==
--- NOTE | 2022-11-15 19:49 | ED ---
General Adult HPI - General Chief complaint: Dizziness Stated complaint: abn labs Time Seen by Provider: 11/15/22 19:10 Source: patient, RN notes reviewed, old records reviewed Mode of arrival: EMS Limitations: no limitations - History of Present Illness Initial comments: This is a 72-year-old male with a past medical history significant for pulmonary fibrosis and is on 5 L of oxygen at all times and his pulse oxygenation 84%. Patient also has Parkinson's disease and he finds it difficult to get around per patient also has some intestinal issues. Patient comes in today because on Monday he got lightheaded and passed out and fell he injured his right foot the lateral aspect is ecchymotic he states. And very tender. Patient states today he was feeling the same sensation that he might pass out and he sat down before he did pass out and eventually subsided. Patient states if he gets up and walks any distance he feels as though he will pass out. Family states the weakness in the breathing problems or CHRONIC BUT THIS NEAR PASSING OUT OR PASSING OUT EPISODES OF SOMETHING NEW. PATIENT ADMITS HE DOES NOT EAT MUCH BUT STATES HE DOES DRINK A LOT OF WATER. PATIENT DENIES ANY FEVER CHILLS OR COUGH. PATIENT DENIES ABDOMINAL PAIN PATIENT DENIES NAUSEA VOMITING. - Related Data Home Medications Medication Instructions Recorded Confirmed Aspirin 81 mg PO DAILY 01/30/20 08/02/22 Carbidopa/Levodopa 1 tab PO DAILY 01/30/20 08/02/22 [Carbidopa-Levodopa 10-100 Tab] ALPRAZolam [Xanax] 0.5 mg PO BID PRN 07/13/21 08/02/22 predniSONE 5 mg PO DAILY 07/13/21 08/02/22 Previous Rx's Medication Instructions Recorded Albuterol Inhaler [Ventolin Hfa 2 puff INHALATION Q6H PRN #1 each 08/04/22 Inhaler] Furosemide [Lasix] 80 mg PO BID@0900,1600 #60 tab 08/04/22 Melatonin 10 mg PO HS PRN #30 tab 08/04/22 Potassium Chloride ER [K-Dur 20] 20 meq PO DAILY #30 tab 08/04/22 Tamsulosin [Flomax] 0.4 mg PO DAILY #30 cap 08/04/22 predniSONE 10 mg PO DIRECTED #40 tab 08/04/22 Allergies Allergy/AdvReac Type Severity Reaction Status Date / Time No Known Allergies Allergy Verified 11/15/22 19:12 Review of Systems ROS Statement: Those systems with pertinent positive or pertinent negative responses have been documented in the HPI. ROS Other: All systems not noted in ROS Statement are negative. Past Medical History Past Medical History: Musculoskeletal Disorder, Neurologic Disorder Additional Past Medical History / Comment(s): Parkinson's disease, essential tremors, headaches, arthritis bilateral hands, vertigo with heights, bronchitis. IPF History of Any Multi-Drug Resistant Organisms: None Reported Past Surgical History: Cholecystectomy Additional Past Surgical History / Comment(s): Colonoscopy with polypectomy, Past Anesthesia/Blood Transfusion Reactions: No Reported Reaction Past Psychological History: No Psychological Hx Reported, PTSD Smoking Status: Former smoker Past Alcohol Use History: Occasional Past Drug Use History: None Reported - Past Family History Father Family Medical History: Cancer Additional Family Medical History / Comment(s): Father had a form of leukemia. Mother Family Medical History: Cancer Additional Family Medical History / Comment(s): Mother from sarcoma. General Exam - General Exam Comments Initial Comments: GENERAL: Patient is well-developed and well-nourished. Patient is nontoxic and well- hydrated and is in mild distress. ENT: Neck is soft and supple. No significant lymphadenopathy is noted. Oropharynx is clear. Moist mucous membranes. Neck has full range of motion without eliciting any pain. EYES: The sclera were anicteric and conjunctiva were pink and moist. Extraocular movements were intact and pupils were equal round and reactive to light. Eyelids were unremarkable. PULMONARY: Unlabored respirations. Good breath sounds bilaterally. Crackles bilaterally CARDIOVASCULAR: There is a regular rate and rhythm without any murmurs gallops or rubs. ABDOMEN: Soft and nontender with normal bowel sounds. SKIN: Skin is clear with no lesions or rashes and otherwise unremarkable. NEUROLOGIC: Patient is alert and oriented x3. Cranial nerves II through XII are grossly intact. Motor and sensory are also intact. Normal speech, volume and content. Symmetrical smile. MUSCULOSKELETAL: Normal extremities with adequate strength and full range of motion. No lower extremity swelling or edema. No calf tenderness. LYMPHATICS: No significant lymphadenopathy is noted PSYCHIATRIC: Normal psychiatric evaluation. Limitations: no limitations Course Vital Signs 11/15/22 11/15/22 19:03 20:14 Temperature 97.5 F L Pulse Rate 83 Respiratory 18 Rate Blood Pressure 105/71 Blood Pressure 101/75 [Left Arm Sitting] Blood Pressure 95/72 [Left Arm Standing] Blood Pressure 106/90 [Left Arm Supine] O2 Sat by Pulse 86 L Oximetry Medical Decision Making - Medical Decision Making EKG is interpreted by myself shows sinus rhythm at 84 bpm SD interval 292 respiratory 90 QT interval 390 QTC is 431 per patient's EKG shows no ST segment elevation or depression however there is a right bundle branch block. Was pt. sent in by a medical professional or institution (, [facility], [facility], urgent care, hospital, or [facility]...) When possible be specific @ -No Did you speak to anyone other than the patient for history (EMS, parent, family, police, friend...)? What history was obtained from this source @ - and daughter gave part of the history Did you review nursing and triage notes (agree or disagree)? Why? @ -I reviewed and agree with nursing and triage notes Were old charts reviewed (outside hosp., previous admission, EMS record, old EKG, old radiological studies, urgent care reports/EKG's, [facility] records)? Report findings @ -I reviewed prior charts prior lab work and prior radiological studies Differential Diagnosis (chest pain, altered mental status, abdominal pain women, abdominal pain men, vaginal bleeding, weakness, fever, dyspnea, syncope, headache, dizziness, GI bleed, back pain, seizure, CVA, palpatations, mental health, musculoskeletal)? @ -Differential Syncope: Valvular disease, hypertrophic cardiomyopathy, pulmonary embolism, tamponade, tachycardia, bradycardia, FL, hypovolemia, hemorrhage, dissection, anemia, intracranial hemorrhage, seizure, hypoglycemia, carbon monoxide poisoning, this is not meant to be an all-inclusive list. EKG interpreted by me (3pts min.). @ -As above X-rays interpreted by me (1pt min.). @ -Chest x-ray shows no acute changes from last x-ray CT interpreted by me (1pt min.). @ -None done U/S interpreted by me (1pt. min.). @ -None done What testing was considered but not performed or refused? (CT, X-rays, U/S, labs)? Why? @ -None What meds were considered but not given or refused? Why? @ -None Did you discuss the management of the patient with other professionals (professionals i.e. , PA, HEEL SANDER, lab, RT, psych nurse, social services analyst, special police officer, teacher, community chest officer, assistant case manager)? Give summary @ -[place] was [facility] physician's agreed to admit the patient Was smoking cessation discussed for >3mins.? @ -No Was critical care preformed (if so, how long)? @ -No Were there social determinants of health that impacted care today? How? (Homelessness, low income, unemployed, alcoholism, drug addiction, transportat ion, low edu. Level, literacy, decrease access to med. care, retirement, rehab)? @ -No Was there de-escalation of care discussed even if they declined (Discuss DNR or withdrawal of care, Hospice)? DNR status @ -No What co-morbidities impacted this encounter? (DM, HTN, Smoking, COPD, CAD, Cancer, CVA, ARF, Chemo, Hep., AIDS, mental health diagnosis, sleep apnea, morbid obesity)? @ -None Was patient admitted / discharged? Hospital course, mention meds given and route, prescriptions, significant lab abnormalities, going to OR and other pertinent info. @ -Patient remained asymptomatic while lying in bed. Patient did get up to do orthostatic blood pressures she was not orthostatic. Did feel little dizzy on standing I spoke with [facility]'s agreed to admit the patient admitted the patient wrote admitting orders Undiagnosed new problem with uncertain prognosis? @ -No Drug Therapy requiring intensive monitoring for toxicity (Heparin, Nitro, Insulin, Cardizem)? @ -No Were any procedures done? @ -No Diagnosis/symptom? @ -Syncope Acute, or Chronic, or Acute on Chronic? @ -Acute Uncomplicated (without systemic symptoms) or Complicated (systemic symptoms)? @ -Complicated Side effects of treatment? @ -No Exacerbation, Progression, or Severe Exacerbation? @ -No Poses a threat to life or bodily function? How? (Chest pain, USA, FL, pneumonia, PE, COPD, DKA, ARF, appy, cholecystitis, CVA, Diverticulitis, Homicidal, Suicidal, threat to staff... and all critical care pts) @ -Yes this could be indicative of an arrhythmia which can lead to significant more. He or mortality Diagnosis/symptom? @ -Fractured toe Acute, or Chronic, or Acute on Chronic? @ -Acute Uncomplicated (without systemic symptoms) or Complicated (systemic symptoms)? @ -Complicated Side effects of treatment? @ -none Exacerbation, Progression, or Severe Exacerbation] @ -no Poses a threat to life or bodily function? @ -no - Lab Data Result diagrams: 11/15/22 19:44 11/15/22 19:44 Lab Results 11/15/22 11/15/22 11/15/22 Range/Units 19:44 19:44 19:44 WBC 9.6 (3.8-10.6) k/uL RBC 5.36 (4.30-5.90) m/uL Hgb 16.9 (13.0-17.5) gm/dL Hct 50.5 (39.0-53.0) % MCV 94.3 (80.0-100.0) fL MCH 31.5 (25.0-35.0) pg MCHC 33.4 (31.0-37.0) g/dL RDW 14.3 (11.5-15.5) % Plt Count 141 L (150-450) k/uL MPV 8.9 PT 11.7 (9.0-12.0) sec INR 1.1 (<1.2) APTT 22.6 (22.0-30.0) sec Sodium 129 L (137-145) mmol/L Potassium 3.4 L (3.5-5.1) mmol/L Chloride 90 L (98-107) mmol/L Carbon Dioxide 26 (22-30) mmol/L Anion Gap 13 mmol/L BUN 29 H (9-20) mg/dL Creatinine 0.79 (0.66-1.25) mg/dL Est GFR (CKD-EPI)AfAm >90 (>60 ml/min/1.73 sqM) Est GFR (CKD-EPI)NonAf 89 (>60 ml/min/1.73 sqM) Glucose 168 H (74-99) mg/dL Calcium 9.0 (8.4-10.2) mg/dL Magnesium 1.7 (1.6-2.3) mg/dL Total Bilirubin 1.5 H (0.2-1.3) mg/dL AST 31 (17-59) U/L ALT 17 (4-49) U/L Alkaline Phosphatase 72 (38-126) U/L Total Protein 6.5 (6.3-8.2) g/dL Albumin 3.9 (3.5-5.0) g/dL Disposition Clinical Impression: Fracture of proximal phalanx of toe, Syncope Disposition: ADMITTED IP TO THIS HOSP Referrals: [facility],Clinic [Primary Care Provider] - 1-2 days Time of Disposition: 20:19
[2022-11-15 19:59] LABS: HCT 50.5 % (39.0-53.0); HGB 16.9 gm/dL (13.0-17.5); MCH 31.5 pg (25.0-35.0); MCHC 33.4 g/dL (31.0-37.0); MCV 94.3 fL (80.0-100.0); Mean Platelet Volume 8.9; Platelet Count 141 k/uL (150-450); RBC 5.36 m/uL (4.30-5.90); RDW 14.3 % (11.5-15.5); WBC 9.6 k/uL (3.8-10.6)
[2022-11-15 20:07] LABS: INR 1.1 (<1.2); Partial Thromboplastin Time 22.6 sec (22.0-30.0); Prothrombin Time 11.7 sec (9.0-12.0)
[2022-11-15 20:09] LABS: ALT 17 U/L (4-49); AST 31 U/L (17-59); African American GFR (CKD) >90 (>60 ml/min/1.73 sqM); Albumin 3.9 g/dL (3.5-5.0); Alkaline Phosphatase 72 U/L (38-126); Anion Gap 13 mmol/L; Blood Urea Nitrogen 29 mg/dL (9-20); Carbon Dioxide 26 mmol/L (22-30); Chloride 90 mmol/L (98-107); Glucose 168 mg/dL (74-99); Magnesium 1.7 mg/dL (1.6-2.3); Non-African American GFR(CKD) 89 (>60 ml/min/1.73 sqM); Potassium 3.4 mmol/L (3.5-5.1); Sodium 129 mmol/L (137-145); Total Bilirubin 1.5 mg/dL (0.2-1.3); Total Protein 6.5 g/dL (6.3-8.2)
[2022-11-15] MEDS ORDERED: NITROGLYCERIN SL TABS 0.4 MG TAB SUBLINGUAL PRN (20:21)
--- NOTE | 2022-11-15 20:30 | XR ---
EXAMINATION TYPE: XR foot complete RT DATE OF EXAM: 11/15/2022 8:02 PM INDICATION: Patient age:Male; 72 years old; Reason for study: Trauma; COMPARISON: None TECHNIQUE: The right foot was examined in the AP, oblique, and lateral projections. FINDINGS: Lucency through the fifth digit proximal phalanx head with intra-articular extension to the proximal interphalangeal joint. Mild soft tissue swelling is present. Joints are preserved. Calcaneal plantar spurring is present. IMPRESSION: Lucency through the fifth digit proximal phalanx head with intra-articular extension suspicious for f racture correlate with point tenderness of the fifth digit.
--- NOTE | 2022-11-15 20:31 | XR ---
EXAMINATION TYPE: XR chest 2V DATE OF EXAM: 11/15/2022 8:02 PM COMPARISON: Chest radiographs from 07/25/2022 TECHNIQUE: XR chest 2V Frontal and lateral views of the chest. CLINICAL INDICATION:Male, 72 years old with history of Chest Pain; FINDINGS: Lungs/Pleura: Interstitial lung disease changes are similar and most proximal lung bases. There is no evidence of pleural effusion, focal consolidation, or pneumothorax. Pulmonary vascularity: Unremarkable. Heart/mediastinum: Cardiomediastinal silhouette is unremarkable. Musculoskeletal: No acute osseous pathology. IMPRESSION: Similar fibrotic disease, no significant change from prior
[2022-11-15 20:53] LABS: Eosinophils # (M) 0.19 k/uL (0-0.7); Lymphocytes # (M) 1.63 k/uL (1.0-4.8); Monocytes # (M) 0.58 k/uL (0-1.0); Neutrophils % (M) 75 %; Nucleated Red Blood Cells 0 /100 WBC (0-0); Total Cells Counted 100
--- NOTE | 2022-11-16 01:16 | P.HPIM ---
History of Present Illness H&P Date: 11/15/22 Chief Complaint: syncopal episodes 72 year old male wtih idiopathic pulmonary fibrosis , diastolic CHF, parkinson coming in today for recurrent syncopal episode first episode was Monday , he is wheelchair bound, but was transferring himself as he does usually by standing up and taking few steps to his bed or chair, he does not remember what happened but he suddenly wakes up on the floor confused, the was at home, heard the THud and rushed to check on him, found him on the ground confused , not knowing whats going on, and took him few minutes to re focus. denies any injuries , except for his right foot which is bruised and hurting. they did not seek help that day, and next day called cardiology and made them aware of the event today , he was in his chair , as he was trying to get up , he felt he will pass out again, and sat down immediately , his was next to him and she describes that he looked floppy and confused for few seconds until he was able to refocus . upon EMS arrival today , his vitals were stable , and sugar was unremarkable he denies any similar events in the past except when he was told he had a stroke back in July, where he had some type of similar event then. he has advanced lung fibrosis , on home oxygen and has parkinson and currently wheelchair bound denies any cough , fever, shortness of breath, abd pain , chest pain reports pain over his right foot, at site of injury on Monday denies tobacco smoking or illicit drugs or alcohol review of systems Pertinent positives as noted in HPI. All other systems were reviewed and are negative on exam Constitutional: No acute distress, conversant, pleasant Eyes: Anicteric sclerae, moist conjunctiva, Pupils equal round reactive to light ENMT: NC/AT Oropharynx clear, no erythema, or exudates Neck: Supple, no masses, or JVD No carotid bruits No thyromegaly Lungs: inspiratory fine rales bilaterally Clear to percussion Normal respiratory effort, no accessory muscle use Cardiovascular: Heart regular in rate and rhythm, No murmurs, gallops, or rubs No peripheral edema Abdominal: Soft Nontender, no guarding, rebound or rigidity Abdomen moving with respiration Normoactive bowel sounds No hepatomegaly, No splenomegaly No palpable mass No abdominal wall hernia noted Skin: echymosis over the left forearm , and the right foot which is tender to palpation over the fifth toe. no open wounds Extremities: No digital cyanosis positive clubbing Pedal pulses intact and symmetrical Radial pulses intact and symmetrical No calf tenderness Psychiatric: Alert and oriented to person, place and time Neuro Muscles Strength 4/5 in all 4 extremities Sensation to light touch grossly present throughout Cranial nerves II-XII grossly intact Lymphatics: no palpable cervical or supraclavicular lymph nodes Past Medical History Past Medical History: Musculoskeletal Disorder, Neurologic Disorder Additional Past Medical History / Comment(s): Parkinson's disease, essential tremors, headaches, arthritis bilateral hands, vertigo with heights, bronchitis. IPF History of Any Multi-Drug Resistant Organisms: None Reported Past Surgical History: Cholecystectomy Additional Past Surgical History / Comment(s): Colonoscopy with polypectomy, Past Anesthesia/Blood Transfusion Reactions: No Reported Reaction Past Psychological History: No Psychological Hx Reported, PTSD Smoking Status: Former smoker Past Alcohol Use History: Occasional Past Drug Use History: None Reported - Past Family History Father Family Medical History: Cancer Additional Family Medical History / Comment(s): Father had a form of leukemia. Mother Family Medical History: Cancer Additional Family Medical History / Comment(s): Mother from sarcoma. Medications and Allergies Home Medications Medication Instructions Recorded Confirmed Type Carbidopa/Levodopa 1 tab PO DAILY 01/30/20 11/15/22 History [Carbidopa-Levodopa 10-100 Tab] ALPRAZolam [Xanax] 0.5 mg PO HS 07/13/21 11/15/22 History predniSONE 5 mg PO DAILY 07/13/21 11/15/22 History Potassium Chloride ER [K-Dur 20] 20 meq PO DAILY #30 tab 08/04/22 11/15/22 Rx ALPRAZolam [Xanax] 0.5 mg PO DAILY PRN 11/15/22 11/15/22 History Furosemide [Lasix] 40 mg PO DAILY 11/15/22 11/15/22 History Metoprolol Succinate (ER) [Toprol 12.5 mg PO DAILY 11/15/22 11/15/22 History Xl] Morphine Sulfate [Morphine Sulfate 10 mg PO HS 11/15/22 11/15/22 History 10 MG/5 ML] metOLazone 2.5 mg PO MOTH 11/15/22 11/15/22 History Allergies Allergy/AdvReac Type Severity Reaction Status Date / Time No Known Allergies Allergy Verified 11/15/22 22:03 Physical Exam Vitals: Vital Signs Temp Pulse Resp BP BP BP BP 11/16/22 00:04 97.2 F L 76 18 103/80 11/15/22 22:10 73 107/77 11/15/22 21:10 87 110/80 11/15/22 21:00 79 106/83 11/15/22 20:50 80 106/83 11/15/22 20:20 81 95/72 11/15/22 20:14 101/75 95/72 106/90 11/15/22 20:10 85 101/75 11/15/22 19:40 80 115/85 11/15/22 19:30 86 113/81 11/15/22 19:03 97.5 F L 83 18 105/71 Pulse Ox 11/16/22 00:04 86 L 11/15/22 22:10 93 L 11/15/22 21:10 11/15/22 21:00 11/15/22 20:50 11/15/22 20:20 11/15/22 20:14 11/15/22 20:10 11/15/22 19:40 87 L 11/15/22 19:30 89 L 11/15/22 19:03 86 L Intake and Output 11/15/22 11/15/22 11/16/22 14:59 22:59 06:59 Other: Weight 83.915 kg Results CBC & Chem 7: 11/15/22 19:44 11/15/22 19:44 Labs: Abnormal Lab Results - Last 24 Hours (Table) 11/15/22 11/15/22 Range/Units 19:44 19:44 Plt Count 141 L (150-450) k/uL Sodium 129 L (137-145) mmol/L Potassium 3.4 L (3.5-5.1) mmol/L Chloride 90 L (98-107) mmol/L BUN 29 H (9-20) mg/dL Glucose 168 H (74-99) mg/dL Total Bilirubin 1.5 H (0.2-1.3) mg/dL Assessment and Plan Assessment: 72 year old male coming in for evaluation of recurrent syncpal episodes , I discussed the case with ED doc and I accepted the admission for cardiac monitoring and evaluation with anticipate length of stay > 2 midnights syncopal episodes fall precautions EKG showing RBBB CXR no acute finding , chronic fibrotic changes supplemental oxygen as needed, he is on 5 LPM at home with oxygen sat maintaining 82-86% at baseline orthostatic vital s negative cardiology eval night monitor neuro checks daily weight check echocardiogram hyponatremia Na 129 hold diuretics gentle IVF hydration NS 75 cc per hour blood work unremarkable WBC 9.6, Hgb 16.9 BUN 29 cr 0.79 K 3.4 chronic conditions parkinson idopathic pulmonar fibrosis diastolic CHF resume home meds No code DVT PPX heparin sc tid 5000 u
[2022-11-16] MEDS: ALPRAZolam 0.5 MG TAB PO SCH ×3 (02:08→20:35)
[2022-11-16] MEDS: SODIUM CHLORIDE 0.9% 1,000 ML IV SCH ×2 (05:57→15:37)
[2022-11-16] MEDS: predniSONE 5 MG TAB PO SCH (07:56)
[2022-11-16] MEDS: CARBIDOPA-LEVODOPA 10-100 MG 1 EACH TAB PO SCH (07:56)
[2022-11-16] MEDS: HEPARIN SODIUM,PORCINE/PF 5,000 UNIT/0.5 ML SYRINGE SQ SCH ×3 (07:56→23:44)
[2022-11-16] MEDS ORDERED: METOPROLOL SUCCINATE (ER) 25 MG TAB.ER.24H PO SCH (09:00)
[2022-11-16] MEDS ORDERED: ASPIRIN 325 MG TAB PO SCH (09:00)
[2022-11-16 09:38] LABS: LDL Cholesterol,Calculated 34.4 mg/dL (0.0-131.0); VLDL Calculation 15.84 mg/dL (5.00-40.00)
--- NOTE | 2022-11-16 09:58 | P.CNOR ---
History of Present Illness - [facility] Consult date: 11/16/22 Consult reason: fracture (Right small toe fracture) History of present illness: Patient is a 72-year-old male who presented to [facility] on 11/15/2022 with regards to multiple syncopal episodes. Patient has a known medical history of pulmonary fibrosis, CHF and Parkinson's. Currently the claire ent has had 2 syncopal episodes and falls over the last few days. Patient's family did bring patient to the hospital on 11/15/2022 for further evaluation. During evaluation by ER, was noted he was complaining of right foot pain, x-rays were ordered. Images demonstrated a fracture of the right fifth toe proximal phalanx. Our orthopedic team was consulted. Other medical specialty consults have in place. Patient was evaluated today in the emergency room, the patient's is also present at bedside. Patient spends most of the time in the wheelchair, he is able to transfer with the use of a cane. Patient is on home oxygen. He does note some discomfort to the right small toe. Patient awake post a there when he fell both legs were turned insignificantly and he rolled off on the right foot. Patient complains of tenderness involving the rest of the right foot, lower leg, knee or hip. He denies any significant left lower extremity discomfort at this time. He denies any bilateral upper extremity tenderness. He denies any lightheadedness or headaches at this time. Denies any previous orthopedic surgery to the right lower extremity. Review of Systems Constitutional: Reports as per HPI Past Medical History Past Medical History: Musculoskeletal Disorder, Neurologic Disorder Additional Past Medical History / Comment(s): Parkinson's disease, essential tremors, headaches, arthritis bilateral hands, vertigo with heights, bronchitis. IPF History of Any Multi-Drug Resistant Organisms: None Reported Past Surgical History: Cholecystectomy Additional Past Surgical History / Comment(s): Colonoscopy with polypectomy, Past Anesthesia/Blood Transfusion Reactions: No Reported Reaction Past Psychological History: No Psychological Hx Reported, PTSD Smoking Status: Former smoker Past Alcohol Use History: Occasional Past Drug Use History: None Reported - Past Family History Father Family Medical History: Cancer Additional Family Medical History / Comment(s): Father had a form of leukemia. Mother Family Medical History: Cancer Additional Family Medical History / Comment(s): Mother from sarcoma. Medications and Allergies Home Medications Medication Instructions Recorded Confirmed Type Carbidopa/Levodopa 1 tab PO DAILY 01/30/20 11/15/22 History [Carbidopa-Levodopa 10-100 Tab] ALPRAZolam [Xanax] 0.5 mg PO HS 07/13/21 11/15/22 History predniSONE 5 mg PO DAILY 07/13/21 11/15/22 History Potassium Chloride ER [K-Dur 20] 20 meq PO DAILY #30 tab 08/04/22 11/15/22 Rx ALPRAZolam [Xanax] 0.5 mg PO DAILY PRN 11/15/22 11/15/22 History Furosemide [Lasix] 40 mg PO DAILY 11/15/22 11/15/22 History Metoprolol Succinate (ER) [Toprol 12.5 mg PO DAILY 11/15/22 11/15/22 History Xl] Morphine Sulfate [Morphine Sulfate 10 mg PO HS 11/15/22 11/15/22 History 10 MG/5 ML] metOLazone 2.5 mg PO MOTH 11/15/22 11/15/22 History Allergies Allergy/AdvReac Type Severity Reaction Status Date / Time No Known Allergies Allergy Verified 11/15/22 22:03 Physical Examination Right lower extremity: No obvious open lesions or sores visualized throughout the extremity. There is some bruising noted into the fifth toe. There is no effusion present on the knee Tenderness with palpation to the proximal phalanx of the right small toe, no tenderness with palpation of the fourth, third, second and first toe. He is nontender with palpation throughout the midfoot, forefoot or hindfoot. Patient demonstrates no point tenderness about the right lower leg, knee, upper thigh for hip region Plantar flexion, dorsiflexion, EHL, FHL are intact. Extension and flexion are intact at the knee, no pain is reproduced with hip flexion. Logroll maneuver reproduces no pain in the groin Calf is soft, no tenderness with palpation Sensory exam to light touch is intact throughout the extremity Dorsalis pedis pulses 2+ Results - Labs Labs: Abnormal Lab Results - Last 24 Hours (Table) 11/15/22 11/15/22 11/16/22 Range/Units 19:44 19:44 02:24 Plt Count 141 L (150-450) k/uL Sodium 129 L (137-145) mmol/L Potassium 3.4 L (3.5-5.1) mmol/L Chloride 90 L (98-107) mmol/L BUN 29 H (9-20) mg/dL Glucose 168 H (74-99) mg/dL Total Bilirubin 1.5 H (0.2-1.3) mg/dL HDL Cholesterol 35.80 L (40.00-60.00) mg/dL H & H 11/15/22 Range/Units 19:44 Hgb 16.9 (13.0-17.5) gm/dL Hct 50.5 (39.0-53.0) % Coagulation 11/15/22 Range/Units 19:44 INR 1.1 (<1.2) Result Diagrams: 11/15/22 19:44 11/15/22 19:44 - Diagnostic results Ankle/Foot x-ray: report reviewed, image reviewed (Images and report reviewed of the right foot. Images did demonstrate a mildly displaced fracture of the proximal phalanx of the right fifth toe) Assessment and Plan Assessment: Right foot pain Mildly displaced right small toe proximal phalanx fracture Syncopal episode with fall Multiple medical comorbidities Plan: I was able to discuss the case, this including but physical exam findings and imaging studies might attending Dr. ewing. No orthopedic surgical int ervention is recommended at this time Recommended conservative management, this including icing and elevating of the extremity. Recommended that the patient utilize a supportive athletic shoe. Advised that when he does transfer for weightbearing to place most of the weight through his heel versus the forefoot. Pain control, Tylenol and NSAIDs as needed DVT prophylaxis per primary medical service Discharge planning: On an orthopedic standpoint patient is stable for discharge, plan for follow-up in the outpatient setting for x-ray and clinical evaluation Time with Patient: Less than 30
--- NOTE | 2022-11-16 10:34 | P.CRDCN ---
History of Present Illness History of present illness: HISTORY OF PRESENT ILLNESS: This is a 72-year-old male with a past medical history significant for pulmonary fibrosis, pulmonary hypertension, home oxygen, and Parkinson's disease. Patient follows in the office with Dr. Tello. We have been asked to see the patient in consultation for syncope. Patient examined at the bedside in the emergency room. Patient states that he had been noticing his heart rate was between 100 and 120 with minimal exertion. 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 He states 4 days after he took his first dose of this is when he had his first syncopal episode. On S ay, the patient states he had up to walk to the bathroom which was less than 10 feet from where he was in on his way back when he was walking into the bedroom he passed out. His spouse is at the bedside and states that he was out for less than 1 minute. She reports that he was confused afterwards and did not recognize her. The patient states he had a similar episode yesterday. He states that he was walking to his wheelchair when he began to feel lightheaded and thought he was going to pass out so he grabbed onto something for support. He states he did not actually have a syncopal episode yesterday. The patient currently denies any shortness of breath. He reports having a cough with mild sputum production. He reports having mild nausea at home. He also reports he has been having some occasional left-sided chest pain. He states this happened a couple days ago which felt like a sharp pain in his side and resolved on its own. * EKG reveals sinus mechanism with right bundle branch block * Chest xray similar fibrotic disease, no significant change from prior. * Laboratory data: WBC 9.6. Hemoglobin 16.9. Platelet count 141. Sodium 129. Potassium 3.4. BUN 29. Creatinine 0.79. Troponin negative 3. ProBNP 5480. * Current home cardiac medications include Lasix 40 mg daily, metolazone 2.5 mg on Monday and , and metoprolol succinate 12.5 mg daily * Most recent echocardiogram obtained in July 2022 revealed ejection fraction 50%, severe pulmonary hypertension, mild mitral regurgitation, severe tricuspid regurgitation REVIEW OF SYSTEMS: At the time of my exam: CONSTITUTIONAL: Denies fever or chills. HEENT: Denies blurred vision, vision changes, or eye pain. Denies hemoptysis CARDIOVASCULAR: Denies chest pain. Denies orthopnea. Denies PND. Denies palpitations RESPIRATORY: Denies shortness of breath. GASTROINTESTINAL: Denies abdominal pain. Denies nausea or vomiting. HEMATOLOGIC: Denies bleeding disorders. GENITOURINARY: Denies any blood in urine. SKIN: Denies pruitis. Denies rash. PHYSICAL EXAM: VITAL SIGNS: Reviewed. GENERAL: Well-developed in no acute distress. HEENT: Head is normocephalic. Pupils are equal, round. Sclerae anicteric. Mucous membranes of the mouth are moist. Neck supple. No JVD or thyromegaly LUNGS: Respirations even and unlabored. Lungs essentially clear to auscultation bilaterally. HEART: Regular rate and rhythm. S1 and S2 heard. Systolic murmur noted ABDOMEN: Soft. Nondistended. Nontender. EXTREMITIES: Normal range of motion. No clubbing or cyanosis. Peripheral pulses intact. No lower extremity edema NEUROLOGIC: Awake and alert. Oriented x 3. ASSESSMENT: Syncope, suspect secondary to orthostatic hypotension, possibly worsened by addition of metoprolol Pulmonary fibrosis Severe pulmonary hypertension Chronic hypoxic respiratory failure on home oxygen Chronic congestive heart failure with preserved EF, currently euvolemic Valvular heart disease History of Parkinson's disease History of CVA PLAN: No need to repeat echocardiogram as this was performed in July 2022 Discontinue metoprolol Continue to monitor blood pressure Patient encouraged to change positions slowly If patient remains stable, he may be discharged home this afternoon and follow- up on an outpatient basis with Dr. Tello Nurse practitioner note has been reviewed by physician. Signing provider agrees with the documented findings, assessment, and plan of care. Past Medical History Past Medical History: Musculoskeletal Disorder, Neurologic Disorder Additional Past Medical History / Comment(s): Parkinson's disease, essential tremors, headaches, arthritis bilateral hands, vertigo with heights, bronchitis. IPF History of Any Multi-Drug Resistant Organisms: None Reported Past Surgical History: Cholecystectomy Additional Past Surgical History / Comment(s): Colonoscopy with polypectomy, Past Anesthesia/Blood Transfusion Reactions: No Reported Reaction Past Psychological History: No Psychological Hx Reported, PTSD Smoking Status: Former smoker Past Alcohol Use History: Occasional Past Drug Use History: None Reported - Past Family History Father Family Medical History: Cancer Additional Family Medical History / Comment(s): Father had a form of leukemia. Mother Family Medical History: Cancer Additional Family Medical History / Comment(s): Mother from sarcoma. Medications and Allergies Home Medications Medication Instructions Recorded Confirmed Type Carbidopa/Levodopa 1 tab PO DAILY 01/30/20 11/15/22 History [Carbidopa-Levodopa 10-100 Tab] ALPRAZolam [Xanax] 0.5 mg PO HS 07/13/21 11/15/22 History predniSONE 5 mg PO DAILY 07/13/21 11/15/22 History Potassium Chloride ER [K-Dur 20] 20 meq PO DAILY #30 tab 08/04/22 11/15/22 Rx ALPRAZolam [Xanax] 0.5 mg PO DAILY PRN 11/15/22 11/15/22 History Furosemide [Lasix] 40 mg PO DAILY 11/15/22 11/15/22 History Metoprolol Succinate (ER) [Toprol 12.5 mg PO DAILY 11/15/22 11/15/22 History Xl] Morphine Sulfate [Morphine Sulfate 10 mg PO HS 11/15/22 11/15/22 History 10 MG/5 ML] metOLazone 2.5 mg PO MOTH 11/15/22 11/15/22 History Allergies Allergy/AdvReac Type Severity Reaction Status Date / Time No Known Allergies Allergy Verified 11/15/22 22:03 Physical Exam Vitals: Vital Signs Temp Pulse Resp BP BP BP BP 11/16/22 07:57 69 16 106/82 11/16/22 05:51 97.2 F L 65 16 107/78 11/16/22 02:43 98 F 75 17 110/80 11/16/22 00:04 97.2 F L 76 18 103/80 11/15/22 22:10 73 107/77 11/15/22 21:10 87 110/80 11/15/22 21:00 79 106/83 11/15/22 20:50 80 106/83 11/15/22 20:20 81 95/72 11/15/22 20:14 101/75 95/72 106/90 11/15/22 20:10 85 101/75 11/15/22 19:40 80 115/85 11/15/22 19:30 86 113/81 11/15/22 19:03 97.5 F L 83 18 105/71 Pulse Ox 11/16/22 07:57 90 L 11/16/22 05:51 92 L 11/16/22 02:43 89 L 11/16/22 00:04 86 L 11/15/22 22:10 93 L 11/15/22 21:10 11/15/22 21:00 11/15/22 20:50 11/15/22 20:20 11/15/22 20:14 11/15/22 20:10 11/15/22 19:40 87 L 11/15/22 19:30 89 L 11/15/22 19:03 86 L Intake and Output 11/15/22 11/16/22 11/16/22 22:59 06:59 14:59 Other: Weight 83.915 kg Results 11/15/22 19:44 11/15/22 19:44 Cardiac Enzymes 11/15/22 11/15/22 11/15/22 Range/Units 19:44 19:44 23:12 AST 31 (17-59) U/L Troponin I 0.025 0.027 (0.000-0.034) ng/mL 11/16/22 Range/Units 02:24 AST (17-59) U/L Troponin I 0.032 (0.000-0.034) ng/mL Coagulation 11/15/22 Range/Units 19:44 PT 11.7 (9.0-12.0) sec APTT 22.6 (22.0-30.0) sec CBC 11/15/22 Range/Units 19:44 WBC 9.6 (3.8-10.6) k/uL RBC 5.36 (4.30-5.90) m/uL Hgb 16.9 (13.0-17.5) gm/dL Hct 50.5 (39.0-53.0) % Plt Count 141 L (150-450) k/uL Comprehensive Metabolic Panel 11/15/22 Range/Units 19:44 Sodium 129 L (137-145) mmol/L Potassium 3.4 L (3.5-5.1) mmol/L Chloride 90 L (98-107) mmol/L Carbon Dioxide 26 (22-30) mmol/L BUN 29 H (9-20) mg/dL Creatinine 0.79 (0.66-1.25) mg/dL Glucose 168 H (74-99) mg/dL Calcium 9.0 (8.4-10.2) mg/dL AST 31 (17-59) U/L ALT 17 (4-49) U/L Alkaline Phosphatase 72 (38-126) U/L Total Protein 6.5 (6.3-8.2) g/dL Albumin 3.9 (3.5-5.0) g/dL Current Medications Generic Name Dose Route Start Last Admin Trade Name Laminq PRN Reason Stop Dose Admin Alprazolam 0.5 mg 11/16/22 00:45 11/16/22 02:45 Alprazolam 0.5 Mg Tab PO 0.5 mg HS SOPHIA Administration Aspirin 325 mg 11/16/22 09:00 11/16/22 07:56 Aspirin 325 Mg Tab PO 325 mg DAILY SOPHIA Administration Carbidopa/Levodopa 1 each 11/16/22 09:00 11/16/22 07:56 Carbidopa-Levodopa 10-100 Mg 1 Each Tab PO 1 each DAILY SOPHIA Administration Heparin Sodium (Porcine) 5,000 unit 11/16/22 08:00 11/16/22 07:56 Heparin Sodium,Porcine/Pf 5,000 Unit/0.5 Ml Syringe SQ 5,000 unit Q8HR SOPHIA Administration Sodium Chloride 1,000 mls @ 75 mls/hr 11/16/22 01:30 11/16/22 05:57 Saline 0.9% IV 75 mls/hr .[id number] SOPHIA Administration Metoprolol Succinate 12.5 mg 11/16/22 09:00 11/16/22 07:56 Metoprolol Succinate (Er) 25 Mg Tab.Er.24h PO 12.5 mg DAILY SOPHIA Administration Nitroglycerin 0.4 mg 11/15/22 20:21 Nitroglycerin Sl Tabs 0.4 Mg Tab SUBLINGUAL Q5M PRN Chest Pain Prednisone 5 mg 11/16/22 09:00 11/16/22 07:56 Prednisone 5 Mg Tab PO 5 mg DAILY SOPHIA Administration Intake and Output 11/15/22 11/16/22 11/16/22 22:59 06:59 14:59 Other: Weight 83.915 kg 11/15/22 19:44 11/15/22 19:44
--- NOTE | 2022-11-16 11:49 | P.PN ---
Subjective Progress Note Date: 11/16/22 Pt has no new complaints today. Beta radha discontinued by cardiology. Gen: awake, alert HEENT: normocephalic, atraumatic, good hearing acuity, moist mucous membranes Resp: Impaired air exchange, tachypneic, no accessory muscle use CVS: good distal perfusion x 4, GI: soft, NTTP, ND : no SPT, no CVAT, dobbs catheter not present MSK: no pitting edema, no clubbing Neuro: non-focal, moving all extremities Psych: cooperative, euthymic mood Hospital course: 72-year-old man with idiopathic pulmonary fibrosis with chronic hypoxemic respiratory failure requiring 4 L nasal cannula, diastolic congestive heart failure, Parkinson's disease presented for recurrent syncopal episode. In the emergency room, patient was noted to be afebrile, 105/71, heart rate 83, 86% on 4 L of nasal cannula. CBC was remarkable for thrombocytopenia to 141. Basic metabolic panel showed sodium of 129, potassium of 3.4, chloride of 90. BUN was 29. Liver function tests are unremarkable. Troponin is 0.025 then trended to 0.0-7 and trended to 0.032. BNP was 5480. Coags are unremarkable. EKG showed normal sinus rhythm with right axis deviation, right bundle prince block, S1 Q3 T3 pattern. Chest x-ray showed findings of diffuse pulmonary fibrosis as seen on prior exams, cardiomegaly, increased pulmonary vascularity. Foot x-ray showed fifth digit proximal phalanx had an intra-articular extension suspicious for fracture. Case was discussed the emergency room provider and decision was made to admit the patient for syncope and for fracture. Assessment: Syncope Hyponatremia Idiopathic pulmonary fibrosis with chronic hypoxemic respiratory failure Chronic diastolic heart failure Parkinson's disease Plan: Today, patient is afebrile, 110/80, heart rate 76, 88% on 5 L nasal cannula Lipid panel reviewed, shows LDL of 34, total cholesterol of 86 Cardiology consulted, recommending discontinuing metoprolol Orthopedics note reviewed, recommended conservative management with Tylenol, NSAIDs Agree with normal saline at 75 mL per hour Continue Sinemet Continue prednisone Continue Xanax Would recommend increased frequency of outpatient palliative care visits upon discharge PT consultation Patient is no code Objective - Vital Signs Vital signs: Vital Signs Temp 97.2 F L 11/16/22 05:51 Pulse 76 11/16/22 10:00 Resp 16 07/12/23 07:57 BP 110/80 11/16/22 10:00 Pulse Ox 88 L 11/16/22 10:00 FiO2 Intake & Output 11/15/22 11/16/22 11/16/22 18:59 06:59 18:59 Weight 83.915 kg - Labs CBC & Chem 7: 11/15/22 19:44 11/15/22 19:44 Labs: Abnormal Lab Results - Last 24 Hours (Table) 11/15/22 11/15/22 11/16/22 Range/Units 19:44 19:44 02:24 Plt Count 141 L (150-450) k/uL Sodium 129 L (137-145) mmol/L Potassium 3.4 L (3.5-5.1) mmol/L Chloride 90 L (98-107) mmol/L BUN 29 H (9-20) mg/dL Glucose 168 H (74-99) mg/dL Total Bilirubin 1.5 H (0.2-1.3) mg/dL HDL Cholesterol 35.80 L (40.00-60.00) mg/dL
[2022-11-17 05:45] VITALS: RESP 18; TEMP 98
[2022-11-17] MEDS: SODIUM CHLORIDE 0.9% 1,000 ML IV SCH (05:59)
[2022-11-17] MEDS: HEPARIN SODIUM,PORCINE/PF 5,000 UNIT/0.5 ML SYRINGE SQ SCH (10:09)
[2022-11-17] MEDS: CARBIDOPA-LEVODOPA 10-100 MG 1 EACH TAB PO SCH (10:13)
[2022-11-17] MEDS: predniSONE 5 MG TAB PO SCH (10:13)
[2022-11-17 10:31] VITALS: BP 111/72; PULSE 94
--- NOTE | 2022-11-17 10:52 | P.DS ---
Providers Date of admission: 11/15/22 20:21 Expected date of discharge: 11/17/22 Attending physician: Iglesia Oliver MD Consults: 11/16/22 00:49 Consult Physician Routine Consulting Provider: Adi Tello Consult Reason/Comments: SYNCPE Do you want consulting provider notified?: Yes 11/16/22 01:02 Consult Physician Routine Consulting Provider: Mike Ferguson Consult Reason/Comments: right 5th toe fracture Do you want consulting provider notified?: Yes, Notify in am Primary care physician: [facility] Course: Assessment: Syncope Hyponatremia Idiopathic pulmonary fibrosis with chronic hypoxemic respiratory failure Chronic diastolic heart failure Parkinson's disease Hospital course: 72-year-old man with idiopathic pulmonary fibrosis with chronic hypoxemic respiratory failure requiring 4 L nasal cannula, diastolic congestive heart failure, Parkinson's disease presented for recurrent syncopal episode. In the emergency room, patient was noted to be afebrile, 105/71, heart rate 83, 86% on 4 L of nasal cannula. CBC was remarkable for thrombocytopenia to 141. Basic metabolic panel showed sodium of 129, potassium of 3.4, chloride of 90. BUN was 29. Liver function tests are unremarkable. Troponin is 0.025 then trended to 0.0-7 and trended to 0.032. BNP was 5480. Coags are unremarkable. EKG showed normal sinus rhythm with right axis deviation, right bundle prince block, S1 Q3 T3 pattern. Chest x-ray showed findings of diffuse pulmonary fibrosis as seen on prior exams, cardiomegaly, increased pulmonary vascularity. Foot x-ray show ed fifth digit proximal phalanx had an intra-articular extension suspicious for fracture. Case was discussed the emergency room provider and decision was made to admit the patient for syncope and for fracture. Patient was seen in consultation with cardiology, who recommended patient discontinue his beta radha. I had a discussion with the patient extensively about course of idiopathic pulmonary fibrosis, goals of care planning. Patient would like to return home with increased frequency about of care visits with the plan to eventually transition to hospice at home. Patient was encouraged to increase oral intake for nutrition, slowdown rate of transfers from lying to sitting to standing to decrease probability of falls. He should continue to follow-up with his primary care physician, cardiology, pulmonology, but anticipate transition to home with hospice in the near future. I spent 34 minutes coordinating this discharge on 11/17 Gen: awake, alert HEENT: normocephalic, atraumatic, good hearing acuity, moist mucous membranes Resp: Impaired air exchange, tachypneic, no accessory muscle use CVS: good distal perfusion x 4, GI: soft, NTTP, ND : no SPT, no CVAT, dobbs catheter not present MSK: no pitting edema, no clubbing Neuro: non-focal, moving all extremities Psych: cooperative, euthymic mood Patient Condition at Discharge: Fair Plan - Discharge Summary New Discharge Prescriptions: Continue Carbidopa/Levodopa [Carbidopa-Levodopa 10-100 Tab] 1 tab PO DAILY ALPRAZolam [Xanax] 0.5 mg PO HS Morphine Sulfate [Morphine Sulfate 10 MG/5 ML] 10 mg PO HS Furosemide [Lasix] 40 mg PO DAILY predniSONE 5 mg PO DAILY Potassium Chloride ER [K-Dur 20] 20 meq PO DAILY #30 tab metOLazone 2.5 mg PO MOTH ALPRAZolam [Xanax] 0.5 mg PO DAILY PRN PRN Reason: Anxiety Discontinued Metoprolol Succinate (ER) [Toprol Xl] 12.5 mg PO DAILY Discharge Medication List Carbidopa/Levodopa [Carbidopa-Levodopa 10-100 Tab] 1 tab PO DAILY 01/30/20 [History] ALPRAZolam [Xanax] 0.5 mg PO HS 07/13/21 [History] predniSONE 5 mg PO DAILY 07/13/21 [History] Potassium Chloride ER [K-Dur 20] 20 meq PO DAILY #30 tab 08/04/22 [Rx] ALPRAZolam [Xanax] 0.5 mg PO DAILY PRN 11/15/22 [History] Furosemide [Lasix] 40 mg PO DAILY 11/15/22 [History] Morphine Sulfate [Morphine Sulfate 10 MG/5 ML] 10 mg PO HS 11/15/22 [History] metOLazone 2.5 mg PO MOTH 11/15/22 [History] Follow up Appointment(s)/Referral(s): Adi Tello MD [STAFF PHYSICIAN] - 1 Week [facility] [NON-STAFF] - As Needed Maximo Kaplan PAC [PHYSICIAN TONGER] - 2 Weeks (please call office when open to make follow up appointments) [facility] [Primary Care Provider] - 1-2 days (please call office when open to make follow up appointment) Activity/Diet/Wound Care/Special Instructions: Orthopedic discharge instructions: 1. Utilize good supportive athletic shoe 2. Ice and elevate 3. Weight-bear through her heel to take pressure off the toes 4. Plan for follow-up in 2-3 weeks for x-ray evaluation Discharge Disposition: HOME WITH HOME HEALTH SERVICES
[2022-11-17] MEDS ORDERED: metOLazone 2.5 MG TAB PO SCH (11:30)
[2022-11-17] MEDS ORDERED: POTASSIUM CHLORIDE ER 20 MEQ TAB.ER PO SCH (12:00)
[2022-11-17] MEDS ORDERED: FUROSEMIDE 40 MG TAB PO SCH (12:00)
--- NOTE | 2022-11-17 12:03 | P.PN ---
Subjective HISTORY OF PRESENT ILLNESS: This is a 72-year-old male with a past medical history significant for pulmonary fibrosis, pulmonary hypertension, home oxygen, and Parkinson's disease. Patient follows in the office with Dr. Tello. We have been asked to see the patient in consultation for syncope. Patient examined at the bedside in the emergency room. Patient states that he had been noticing his heart rate was between 100 and 120 with minimal exertion. He states that he spoke to his automation machine operator about this and was started on metoprolol succinate 12.5 mg daily. He states 4 days after he took his first dose of this is when he had his first syncopal episode. On Monday, the patient states he had up to walk to the bathroom which was less than 10 feet from where he was in on his way back when he was walking into the bedr oom he passed out. His spouse is at the bedside and states that he was out for less than 1 minute. She reports that he was confused afterwards and did not recognize her. The patient states he had a similar episode yesterday. He states that he was walking to his wheelchair when he began to feel lightheaded and thought he was going to pass out so he grabbed onto something for support. He states he did not actually have a syncopal episode yesterday. The patient currently denies any shortness of breath. He reports having a cough with mild sputum production. He reports having mild nausea at home. He also reports he has been having some occasional left-sided chest pain. He states this happened a couple days ago which felt like a sharp pain in his side and resolved on its own. * EKG reveals sinus mechanism with right bundle branch block * Chest xray similar fibrotic disease, no significant change from prior. * Laboratory data: WBC 9.6. Hemoglobin 16.9. Platelet count 141. Sodium 129. Potassium 3.4. BUN 29. Creatinine 0.79. Troponin negative 3. ProBNP 5480. * Current home cardiac medications include Lasix 40 mg daily, metolazone 2.5 mg on Monday and , and metoprolol succinate 12.5 mg daily * Most recent echocardiogram obtained in July 2022 revealed ejection fraction 50%, severe pulmonary hypertension, mild mitral regurgitation, severe tricuspid regurgitation 11/17/2022 Patient examined this morning at the bedside. Patients family present. Patient denies chest pain or pressure. He denies shortness of breath. Patient states he is feeling better today in comparison to yesterday. He denies having any episodes of dizziness or presyncope. Patient's vital signs are stable. PHYSICAL EXAM: VITAL SIGNS: Reviewed. GENERAL: Well-developed in no acute distress. HEENT: Head is normocephalic. Pupils are equal, round. Sclerae anicteric. Mucous membranes of the mouth are moist. Neck supple. No JVD or thyromegaly LUNGS: Respirations even and unlabored. Lungs essentially clear to auscultation bilaterally. HEART: Regular rate and rhythm. S1 and S2 heard. Systolic murmur noted ABDOMEN: Soft. Nondistended. Nontender. EXTREMITIES: Normal range of motion. No clubbing or cyanosis. Peripheral pulses intact. No lower extremity edema NEUROLOGIC: Awake and alert. Oriented x 3. ASSESSMENT: Syncope, suspect secondary to orthostatic hypotension, possibly worsened by addition of metoprolol Pulmonary fibrosis Severe pulmonary hypertension Chronic hypoxic respiratory failure on home oxygen Chronic congestive heart failure with preserved EF, currently euvolemic Valvular heart disease History of Parkinson's disease History of CVA PLAN: Continue current cardiac medications Continue to hold metoprolol at the time of discharge Patient is stable for discharge home today from a cardiac standpoint He is to follow up on an outpatient basis with Dr. Tello Nurse practitioner note has been reviewed by physician. Signing provider agrees with the documented findings, assessment, and plan of care. Objective - Vital Signs Vital signs: Vital Signs Temp 98.0 F 11/17/22 08:00 Pulse 94 11/17/22 08:00 Resp 18 11/17/22 08:00 BP 111/72 11/17/22 08:00 Pulse Ox 93 L 11/17/22 09:15 FiO2 Intake & Output 11/16/22 11/17/22 11/17/22 18:59 06:59 18:59 Intake Total 20 540 Output Total 200 200 Balance -180 340 Intake: IV 20 Invasive Line 1 20 Oral 540 Output: Urine 200 200 Other: Voiding Method Urinal Urinal - Labs CBC & Chem 7: 11/15/22 19:44 11/15/22 19:44
[2022-11-17] MEDS ORDERED: MORPHINE ORAL SOLN 10 MG/5 ML CUP PO SCH (21:00)
== END 2022-11-17 11:56 | disposition home health service (06) | DRG 312 ==
LOC: EC 18:59 → 3SCARD 20:21
PROVIDERS: ADMIT Internal Medicine; ATTEND Internal Medicine
DX: I95.2 Hypotension due to drugs (principal); E87.1 Hypo-osmolality and hyponatremia; I50.32 Chronic diastolic (congestive) heart failure; J96.11 Chronic respiratory failure with hypoxia; T44.7X5A Adverse effect of beta-adrenoreceptor antagonists, initial encounter; I45.10 Unspecified right bundle-branch block; I27.20 Pulmonary hypertension, unspecified; I11.0 Hypertensive heart disease with heart failure; G20 Parkinson's disease; S92.511A Displaced fracture of proximal phalanx of right lesser toe(s), initial encounter for closed fracture; W19.XXXA Unspecified fall, initial encounter; Z99.81 Dependence on supplemental oxygen; Z86.73 Personal history of transient ischemic attack (TIA), and cerebral infarction without residual deficits; D69.6 Thrombocytopenia, unspecified; G25.0 Essential tremor; J84.112 Idiopathic pulmonary fibrosis; R55 Syncope and collapse; I08.1 Rheumatic disorders of both mitral and tricuspid valves; J40 Bronchitis, not specified as acute or chronic; M19.042 Primary osteoarthritis, left hand; M19.041 Primary osteoarthritis, right hand; Z79.82 Long term (current) use of aspirin; Z79.899 Other long term (current) drug therapy; Z91.81 History of falling; Z99.3 Dependence on wheelchair; Z90.49 Acquired absence of other specified parts of digestive tract; Z87.19 Personal history of other diseases of the digestive system; X58.XXXA Exposure to other specified factors, initial encounter
CPT/HCPCS: 36415; 71046; 80053; 80061; 83735; 83880; 84484; 85025; 85610; 85730; 93005; 94760; 96360; 96372; 99285